=== PATIENT | male | born 1940 | race Two or more races ===

== ENCOUNTER 2018-02-28 13:22 | Outpatient (CLI) | payer MEDICARE ==
--- NOTE | 2018-02-28 14:29 | RAD ---
PA AND LATERAL CHEST: History: COPD. FINDINGS: The heart size is normal. The aorta is tortuous. There is suggestion for mild infiltrate in the lingu la. No pneumothoraces or pleural effusions are seen. There are degenerative changes in the spine. IMPRESSION: Probable pneumonia involving the lingula. POS: C
== END 2018-02-28 13:23 | disposition home or self-care (01) ==
LOC: RAD-FRANK 13:22
PROVIDERS: ATTEND Internal Medicine
DX: J44.9 Chronic obstructive pulmonary disease, unspecified (principal)
CPT/HCPCS: 71046

== ENCOUNTER 2019-06-27 09:28 | Inpatient (IN) | payer MEDICARE ==
[2019-06-27] MEDS ORDERED: methylPREDNISolone Sod Succ/PF 125 MG/2 ML VIAL ONE (09:54)
[2019-06-27] MEDS ORDERED: Magnesium 2 GM/50 ML BAG (IN WATER) ONE (09:54)
--- NOTE | 2019-06-27 10:09 | RAD ---
PORTABLE CHEST: Date: 06/27/19 HISTORY: Dyspnea and cough. COMPARISON: 02/28/18. FINDINGS: Interstitial markings are increased in the lower lobes bilaterally. No evidence of confluent infiltra te or significant effusion. Heart size normal. Vascular markings upper normal. IMPRESSION: No focal infiltrate or consolidation. Increased interstitial markings in the lower lungs. POS: OFF
[2019-06-27 10:16] LABS: #Basophils 0.1 thou/uL (0.0-0.2); #Eosinphils 0.9 thou/uL (0.0-0.7); #Lymphocytes 1.2 thou/uL (1.20-3.40); #Monocytes 1.2 thou/uL (0.11-0.59); #Neutrophils 11.8 thou/uL (1.40-6.50); %Basophils 0.5 % (0.0-1.0); %Eosinophils 5.8 % (0.0-10.0); %Lymphocytes 7.8 % (21.0-51.0); %Monocytes 8.1 % (0.0-10.0); %Neutrophils 77.9 % (42.0-75.0); Mean Corpuscular HGB CONC 32.7 g/dL (32.0-36.0); Mean Corpuscular Hemoglobin 30.9 pg (27.0-31.0); Mean Corpuscular Volume 94.5 fL (78.0-98.0); Mean Platelet Volume 7.6 fL (7.4-10.4); Platelet Count 208 thou/uL (130-400); RBC Distribution Width 12.9 % (11.5-14.5); Red Blood Cell (RBC) Count 4.53 mill/uL (4.70-6.10); White Blood Cell (WBC) Count 15.2 thou/uL (4.8-10.8)
[2019-06-27 10:42] LABS: ALT (SGPT) 11 U/L (8-55); AST (SGOT) 14 U/L (5-34); Albumin 4.4 g/dL (3.4-4.8); Alkaline Phosphatase 59 U/L (40-150); Anion Gap 15 mmol/L (10-20); BUN (Urea Nitrogen) 19 mg/dL (8.4-25.7); Bilirubin, Total 0.7 mg/dL (0.2-1.2); Calc. Creatinine Clearance 0 mL/min (70-130); Calcium 9.5 mg/dL (7.8-10.44); Carbon Dioxide 26 mmol/L (23-31); Chloride 96 mmol/L (98-107); Estimated GFR-MDRD 85; Globulin 3.1 g/dL (2.4-3.5); Glucose 110 mg/dL (83-110); Potassium 4.1 mmol/L (3.5-5.1); Protein, Total 7.5 g/dL (5.8-8.1); Sodium 133 mmol/L (136-145)
[2019-06-27] MEDS ORDERED: methylPREDNISolone Sod Succ 40 MG VIAL IVP SCH (18:00)
[2019-06-27 18:15] VITALS: BMI 26.2
[2019-06-27] MEDS ORDERED: Dextrose 50% Abboject 50 ML SYRINGE IVP PRN (19:18)
[2019-06-27] MEDS ORDERED: Dextrose 5% in Water 1,000 ML IV PRN (19:18)
[2019-06-27] MEDS: guaiFENesin ER 600 MG TAB PO SCH (20:49)
[2019-06-27] MEDS: Cefdinir 300 MG CAP PO SCH (20:49)
[2019-06-28] MEDS: methylPREDNISolone Sod Succ 40 MG VIAL IVP SCH ×4 (00:12→18:02)
--- NOTE | 2019-06-28 01:23 | HP ---
CHIEF COMPLAINT: Shortness of breath, cough. HISTORY OF PRESENT ILLNESS: Mr. Healy is a 78-year-old male with past medical history of COPD, hypertension, came to my office with complaining of shortness of breath and cough, and cough is productive with yellow sputum. He has been having shortness of breath for the last few days and getting worse to the point he is unable to breathe well. He has a lot of exertional dyspnea, even with shortest distance he is having shortness of breath. He uses only the inhaler at home, no nebulizer treatments or steroid inhalers. So, the patient was evaluated in the office, found to be very hypoxic with O2 saturation of 85% on room air. He was given neb treatment. In spite of that, oxygen saturation did not improve. He was put on nasal cannula 2 L and oxygen saturation went up to 90%. So the patient was sent to the hospital. In the ER, the patient was evaluated and found to have COPD exacerbation. He received DuoNeb treatments, magnesium sulfate, and Solu- Medrol. The patient was still wheezing, so he is being admitted for further evaluation and management. PAST MEDICAL HISTORY: 1. COPD. 2. Hypertension. 3. Hyperlipidemia. 4. Chronic back pain. PAST SURGICAL HISTORY: Nothing significant. CURRENT MEDICATIONS: The patient is on 1. Centrum Silver daily. 2. Aspirin 325 mg daily. 3. Hydrochlorothiazide 12.5 mg daily. 4. Lisinopril 10 mg daily. 5. Simvastatin 80 mg daily. 6. ProAir 2 puffs q.i.d. ALLERGIES: NKDA. FAMILY HISTORY: Nothing contributory. SOCIAL HISTORY: The patient lives with family. No history of smoking now, he used to smoke heavily. He quit 5 years ago. He smoked for 60 years. No history of alcohol intake. REVIEW OF SYSTEMS: CARDIOVASCULAR: No chest pain. Has shortness of breath. RESPIRATORY: Has cough. No fever. GASTROINTESTINAL: No nausea, vomiting, or abdominal pain. CENTRAL NERVOUS SYSTEM: No headache. No dizziness. PHYSICAL EXAMINATION: GENERAL: The patient is alert, awake, oriented x3. VITAL SIGNS: Temperature 98, pulse 90, respirations 20, blood pressure 130/70. HEENT: Head is normocephalic, atraumatic. Pupils are equal and reactive. Nasopharynx is pale and dry. Hard and soft palate, no lesions. SKIN: Turgor decreased. NECK: Supple. No JVD. LUNGS: Breath sounds diminished bilaterally. Percussion dull bilaterally. Expiratory wheeze present bilaterally. HEART: S1, S2, regular. ABDOMEN: Soft. No distention. No tenderness. Normal bowel sounds present. RECTAL: Deferred. CENTRAL NERVOUS SYSTEM: No focal deficit. LABORATORY DATA: CBC shows WBC 15, hemoglobin 14, hematocrit 42, platelets 208. Metabolic panel; sodium 133, potassium 4, chloride 96, CO2 of 26, blood urea nitrogen 20, glucose 110. ASSESSMENT: 1. Chronic obstructive pulmonary disease with acute exacerbation. 2. Hypoxia. 3. Hypertension. 4. History of diabetes. 5. Hyperlipidemia. 6. Chronic back pain. 7. History of exertional dyspnea. PLAN: 1. Vital signs q.4 hours. 2. Activity as tolerated. 3. Allergies, NKDA. 4. Hep-Lock. 5. Diet, ADA. 6. Solu-Medrol 40 IVP q.6 hours. 7. DuoNeb 1 unit q.6 hours. 8. Dulera 200/5 two puffs b.i.d. 9. Mucinex 600 b.i.d. 10. Omnicef 300 mg b.i.d. 11. Continue his home medications. 12. Accu-Chek before meals and at bedtime. 13. Sliding scale mild with regular insulin. Job ID: [id number] [facility]
[2019-06-28] MEDS: Insulin Regular 300 UNITS/3 ML VIAL SC PRN (05:42)
[2019-06-28] MEDS: Mometasone/Formoterol 120 PUFF INHALER INH SCH ×2 (07:09→18:21)
[2019-06-28] MEDS: guaiFENesin ER 600 MG TAB PO SCH ×2 (09:35→20:16)
[2019-06-28] MEDS: Cefdinir 300 MG CAP PO SCH ×2 (09:35→20:16)
[2019-06-29] MEDS: methylPREDNISolone Sod Succ 40 MG VIAL IVP SCH ×4 (05:51→18:17)
[2019-06-29] MEDS: Insulin Regular 300 UNITS/3 ML VIAL SC PRN ×3 (05:52→16:54)
[2019-06-29] MEDS: Mometasone/Formoterol 120 PUFF INHALER INH SCH ×2 (06:58→17:59)
[2019-06-29] MEDS: guaiFENesin ER 600 MG TAB PO SCH ×2 (08:12→20:52)
[2019-06-29] MEDS: Cefdinir 300 MG CAP PO SCH ×2 (08:12→20:52)
--- NOTE | 2019-06-29 11:30 | CON ---
DATE OF CONSULTATION: 06/29/2019 This is 75 minutes time, of that time, greater than 50% spent with the patient and/or the patient's unit in the hospital. HISTORY OF PRESENT ILLNESS: The patient is a 78-year-old white male, who was admitted by Dr. Bañuelos yesterday with increasing shortness of breath, cough, and productive sputum. He was found to be hypoxic with a room air O2 saturation of 85%. The patient says he does not feel much different than normal. I have a feeling he has been living with the symptoms for quite some time. PAST MEDICAL HISTORY: 1. COPD. 2. Hypertension. 3. High cholesterol. 4. Chronic back pain. PAST SURGICAL HISTORY: None. MEDICATIONS: Prior to admission; 1. ProAir. 2. Simvastatin. 3. Lisinopril. 4. Hydrochlorothiazide. 5. Aspirin. 6. Centrum. ALLERGIES: NONE. FAMILY MEDICAL HISTORY: Unremarkable. SOCIAL HISTORY: Quit smoking 5 years ago after smoking a pack a day for 60 years. Does not consume alcohol. He is retired. He lives at home with his girlfriend. REVIEW OF SYSTEMS: Twelve-point review of systems is otherwise negative. PHYSICAL EXAMINATION: VITAL SIGNS: Temperature 98.2, pulse 79, respirations 16, O2 saturation 91% on 2 L, and blood pressure 156/58. HEENT: Unremarkable. NECK: No adenopathy, JVD, or bruits. LUNGS: With diffuse wheezing bilaterally. I would characterize this as mild. CARDIAC: S1 and S2. Regular. ABDOMEN: Soft and nontender. EXTREMITIES: No clubbing, cyanosis, or edema. IMAGING STUDIES: His chest x-ray shows chronic interstitial change without evidence of a mass, effusion, or infiltrate. LABORATORY DATA: White blood cell count 15.2, hematocrit 42.8, and platelet count 208. Sodium 132, potassium 4.1, chloride 96, CO2 of 26, BUN 9, creatinine 0.8, and glucose 110. ASSESSMENT: 1. Chronic obstructive pulmonary disease with exacerbation. 2. Acute hypoxic respiratory failure. PLAN: Agree with treatment with steroids and antibiotics. He is probably able to go home at any time. He may need home oxygen. I would start him on a long-acting inhaler such as Dulera two puffs twice a day like he is on right now. He will need PFTs as an outpatient. Job ID: [id number]
[2019-06-29] MEDS ORDERED: Atorvastatin Calcium 20 MG TAB PO SCH (21:00)
[2019-06-30] MEDS: methylPREDNISolone Sod Succ 40 MG VIAL IVP SCH ×2 (00:08→05:17)
[2019-06-30] MEDS: Mometasone/Formoterol 120 PUFF INHALER INH SCH (07:29)
[2019-06-30] MEDS: Cefdinir 300 MG CAP PO SCH (08:46)
[2019-06-30] MEDS: guaiFENesin ER 600 MG TAB PO SCH (08:47)
[2019-06-30] MEDS ORDERED: Lisinopril 10 MG TAB PO SCH (09:00)
[2019-06-30] MEDS ORDERED: Hydrochlorothiazide 25 MG TAB PO SCH ×2 (09:00)
--- NOTE | 2019-06-30 10:01 | PRG ---
DATE OF SERVICE: 06/30/2019 SUBJECTIVE: The patient is doing reasonably well, has no complaints. He wants to go home. OBJECTIVE: VITAL SIGNS: Temperature is 98.0, pulse 76, blood pressure 124/67, and O2 saturation 94% on 2 L. HEENT: Unremarkable. NECK: No JVD. CHEST: Clear to auscultation. CARDIAC: S1 and S2, regular. ABDOMEN: Soft. EXTREMITIES: No edema. ASSESSMENT: Chronic obstructive pulmonary disease with hypoxemia. PLAN: I think he is stable and can go home, probably needs a home O2 evaluation, needs PFTs as an outpatient. No further Pulmonary recommendations. We are available over the weekend as needed. Job ID: [id number]
[2019-06-30] MEDS: Insulin Regular 300 UNITS/3 ML VIAL SC PRN (11:43)
[2019-06-30 11:53] VITALS: BP 153/70; TEMP 97.9
[2019-07-01] MEDS ORDERED: predniSONE 20 MG TAB PO SCH (09:00)
--- NOTE | 2019-07-01 12:21 | EKG ---
Test Reason : Blood Pressure : / mmHG Vent. Rate : 090 BPM Atrial Rate : 090 BPM P-R Int : 156 ms QRS Dur : 082 ms QT Int : 356 ms P-R-T Axes : 078 -18 062 degrees QTc Int : 435 ms Normal sinus rhythm with sinus arrhythmia Nonspecific ST abnormality Abnormal ECG Confirmed by NANCY NOGUERA, PAMELA ([id number]), editor farm journal SHAWNA MARK ([id number]) on 07/01/2019 12:21:01 PM Referred By: Confirmed By:PAMELA CRUZ MD
--- NOTE | 2019-07-04 06:27 | PQF ---
[employer] Algology Teacher Crystal Reports [employer] Reese CORKY PUENTES MD [id number] [id number] CLINICAL DOCUMENTATION CLARIFICATION FORM: POST DISCHARGE Addendum to original discharge summary date: ____ Late entry note date: __ DATE: 07/04/2019 ATTN: CORKY STRICKLAND MD Please exercise your independent, professional judgment in responding to the clarification form. Clinical indicators are provided on the bottom of this form for your review Diagnosis : Acute Hypoxic respiratory failure Present on Admission (POA): [ y ] Yes [ ] No [ ] Unable to determine Coding guidelines require hospitals to identify whether a diagnosis was present on admission (POA) or not. To accurately assign the appropriate POA indicator, this information must be clearly documented within the medical record. CLINICAL INDICATORS - SIGNS / SYMPTOMS / LABS SOB - Documetned in H&P on 06/27 by CORKY STRICKLAND MD He is unable to breath well - Documetned in H&P on 06/27 by CORKY STRICKLAND MD Exertional dyspnea - Documetned in H&P on 06/27 by CORKY STRICKLAND MD very hypoxic with O2 saturation of 85 % on room air - Documetned in H&P on by CORKY STRICKLAND MD COPD exacerbation - Documetned in H&P on 06/27 by CORKY STRICKLAND MD Acute Hypoxic respiratory failure - Documented in Consultation note on 07/03 by Rainer Lantigua MD RISK FACTORS: Hx of COPD - Documetned in H&P on 06/27 by CORKY STRICKLAND MD TREATMENT: Pul nassl cannula 2 L and oxygen - Documetned in H&P on 06/27 by CORKY STRICKLAND MD Steroids and antibiotics - Documented in Consultation note on 07/03 by Rainer Lantigua MD (This form is maintained as a part of the permanent medical record) [employer] Algology Teacher Crystal Reports [id number]. All Rights Reserved [email or web address] [not provided] MTDD
--- NOTE | 2019-07-04 11:01 | PFT ---
PATIENT HISTORY: HEIGHT:68 IN WEIGHT: 172 SMOKER: NO HOW LON YRS PACKS PER DAY: 2.5 PRODUCTIVE COUGH: NO LUNG DISEASE: PHYSICIAN INTERPRETATION PFT data: 06/30/19 FEV1 1.38 L, 53% predicted, FVC 2.34L, 63% predicted. FEV1/FVC Ratio 0.59. Residual volume is severely elevated. DLCO is severely reduced. 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 The gas exchange is severely reduced. Firer Locomotive: CRYSTAL Motion Picture Critic: CRYSTAL DUONG
== END 2019-06-30 14:20 | disposition home or self-care (01) | DRG 189 ==
LOC: ERS 09:28 → OBSVTOIN 12:07 → T4-A 12:07
PROVIDERS: ADMIT Internal Medicine; ATTEND Internal Medicine
DX: J96.01 Acute respiratory failure with hypoxia (principal); J44.1 Chronic obstructive pulmonary disease with (acute) exacerbation; I10 Essential (primary) hypertension; E78.5 Hyperlipidemia, unspecified; M54.9 Dorsalgia, unspecified; G89.29 Other chronic pain; Z79.82 Long term (current) use of aspirin; Z79.899 Other long term (current) drug therapy; Z87.891 Personal history of nicotine dependence
CPT/HCPCS: 36415; 36416; 71045; 80053; 83880; 84484; 85025; 93005; 94010; 94640; 94727; 94729; 96365; 96375; J1815; J2920; J2930; J3475; J7620

== ENCOUNTER 2019-09-25 14:47 | Outpatient (CLI) | payer MEDICARE ==
--- NOTE | 2019-09-25 15:05 | RAD ---
XR Lumbar Spine 2 Or 3 View History: Low back pain Comparison: None. Findings: No acute fracture or malalignment. Moderate degenerative disc space narrowing at L5/S1. Mod erate facet arthropathy L3-S1. 2 mm L4 over L5 anterolisthesis. Narrowing of the L3-L5 interspinous space with cortical sclerosis and subcortical cysts. Mild aortic calcifications. Impression: Moderate degenerative changes. No acute fracture.
== END 2019-09-25 14:48 | disposition home or self-care (01) ==
LOC: RAD-FRANK 14:47
PROVIDERS: ATTEND Internal Medicine
DX: M54.5 Low back pain (principal); M47.816 Spondylosis without myelopathy or radiculopathy, lumbar region
CPT/HCPCS: 72100

== ENCOUNTER 2020-10-14 18:36 | Inpatient (IN) | payer MEDICARE ==
[2020-10-14] MEDS ORDERED: Dexamethasone 10 MG/ML VIAL ONE (18:47)
[2020-10-14] MEDS ORDERED: fentaNYL Citrate/PF 2,000 MCG in Sodium Chloride 0.9% 60 ML IV SCH (19:00)
[2020-10-14 19:11] LABS: #Lymphocytes 0.7 thou/uL (1.20-3.40); #Monocytes 0.7 thou/uL (0.11-0.59); #Neutrophils 3.6 thou/uL (1.40-6.50); %Eosinophils 0.1 % (0.0-10.0); %Lymphocytes 14.7 % (21.0-51.0); %Monocytes 14.5 % (0.0-10.0); %Neutrophils 70.7 % (42.0-75.0); Hemoglobin 9.8 g/dL (14.0-18.0); Mean Corpuscular Hemoglobin 31.9 pg (27.0-31.0); Mean Corpuscular Volume 96.8 fL (78.0-98.0); Mean Platelet Volume 8.5 fL (7.4-10.4); Platelet Count 136 thou/uL (130-400); RBC Distribution Width 13.6 % (11.5-14.5); Red Blood Cell (RBC) Count 3.05 mill/uL (4.70-6.10); White Blood Cell (WBC) Count 5.1 thou/uL (4.8-10.8)
[2020-10-14 19:32] LABS: ALT (SGPT) 417 U/L (8-55); AST (SGOT) 656 U/L (5-34); Albumin 2.9 g/dL (3.4-4.8); Alkaline Phosphatase 44 U/L (40-110); Anion Gap 17 mmol/L (10-20); BUN (Urea Nitrogen) 52 mg/dL (8.4-25.7); Bilirubin, Total 0.5 mg/dL (0.2-1.2); Calc. Creatinine Clearance 0 mL/min (70-130); Calcium 6.6 mg/dL (7.8-10.44); Carbon Dioxide 24 mmol/L (23-31); Chloride 106 mmol/L (98-107); Globulin 2.8 g/dL (2.4-3.5); Glucose 143 mg/dL (83-110); Potassium 4.7 mmol/L (3.5-5.1); Protein, Total 5.7 g/dL (5.8-8.1); Sodium 142 mmol/L (136-145)
[2020-10-14 19:36] LABS: Bacteria/HPF None Seen HPF (None Seen); Bilirubin Negative (Negative); Blood, Urine 2+ (Negative); Clarity Clear (Clear); Glucose, Urine (Dipstick) Normal (Negative); Ketone, Urine Negative (Negative); Leukocyte Negative Leu/uL (Negative); Nitrite Negative (Negative); Protein, Urine (Dipstick) 30 mg/dL (Neg-Trace); Specific Gravity, Urine 1.016 (1.002-1.036); Squamous Epithelial 0-3 HPF (0-3); Urobilinogen Normal mg/dL (Less than 2); pH, Urine 5.5 (5.0-9.0)
[2020-10-14 19:58] LABS: CKMB 5.8 ng/mL (0-6.6)
--- NOTE | 2020-10-14 20:01 | RAD ---
PORTABLE CHEST: Date: 10-14-2020 PROVIDED CLINICAL HISTORY: Hypoxia, Covid symptoms Comparison: 06-27-19 FINDINGS: Cardiac and mediastinal silhouette is unchanged in appearance. There is an endotracheal tube, the tip of which projects inferior to the thoracic inlet but cranial to the daxa. There is an enteric cath eter, the tip of which is not visualized but is below the diaphragm. There is extensive bilateral int erstitial and airspace disease. The right costophrenic angle is not well defined. The supine nature o f the examination is not sensitive for detection of pneumothorax, without definite evidence for such. IMPRESSION: 1. Support apparatus as described. 2. Extensive bilateral parenchymal opacity, compatible with Covid pneumonia in the appropriate clinic al context. Other etiologies could have a similar appearance. POS: MIGNON
[2020-10-14 20:04] LABS: CO2 Tension 65.8 mmHg (35.0-45.0); O2 Tension (PaO2), arterial 79.4 mmHg (> 60.0); pH, Arterial 7.22 (7.35-7.45)
[2020-10-14 20:05] LABS: Actual Bicarbonate (HCO3a) 26.2 mEq/L (22-28); Base Excess (BEa) -2.4 mEq/L (-2.0 to +3.0); Carboxyhemoglobin (COHb) 0.3 gm% (0.0-3.0); Potassium - ABG Lab 4.51 mmol/L (3.70-5.30)
[2020-10-14 20:06] LABS: Analyzer IN Cardio ER; Calcium, Ionized (arterial) 1.02 mmol/L (1.12-1.30); Puncture Site RRA
[2020-10-14] MEDS ORDERED: Ondansetron ODT 4 MG TAB PO PRN (20:08)
[2020-10-14] MEDS ORDERED: Acetaminophen 650 MG Suppository PR PRN (20:08)
[2020-10-14] MEDS ORDERED: Ventilator Sedation Protocol 1 EACH FS ONE (20:08)
[2020-10-14] MEDS ORDERED: Ondansetron PF 4 MG/2 ML Vial IVP PRN (20:08)
--- NOTE | 2020-10-14 20:16 | PDOC.HHP ---
Hospitalist HPI - History of Present Illness respiratory failure History of Present Illness: history is limited, during my evaluation patient was on MV and sedated, no family members were present at the moment of my evaluation most of the history was obtain from ems and emr Case of an 79y/o male with a pmhx of htn, copd and hld who was herminia to hospital due to respiratory failure. apparently patient was recently diagnosed with covid 19 about a wk ago after having symptoms of loss of taste and smell. patient was found unresponsive for which ems was called. patient was found with an 02 sat in the 40s with a GCS of 3 for which he was intubated at site and transfer to this institution. Here he was evaluated, cxr showed worsening covid pneumonia with renal failure and hospitalist was called for further evaluation and management. Hospitalist ROS - Review of Systems ROS unobtainable: due to endotracheal tube Hospitalist History - Past Surgical History Other Surgical History: unable to asses due to MV - Family History Other Family History: unable to asses due to MV - Social History Other Social History: unable to asses due to MV - Exam General Appearance: ill appearing General - other findings: on MV Eye: PERRL, anicteric sclera ENT: normocephalic atraumatic, no oropharyngeal lesions Neck: supple, symmetric, no JVD Heart: RRR, no murmur, no gallops Respiratory: no rales, normal chest expansion, rhonchi Gastrointestinal: soft, non-tender, non-distended, normal bowel sounds Extremities: no cyanosis, no clubbing, no edema Skin: normal turgor, no lesions, no rashes Neurological: cranial nerve grossly intact, normal sensation to touch Musculoskeletal: normal tone, normal strength, no muscle wasting Psychiatric: normal affect, normal behavior, A&O x 3 Hospitalist Results - Labs Result Diagrams: 10/14/20 18:58 10/14/20 18:58 Lab results: WBC 5.1 thou/uL (4.8-10.8) 10/14/20 18:58 Hgb 9.8 g/dL (14.0-18.0) L 10/14/20 18:58 Hct 29.6 % (42.0-52.0) L 10/14/20 18:58 MCV 96.8 fL (78.0-98.0) 10/14/20 18:58 Plt Count 136 thou/uL (130-400) 10/14/20 18:58 Neutrophils % 70.7 % (42.0-75.0) 10/14/20 18:58 ABG pH 7.22 (7.35-7.45) L* 10/14/20 19:54 ABG pCO2 65.8 mmHg (35.0-45.0) H* 10/14/20 19:54 ABG pO2 79.4 mmHg (> 60.0) H 10/14/20 19:54 Sodium 142 mmol/L (136-145) 10/14/20 18:58 Potassium 4.7 mmol/L (3.5-5.1) 10/14/20 18:58 Chloride 106 mmol/L (98-107) 10/14/20 18:58 Carbon Dioxide 24 mmol/L (23-31) 10/14/20 18:58 BUN 52 mg/dL (8.4-25.7) H 10/14/20 18:58 Creatinine 2.25 mg/dL (0.7-1.3) H 10/14/20 18:58 Glucose 143 mg/dL (83-110) H 10/14/20 18:58 Lactic Acid 1.5 mmol/L (0.5-2.2) 10/14/20 19:01 Calcium 6.6 mg/dL (7.8-10.44) L 10/14/20 18:58 Total Bilirubin 0.5 mg/dL (0.2-1.2) 10/14/20 18:58 AST 656 U/L (5-34) H 10/14/20 18:58 ALT 417 U/L (8-55) H 10/14/20 18:58 Alkaline Phosphatase 44 U/L (40-110) 10/14/20 18:58 CK-MB (CK-2) 5.8 ng/mL (0-6.6) 10/14/20 18:58 Troponin I 4.076 ng/mL (< 0.028) H* 10/14/20 18:58 Serum Total Protein 5.7 g/dL (5.8-8.1) L 10/14/20 18:58 Albumin 2.9 g/dL (3.4-4.8) L 10/14/20 18:58 Urine Ketones Negative mg/dL (Negative) 10/14/20 19:15 Urine Blood 2+ (Negative) A 10/14/20 19:15 Urine Nitrite Negative (Negative) 10/14/20 19:15 Ur Leukocyte Esterase Negative Tucker/uL (Negative) 10/14/20 19:15 Urine RBC 11-20 HPF (0-3) A 10/14/20 19:15 Urine WBC 7-10 HPF (0-3) A 10/14/20 19:15 Ur Squamous Epith Cells 0-3 HPF (0-3) 10/14/20 19:15 Urine Bacteria None Seen HPF (None Seen) 10/14/20 19:15 Hospitalist H&P A/P - Problem (1) Acute and chronic respiratory failure Code(s): J96.20 - ACUTE AND CHR RESP FAILURE, UNSP W HYPOXIA OR HYPERCAPNIA Status: Acute (2) Pneumonia due to COVID-19 virus Code(s): U07.1 - COVID-19; J12.89 - OTHER VIRAL PNEUMONIA Status: Acute (3) Renal failure Status: Acute (4) NSTEMI (non-ST elevated myocardial infarction) Code(s): I21.4 - NON-ST ELEVATION (NSTEMI) MYOCARDIAL INFARCTION Status: Acute (5) HLD (hyperlipidemia) Code(s): E78.5 - HYPERLIPIDEMIA, UNSPECIFIED Status: Acute (6) COPD (chronic obstructive pulmonary disease) Status: Acute (7) Diabetes Code(s): E11.9 - TYPE 2 DIABETES MELLITUS WITHOUT COMPLICATIONS Status: Acute - Plan Plan: 79y/o male that arrived with respiratory failure requiring MV secondary to covid 19 acute on chronic resp failure requiring MV - was 40% RA, GCS 3 - on MV - pulmonology consulted - sedation protocol - gi prophylaxis covid 19 pneumonia - apparently diagnosed 1wk ago - cxr consistent with covid 19 - will start decadron - vitamin c d + zinc nstemi - likely nstemi type 2 - will start AC with lovenox full dose - cardio evaluation - 2d echo - troponin 4, will trend - unable to start beta fernando acei due to borderline low b/p with systolic in the low 100s - asa tristen - starting ivfs - nephrology consulted - u/s renal - f/u renal function and u/o dm acc+ss
[2020-10-14 20:25] LABS: SARS-CoV-2 NAA Rapid Test DETECTED (NotDetected)
[2020-10-14] MEDS ORDERED: DISCONTINUE PREVIOUS NARCOTIC PAIN MEDICATIONS AND BENZODIAZEPINES FS SCH (20:30)
[2020-10-14] MEDS ORDERED: Propofol BOLUS 1,000 MG/100 ML VIAL IV PRN (20:30)
[2020-10-14] MEDS ORDERED: Fentanyl BOLUS 250 ML IVPB PRN (20:30)
[2020-10-14] MEDS ORDERED: Morphine 2 MG/ML VIAL SLOW IVP PRN (20:30)
[2020-10-14] MEDS ORDERED: Atorvastatin Calcium 20 MG TAB PO SCH (21:00)
[2020-10-14 21:25] LABS: Medtox Reader # READER 4
[2020-10-14 21:27] LABS: Amphetamine Not Detected (NotDetected); Barbiturates Screen Not Detected (NotDetected); Benzodiazepine Screen Not Detected (NotDetected); Cocaine Metabolite Screen Not Detected (NotDetected); Medtox Control Line Valid? VALID (VALID); Methadone Not Detected (NotDetected); Methamphetamine Not Detected (NotDetected); Opiate Screen Not Detected (NotDetected); Oxycodone Screen Not Detected (NotDetected); Phencyclidine (PCP) Not Detected (NotDetected); THC/Cannabinoid Screen Not Detected (NotDetected); Tricyclic Screen Not Detected (NotDetected)
[2020-10-14] MEDS ORDERED: Aspirin 300 MG Suppository ONE (22:29)
[2020-10-14 22:32] LABS: Troponin I 5.579 ng/mL (< 0.028)
[2020-10-14] MEDS ORDERED: Dextrose 5% in Water 1,000 ML IV PRN (23:10)
[2020-10-14] MEDS ORDERED: Dextrose 50% Abboject 50 ML SYRINGE SLOW IVP PRN (23:10)
[2020-10-15] MEDS: Sodium Chloride 0.9% 1,000 ML IV SCH ×3 (00:44→16:53)
[2020-10-15 01:23] LABS: Critical Call Chem Troponin I RESULT DECREASING; Troponin I 5.509 ng/mL (< 0.028)
[2020-10-15] MEDS ORDERED: Sodium Chloride 0.9% 500 ML IV SCH (02:00)
[2020-10-15 04:31] LABS: ALT (SGPT) 680 U/L (8-55); AST (SGOT) 1269 U/L (5-34); Alkaline Phosphatase 41 U/L (40-110); Anion Gap 15 mmol/L (10-20); BUN (Urea Nitrogen) 51 mg/dL (8.4-25.7); Bilirubin, Total 0.5 mg/dL (0.2-1.2); Calc. Creatinine Clearance 34 mL/min (70-130); Calcium 6.9 mg/dL (7.8-10.44); Carbon Dioxide 25 mmol/L (23-31); Chloride 106 mmol/L (98-107); Glucose 162 mg/dL (83-110); Magnesium 2.3 mg/dL (1.6-2.6); Potassium 4.2 mmol/L (3.5-5.1); Sodium 142 mmol/L (136-145)
[2020-10-15 04:36] LABS: Band 56 % (5-11); Hemoglobin 9.8 g/dL (14.0-18.0); Hypochromia SLIGHT = 6-15 cells (100X) (0-5/hpf); Lymphocytes 3 % (21-51); MDiff Complete? YES; Mean Corpuscular HGB CONC 31.7 g/dL (32.0-36.0); Mean Corpuscular Hemoglobin 31.1 pg (27.0-31.0); Mean Corpuscular Volume 98.1 fL (78.0-98.0); Mean Platelet Volume 8.9 fL (7.4-10.4); Metamyelocyte 2 % (0-0); Monocytes 6 % (0-10); Neutrophil 33 % (42-75); Platelet Count 133 thou/uL (130-400); Platelet Morphology Comment Appears Adequate; RBC Distribution Width 13.7 % (11.5-14.5); Red Blood Cell (RBC) Count 3.15 mill/uL (4.70-6.10); Reflex for Review?? YES; White Blood Cell (WBC) Count 13.8 thou/uL (4.8-10.8)
[2020-10-15] MEDS ORDERED: Sterile Water 0 ML ONE (06:31)
[2020-10-15] MEDS: Vecuronium 10 MG VIAL ONE ×2 (07:31→13:31)
[2020-10-15] MEDS: fentaNYL Citrate/PF 2,000 MCG in Sodium Chloride 0.9% 60 ML IV SCH (07:39)
--- NOTE | 2020-10-15 07:50 | ULT ---
US Renal Bilateral STANDARD History: Renal failure Comparison: None. Findings: The right kidney measures 11.5 x 4.7 x 4.4 cm with a 1 cm interpolar cyst. No mass or hydro nephrosis. The left kidney measures 10.7 x 5.4 x 5.2 cm without mass, hydronephrosis or abnormal calcifications. Urinary bladder is decompressed with a Whittaker catheter. Impression: No evidence for obstructive uropathy.
[2020-10-15] MEDS: Cholecalciferol (Vitamin D3) 400 UNITS TAB PO SCH (08:45)
[2020-10-15] MEDS: Propofol 1,000 MG/100 ML VIAL IV PRN ×2 (08:45→23:28)
[2020-10-15] MEDS: Zinc Sulfate 220 MG CAP PO SCH (08:45)
[2020-10-15] MEDS: Aspirin 325 mg Enteric Coated Tablet PO SCH (08:45)
[2020-10-15] MEDS: Famotidine/PF 20 mg/2ml Vial SLOW IVP SCH (08:46)
[2020-10-15] MEDS: Enoxaparin Sodium 80 MG/0.8 ML SYRINGE SC SCH (08:46)
[2020-10-15] MEDS: Dexamethasone 4 mg/ml Vial SLOW IVP SCH (08:46)
[2020-10-15] MEDS: Ascorbic Acid 500 mg Chewable Tablet PO SCH (09:19)
--- NOTE | 2020-10-15 11:49 | CON ---
DATE OF CONSULTATION: HISTORY OF PRESENT ILLNESS: Geronimo Healy is an 79-year-old white male, who was admitted with COVID pneumonia, respiratory arrest, and currently is intubated. History is obtained from review of the chart and physical examination was deferred due to COVID. In June 2019, he was admitted with COPD exacerbation with hypoxemia. About one week ago, he was diagnosed as having COVID-19 after loss of taste and smell. He then was found to be unresponsive when paramedics arrived, O2 saturation was in the 40% range with Willard Coma Scale of 3. He was intubated and transferred here. PAST MEDICAL HISTORY: Hypertension, diabetes, hypercholesterolemia, and COPD. MEDICATIONS: 1. Mucinex 600 b.i.d. 2. Hydrochlorothiazide 12.5 daily. 3. DuoNebs q.i.d. 4. Lisinopril 10 mg daily. 5. Dulera 2 puffs b.i.d. 6. Prednisone 10 mg daily. 7. Simvastatin 40 mg q.2 days. ALLERGIES: NONE. OPERATIONS: Apparently none. SOCIAL HISTORY: He does not drink from previous histories. He did smoke 1 pack per day for 60 years, but stopped 6 years ago. REVIEW OF SYSTEMS: Unobtainable. PHYSICAL EXAMINATION: VITAL SIGNS: Blood pressure 94/55; pulse of 68, sinus rhythm. Physical examination is deferred due to COVID. IMAGING STUDIES: There is no EKG on the chart. Renal ultrasound is unremarkable. Chest x-ray reveals extensive bilateral opacities. LABORATORY DATA: White count 13,800, hemoglobin 9.8, hematocrit 30.9, and platelets 133,000. D-dimer 2.67. A pH of 7.22, pCO2 of 65.8, and pO2 of 79.4. Sodium 142, potassium 4.2, chloride 106, carbon dioxide 25, BUN 51, and creatinine 1.98. Creatinine was 2.25 on admission and his baseline was 0.87 in June 2019. AST has increased to 1269 and ALT 680. Troponin-I 5.579. BNP 792.7. IMPRESSION: 1. Acute respiratory failure with hypercapnia. 2. COVID pneumonia. 3. Acute kidney injury. 4. Non-ST segment elevation myocardial infarction, probably type 2. 5. Chronic obstructive pulmonary disease. 6. Hyperlipidemia. 7. Diabetes. 8. Hypertension. 9. Liver function test elevation. PLAN: The patient is being started on Decadron. At the present time, he is hypotensive and receiving intravenous fluids. I do not feel that any cardiac intervention would be helpful in his care. Certainly, his long-term prognosis is poor given his significant COPD, advanced age, and now with multiorgan system failure. Job ID: [id number] MTDD
[2020-10-15] MEDS: HumaLOG 300 UNITS/3 ML VIAL SC PRN ×3 (12:47→23:29)
[2020-10-15] MEDS ORDERED: FLU VACC QS2020-21(65YR UP)/PF 240 MCG/0.7 ML SYRINGE IM ONE (13:00)
[2020-10-15] MEDS ORDERED: Vecuronium 10 MG VIAL ONE (13:29)
[2020-10-15] MEDS: Lorazepam 2 MG/ML VIAL SLOW IVP PRN (13:31)
--- NOTE | 2020-10-15 16:09 | PDOC.HOSPP ---
- Subjective Encounter Date: 10/15/20 Encounter Time: 12:00 Subjective: sedated, is on vent he moves all extremities per staff - Objective Vital Signs & Weight: Vital Signs (12 hours) Pulse Resp BP Pulse Ox 10/15/20 14:41 68 88/52 L 10/15/20 14:00 20 10/15/20 12:00 20 10/15/20 10:28 68 94/55 L 10/15/20 10:00 20 10/15/20 08:00 20 92 L 10/15/20 07:46 77 93/54 L 10/15/20 06:00 20 Weight Admit Weight 178 lb 9.191 oz Weight 178 lb 9.191 oz Most Recent Monitor Data Heart Rate from ECG 70 NIBP 113/67 NIBP BP-Mean 82 Respiration from ECG 0 SpO2 98 I&O: 10/14/20 10/15/20 10/16/20 06:59 06:59 06:59 Intake Total 1090 Output Total 730 530 Balance 360 -530 Result Diagrams: 10/15/20 03:06 10/15/20 03:06 Additional Labs: Accuchecks 10/15/20 12:32 POC Glucose 162 H Hospitalist ROS - Medication Medications: Active Medications Generic Name Dose Route Start Last Admin Trade Name Freq PRN Reason Stop Dose Admin Ascorbic Acid 1,000 mg 10/15/20 09:00 10/15/20 09:19 Ascorbic Acid 500 Mg Chewable Tablet PO Not Given DAILY MACKENZIE Aspirin 325 mg 10/15/20 09:00 10/15/20 08:45 Aspirin 325 Mg Enteric Coated Tablet PO 325 mg DAILY MACKENZIE Administration Atorvastatin Calcium 20 mg 10/14/20 21:00 10/15/20 00:32 Atorvastatin Calcium 20 Mg Tab PO Not Given Q2DAYS MACKENZIE Cholecalciferol 400 units 10/15/20 09:00 10/15/20 08:45 Cholecalciferol (Vitamin D3) 400 Units Tab PO 400 units DAILY MACKENZIE Administration Dexamethasone 6 mg 10/15/20 09:00 10/15/20 08:46 Dexamethasone 4 Mg/Ml Vial SLOW IVP 6 mg DAILY MACKENZIE Administration Enoxaparin Sodium 80 mg 10/15/20 09:00 10/15/20 08:46 Enoxaparin Sodium 80 Mg/0.8 Ml Syringe SC 80 mg 09 MACKENZIE Administration Famotidine 20 mg 10/15/20 09:00 10/15/20 08:46 Famotidine/Pf 20 Mg/2ml Vial SLOW IVP 20 mg QAM MACKENZIE Administration Sodium Chloride 1,000 mls @ 100 mls/hr 10/14/20 20:15 10/15/20 07:31 Normal Saline 0.9% IV Not Given .Q10H MACKENZIE Fentanyl Citrate 2,000 mcg/ 100 mls @ 0 mls/hr 10/14/20 20:30 10/15/20 07:39 Sodium Chloride IV 11/13/20 20:30 100 mls INF MACKENZIE Administration Protocol Per Protocol Insulin Human Lispro 0 units 10/14/20 23:10 10/15/20 12:47 Humalog 300 Units/3 Ml Vial SC 2 unit .MILD SLIDING SCALE PRN Administration Mild Correctional Scale Lorazepam 2 mg 10/14/20 20:30 10/15/20 13:31 Lorazepam 2 Mg/Ml Vial SLOW IVP 11/13/20 20:30 2 mg Q1H PRN Administration Breakthrough agitation Propofol 1,000 mg 10/14/20 20:30 10/15/20 08:45 Propofol 1,000 Mg/100 Ml Vial IV 11/13/20 20:30 1,000 mg INF PRN Administration TO ACHIEVE GOAL RASS Protocol Sodium Chloride 10 ml 10/15/20 09:00 10/15/20 08:46 Flush - Normal Saline 10 Ml Syringe IVF 10 ml Q12HR MACKENZIE Administration Zinc Sulfate 220 mg 10/15/20 09:00 10/15/20 08:45 Zinc Sulfate 220 Mg Cap PO 220 mg DAILY MACKENZIE Administration - Exam Eye: anicteric sclera ENT: no oropharyngeal lesions, dry oral mucosa Neck: supple, no JVD Heart: RRR, no murmur Respiratory: no wheezes, rales, rhonchi Gastrointestinal: soft, non-tender, non-distended, normal bowel sounds Extremities: no cyanosis, no edema Neurological: cranial nerve grossly intact, no focal deficits Hosp A/P (1) Acute respiratory failure with hypoxia and hypercarbia Code(s): J96.01 - ACUTE RESPIRATORY FAILURE WITH HYPOXIA; J96.02 - ACUTE RE SPIRATORY FAILURE WITH HYPERCAPNIA Status: Acute (2) COPD exacerbation Code(s): J44.1 - CHRONIC OBSTRUCTIVE PULMONARY DISEASE W (ACUTE) EXACERBATION Status: Acute (3) ASHLEY (acute kidney injury) Code(s): N17.9 - ACUTE KIDNEY FAILURE, UNSPECIFIED Status: Acute (4) Elevated LFTs Code(s): R79.89 - OTHER SPECIFIED ABNORMAL FINDINGS OF BLOOD CHEMISTRY Status: Acute (5) Acute exacerbation of CHF (congestive heart failure) Code(s): I50.9 - HEART FAILURE, UNSPECIFIED Status: Suspected Qualifiers: Heart failure type: diastolic Qualified Code(s): I50.33 - Acute on chronic diastolic (congestive) heart failure (6) Sepsis Code(s): A41.9 - SEPSIS, UNSPECIFIED ORGANISM Status: Acute Qualifiers: Sepsis type: sepsis due to unspecified organism Sepsis acute organ dysfunction status: with acute organ dysfunction Severe sepsis acute organ dysfunction type: acute renal failure (7) Acute metabolic encephalopathy Code(s): G93.41 - METABOLIC ENCEPHALOPATHY Status: Acute (8) Hypoalbuminemia due to protein-calorie malnutrition Code(s): E88.09 - OTH DISORDERS OF PLASMA-PROTEIN METABOLISM, NEC; E46 - UNSPECIFIED PROTEIN-CALORIE MALNUTRITION Status: Chronic (9) NSTEMI (non-ST elevated myocardial infarction) Code(s): I21.4 - NON-ST ELEVATION (NSTEMI) MYOCARDIAL INFARCTION Status: Acute (10) Pneumonia due to COVID-19 virus Code(s): U07.1 - COVID-19; J12.89 - OTHER VIRAL PNEUMONIA Status: Acute - Plan continue dexamethasone, lovenox full renal dose, iv fluids, aspirin. has significant elevation and increase of lft's from admission echo for lv function, bnp is elevated tried calling his family with phone # on [employer], it goes straight to message and cant reach them d/w Per ER records patient has not recieved any iv fluids, unclear if he has shock liver? dc lipitor, unknown downtime prior to arrival, is apparently moving all extremities per staff. will f/u
--- NOTE | 2020-10-15 16:25 | CON ---
DATE OF CONSULTATION: 10/15/2020 HISTORY OF PRESENT ILLNESS: Mr. Healy is an 79-year-old male who was diagnosed with COVID a week ago. He was found unresponsive at home and was intubated by the [facility]. He is transferred here. PAST MEDICAL HISTORY: Remarkable for: 1. Hypertension. 2. Diabetes. 3. Lipid disorder. 4. COPD. MEDICATIONS: Prior to admission, he was on: 1. Mucinex. 2. Hydrochlorothiazide. 3. DuoNeb. 4. Lisinopril. 5. Dulera. 6. Prednisone. 7. Simvastatin. ALLERGIES: THERE ARE NO ALLERGIES RECORDED. SOCIAL HISTORY: He is a pack-a-day smoker up until 6 years ago. He does not drink. REVIEW OF SYSTEMS: Ten-point review of systems not obtainable because he is intubated. PHYSICAL EXAMINATION: VITAL SIGNS: Blood pressure is 113/67, heart rate 70, respiratory rates 20, and he is afebrile. HEAD AND NECK: Unremarkable. LUNGS: Remarkable for distant breath sounds. HEART: Regular rhythm. ABDOMEN: Soft. NEUROLOGIC: He is sedated, so no neuro exam could be performed. LABORATORY DATA: Sodium 142, potassium 4.2, chloride 106, bicarb 25, BUN 51, and creatinine 1.98, creatinine was 2.25 yesterday. White count 13.8, hemoglobin 9.8, and platelets 133. A pH 7.22, CO2 of 65, PO2 of 79 yesterday after arrival. There is no blood gas from today. He was on 100% oxygen and saturating in the high 80s to low 90s, so he was switched to the prone position today. IMPRESSION: 1. COVID pneumonia. 2. Elevated liver enzymes. 3. Underlying chronic obstructive pulmonary disease. PFTs done in June of last year showed an FEV1 of 1.91 L, total lung capacity was normal, residual volume was increased significantly. Obviously, he will be mechanically ventilated for quite some time. Given his underlying lung disease, his prognosis is quite guarded. His other problems include: 1. Acute kidney injury that appears to be improving. 2. Elevated troponin, most likely a type 2 myocardial infarction. 3. Lipid disorder. 4. Diabetes. 5. Hypertension. We will follow. CRITICAL CARE TIME: 30 minutes. Job ID: [id number] [facility]
[2020-10-15] MEDS ORDERED: Calcium Chloride 13.6 MEQ in Sodium Chloride 0.9% 100 ML IVPB SCH (17:00)
--- NOTE | 2020-10-15 17:36 | EKG ---
Test Reason : Blood Pressure : / mmHG Vent. Rate : 068 BPM Atrial Rate : 068 BPM P-R Int : 154 ms QRS Dur : 086 ms QT Int : 426 ms P-R-T Axes : 062 014 047 degrees QTc Int : 452 ms Normal sinus rhythm Normal ECG Confirmed by Romulo YEAGER ([id number]) on 10/15/2020 5:35:50 PM Referred By: TU Confirmed By:Romulo YEAGER
--- NOTE | 2020-10-15 17:55 | CON ---
DATE OF CONSULTATION: 10/15/2020 SERVICE: Nephrology. REASON FOR CONSULTATION: Acute elevation in creatinine. REQUESTING PHYSICIAN: Dr. Noam Galaviz. HISTORY OF PRESENT ILLNESS: An 79-year-old male admitted due to worsening shortness of breath in the context of recent COVID symptoms. The patient was diagnosed with COVID infection about a week ago, was found by relatives to be unresponsive. Oxygen was said to be in 40s that is SpO2 with GCS of 3. Hence, the patient was intubated at the site and was subsequently brought to the hospital. Chest x-ray showed multifocal bilateral pneumonia consistent with COVID pneumonia. The patient also was found to have elevated creatinine, hence Nephrology consult. This patient was unable to provide any history as he is currently intubated and mechanically ventilated. The following history was obtained from review of medical record. PAST MEDICAL HISTORY: 1. Hypertension. 2. Diabetes mellitus. 3. Hypercholesterolemia. 4. COPD. 5. Chronic back pain. PAST SURGICAL HISTORY: Unable to complete due to the patient's condition. FAMILY HISTORY: Could not be completed due to the patient's condition. SOCIAL HISTORY: The patient reportedly lives with family. He is reported to be a heavy smoker, but quit about 6 years ago after 60 years of smoking. No history of alcohol or recreational drug use. ALLERGIES: NO KNOWN DRUG ALLERGIES REPORTED. PRIOR TO HOSPITAL MEDICATIONS: This could not be verified. However, review of medical records showed the patient may be on the following. 1. Simvastatin 40 mg every 2 days. 2. Dulera 200 mcg/5 two inhalation b.i.d. 3. DuoNeb q.i.d. 4. Hydrochlorothiazide 12.5 daily. 5. Lisinopril 10 mg daily. 6. Prednisone 10 mg daily. REVIEW OF SYSTEMS: Could not be performed due to the patient's condition. PHYSICAL EXAMINATION: VITAL SIGNS: Temperature 98.8, pulse 68, respiratory rate 20, SpO2 of 90% on the ventilator, and blood pressure 92/55. GENERAL: Elderly male, acutely ill-looking. HEENT: Normocephalic, atraumatic. ET tube is in place. NECK: Symmetric with no obvious JVD. CARDIOVASCULAR: Regular rhythm and rate. RESPIRATORY: Ventilator transmitted breath sounds noted. GI: Full, soft, nondistended with bowel sounds present. EXTREMITIES: No obvious edema appreciated. SKIN: No obvious rash appreciated. PECAN GROWER: Sedated. DIAGNOSTIC DATA: CBC earlier today showed WBC of 13.8, hemoglobin of 9.8, MCV of 98.1, and platelets of 133. On presentation yesterday, WBC was 5.1, hemoglobin 9.8, and platelets 136. Arterial blood gas performed on presentation yesterday, October 14, showed pH of 7.22, pCO2 of 65.8, pO2 of 79.4, ionized calcium of 1.02. CMP performed earlier today showed sodium 142, potassium 4.2, chloride 106, CO2 of 25, BUN 51, creatinine 1.98, glucose 162, calcium 6.9, total bilirubin 0.5, AST 1269, ALT 680, alkaline phosphatase 41, total protein 6.0, albumin 3.0. On presentation, on October 14, however, sodium was 142, potassium 4.7, chloride 106, CO2 of 24, BUN 52, creatinine 2.25, glucose 143, calcium 6.6, total bilirubin 0.5, AST 656, ALT 417, alkaline phosphatase 44, total protein 5.7, albumin 2.9. Review of medical records showed normal creatinine of 0.87 on June 27, 2019. Initial cardiac markers on presentation showed CK-MB 5.8, troponin 4.076. Lactic acid on presentation was 1.5. Urinalysis on presentation on October 14, showed yellow clear urine with pH of 5.5 specific gravity of 1.016, positive urine protein, normal glucose, negative ketone, 2+ blood, negative nitrite, bilirubin, and leukocyte esterase. Microscopy showed 11 to 20 rbc and 7 to 10 wbc with no bacteria seen. Toxicology, urine drug screen was unremarkable with less than 10 plasma alcohol. ASSESSMENT: 1. Acute kidney injury: This most likely is due to hemodynamic factors related to volume contraction, hypoperfusion, as well as cytokine-mediated injury related to COVID pneumonia. Creatinine is beginning to trend downwards with improvement of hemodynamics. 2. Hypotension: Most likely due to volume depletion with contribution from sepsis. Improved with volume resuscitation. However, blood pressure is trending downwards. 3. Pgn-VS-eadjqmqyl myocardial infarction. 4. Hypocalcemia. 5. Acute respiratory failure with hypercarbia and hypoxia: Due to COVID pneumonia superimposed on chronic obstructive pulmonary disease. 6. Transaminitis: Due to hepatopathy. PLAN: 1. Agree with IV fluid resuscitation. We will monitor electrolytes and urine output. We will be careful with fluid resuscitation to avoid fluid overload given [id number] myocardial infarction. 2. We will replete serum calcium with calcium chloride. 3. We will also get vitamin D level. We will also get CK level to rule out rhabdomyolysis. 4. Further treatment to follow depending on hospital course. The patient is critically ill with guarded prognosis. Job ID: [id number] [facility]
[2020-10-15] MEDS: Vecuronium 10 MG VIAL IV PRN ×2 (18:24→23:28)
[2020-10-16] MEDS: Sodium Chloride 0.9% 1,000 ML IV SCH ×2 (03:01→11:51)
[2020-10-16] MEDS: HumaLOG 300 UNITS/3 ML VIAL SC PRN ×2 (05:01→12:19)
[2020-10-16] MEDS: fentaNYL Citrate/PF 2,000 MCG in Sodium Chloride 0.9% 60 ML IV SCH (05:18)
[2020-10-16 05:55] LABS: ALT (SGPT) 1242 U/L (8-55); AST (SGOT) 1627 U/L (5-34); Alkaline Phosphatase 48 U/L (40-110); Anion Gap 15 mmol/L (10-20); BUN (Urea Nitrogen) 42 mg/dL (8.4-25.7); Bilirubin, Total 1.1 mg/dL (0.2-1.2); CK (CPK) 605 U/L (30-200); Calc. Creatinine Clearance 67 mL/min (70-130); Calcium 7.9 mg/dL (7.8-10.44); Carbon Dioxide 26 mmol/L (23-31); Chloride 110 mmol/L (98-107); Globulin 3.2 g/dL (2.4-3.5); Glucose 159 mg/dL (83-110); Potassium 4.4 mmol/L (3.5-5.1); Protein, Total 6.2 g/dL (5.8-8.1); Sodium 147 mmol/L (136-145)
[2020-10-16 06:19] LABS: Band 42 % (5-11); Hemoglobin 10.6 g/dL (14.0-18.0); Lymphocytes 1 % (21-51); MDiff Complete? YES; Mean Corpuscular HGB CONC 31.9 g/dL (32.0-36.0); Mean Corpuscular Hemoglobin 31.3 pg (27.0-31.0); Mean Platelet Volume 9.3 fL (7.4-10.4); Monocytes 2 % (0-10); Neutrophil 55 % (42-75); Platelet Count 135 thou/uL (130-400); Platelet Morphology Comment Appears Adequate; RBC Distribution Width 13.7 % (11.5-14.5); Red Blood Cell (RBC) Count 3.39 mill/uL (4.70-6.10); White Blood Cell (WBC) Count 21.5 thou/uL (4.8-10.8)
[2020-10-16] MEDS: Famotidine/PF 20 mg/2ml Vial SLOW IVP SCH (08:21)
[2020-10-16] MEDS: Vecuronium 10 MG VIAL IV PRN ×4 (08:21→23:41)
[2020-10-16] MEDS: Enoxaparin Sodium 80 MG/0.8 ML SYRINGE SC SCH ×2 (08:21→21:59)
[2020-10-16] MEDS: Ascorbic Acid 500 mg Chewable Tablet PO SCH (08:22)
[2020-10-16] MEDS: Aspirin 325 mg Enteric Coated Tablet PO SCH (08:22)
[2020-10-16] MEDS: Dexamethasone 4 mg/ml Vial SLOW IVP SCH (08:22)
[2020-10-16] MEDS: Metoprolol Tartrate 25 MG TAB PER TUBE SCH ×2 (08:22→23:37)
[2020-10-16] MEDS: Zinc Sulfate 220 MG CAP PO SCH (08:22)
[2020-10-16] MEDS: Cholecalciferol (Vitamin D3) 400 UNITS TAB PO SCH (08:24)
--- NOTE | 2020-10-16 09:18 | PDOC.NEPPN ---
- Subjective Encounter Date: 10/16/20 Subjective: See in follow up for ASHLEY. Still intubated and mechanically ventilated. - Objective Vital Signs & Weight: Vital Signs (12 hours) Pulse Resp BP Pulse Ox 10/16/20 08:00 20 10/16/20 07:47 75 10/16/20 07:21 97 10/16/20 06:00 20 10/16/20 04:00 20 10/16/20 02:33 67 125/71 10/16/20 02:00 20 10/16/20 00:03 79 127/69 10/16/20 00:00 20 10/15/20 22:00 20 10/15/20 21:53 79 126/70 Weight Admit Weight 178 lb 9.191 oz Weight 178 lb 9.191 oz Most Recent Monitor Data Heart Rate from ECG 74 NIBP 132/71 NIBP BP-Mean 91 Respiration from ECG 20 SpO2 96 I&O: 10/15/20 10/16/20 10/17/20 06:59 06:59 06:59 Intake Total 1090 2611.3 Output Total 730 1505 75 Balance 360 1106.3 -75 Result Diagrams: 10/16/20 05:01 10/16/20 05:01 Additional Labs: Accuchecks 10/16/20 10/15/20 10/15/20 05:01 23:37 18:25 POC Glucose 164 H 166 H 178 H 10/15/20 12:32 POC Glucose 162 H Nephrology ROS - Medication Medications: Active Medications Generic Name Dose Route Start Last Admin Trade Name wAaisq PRN Reason Stop Dose Admin Ascorbic Acid 1,000 mg 10/15/20 09:00 10/16/20 08:22 Ascorbic Acid 500 Mg Chewable Tablet PO 1,000 mg DAILY MACKENZIE Administration Aspirin 325 mg 10/15/20 09:00 10/16/20 08:22 Aspirin 325 Mg Enteric Coated Tablet PO 325 mg DAILY MACKENZIE Administration Cholecalciferol 400 units 10/15/20 09:00 10/16/20 08:24 Cholecalciferol (Vitamin D3) 400 Units Tab PO 400 units DAILY MACKENZIE Administration Dexamethasone 6 mg 10/15/20 09:00 10/16/20 08:22 Dexamethasone 4 Mg/Ml Vial SLOW IVP 6 mg DAILY MACKENZIE Administration Enoxaparin Sodium 80 mg 10/15/20 09:00 10/16/20 08:21 Enoxaparin Sodium 80 Mg/0.8 Ml Syringe SC 80 mg 0900 MACKENZIE Administration Famotidine 20 mg 10/15/20 09:00 10/16/20 08:21 Famotidine/Pf 20 Mg/2ml Vial SLOW IVP 20 mg QAM MACKENZIE Administration Sodium Chloride 1,000 mls @ 100 mls/hr 10/14/20 20:15 10/16/20 03:01 Normal Saline 0.9% IV 1,000 mls .Q10H MACKENZIE Administration Fentanyl Citrate 2,000 mcg/ 100 mls @ 0 mls/hr 10/14/20 20:30 10/16/20 05:18 Sodium Chloride IV 11/13/20 20:30 100 mls INF MACKENZIE Administration Protocol Per Protocol Insulin Human Lispro 0 units 10/14/20 23:10 10/16/20 05:01 Humalog 300 Units/3 Ml Vial SC 2 unit .MILD SLIDING SCALE PRN Administration Mild Correctional Scale Lorazepam 2 mg 10/14/20 20:30 10/15/20 13:31 Lorazepam 2 Mg/Ml Vial SLOW IVP 11/13/20 20:30 2 mg Q1H PRN Administration Breakthrough agitation Metoprolol Tartrate 12.5 mg 10/16/20 09:00 10/16/20 08:22 Metoprolol Tartrate 25 Mg Tab PER TUBE 12.5 mg BID MACKENZIE Administration Propofol 1,000 mg 10/14/20 20:30 10/15/20 23:28 Propofol 1,000 Mg/100 Ml Vial IV 11/13/20 20:30 1,000 mg INF PRN Administration TO ACHIEVE GOAL RASS Protocol Sodium Chloride 10 ml 10/15/20 09:00 10/16/20 08:21 Flush - Normal Saline 10 Ml Syringe IVF 10 ml Q12HR MACKENZIE Administration Vecuronium [place] 10 mg 10/15/20 13:08 10/16/20 08:21 Vecuronium 10 Mg Vial IV 10 mg Q1H PRN Administration AGITATION Zinc Sulfate 220 mg 10/15/20 09:00 10/16/20 08:22 Zinc Sulfate 220 Mg Cap PO 220 mg DAILY MACKENZIE Administration - Exam General - other findings: sedated and in prone position ENT: normocephalic atraumatic ENT - other findings: ET tube in place Respiratory - other findings: ventilator transmitted sound Cardiovascular: RRR Extremities: no edema Neurological - other findings: sedated Nephrology Results - Labs Result Diagrams: 10/16/20 05:01 10/16/20 05:01 Lab results: WBC 21.5 thou/uL (4.8-10.8) H 10/16/20 05:01 Hgb 10.6 g/dL (14.0-18.0) L 10/16/20 05:01 Hct 33.3 % (42.0-52.0) L 10/16/20 05:01 MCV 98.0 fL (78.0-98.0) 10/16/20 05:01 Plt Count 135 thou/uL (130-400) 10/16/20 05:01 Neutrophils % 70.7 % (42.0-75.0) 10/14/20 18:58 Band Neuts % (Manual) 42 % (5-11) H 10/16/20 05:01 ABG pH 7.22 (7.35-7.45) L* 10/14/20 19:54 ABG pCO2 65.8 mmHg (35.0-45.0) H* 10/14/20 19:54 ABG pO2 79.4 mmHg (> 60.0) H 10/14/20 19:54 Sodium 147 mmol/L (136-145) H 10/16/20 05:01 Potassium 4.4 mmol/L (3.5-5.1) 10/16/20 05:01 Chloride 110 mmol/L (98-107) H 10/16/20 05:01 Carbon Dioxide 26 mmol/L (23-31) 10/16/20 05:01 BUN 42 mg/dL (8.4-25.7) H 10/16/20 05:01 Creatinine 1.01 mg/dL (0.7-1.3) 10/16/20 05:01 Glucose 159 mg/dL (83-110) H 10/16/20 05:01 Lactic Acid 1.5 mmol/L (0.5-2.2) 10/14/20 19:01 Calcium 7.9 mg/dL (7.8-10.44) 10/16/20 05:01 Total Bilirubin 1.1 mg/dL (0.2-1.2) 10/16/20 05:01 AST 1627 U/L (5-34) H 10/16/20 05:01 ALT 1242 U/L (8-55) H 10/16/20 05:01 Alkaline Phosphatase 48 U/L (40-110) 10/16/20 05:01 Creatine Kinase 605 U/L (30-200) H 10/16/20 05:01 CK-MB (CK-2) 5.8 ng/mL (0-6.6) 10/14/20 18:58 Troponin I 5.509 ng/mL (< 0.028) H* 10/15/20 00:50 B-Natriuretic Peptide 792.7 pg/mL (0-100) H 10/15/20 03:04 Serum Total Protein 6.2 g/dL (5.8-8.1) 10/16/20 05:01 Albumin 3.0 g/dL (3.4-4.8) L 10/16/20 05:01 Urine Ketones Negative mg/dL (Negative) 10/14/20 19:15 Urine Blood 2+ (Negative) A 10/14/20 19:15 Urine Nitrite Negative (Negative) 10/14/20 19:15 Ur Leukocyte Esterase Negative Tucker/uL (Negative) 10/14/20 19:15 Urine RBC 11-20 HPF (0-3) A 10/14/20 19:15 Urine WBC 7-10 HPF (0-3) A 10/14/20 19:15 Ur Squamous Epith Cells 0-3 HPF (0-3) 10/14/20 19:15 Urine Bacteria None Seen HPF (None Seen) 10/14/20 19:15 Sodium 147 mmol/L (136-145) H 10/16/20 05:01 Potassium 4.4 mmol/L (3.5-5.1) 10/16/20 05:01 Chloride 110 mmol/L (98-107) H 10/16/20 05:01 Carbon Dioxide 26 mmol/L (23-31) 10/16/20 05:01 Anion Gap 15 mmol/L (10-20) 10/16/20 05:01 BUN 42 mg/dL (8.4-25.7) H 10/16/20 05:01 Creatinine 1.01 mg/dL (0.7-1.3) 10/16/20 05:01 Glucose 159 mg/dL (83-110) H 10/16/20 05:01 Calcium 7.9 mg/dL (7.8-10.44) 10/16/20 05:01 Magnesium 2.3 mg/dL (1.6-2.6) 10/15/20 03:06 Albumin 3.0 g/dL (3.4-4.8) L 10/16/20 05:01 Nephrology AP PN - Plan ASSESSMENT: Acute kidney injury: Due to hemodynamic factors related to volume contraction and hypoperfusion. Improved with improvement of hemodynamics and correction of dehydration. Hypotension: Most likely due to volume depletion with contribution from sepsis. Resolved with IVF Yhu-QZ-tnacxqeor myocardial infarction. Hypocalcemia. Acute respiratory failure with hypercarbia and hypoxia: Due to COVID pneumonia superimposed on chronic obstructive pulmonary disease. Transaminitis: Due to ischemic hepatopathy. Mild rhabdomyolysis. Improving. Hypernatremia Plan Substitute NS with 1/2 NS due to hypernatremia. Follow electrolytes. Nephrology will sign off. call for any question.
[2020-10-16] MEDS: Propofol 1,000 MG/100 ML VIAL IV PRN (11:51)
--- NOTE | 2020-10-16 14:11 | PRG ---
DATE OF SERVICE: 10/16/2020 OBJECTIVE: VITAL SIGNS: Geronimo Kaye heart rate is in the 70s, blood pressure 132/72, respiratory rate is 20, and oximetry is 95. LUNGS: Unchanged. HEART: Unchanged. ABDOMEN: Unchanged. LABORATORY DATA: White count 21.5, hemoglobin 10.6 and platelets 135. Sodium 147, potassium 4.4, chloride 110, bicarb 26, BUN 42, creatinine 1.01, and glucose 159, which is new. IMPRESSION: 1. COVID pneumonia. 2. Chronic obstructive pulmonary disease. 3. Acute kidney injury that has resolved. 4. Elevated liver enzymes. PLAN: Continue current supportive care measures and continue with sedation. Nutritional support. Check blood gases, an ABG in the morning. CRITICAL CARE TIME: 30 minutes. Job ID: [id number]
--- NOTE | 2020-10-16 14:45 | PDOC.HOSPP ---
- Subjective Encounter Date: 10/16/20 Encounter Time: 12:00 Subjective: is on vent, sedated - Objective Vital Signs & Weight: Vital Signs (12 hours) Pulse Resp Pulse Ox 10/16/20 14:00 20 10/16/20 12:00 20 10/16/20 10:44 75 10/16/20 10:00 20 10/16/20 08:00 20 10/16/20 07:47 75 10/16/20 07:21 97 10/16/20 06:00 20 10/16/20 04:00 20 Weight Admit Weight 178 lb 9.191 oz Weight 178 lb 9.191 oz Most Recent Monitor Data Heart Rate from ECG 75 NIBP 134/75 NIBP BP-Mean 94 Respiration from ECG 20 SpO2 95 I&O: 10/15/20 10/16/20 10/17/20 06:59 06:59 06:59 Intake Total 1090 2611.3 Output Total 730 1505 275 Balance 360 1106.3 -275 Result Diagrams: 10/16/20 05:01 10/16/20 05:01 Additional Labs: Accuchecks 10/16/20 10/16/20 10/15/20 11:58 05:01 23:37 POC Glucose 161 H 164 H 166 H 10/15/20 18:25 POC Glucose 178 H Hospitalist ROS - Medication Medications: Active Medications Generic Name Dose Route Start Last Admin Trade Name Freq PRN Reason Stop Dose Admin Ascorbic Acid 1,000 mg 10/15/20 09:00 10/16/20 08:22 Ascorbic Acid 500 Mg Chewable Tablet PO 1,000 mg DAILY MACKENZIE Administration Aspirin 325 mg 10/15/20 09:00 10/16/20 08:22 Aspirin 325 Mg Enteric Coated Tablet PO 325 mg DAILY MACKENZIE Administration Cholecalciferol 400 units 10/15/20 09:00 10/16/20 08:24 Cholecalciferol (Vitamin D3) 400 Units Tab PO 400 units DAILY MACKENZIE Administration Dexamethasone 6 mg 10/15/20 09:00 10/16/20 08:22 Dexamethasone 4 Mg/Ml Vial SLOW IVP 6 mg DAILY MACKENZIE Administration Famotidine 20 mg 10/15/20 09:00 10/16/20 08:21 Famotidine/Pf 20 Mg/2ml Vial SLOW IVP 20 mg QAM MACKENZIE Administration Sodium Chloride 1,000 mls @ 100 mls/hr 10/14/20 20:15 10/16/20 11:51 Normal Saline 0.9% IV 1,000 mls .Q10H MACKENZIE Administration Fentanyl Citrate 2,000 mcg/ 100 mls @ 0 mls/hr 10/14/20 20:30 10/16/20 05:18 Sodium Chloride IV 11/13/20 20:30 100 mls INF MACKENZIE Administration Protocol Per Protocol Insulin Human Lispro 0 units 10/14/20 23:10 10/16/20 12:19 Humalog 300 Units/3 Ml Vial SC 2 unit .MILD SLIDING SCALE PRN Administration Mild Correctional Scale Lorazepam 2 mg 10/14/20 20:30 10/15/20 13:31 Lorazepam 2 Mg/Ml Vial SLOW IVP 11/13/20 20:30 2 mg Q1H PRN Administration Breakthrough agitation Metoprolol Tartrate 12.5 mg 10/16/20 09:00 10/16/20 08:22 Metoprolol Tartrate 25 Mg Tab PER TUBE 12.5 mg BID MACKENZIE Administration Propofol 1,000 mg 10/14/20 20:30 10/16/20 11:51 Propofol 1,000 Mg/100 Ml Vial IV 11/13/20 20:30 1,000 mg INF PRN Administration TO ACHIEVE GOAL RASS Protocol Sodium Chloride 10 ml 10/15/20 09:00 10/16/20 08:21 Flush - Normal Saline 10 Ml Syringe IVF 10 ml Q12HR MACKENZIE Administration Vecuronium [place] 10 mg 10/15/20 13:08 10/16/20 11:51 Vecuronium 10 Mg Vial IV 10 mg Q1H PRN Administration AGITATION Zinc Sulfate 220 mg 10/15/20 09:00 10/16/20 08:22 Zinc Sulfate 220 Mg Cap PO 220 mg DAILY MACKENZIE Administration - Exam Heart: RRR Respiratory: normal chest expansion Gastrointestinal: non-distended Extremities: no cyanosis, no edema Hosp A/P (1) Pneumonia due to COVID-19 virus Code(s): U07.1 - COVID-19; J12.89 - OTHER VIRAL PNEUMONIA Status: Acute (2) Acute respiratory failure with hypoxia and hypercarbia Code(s): J96.01 - ACUTE RESPIRATORY FAILURE WITH HYPOXIA; J96.02 - ACUTE RESPIRATORY FAILURE WITH HYPERCAPNIA Status: Acute (3) COPD exacerbation Code(s): J44.1 - CHRONIC OBSTRUCTIVE PULMONARY DISEASE W (ACUTE) EXACERBATION Status: Acute (4) ASHLEY (acute kidney injury) Code(s): N17.9 - ACUTE KIDNEY FAILURE, UNSPECIFIED Status: Acute (5) Elevated LFTs Code(s): R79.89 - OTHER SPECIFIED ABNORMAL FINDINGS OF BLOOD CHEMISTRY Status: Acute (6) Acute exacerbation of CHF (congestive heart failure) Code(s): I50.9 - HEART FAILURE, UNSPECIFIED Status: Acute Qualifiers: Heart failure type: diastolic Qualified Code(s): I50.33 - Acute on chronic diastolic (congestive) heart failure (7) Sepsis Code(s): A41.9 - SEPSIS, UNSPECIFIED ORGANISM Status: Acute Qualifiers: Sepsis type: sepsis due to unspecified organism Sepsis acute organ dy sfunction status: with acute organ dysfunction Severe sepsis acute organ dysfunction type: acute renal failure (8) Acute metabolic encephalopathy Code(s): G93.41 - METABOLIC ENCEPHALOPATHY Status: Acute (9) Hypoalbuminemia due to protein-calorie malnutrition Code(s): E88.09 - OTH DISORDERS OF PLASMA-PROTEIN METABOLISM, NEC; E46 - UNSPECIFIED PROTEIN-CALORIE MALNUTRITION Status: Chronic (10) NSTEMI (non-ST elevated myocardial infarction) Code(s): I21.4 - NON-ST ELEVATION (NSTEMI) MYOCARDIAL INFARCTION Status: Acute - Plan continue dexamethasone, lovenox, iv fluids, aspirin, lopressor. elevated lft's likely due to sepsis/chf echo for lv function, bnp is elevated dc lipitor, unknown downtime prior to arrival, is apparently moving all extremities per staff. palliative care is in touch with family, POA to be determined yet. prognosis guarded
[2020-10-16] MEDS: Sodium Chloride 0.45% 1,000 ML IV SCH (17:12)
[2020-10-16] MEDS ORDERED: Sterile Water 10 ML ONE (23:41)
[2020-10-16] MEDS: Lorazepam 2 MG/ML VIAL SLOW IVP PRN (23:41)
[2020-10-17] MEDS: Sodium Chloride 0.45% 1,000 ML IV SCH ×2 (03:42→14:35)
[2020-10-17 04:49] LABS: Band 43 % (5-11); Hemoglobin 10.2 g/dL (14.0-18.0); Hypochromia SLIGHT = 6-15 cells (100X) (0-5/hpf); Lymphocytes 3 % (21-51); MDiff Complete? YES; Mean Corpuscular HGB CONC 31.6 g/dL (32.0-36.0); Mean Corpuscular Hemoglobin 31.1 pg (27.0-31.0); Mean Corpuscular Volume 98.4 fL (78.0-98.0); Mean Platelet Volume 9.8 fL (7.4-10.4); Metamyelocyte 3 % (0-0); Monocytes 1 % (0-10); Neutrophil 50 % (42-75); Platelet Count 146 thou/uL (130-400); Platelet Morphology Comment Appears Adequate; RBC Distribution Width 13.8 % (11.5-14.5); White Blood Cell (WBC) Count 19.4 thou/uL (4.8-10.8)
[2020-10-17 04:51] LABS: ALT (SGPT) 2121 U/L (8-55); AST (SGOT) 2054 U/L (5-34); Albumin 2.9 g/dL (3.4-4.8); Alkaline Phosphatase 63 U/L (40-110); Anion Gap 14 mmol/L (10-20); BUN (Urea Nitrogen) 38 mg/dL (8.4-25.7); Bilirubin, Total 1.3 mg/dL (0.2-1.2); CK (CPK) 442 U/L (30-200); Calc. Creatinine Clearance 82 mL/min (70-130); Calcium 7.8 mg/dL (7.8-10.44); Carbon Dioxide 29 mmol/L (23-31); Chloride 111 mmol/L (98-107); Globulin 3.2 g/dL (2.4-3.5); Glucose 147 mg/dL (83-110); Potassium 4.6 mmol/L (3.5-5.1); Protein, Total 6.1 g/dL (5.8-8.1); Sodium 149 mmol/L (136-145)
[2020-10-17] MEDS ORDERED: Sterile Water 10 ML ONE (04:51)
[2020-10-17] MEDS: Vecuronium 10 MG VIAL IV PRN ×3 (04:54→14:02)
[2020-10-17 05:07] LABS: Band 23 % (5-11); Hemoglobin 10.2 g/dL (14.0-18.0); Hypochromia SLIGHT = 6-15 cells (100X) (0-5/hpf); Lymphocytes 4 % (21-51); MDiff Complete? YES; Mean Corpuscular HGB CONC 31.3 g/dL (32.0-36.0); Mean Corpuscular Hemoglobin 30.8 pg (27.0-31.0); Mean Corpuscular Volume 98.5 fL (78.0-98.0); Mean Platelet Volume 9.6 fL (7.4-10.4); Monocytes 3 % (0-10); Neutrophil 70 % (42-75); Platelet Count 148 thou/uL (130-400); Platelet Morphology Comment Appears Adequate; RBC Distribution Width 13.8 % (11.5-14.5); Red Blood Cell (RBC) Count 3.29 mill/uL (4.70-6.10); White Blood Cell (WBC) Count 18.8 thou/uL (4.8-10.8)
[2020-10-17] MEDS: fentaNYL Citrate/PF 2,000 MCG in Sodium Chloride 0.9% 60 ML IV SCH (06:21)
[2020-10-17 06:53] LABS: Actual Bicarbonate (HCO3a) 28.6 mEq/L (22-28); Base Excess (BEa) 2.3 mEq/L (-2.0 to +3.0); CO2 Tension 52.3 mmHg (35.0-45.0); Calcium, Ionized (arterial) 1.14 mmol/L (1.12-1.30); Carboxyhemoglobin (COHb) 0.1 gm% (0.0-3.0); Hemoglobin (Hb) 11.3 g/dL (14.0-18.0); O2 Tension (PaO2), arterial 62.3 mmHg (> 60.0); pH, Arterial 7.36 (7.35-7.45)
[2020-10-17 06:54] LABS: ALV-art Gradient 264.475 mmHg (0-20); Puncture Site LRA
--- NOTE | 2020-10-17 08:28 | RAD ---
Portable frontal chest radiograph: 10/17/2020 COMPARISON: 10/14/2020 HISTORY: Ventilated patient FINDINGS: Detailed assessment of the lung parenchyma is slightly limited secondary to technique. Ther e is an endotracheal tube present, distal tip overlying the region of the clavicular heads. A nasogastric tube extends into the left upper quadrant. There is extensive nonspecific coarse reticulonodular density throughout both lungs. No pneumothorax is evident. IMPRESSION: No significant interval change. Somewhat limited assessment of the lung parenchyma second una to technique.
[2020-10-17] MEDS: Cholecalciferol (Vitamin D3) 400 UNITS TAB PO SCH (08:39)
[2020-10-17] MEDS: Aspirin 325 mg Enteric Coated Tablet PO SCH (08:39)
[2020-10-17] MEDS: Ascorbic Acid 500 mg Chewable Tablet PO SCH (08:39)
[2020-10-17] MEDS: Dexamethasone 4 mg/ml Vial SLOW IVP SCH (08:39)
[2020-10-17] MEDS: Famotidine/PF 20 mg/2ml Vial SLOW IVP SCH (08:40)
[2020-10-17] MEDS: Metoprolol Tartrate 25 MG TAB PER TUBE SCH ×2 (08:40→20:46)
[2020-10-17] MEDS: Enoxaparin Sodium 80 MG/0.8 ML SYRINGE SC SCH ×2 (08:40→20:46)
[2020-10-17] MEDS: Zinc Sulfate 220 MG CAP PO SCH (08:40)
[2020-10-17] MEDS: HumaLOG 300 UNITS/3 ML VIAL SC PRN ×3 (10:44→20:56)
[2020-10-17 15:02] LABS: HBCM Index 0.07 S/CO (0-0.79); HBSAg Index 0.18 S/CO (0-0.99); Hep A IgM AB Non-Reactive (NonReactive); Hep B Surf Ag Non-Reactive S/CO (NonReactive); Hep C IgG Ab Non-Reactive (NonReactive); Hep C Index 0.11 S/CO (0-0.79); Hepatitis B Core IgM Abs Non-Reactive (NonReactive)
--- NOTE | 2020-10-17 15:10 | PDOC.HOSPP ---
- Subjective Encounter Date: 10/17/20 Encounter Time: 09:00 Subjective: is in prone position on vent, sedated - Objective Vital Signs & Weight: Vital Signs (12 hours) Pulse Resp BP Pulse Ox 10/17/20 15:00 48 L 127/68 10/17/20 14:00 20 10/17/20 12:00 20 10/17/20 10:17 65 157/61 H 10/17/20 10:00 20 10/17/20 08:00 20 10/17/20 07:48 97 10/17/20 07:30 65 148/79 H 10/17/20 06:00 20 10/17/20 04:00 20 Weight Admit Weight 178 lb 9.191 oz Weight 178 lb 9.191 oz Most Recent Monitor Data Heart Rate from ECG 51 NIBP 132/66 NIBP BP-Mean 88 Respiration from ECG 20 SpO2 93 I&O: 10/16/20 10/17/20 10/18/20 06:59 06:59 06:59 Intake Total 2611.3 2644.0 20 Output Total 1505 2105 515 Balance 1106.3 539.0 -495 Result Diagrams: 10/17/20 03:34 10/17/20 03:34 Additional Labs: Accuchecks 10/17/20 10/16/20 10/16/20 03:33 23:57 16:59 POC Glucose 149 H 153 H 134 H Hospitalist ROS - Medication Medications: Active Medications Generic Name Dose Route Start Last Admin Trade Name Freq PRN Reason Stop Dose Admin Ascorbic Acid 1,000 mg 10/15/20 09:00 10/17/20 08:39 Ascorbic Acid 500 Mg Chewable Tablet PO 1,000 mg DAILY MACKENZIE Administration Aspirin 325 mg 10/15/20 09:00 10/17/20 08:39 Aspirin 325 Mg Enteric Coated Tablet PO 325 mg DAILY MACKENZIE Administration Cholecalciferol 400 units 10/15/20 09:00 10/17/20 08:39 Cholecalciferol (Vitamin D3) 400 Units Tab PO 400 units DAILY MACKENZIE Administration Dexamethasone 6 mg 10/15/20 09:00 10/17/20 08:39 Dexamethasone 4 Mg/Ml Vial SLOW IVP 6 mg DAILY MACKENZIE Administration Enoxaparin Sodium 80 mg 10/16/20 21:00 10/17/20 08:40 Enoxaparin Sodium 80 Mg/0.8 Ml Syringe SC 80 mg 09,2100 MACKENZIE Administration Famotidine 20 mg 10/15/20 09:00 10/17/20 08:40 Famotidine/Pf 20 Mg/2ml Vial SLOW IVP 20 mg QAM MACKENZIE Administration Fentanyl Citrate 2,000 mcg/ 100 mls @ 0 mls/hr 10/14/20 20:30 10/17/20 06:21 Sodium Chloride IV 11/13/20 20:30 100 mls INF MACKENZIE Administration Protocol Per Protocol Sodium Chloride 1,000 mls @ 100 mls/hr 10/16/20 16:45 10/17/20 14:35 1/2 Normal Saline IV 1,000 mls .Q10H MACKENZIE Administration Insulin Human Lispro 0 units 10/14/20 23:10 10/17/20 10:44 Humalog 300 Units/3 Ml Vial SC 2 unit .MILD SLIDING SCALE PRN Administration Mild Correctional Scale Lorazepam 2 mg 10/14/20 20:30 10/16/20 23:41 Lorazepam 2 Mg/Ml Vial SLOW IVP 11/13/20 20:30 2 mg Q1H PRN Administration Breakthrough agitation Metoprolol Tartrate 12.5 mg 10/16/20 09:00 10/17/20 08:40 Metoprolol Tartrate 25 Mg Tab PER TUBE 12.5 mg BID MACKENZIE Administration Propofol 1,000 mg 10/14/20 20:30 10/16/20 11:51 Propofol 1,000 Mg/100 Ml Vial IV 11/13/20 20:30 1,000 mg INF PRN Administration TO ACHIEVE GOAL RASS Protocol Sodium Chloride 10 ml 10/15/20 09:00 10/17/20 08:41 Flush - Normal Saline 10 Ml Syringe IVF 10 ml Q12HR MACKENZIE Administration Vecuronium [place] 10 mg 10/15/20 13:08 10/17/20 14:02 Vecuronium 10 Mg Vial IV 10 mg Q1H PRN Administration AGITATION Zinc Sulfate 220 mg 10/15/20 09:00 10/17/20 08:40 Zinc Sulfate 220 Mg Cap PO 220 mg DAILY MACKENZIE Administration - Exam Neck: supple, no lymphadenopathy Heart: RRR, no murmur Respiratory: no wheezes, rales, rhonchi Gastrointestinal: normal bowel sounds, no palpable masses Extremities: no cyanosis, no edema Neurological: cranial nerve grossly intact, no focal deficits Hosp A/P (1) Pneumonia due to COVID-19 virus Code(s): U07.1 - COVID-19; J12.89 - OTHER VIRAL PNEUMONIA Status: Acute (2) Acute respiratory failure with hypoxia and hypercarbia Code(s): J96.01 - ACUTE RESPIRATORY FAILURE WITH HYPOXIA; J96.02 - ACUTE RESPIRATORY FAILURE WITH HYPERCAPNIA Status: Acute (3) COPD exacerbation Code(s): J44.1 - CHRONIC OBSTRUCTIVE PULMONARY DISEASE W (ACUTE) EXACERBATION Status: Acute (4) ASHLEY (acute kidney injury) Code(s): N17.9 - ACUTE KIDNEY FAILURE, UNSPECIFIED Status: Acute (5) Elevated LFTs Code(s): R79.89 - OTHER SPECIFIED ABNORMAL FINDINGS OF BLOOD CHEMISTRY Status: Acute (6) Acute exacerbation of CHF (congestive heart failure) Code(s): I50.9 - HEART FAILURE, UNSPECIFIED Status: Acute Qualifiers: Heart failure type: diastolic Qualified Code(s): I50.33 - Acute on chronic diastolic (congestive) heart failure (7) Sepsis Code(s): A41.9 - SEPSIS, UNSPECIFIED ORGANISM Status: Acute Qualifiers: Sepsis type: sepsis due to unspecified organism Sepsis acute organ dysfunction status: with acute organ dysfunction Severe sepsis acute organ dysfunction type: acute renal failure (8) Acute metabolic encephalopathy Code(s): G93.41 - METABOLIC ENCEPHALOPATHY Status: Acute (9) Hypoalbuminemia due to protein-calorie malnutrition Code(s): E88.09 - OTH DISORDERS OF PLASMA-PROTEIN METABOLISM, NEC; E46 - UNSPECIFIED PROTEIN-CALORIE MALNUTRITION Status: Chronic (10) NSTEMI (non-ST elevated myocardial infarction) Code(s): I21.4 - NON-ST ELEVATION (NSTEMI) MYOCARDIAL INFARCTION Status: Acute - Plan continue dexamethasone, lovenox, iv fluids, aspirin, lopressor. elevated lft's likely due to sepsis/chf echo for lv function, bnp is elevated dc lipitor, unknown downtime prior to arrival, is apparently moving all extremities per staff. d/w both daughters over phone and gave full updates, is the oldest daughter and pt was living with her, she wants to be POA, Ms.Mason Borges has no issues with her being poa. Family is in agreement with making him dnar/withdrawal of care if he were to get worse in the next 2-3 days. prognosis guarded
--- NOTE | 2020-10-17 16:57 | PRG ---
DATE OF SERVICE: 10/17/2020 SUBJECTIVE: Mr. Healy was turned to the supine position. FiO2 had improved overnight. OBJECTIVE: VITAL SIGNS: Blood pressure 127/67, heart rates in the 50s, respiratory rates in the 20s, oximetry is 92. He is afebrile. LUNGS: Unchanged. HEART: Unchanged. ABDOMEN: Unchanged. LABORATORY DATA: White count 18.8, hemoglobin 10.2, platelets 148. Sodium 149, potassium 4.6, chloride 111, bicarb 29, BUN , creatinine 0.82. PH 7.36, CO2 of 52, PO2 of 62. He is noted to have a cuff leak. His 7.0 endotracheal tube was changed out by Anesthesia today. Their assistance is appreciated. IMPRESSION: 1. Respiratory failure with COVID pneumonia. 2. Acute on chronic kidney disease, normalization of his creatinine. 3. Elevated liver enzymes. PLAN: Continue supportive care. Critical care time 30 min. Job ID: [id number] MTDD
[2020-10-18] MEDS: Sodium Chloride 0.45% 1,000 ML IV SCH ×3 (00:36→23:44)
[2020-10-18] MEDS: HumaLOG 300 UNITS/3 ML VIAL SC PRN ×4 (03:41→20:40)
[2020-10-18] MEDS: Propofol 1,000 MG/100 ML VIAL IV PRN ×2 (03:49→09:37)
[2020-10-18 04:06] LABS: ALT (SGPT) 1638 U/L (8-55); AST (SGOT) 551 U/L (5-34); Albumin 2.9 g/dL (3.4-4.8); Alkaline Phosphatase 64 U/L (40-110); Anion Gap 16 mmol/L (10-20); BUN (Urea Nitrogen) 47 mg/dL (8.4-25.7); Bilirubin, Total 1.8 mg/dL (0.2-1.2); CK (CPK) 338 U/L (30-200); Calc. Creatinine Clearance 82 mL/min (70-130); Calcium 7.8 mg/dL (7.8-10.44); Carbon Dioxide 25 mmol/L (23-31); Chloride 110 mmol/L (98-107); Globulin 3.3 g/dL (2.4-3.5); Glucose 160 mg/dL (83-110); Potassium 4.5 mmol/L (3.5-5.1); Protein, Total 6.2 g/dL (5.8-8.1); Sodium 146 mmol/L (136-145)
[2020-10-18 04:57] LABS: Band 18 % (5-11); Large Platelets SLIGHT; Lymphocytes 2 % (21-51); MDiff Complete? YES; Mean Corpuscular HGB CONC 32.8 g/dL (32.0-36.0); Mean Corpuscular Hemoglobin 32.2 pg (27.0-31.0); Mean Corpuscular Volume 98.3 fL (78.0-98.0); Mean Platelet Volume 6.7 fL (7.4-10.4); Monocytes 3 % (0-10); Neutrophil 77 % (42-75); Platelet Count 141 thou/uL (130-400); Platelet Morphology Comment Appears Adequate; RBC Distribution Width 13.8 % (11.5-14.5); White Blood Cell (WBC) Count 19.4 thou/uL (4.8-10.8)
[2020-10-18 07:19] LABS: Actual Bicarbonate (HCO3a) 28.7 mEq/L (22-28); Base Excess (BEa) 5.2 mEq/L (-2.0 to +3.0); CO2 Tension 38.2 mmHg (35.0-45.0); Calcium, Ionized (arterial) 1.08 mmol/L (1.12-1.30); Carboxyhemoglobin (COHb) 0.1 gm% (0.0-3.0); Hemoglobin (Hb) 11.2 g/dL (14.0-18.0); O2 Tension (PaO2), arterial 64.8 mmHg (> 60.0); pH, Arterial 7.49 (7.35-7.45)
[2020-10-18 07:24] LABS: Puncture Site RRA
[2020-10-18] MEDS: Enoxaparin Sodium 80 MG/0.8 ML SYRINGE SC SCH ×2 (09:31→20:24)
[2020-10-18] MEDS: Dexamethasone 4 mg/ml Vial SLOW IVP SCH (09:31)
[2020-10-18] MEDS: Zinc Sulfate 220 MG CAP PO SCH (09:32)
[2020-10-18] MEDS: Metoprolol Tartrate 25 MG TAB PER TUBE SCH ×2 (09:32→20:25)
[2020-10-18] MEDS: Ascorbic Acid 500 mg Chewable Tablet PO SCH (09:32)
[2020-10-18] MEDS: Famotidine/PF 20 mg/2ml Vial SLOW IVP SCH (09:33)
[2020-10-18] MEDS: Aspirin 325 mg Enteric Coated Tablet PO SCH (09:33)
[2020-10-18] MEDS: Cholecalciferol (Vitamin D3) 400 UNITS TAB PO SCH ×2 (09:40→09:42)
[2020-10-18] MEDS: cefTRIAXone\\ROCEPHIN 1 GM in Sodium Chloride 0.9% 100 ML IVPB SCH (09:43)
--- NOTE | 2020-10-18 09:52 | PRG ---
DATE OF SERVICE: 10/18/2020 SUBJECTIVE: Geronimo Healy remains intubated in the vent, sedated. X-ray still shows extensive bilateral infiltrates. OBJECTIVE: VITAL SIGNS: Temperature 100.4, pulse is 53, blood pressure 120/64, sats 99%-100%, respirations 25. Is and Os even. CHEST: Rhonchi and crackles. CARDIAC: Normal S1, S2. No gallops. ABDOMEN: Soft. LABORATORY DATA: White count 19,000. He got 77 neutrophils, 18 bands. pO2 64, pCO2 , PEEP of 10, and 55% FiO2. His BUN and creatinine are normal. Sodium 146. Bilirubin 1.8, AST is 55. ASSESSMENT: Respiratory failure, Lubin positive pneumonia, leukocytosis, azotemia mild, abnormal liver function. PLAN: Continue supportive care, steroids. Empiric antibiotics to be added. He is not weanable at this stage. One-half hour of critical time. Job ID: [id number]
--- NOTE | 2020-10-18 10:10 | RAD ---
EXAM: Chest one view: HISTORY: Respiratory insufficiency COMPARISON: 10/17/2020 FINDINGS: Endotracheal tube in position. Heart size: Within normal limits. Lungs: Extensive bilateral interstitial, alveolar, and groundglass opacity changes throughout both mary ngs, nonspecific but certainly could be consistent with bilateral Covid pneumonia. Evidence for right pleural effusion and minimal progressive opacity changes in the right lower lobe. IMPRESSION: Extensive bilateral pleural and parenchymal opacity changes as above. Continued short-term follow-up.
--- NOTE | 2020-10-18 14:39 | PDOC.HOSPP ---
- Subjective Encounter Date: 10/18/20 Encounter Time: 12:25 Subjective: is on vent, sedated not in distress - Objective Vital Signs & Weight: Vital Signs (12 hours) Temp Pulse Resp BP Pulse Ox 10/18/20 14:05 51 L 132/58 L 10/18/20 12:00 24 H 10/18/20 10:34 52 L 131/66 10/18/20 10:00 24 H 10/18/20 08:00 99.2 F 26 H 92 L 10/18/20 06:44 51 L 10/18/20 06:00 28 H 10/18/20 04:00 27 H Weight Admit Weight 178 lb 9.191 oz Weight 178 lb 9.191 oz Most Recent Monitor Data Heart Rate from ECG 53 NIBP 125/66 NIBP BP-Mean 85 Respiration from ECG 23 SpO2 94 I&O: 10/17/20 10/18/20 10/19/20 06:59 06:59 06:59 Intake Total 2644.0 1240 280 Output Total 2105 1850 490 Balance 539.0 -610 -210 Result Diagrams: 10/18/20 03:42 10/18/20 03:42 Additional Labs: Accuchecks 10/17/20 20:54 POC Glucose 169 H Hospitalist ROS - Medication Medications: Active Medications Generic Name Dose Route Start Last Admin Trade Name Ani PRN Reason Stop Dose Admin Ascorbic Acid 1,000 mg 10/15/20 09:00 10/18/20 09:32 Ascorbic Acid 500 Mg Chewable Tablet PO 1,000 mg DAILY MACKENZIE Administration Aspirin 325 mg 10/15/20 09:00 10/18/20 09:33 Aspirin 325 Mg Enteric Coated Tablet PO 325 mg DAILY MACKENZIE Administration Cholecalciferol 400 units 10/15/20 09:00 10/18/20 09:42 Cholecalciferol (Vitamin D3) 400 Units Tab PO 400 units DAILY MACKENZIE Administration Dexamethasone 6 mg 10/15/20 09:00 10/18/20 09:31 Dexamethasone 4 Mg/Ml Vial SLOW IVP 6 mg DAILY MACKENZIE Administration Enoxaparin Sodium 80 mg 10/16/20 21:00 10/18/20 09:31 Enoxaparin Sodium 80 Mg/0.8 Ml Syringe SC 80 mg 0900,2100 MACKENZIE Administration Famotidine 20 mg 10/15/20 09:00 10/18/20 09:33 Famotidine/Pf 20 Mg/2ml Vial SLOW IVP 20 mg QAM MACKENZIE Administration Fentanyl Citrate 2,000 mcg/ 100 mls @ 0 mls/hr 10/14/20 20:30 10/17/20 06:21 Sodium Chloride IV 11/13/20 20:30 100 mls INF MACKENZIE Administration Protocol Per Protocol Sodium Chloride 1,000 mls @ 100 mls/hr 10/16/20 16:45 10/18/20 09:39 1/2 Normal Saline IV 1,000 mls .Q10H MACKENZIE Administration Ceftriaxone Sodium 1 gm/ 100 mls @ 200 mls/hr 10/18/20 10:00 10/18/20 09:43 Sodium Chloride IVPB 100 mls Q24HR MACKENZIE Administration Insulin Human Lispro 0 units 10/14/20 23:10 10/18/20 13:09 Humalog 300 Units/3 Ml Vial SC 2 unit .MILD SLIDING SCALE PRN Administration Mild Correctional Scale Lorazepam 2 mg 10/14/20 20:30 10/16/20 23:41 Lorazepam 2 Mg/Ml Vial SLOW IVP 11/13/20 20:30 2 mg Q1H PRN Administration Breakthrough agitation Metoprolol Tartrate 12.5 mg 10/16/20 09:00 10/18/20 09:32 Metoprolol Tartrate 25 Mg Tab PER TUBE 12.5 mg BID MACKENZIE Administration Propofol 1,000 mg 10/14/20 20:30 10/18/20 09:37 Propofol 1,000 Mg/100 Ml Vial IV 11/13/20 20:30 1,000 mg INF PRN Administration TO ACHIEVE GOAL RASS Protocol Sodium Chloride 10 ml 10/15/20 09:00 10/18/20 09:40 Flush - Normal Saline 10 Ml Syringe IVF 10 ml Q12HR MACKENZIE Administration Vecuronium [place] 10 mg 10/15/20 13:08 10/17/20 14:02 Vecuronium 10 Mg Vial IV 10 mg Q1H PRN Administration AGITATION Zinc Sulfate 220 mg 10/15/20 09:00 10/18/20 09:32 Zinc Sulfate 220 Mg Cap PO 220 mg DAILY MACKENZIE Administration - Exam General Appearance: ill appearing Eye: PERRL, anicteric sclera ENT: no oropharyngeal lesions, dry oral mucosa ENT - other findings: nasal pressure ulcer due to proning Neck: supple, no JVD Heart: RRR, no murmur Respiratory: no wheezes, rales, rhonchi Gastrointestinal: soft, non-tender, non-distended, normal bowel sounds Extremities: no cyanosis, no edema Neurological: cranial nerve grossly intact, no focal deficits Hosp A/P (1) Pneumonia due to COVID-19 virus Code(s): U07.1 - COVID-19; J12.89 - OTHER VIRAL PNEUMONIA Status: Acute (2) Acute respiratory failure with hypoxia and hypercarbia Code(s): J96.01 - ACUTE RESPIRATORY FAILURE WITH HYPOXIA; J96.02 - ACUTE RESPIRATORY FAILURE WITH HYPERCAPNIA Status: Acute (3) COPD exacerbation Code(s): J44.1 - CHRONIC OBSTRUCTIVE PULMONARY DISEASE W (ACUTE) EXACERBATION Status: Acute (4) ASHLEY (acute kidney injury) Code(s): N17.9 - ACUTE KIDNEY FAILURE, UNSPECIFIED Status: Acute (5) Elevated LFTs Code(s): R79.89 - OTHER SPECIFIED ABNORMAL FINDINGS OF BLOOD CHEMISTRY Status: Acute (6) Acute exacerbation of CHF (congestive heart failure) Code(s): I50.9 - HEART FAILURE, UNSPECIFIED Status: Acute Qualifiers: Heart failure type: diastolic Qualified Code(s): I50.33 - Acute on chronic diastolic (congestive) heart failure (7) Sepsis Code(s): A41.9 - SEPSIS, UNSPECIFIED ORGANISM Status: Acute Qualifiers: Sepsis type: sepsis due to unspecified organism Sepsis acute organ dysfunction status: with acute organ dysfunction Severe sepsis acute organ dysfunction type: acute renal failure (8) Acute metabolic encephalopathy Code(s): G93.41 - METABOLIC ENCEPHALOPATHY Status: Acute (9) Hypoalbuminemia due to protein-calorie malnutrition Code(s): E88.09 - OTH DISORDERS OF PLASMA-PROTEIN METABOLISM, NEC; E46 - UNSPECIFIED PROTEIN-CALORIE MALNUTRITION Status: Chronic (10) NSTEMI (non-ST elevated myocardial infarction) Code(s): I21.4 - NON-ST ELEVATION (NSTEMI) MYOCARDIAL INFARCTION Status: Acute - Plan continue dexamethasone, lovenox, iv fluids, aspirin, lopressor. elevated lft's likely due to sepsis is slowly trending down from today echo for lv function, bnp is elevated dc lipitor, unknown downtime prior to arrival, is apparently moving all extremities per staff. d/w both daughters over phone and gave full updates, is the oldest daughter and pt was living with her, she wants to be POA, Ms.Mason Borges has no issues with her being poa. d/w and gave full updates 10/2020 Family is in agreement with making him dnar/withdrawal of care if he were to get worse in the next 2-3 days. prognosis guarded
[2020-10-19] MEDS: HumaLOG 300 UNITS/3 ML VIAL SC PRN ×4 (04:47→21:19)
[2020-10-19 04:53] LABS: Band 17 % (5-11); Hemoglobin 10.4 g/dL (14.0-18.0); Lymphocytes 5 % (21-51); MDiff Complete? YES; Mean Corpuscular HGB CONC 32.6 g/dL (32.0-36.0); Mean Corpuscular Hemoglobin 31.8 pg (27.0-31.0); Mean Corpuscular Volume 97.5 fL (78.0-98.0); Mean Platelet Volume 10.3 fL (7.4-10.4); Monocytes 6 % (0-10); Neutrophil 72 % (42-75); Platelet Count 149 thou/uL (130-400); RBC Distribution Width 13.5 % (11.5-14.5); Red Blood Cell (RBC) Count 3.27 mill/uL (4.70-6.10); White Blood Cell (WBC) Count 17.1 thou/uL (4.8-10.8)
[2020-10-19 04:55] LABS: ALT (SGPT) 969 U/L (8-55); AST (SGOT) 149 U/L (5-34); Albumin 2.7 g/dL (3.4-4.8); Alkaline Phosphatase 78 U/L (40-110); Anion Gap 12 mmol/L (10-20); BUN (Urea Nitrogen) 46 mg/dL (8.4-25.7); Bilirubin, Total 2.5 mg/dL (0.2-1.2); Calc. Creatinine Clearance 85 mL/min (70-130); Calcium 7.7 mg/dL (7.8-10.44); Carbon Dioxide 28 mmol/L (23-31); Chloride 111 mmol/L (98-107); Globulin 3.1 g/dL (2.4-3.5); Glucose 190 mg/dL (83-110); Potassium 4.4 mmol/L (3.5-5.1); Protein, Total 5.8 g/dL (5.8-8.1); Sodium 147 mmol/L (136-145)
[2020-10-19] MEDS: Sodium Chloride 0.45% 1,000 ML IV SCH ×2 (06:21→07:43)
[2020-10-19 07:18] LABS: Actual Bicarbonate (HCO3a) 27.1 mEq/L (22-28); Base Excess (BEa) 4.4 mEq/L (-2.0 to +3.0); CO2 Tension 33.5 mmHg (35.0-45.0); Calcium, Ionized (arterial) 1.08 mmol/L (1.12-1.30); Carboxyhemoglobin (COHb) 0.3 gm% (0.0-3.0); Hemoglobin (Hb) 10.4 g/dL (14.0-18.0); Potassium - ABG Lab 4.06 mmol/L (3.70-5.30); pH, Arterial 7.53 (7.35-7.45)
[2020-10-19 07:19] LABS: O2 Tension (PaO2), arterial 54.4 mmHg (> 60.0); Puncture Site RRA
[2020-10-19 07:20] LABS: ALV-art Gradient 402.825 mmHg (0-20)
[2020-10-19] MEDS: Metoprolol Tartrate 25 MG TAB PER TUBE SCH ×2 (07:40→23:52)
[2020-10-19] MEDS: Propofol 1,000 MG/100 ML VIAL IV PRN (07:40)
[2020-10-19] MEDS: Ascorbic Acid 500 mg Chewable Tablet PO SCH (07:40)
[2020-10-19] MEDS: Dexamethasone 4 mg/ml Vial SLOW IVP SCH (07:41)
[2020-10-19] MEDS: Aspirin 325 mg Enteric Coated Tablet PO SCH (07:41)
[2020-10-19] MEDS: Zinc Sulfate 220 MG CAP PO SCH (07:41)
[2020-10-19] MEDS: Lorazepam 2 MG/ML VIAL SLOW IVP PRN (07:41)
[2020-10-19] MEDS: Enoxaparin Sodium 80 MG/0.8 ML SYRINGE SC SCH (07:42)
[2020-10-19] MEDS: Famotidine/PF 20 mg/2ml Vial SLOW IVP SCH (07:42)
[2020-10-19] MEDS: cefTRIAXone\\ROCEPHIN 1 GM in Sodium Chloride 0.9% 100 ML IVPB SCH (07:43)
[2020-10-19] MEDS: Cholecalciferol (Vitamin D3) 400 UNITS TAB PO SCH ×2 (07:44→08:30)
[2020-10-19] MEDS: fentaNYL Citrate/PF 2,000 MCG in Sodium Chloride 0.9% 60 ML IV SCH (07:45)
--- NOTE | 2020-10-19 08:14 | RAD ---
Chest one view HISTORY: Dyspnea. Follow-up. COMPARISON: 10/18/2020. FINDINGS: Cardiac silhouette is magnified by projection. Pulmonary vasculature predominantly obscured by ill-defined patchy and widespread areas of interstitial and alveolar infiltrate. More focal parenchymal and pleural opacity at the right base is similar in appearance to the prior exam. Mediastinum is midline. Lines and tubes unchanged in position. No evidence of pneumothorax. IMPRESSION : Right pleural fluid, widespread infiltrate, and other findings are stable.
--- NOTE | 2020-10-19 09:15 | PRG ---
DATE OF SERVICE: 10/19/2020 SUBJECTIVE: Geronimo Healy remains intubated in the vent, sedated. OBJECTIVE: VITAL SIGNS: His temperature is 99.2, respirations 25, sats on 70% is 93% to 94%, PEEP of 12, and blood pressure 138/67. His I's and O's even. CHEST: No wheezing. No crackles. CARDIAC: Normal S1, S2. No gallops. ABDOMEN: Soft. LABORATORY DATA: White count 7000, H and H 10 and 31, and platelet count is normal. PO2 is 54, pCO2 is 33, pH 7.53, rate of 16, 70%, PEEP of 12. Lytes are improved. BUN and creatinine improved. X-ray still shows right-sided pleural effusion. ASSESSMENT: Respiratory failure, coronavirus positive, right pleural effusion, azotemia, and chronic obstructive pulmonary disease. PLAN: He is still not weanable, still hypoxic. Continue input from Cardiology. Continue nutrition. Supportive care. PT. One-half hour of critical care time. Job ID: [id number]
--- NOTE | 2020-10-19 16:57 | EKG ---
Test Reason : Blood Pressure : / mmHG Vent. Rate : 102 BPM Atrial Rate : 102 BPM P-R Int : 168 ms QRS Dur : 084 ms QT Int : 368 ms P-R-T Axes : 066 -02 070 degrees QTc Int : 479 ms Sinus tachycardia Nonspecific ST and T wave abnormality Abnormal ECG Confirmed by LANI PHELAN ([id number]), editorial clerk SHAWNA MARK ([id number]) on 10/19/2020 4:56:40 PM Referred By: Confirmed By:LANI Gallardo
--- NOTE | 2020-10-19 18:38 | PDOC.HOSPP ---
- Subjective Encounter Date: 10/19/20 Encounter Time: 18:00 Subjective: Patient intubated. Patient seen by pulmonology today. I did not examine the patient today - Objective Vital Signs & Weight: Vital Signs (12 hours) Pulse Resp BP Pulse Ox 10/19/20 18:19 52 L 10/19/20 18:00 26 H 10/19/20 16:00 21 H 10/19/20 15:21 56 L 126/61 10/19/20 14:00 22 H 10/19/20 12:00 21 H 10/19/20 10:29 48 L 122/61 10/19/20 10:00 22 H 10/19/20 08:00 30 H 95 Weight Admit Weight 178 lb 9.191 oz Weight 178 lb 9.191 oz Most Recent Monitor Data Heart Rate from ECG 52 NIBP 132/58 NIBP BP-Mean 82 Respiration from ECG 31 SpO2 97 I&O: 10/18/20 10/19/20 10/20/20 06:59 06:59 06:59 Intake Total 1240 1706.9 310 Output Total 1850 2165 880 Balance -610 -458.1 -570 Result Diagrams: 10/19/20 03:11 10/19/20 03:11 Additional Labs: Accuchecks 10/19/20 10/19/20 10/19/20 17:10 14:27 08:22 POC Glucose 193 H 158 H 177 H 10/19/20 10/18/20 04:25 20:30 POC Glucose 183 H 159 H Hospitalist ROS - Review of Systems Other: Patient intubated - Medication Medications: Active Medications Generic Name Dose Route Start Last Admin Trade Name Ani PRN Reason Stop Dose Admin Ascorbic Acid 1,000 mg 10/15/20 09:00 10/19/20 07:40 Ascorbic Acid 500 Mg Chewable Tablet PO 1,000 mg DAILY MACKENZIE Administration Aspirin 325 mg 10/15/20 09:00 10/19/20 07:41 Aspirin 325 Mg Enteric Coated Tablet PO 325 mg DAILY MACKENZIE Administration Cholecalciferol 400 units 10/15/20 09:00 10/19/20 08:30 Cholecalciferol (Vitamin D3) 400 Units Tab PO 400 units DAILY MACKENZIE Administration Dexamethasone 6 mg 10/15/20 09:00 10/19/20 07:41 Dexamethasone 4 Mg/Ml Vial SLOW IVP 6 mg DAILY MACKENZIE Administration Enoxaparin Sodium 80 mg 10/16/20 21:00 10/19/20 07:42 Enoxaparin Sodium 80 Mg/0.8 Ml Syringe SC 80 mg 09,2099 MACKENZIE Administration Famotidine 20 mg 10/15/20 09:00 10/19/20 07:42 Famotidine/Pf 20 Mg/2ml Vial SLOW IVP 20 mg QAM MACKENZIE Administration Fentanyl Citrate 2,000 mcg/ 100 mls @ 0 mls/hr 10/14/20 20:30 10/19/20 07:45 Sodium Chloride IV 11/13/20 20:30 100 mls INF MACKENZIE Administration Protocol Per Protocol Sodium Chloride 1,000 mls @ 100 mls/hr 10/16/20 16:45 10/19/20 07:43 1/2 Normal Saline IV 1,000 mls .Q10H MACKENZIE Administration Ceftriaxone Sodium 1 gm/ 100 mls @ 200 mls/hr 10/18/20 10:00 10/19/20 07:43 Sodium Chloride IVPB 100 mls Q24HR MACKENZIE Administration Insulin Human Lispro 0 units 10/14/20 23:10 10/19/20 17:10 Humalog 300 Units/3 Ml Vial SC 2 unit .MILD SLIDING SCALE PRN Administration Mild Correctional Scale Lorazepam 2 mg 10/14/20 20:30 10/19/20 07:41 Lorazepam 2 Mg/Ml Vial SLOW IVP 11/13/20 20:30 2 mg Q1H PRN Administration Breakthrough agitation Metoprolol Tartrate 12.5 mg 10/16/20 09:00 10/19/20 07:40 Metoprolol Tartrate 25 Mg Tab PER TUBE 12.5 mg BID MACKENZIE Administration Propofol 1,000 mg 10/14/20 20:30 10/19/20 07:40 Propofol 1,000 Mg/100 Ml Vial IV 11/13/20 20:30 1,000 mg INF PRN Administration TO ACHIEVE GOAL RASS Protocol Sodium Chloride 10 ml 10/15/20 09:00 10/19/20 07:46 Flush - Normal Saline 10 Ml Syringe IVF 10 ml Q12HR MACKENZIE Administration Vecuronium [place] 10 mg 10/15/20 13:08 10/17/20 14:02 Vecuronium 10 Mg Vial IV 10 mg Q1H PRN Administration AGITATION Zinc Sulfate 220 mg 10/15/20 09:00 10/19/20 07:41 Zinc Sulfate 220 Mg Cap PO 220 mg DAILY MACKENZIE Administration Hosp A/P - Plan (1) Pneumonia due to COVID-19 virus Code(s): U07.1 - COVID-19; J12.89 - OTHER VIRAL PNEUMONIA Status: Acute (2) Acute respiratory failure with hypoxia and hypercarbia Code(s): J96.01 - ACUTE RESPIRATORY FAILURE WITH HYPOXIA; J96.02 - ACUTE RESPIRATORY FAILURE WITH HYPERCAPNIA Status: Acute (3) COPD exacerbation Code(s): J44.1 - CHRONIC OBSTRUCTIVE PULMONARY DISEASE W (ACUTE) EXACERBATION Status: Acute (4) ASHLEY (acute kidney injury) Code(s): N17.9 - ACUTE KIDNEY FAILURE, UNSPECIFIED Status: Acute (5) Elevated LFTs Code(s): R79.89 - OTHER SPECIFIED ABNORMAL FINDINGS OF BLOOD CHEMISTRY Status: Acute (6) Acute exacerbation of CHF (congestive heart failure) Code(s): I50.9 - HEART FAILURE, UNSPECIFIED Status: Acute Qualifiers: Heart failure type: diastolic Qualified Code(s): I50.33 - Acute on chronic diastolic (congestive) heart failure (7) Sepsis Code(s): A41.9 - SEPSIS, UNSPECIFIED ORGANISM Status: Acute Qualifiers: Sepsis type: sepsis due to unspecified organism Sepsis acute organ dysfunction status: with acute organ dysfunction Severe sepsis acute organ dysfunction type: acute renal failure (8) Acute metabolic encephalopathy Code(s): G93.41 - METABOLIC ENCEPHALOPATHY Status: Acute (9) Hypoalbuminemia due to protein-calorie malnutrition Code(s): E88.09 - OTH DISORDERS OF PLASMA-PROTEIN METABOLISM, NEC; E46 - UNSPECIFIED PROTEIN-CALORIE MALNUTRITION Status: Chronic (10) NSTEMI (non-ST elevated myocardial infarction) Code(s): I21.4 - NON-ST ELEVATION (NSTEMI) MYOCARDIAL INFARCTION Status: Acute - Plan continue dexamethasone, lovenox, iv fluids, aspirin, lopressor. elevated lft's likely due to sepsis is slowly trending down from today echo for lv function, bnp is elevated dc lipitor, unknown downtime prior to arrival, is apparently moving all extremities per staff. d/w both daughters over phone and gave full updates, is the oldest daughter and pt was living with her, she wants to be POA, Ms.Mason Borges has no issues with her being poa. d/w and gave full updates 10/2020 Family is in agreement with making him dnar/withdrawal of care if he were to get worse in the next 2-3 days. prognosis guarded 1/2 patient's LFTs improving slightly. Vent settings changed today per pulmonary. Continue to follow along. Continue steroids DVT prophylaxis.
[2020-10-19 21:57] LABS: Hemoglobin 9.8 g/dL (14.0-18.0); Platelet Count 150 thou/uL (130-400)
[2020-10-20] MEDS: Enoxaparin Sodium 80 MG/0.8 ML SYRINGE SC SCH (01:18)
[2020-10-20] MEDS: HumaLOG 300 UNITS/3 ML VIAL SC PRN ×4 (04:17→23:06)
[2020-10-20] MEDS: Sodium Chloride 0.45% 1,000 ML IV SCH ×3 (04:21→23:10)
[2020-10-20 04:45] LABS: ALT (SGPT) 579 U/L (8-55); AST (SGOT) 55 U/L (5-34); Albumin 2.4 g/dL (3.4-4.8); Alkaline Phosphatase 85 U/L (40-110); Anion Gap 12 mmol/L (10-20); BUN (Urea Nitrogen) 44 mg/dL (8.4-25.7); Bilirubin, Total 1.2 mg/dL (0.2-1.2); Calc. Creatinine Clearance 91 mL/min (70-130); Calcium 7.2 mg/dL (7.8-10.44); Carbon Dioxide 28 mmol/L (23-31); Chloride 110 mmol/L (98-107); Glucose 214 mg/dL (83-110); Potassium 4.5 mmol/L (3.5-5.1); Protein, Total 5.4 g/dL (5.8-8.1); Sodium 145 mmol/L (136-145)
[2020-10-20 05:25] LABS: Band 13 % (5-11); Hemoglobin 9.5 g/dL (14.0-18.0); Lymphocytes 1 % (21-51); MDiff Complete? YES; Mean Corpuscular HGB CONC 32.4 g/dL (32.0-36.0); Mean Corpuscular Hemoglobin 31.9 pg (27.0-31.0); Mean Corpuscular Volume 98.3 fL (78.0-98.0); Mean Platelet Volume 10.7 fL (7.4-10.4); Monocytes 5 % (0-10); Myelocyte 1 % (0-0); Neutrophil 80 % (42-75); Platelet Count 144 thou/uL (130-400); RBC Distribution Width 13.5 % (11.5-14.5); Red Blood Cell (RBC) Count 2.99 mill/uL (4.70-6.10); White Blood Cell (WBC) Count 14.8 thou/uL (4.8-10.8)
[2020-10-20] MEDS: fentaNYL Citrate/PF 2,000 MCG in Sodium Chloride 0.9% 60 ML IV SCH (06:43)
[2020-10-20 07:39] LABS: Actual Bicarbonate (HCO3a) 25.7 mEq/L (22-28); Base Excess (BEa) 1.5 mEq/L (-2.0 to +3.0); CO2 Tension 39.1 mmHg (35.0-45.0); Calcium, Ionized (arterial) 1.12 mmol/L (1.12-1.30); Carboxyhemoglobin (COHb) 0.3 gm% (0.0-3.0); Hemoglobin (Hb) 10.5 g/dL (14.0-18.0); O2 Tension (PaO2), arterial 63.3 mmHg (> 60.0); Potassium - ABG Lab 4.41 mmol/L (3.70-5.30); pH, Arterial 7.44 (7.35-7.45)
[2020-10-20 07:40] LABS: Puncture Site RRA
[2020-10-20 07:41] LABS: ALV-art Gradient 386.925 mmHg (0-20)
--- NOTE | 2020-10-20 08:14 | RAD ---
Chest one view HISTORY: Dyspnea. Intubated. Follow-up. COMPARISON: 10/19/2020. FINDINGS: Cardiac silhouette is magnified by projection. Pulmonary vasculature unchanged. Mediastinum is midline. Lines and tubes unchanged in position. Patchy, widespread ill-defined areas of parenchymal infiltrate are similar in appearance to the previ ous exam. Right pleural fluid and more dense right basilar infiltrate are stable. No evidence of pneumothorax. IMPRESSION : Right pleural fluid and basilar infiltrate, widespread patchy infiltrate, and other findings are stab le.
[2020-10-20] MEDS: Ascorbic Acid 500 mg Chewable Tablet PO SCH (08:21)
[2020-10-20] MEDS: Dexamethasone 4 mg/ml Vial SLOW IVP SCH (08:21)
[2020-10-20] MEDS: Famotidine/PF 20 mg/2ml Vial SLOW IVP SCH (08:21)
[2020-10-20] MEDS: Zinc Sulfate 220 MG CAP PO SCH (08:21)
[2020-10-20] MEDS: Propofol 1,000 MG/100 ML VIAL IV PRN (08:22)
[2020-10-20] MEDS: Metoprolol Tartrate 25 MG TAB PER TUBE SCH ×2 (08:23→23:09)
[2020-10-20] MEDS: cefTRIAXone\\ROCEPHIN 1 GM in Sodium Chloride 0.9% 100 ML IVPB SCH (08:27)
--- NOTE | 2020-10-20 08:57 | PRG ---
DATE OF SERVICE: 10/20/2020 SUBJECTIVE: Geronimo Healy, this morning, he is intubated in the vent, sedated. He apparently had some kind of issues with bleeding from the back of his mouth. The H and H have not dropped substantially. His x-ray showed no changes, still got his right lower lung infiltrate. OBJECTIVE: VITAL SIGNS: His temperature is 99.2, saturations are 95% on 70%, PEEP of 12, blood pressure 129/76. CHEST: Rhonchi and crackles. CARDIAC: Sinus tach. ABDOMEN: Soft. LABORATORY STUDIES: White count 14,000, H and H 9 and 29, platelet count 140. PO2 63, pCO2 . Lytes are normal. ASSESSMENT: 1. Respiratory failure. 2. Hemorrhage, probably from the back of the mouth. I doubt it is endotracheal though. 3. Lubin positive pneumonia. PLAN: Vent is being adjusted. Otherwise, continue present antibiotics, steroids. I agree with holding Lovenox for 24 hours. One-half hour of critical time. Job ID: [id number]
[2020-10-20 09:30] LABS: Hemoglobin 9.6 g/dL (14.0-18.0); Platelet Count 146 thou/uL (130-400)
[2020-10-20 16:33] LABS: Hemoglobin 9.6 g/dL (14.0-18.0); Platelet Count 154 thou/uL (130-400)
--- NOTE | 2020-10-20 18:31 | PDOC.HOSPP ---
- Subjective Encounter Date: 10/20/20 Encounter Time: 12:45 Subjective: Patient intubated seen by pulmonology. I did not see the patient today. - Objective Vital Signs & Weight: Vital Signs (12 hours) Pulse Resp BP Pulse Ox 10/20/20 18:25 49 L 119/57 L 10/20/20 18:00 29 H 10/20/20 16:00 30 H 10/20/20 14:20 60 142/60 H 10/20/20 14:00 28 H 10/20/20 12:00 26 H 10/20/20 10:07 57 L 148/75 H 10/20/20 10:00 27 H 10/20/20 08:00 30 H 10/20/20 07:48 93 L 10/20/20 07:28 53 L Weight Admit Weight 178 lb 9.191 oz Weight 178 lb 9.191 oz Most Recent Monitor Data Heart Rate from ECG 51 NIBP 119/57 NIBP BP-Mean 77 Respiration from ECG 20 SpO2 95 I&O: 10/19/20 10/20/20 10/21/20 06:59 06:59 06:59 Intake Total 1706.9 2000.3 310 Output Total 2165 1920 1060 Balance -458.1 80.3 -750 Result Diagrams: 10/20/20 16:20 10/20/20 04:07 Additional Labs: Accuchecks 10/20/20 10/20/20 10/19/20 14:50 09:43 21:15 POC Glucose 212 H 201 H 205 H Hospitalist ROS - Medication Medications: Active Medications Generic Name Dose Route Start Last Admin Trade Name Ani PRN Reason Stop Dose Admin Ascorbic Acid 1,000 mg 10/15/20 09:00 10/20/20 08:21 Ascorbic Acid 500 Mg Chewable Tablet PO 1,000 mg DAILY MACKENZIE Administration Cholecalciferol 400 units 10/15/20 09:00 10/19/20 08:30 Cholecalciferol (Vitamin D3) 400 Units Tab PO 400 units DAILY MACKENZIE Administration Dexamethasone 6 mg 10/15/20 09:00 10/20/20 08:21 Dexamethasone 4 Mg/Ml Vial SLOW IVP 6 mg DAILY MACKENZIE Administration Famotidine 20 mg 10/15/20 09:00 10/20/20 08:21 Famotidine/Pf 20 Mg/2ml Vial SLOW IVP 20 mg QAM MACKENZIE Administration Fentanyl Citrate 2,000 mcg/ 100 mls @ 0 mls/hr 10/14/20 20:30 10/20/20 06:43 Sodium Chloride IV 11/13/20 20:30 100 mls INF MACKENZIE Administration Protocol Per Protocol Fentanyl Citrate 250 mls @ 0 mls/hr 10/14/20 20:30 10/20/20 09:20 Fentanyl Bolus IVPB 11/13/20 20:30 2.5 mls PRN PRN Administration Breakthrough pain/agitation As Directed Sodium Chloride 1,000 mls @ 100 mls/hr 10/16/20 16:45 10/20/20 13:11 1/2 Normal Saline IV 1,000 mls .Q10H MACKENZIE Administration Ceftriaxone Sodium 1 gm/ 100 mls @ 200 mls/hr 10/18/20 10:00 10/20/20 08:27 Sodium Chloride IVPB 100 mls Q24HR MACKENZIE Administration Insulin Human Lispro 0 units 10/14/20 23:10 10/20/20 15:00 Humalog 300 Units/3 Ml Vial SC 3 unit .MILD SLIDING SCALE PRN Administration Mild Correctional Scale Lorazepam 2 mg 10/14/20 20:30 10/19/20 07:41 Lorazepam 2 Mg/Ml Vial SLOW IVP 11/13/20 20:30 2 mg Q1H PRN Administration Breakthrough agitation Metoprolol Tartrate 12.5 mg 10/16/20 09:00 10/20/20 08:23 Metoprolol Tartrate 25 Mg Tab PER TUBE Not Given BID MACKENZIE Propofol 1,000 mg 10/14/20 20:30 10/20/20 08:22 Propofol 1,000 Mg/100 Ml Vial IV 11/13/20 20:30 1,000 mg INF PRN Administration TO ACHIEVE GOAL RASS Protocol Sodium Chloride 10 ml 10/15/20 09:00 10/20/20 08:22 Flush - Normal Saline 10 Ml Syringe IVF 10 ml Q12HR MACKENZIE Administration Vecuronium [place] 10 mg 10/15/20 13:08 10/17/20 14:02 Vecuronium 10 Mg Vial IV 10 mg Q1H PRN Administration AGITATION Zinc Sulfate 220 mg 10/15/20 09:00 10/20/20 08:21 Zinc Sulfate 220 Mg Cap PO 220 mg DAILY MACKENZIE Administration Hosp A/P - Plan (1) Pneumonia due to COVID-19 virus Code(s): U07.1 - COVID-19; J12.89 - OTHER VIRAL PNEUMONIA Status: Acute (2) Acute respiratory failure with hypoxia and hypercarbia Code(s): J96.01 - ACUTE RESPIRATORY FAILURE WITH HYPOXIA; J96.02 - ACUTE RESPIRATORY FAILURE WITH HYPERCAPNIA Status: Acute (3) COPD exacerbation Code(s): J44.1 - CHRONIC OBSTRUCTIVE PULMONARY DISEASE W (ACUTE) EXACERBATION Status: Acute (4) ASHLEY (acute kidney injury) Code(s): N17.9 - ACUTE KIDNEY FAILURE, UNSPECIFIED Status: Acute (5) Elevated LFTs Code(s): R79.89 - OTHER SPECIFIED ABNORMAL FINDINGS OF BLOOD CHEMISTRY Status: Acute (6) Acute exacerbation of CHF (congestive heart failure) Code(s): I50.9 - HEART FAILURE, UNSPECIFIED Status: Acute Qualifiers: Heart failure type: diastolic Qualified Code(s): I50.33 - Acute on chronic diastolic (congestive) heart failure (7) Sepsis Code(s): A41.9 - SEPSIS, UNSPECIFIED ORGANISM Status: Acute Qualifiers: Sepsis type: sepsis due to unspecified organism Sepsis acute organ dysfunction status: with acute organ dysfunction Severe sepsis acute organ dysfunction type: acute renal failure (8) Acute metabolic encephalopathy Code(s): G93.41 - METABOLIC ENCEPHALOPATHY Status: Acute (9) Hypoalbuminemia due to protein-calorie malnutrition Code(s): E88.09 - OTH DISORDERS OF PLASMA-PROTEIN METABOLISM, NEC; E46 - UNSPECIFIED PROTEIN-CALORIE MALNUTRITION Status: Chronic (10) NSTEMI (non-ST elevated myocardial infarction) Code(s): I21.4 - NON-ST ELEVATION (NSTEMI) MYOCARDIAL INFARCTION Status: Acute - Plan continue dexamethasone, lovenox, iv fluids, aspirin, lopressor. elevated lft's likely due to sepsis is slowly trending down from today echo for lv function, bnp is elevated dc lipitor, unknown downtime prior to arrival, is apparently moving all extremities per staff. d/w both daughters over phone and gave full updates, is the oldest daughter and pt was living with her, she wants to be POA, Ms.Mason Borges has no issues with her being poa. d/w and gave full updates 10/2020 Family is in agreement with making him dnar/withdrawal of care if he were to get worse in the next 2-3 days. prognosis guarded 1/2 patient's LFTs improving slightly. Vent settings changed today per pulmonary. Continue to follow along. Continue steroids DVT prophylaxis. 1/3 per nursing staff patient has significant bleeding from his mouth and some blood was noted in his ET tube. His aspirin and his Lovenox has been discontinued. H&H has been stable platelets are stable. Most likely will restart aspirin in the morning. If patient is weaned off sedation patient becomes very agitated and desats in the 80s. Plan was discussed by nursing staff at bedside.
[2020-10-20 21:54] LABS: Hemoglobin 9.8 g/dL (14.0-18.0); Platelet Count 160 thou/uL (130-400)
[2020-10-21] MEDS: HumaLOG 300 UNITS/3 ML VIAL SC PRN ×3 (04:16→22:38)
[2020-10-21 05:46] LABS: ALT (SGPT) 361 U/L (8-55); AST (SGOT) 49 U/L (5-34); Albumin 2.4 g/dL (3.4-4.8); Alkaline Phosphatase 117 U/L (40-110); Anion Gap 11 mmol/L (10-20); BUN (Urea Nitrogen) 45 mg/dL (8.4-25.7); Bilirubin, Total 0.9 mg/dL (0.2-1.2); Calc. Creatinine Clearance 92 mL/min (70-130); Calcium 7.3 mg/dL (7.8-10.44); Carbon Dioxide 28 mmol/L (23-31); Chloride 110 mmol/L (98-107); Glucose 204 mg/dL (83-110); Potassium 4.7 mmol/L (3.5-5.1); Protein, Total 5.4 g/dL (5.8-8.1); Sodium 144 mmol/L (136-145)
[2020-10-21 06:19] LABS: Band 27 % (5-11); Lymphocytes 8 % (21-51); MDiff Complete? YES; Mean Corpuscular HGB CONC 31.2 g/dL (32.0-36.0); Mean Corpuscular Hemoglobin 30.4 pg (27.0-31.0); Mean Corpuscular Volume 97.7 fL (78.0-98.0); Mean Platelet Volume 10.9 fL (7.4-10.4); Monocytes 3 % (0-10); Neutrophil 61 % (42-75); Platelet Count 167 thou/uL (130-400); RBC Distribution Width 13.7 % (11.5-14.5); Reactive Lymphocytes 1 % (0-10); Red Blood Cell (RBC) Count 2.96 mill/uL (4.70-6.10)
[2020-10-21] MEDS: Sodium Chloride 0.45% 1,000 ML IV SCH ×2 (06:26→14:22)
[2020-10-21] MEDS: Propofol 1,000 MG/100 ML VIAL IV PRN (08:48)
[2020-10-21] MEDS: Famotidine/PF 20 mg/2ml Vial SLOW IVP SCH ×2 (08:49→20:53)
[2020-10-21] MEDS: Dexamethasone 4 mg/ml Vial SLOW IVP SCH (08:49)
[2020-10-21] MEDS: Ascorbic Acid 500 mg Chewable Tablet PO SCH (08:50)
[2020-10-21] MEDS: Zinc Sulfate 220 MG CAP PO SCH (08:50)
[2020-10-21 09:12] LABS: Actual Bicarbonate (HCO3a) 26.6 mEq/L (22-28); Base Excess (BEa) 1.9 mEq/L (-2.0 to +3.0); CO2 Tension 42.2 mmHg (35.0-45.0); Calcium, Ionized (arterial) 1.13 mmol/L (1.12-1.30); Carboxyhemoglobin (COHb) 0.2 gm% (0.0-3.0); Hemoglobin (Hb) 10.5 g/dL (14.0-18.0); Potassium - ABG Lab 4.49 mmol/L (3.70-5.30); pH, Arterial 7.42 (7.35-7.45)
[2020-10-21] MEDS: cefTRIAXone\\ROCEPHIN 1 GM in Sodium Chloride 0.9% 100 ML IVPB SCH (09:14)
[2020-10-21] MEDS: Cholecalciferol (Vitamin D3) 400 UNITS TAB PO SCH (09:14)
[2020-10-21] MEDS: fentaNYL Citrate/PF 2,000 MCG in Sodium Chloride 0.9% 60 ML IV SCH (09:15)
[2020-10-21 09:17] LABS: O2 Tension (PaO2), arterial 52.2 mmHg (> 60.0)
[2020-10-21 09:18] LABS: Puncture Site RRA
--- NOTE | 2020-10-21 09:48 | RAD ---
PORTABLE CHEST: HISTORY: Respiratory distress. COMPARISON: 10/20/2020. FINDINGS: The heart size is within normal limits. Endotracheal and NG tubes are in satisfactory position. [place] ateral lung infiltrates are stable. IMPRESSION: Stable exam. POS: OFF
[2020-10-21] MEDS: Enoxaparin Sodium 40 MG/0.4 ML SYRINGE SC SCH ×2 (10:56→20:54)
[2020-10-21 12:54] LABS: Hemoglobin 9.3 g/dL (14.0-18.0); Platelet Count 169 thou/uL (130-400)
--- NOTE | 2020-10-21 14:25 | PDOC.FMACP ---
Advance Care Planning - Note Participants: family Summary: Advanced Care Planning was discussed. The diagnosis, prognosis and goals of care were discussed. Appropriate forms and documentation to accomplish the goals of care were discussed. All questions were answered. The Palliative Care Team will be engaged to assist with completion of any outstanding forms that are needed. Poke with patient's daughter Melody updated her about patient's condition. I did discuss resuscitation and she stated that she discussed it with her other sister and brother who agreed no CPR no chest compressions. Time Spent (mins): 25
--- NOTE | 2020-10-21 14:27 | PDOC.HOSPP ---
- Subjective Encounter Date: 10/21/20 Encounter Time: 10:30 Subjective: Patient intubated - Objective Vital Signs & Weight: Vital Signs (12 hours) Pulse Resp BP Pulse Ox 10/21/20 14:00 49 L 30 H 131/54 L 10/21/20 12:00 30 H 10/21/20 11:24 53 L 135/68 10/21/20 10:00 32 H 10/21/20 08:00 32 H 100 10/21/20 07:30 53 L 131/56 L 10/21/20 06:00 20 10/21/20 04:00 17 Weight Admit Weight 178 lb 9.191 oz Weight 178 lb 9.191 oz Most Recent Monitor Data Heart Rate from ECG 50 NIBP 131/54 NIBP BP-Mean 79 Respiration from ECG 23 SpO2 97 I&O: 10/20/20 10/21/20 10/22/20 06:59 06:59 06:59 Intake Total 1999.3 2083.6 Output Total 1920 2200 730 Balance 80.3 -116.4 -730 Result Diagrams: 10/21/20 12:09 10/21/20 03:30 Additional Labs: Accuchecks 10/21/20 10/21/20 10/20/20 09:32 04:09 23:04 POC Glucose 186 H 192 H 176 H 10/20/20 10/20/20 10/18/20 14:50 03:27 12:59 POC Glucose 212 H 193 H 176 H 10/18/20 10/17/20 03:38 16:24 POC Glucose 156 H 174 H Hospitalist ROS - Medication Medications: Active Medications Generic Name Dose Route Start Last Admin Trade Name Ani PRN Reason Stop Dose Admin Ascorbic Acid 1,000 mg 10/15/20 09:00 10/21/20 08:50 Ascorbic Acid 500 Mg Chewable Tablet PO 1,000 mg DAILY MACKENZIE Administration Cholecalciferol 400 units 10/15/20 09:00 10/21/20 09:14 Cholecalciferol (Vitamin D3) 400 Units Tab PO 400 units DAILY MACKENZIE Administration Dexamethasone 6 mg 10/15/20 09:00 10/21/20 08:49 Dexamethasone 4 Mg/Ml Vial SLOW IVP 6 mg DAILY MACKENZIE Administration Enoxaparin Sodium 40 mg 10/21/20 09:00 10/21/20 10:56 Enoxaparin Sodium 40 Mg/0.4 Ml Syringe SC 40 mg BID MACKENZIE Administration Famotidine 20 mg 10/21/20 09:00 10/21/20 08:49 Famotidine/Pf 20 Mg/2ml Vial SLOW IVP 20 mg BID MACKENZIE Administration Fentanyl Citrate 2,000 mcg/ 100 mls @ 0 mls/hr 10/14/20 20:30 10/21/20 09:15 Sodium Chloride IV 11/13/20 20:30 100 mls INF MACKENZIE Administration Protocol Per Protocol Fentanyl Citrate 250 mls @ 0 mls/hr 10/14/20 20:30 10/20/20 09:20 Fentanyl Bolus IVPB 11/13/20 20:30 2.5 mls PRN PRN Administration Breakthrough pain/agitation As Directed Sodium Chloride 1,000 mls @ 100 mls/hr 10/16/20 16:45 10/21/20 14:22 1/2 Normal Saline IV 1,000 mls .Q10H MACKENZIE Administration Ceftriaxone Sodium 1 gm/ 100 mls @ 200 mls/hr 10/18/20 10:00 10/21/20 09:14 Sodium Chloride IVPB 100 mls Q24HR MACKENZIE Administration Insulin Human Lispro 0 units 10/14/20 23:10 10/21/20 09:35 Humalog 300 Units/3 Ml Vial SC 2 unit .MILD SLIDING SCALE PRN Administration Mild Correctional Scale Lorazepam 2 mg 10/14/20 20:30 10/19/20 07:41 Lorazepam 2 Mg/Ml Vial SLOW IVP 11/13/20 20:30 2 mg Q1H PRN Administration Breakthrough agitation Propofol 1,000 mg 10/14/20 20:30 10/21/20 08:48 Propofol 1,000 Mg/100 Ml Vial IV 11/13/20 20:30 1,000 mg INF PRN Administration TO ACHIEVE GOAL RASS Protocol Sodium Chloride 10 ml 10/15/20 09:00 10/21/20 08:51 Flush - Normal Saline 10 Ml Syringe IVF 10 ml Q12HR MACKENZIE Administration Vecuronium [place] 10 mg 10/15/20 13:08 10/17/20 14:02 Vecuronium 10 Mg Vial IV 10 mg Q1H PRN Administration AGITATION Zinc Sulfate 220 mg 10/15/20 09:00 10/21/20 08:50 Zinc Sulfate 220 Mg Cap PO 220 mg DAILY MACKENZIE Administration Hosp A/P - Plan (1) Pneumonia due to COVID-19 virus Code(s): U07.1 - COVID-19; J12.89 - OTHER VIRAL PNEUMONIA Status: Acute (2) Acute respiratory failure with hypoxia and hypercarbia Code(s): J96.01 - ACUTE RESPIRATORY FAILURE WITH HYPOXIA; J96.02 - ACUTE RESPIRATORY FAILURE WITH HYPERCAPNIA Status: Acute (3) COPD exacerbation Code(s): J44.1 - CHRONIC OBSTRUCTIVE PULMONARY DISEASE W (ACUTE) EXACERBATION Status: Acute (4) ASHLEY (acute kidney injury) Code(s): N17.9 - ACUTE KIDNEY FAILURE, UNSPECIFIED Status: Acute (5) Elevated LFTs Code(s): R79.89 - OTHER SPECIFIED ABNORMAL FINDINGS OF BLOOD CHEMISTRY Status: Acute (6) Acute exacerbation of CHF (congestive heart failure) Code(s): I50.9 - HEART FAILURE, UNSPECIFIED Status: Acute Qualifiers: Heart failure type: diastolic Qualified Code(s): I50.33 - Acute on chronic diastolic (congestive) heart failure (7) Sepsis Code(s): A41.9 - SEPSIS, UNSPECIFIED ORGANISM Status: Acute Qualifiers: Sepsis type: sepsis due to unspecified organism Sepsis acute organ dysfunction status: with acute organ dysfunction Severe sepsis acute organ dysfunction type: acute renal failure (8) Acute metabolic encephalopathy Code(s): G93.41 - METABOLIC ENCEPHALOPATHY Status: Acute (9) Hypoalbuminemia due to protein-calorie malnutrition Code(s): E88.09 - OTH DISORDERS OF PLASMA-PROTEIN METABOLISM, NEC; E46 - UNSPECIFIED PROTEIN-CALORIE MALNUTRITION Status: Chronic (10) NSTEMI (non-ST elevated myocardial infarction) Code(s): I21.4 - NON-ST ELEVATION (NSTEMI) MYOCARDIAL INFARCTION Status: Acute - Plan continue dexamethasone, lovenox, iv fluids, aspirin, lopressor. elevated lft's likely due to sepsis is slowly trending down from today echo for lv function, bnp is elevated dc lipitor, unknown downtime prior to arrival, is apparently moving all extremities per staff. d/w both daughters over phone and gave full updates, is the oldest daughter and pt was living with her, she wants to be POA, Ms.Mason Borges has no issues with her being poa. d/w Mrs.Melody and gave full updates 10/2020 Family is in agreement with making him dnar/withdrawal of care if he were to get worse in the next 2-3 days. prognosis guarded / patient's LFTs improving slightly. Vent settings changed today per pulmonary. Continue to follow along. Continue steroids DVT prophylaxis. 10/20 per nursing staff patient has significant bleeding from his mouth and some blood was noted in his ET tube. His aspirin and his Lovenox has been discontinued. H&H has been stable platelets are stable. Most likely will restart aspirin in the morning. If patient is weaned off sedation patient becomes very agitated and desats in the 80s. Plan was discussed by nursing staff at bedside. 10/21 patient seen by pulmonology today I did not examine the patient. We will restart patient Lovenox and continue to monitor. Patient's family updated patient may DNAR. Patient has a lot of secretions per nursing staff
[2020-10-21 15:43] LABS: Hemoglobin 9.4 g/dL (14.0-18.0); Platelet Count 173 thou/uL (130-400)
--- NOTE | 2020-10-21 19:20 | PRG ---
DATE OF SERVICE: 10/21/2020 SUBJECTIVE: Geronimo Healy remains mechanically ventilated. OBJECTIVE: VITAL SIGNS: Heart rates in the high 40s, blood pressure 125/54, FiO2 is fluctuated between 50% and 60% today. Intake and outputs negative 116. LUNGS: Unchanged. ABDOMEN: Unchanged. LABORATORY DATA: Hemoglobin is stable at 9 g, white count is 12.0, platelets 167,000. Sodium 144, potassium 4.7, chloride 110, bicarb 28, BUN 45, creatinine 0.7. pH 7.42, CO2 of 42, pO2 of 52. IMPRESSION: COVID pneumonia, respiratory failure, currently not weanable. PLAN: Continue current supportive care. He had some bleeding issues over the weekend. His Lovenox will be restarted at a lower dose. Critical care time 30 min. Job ID: [id number] MTDD
[2020-10-21 21:36] LABS: Hemoglobin 9.1 g/dL (14.0-18.0); Platelet Count 177 thou/uL (130-400)
[2020-10-22] MEDS: Sodium Chloride 0.45% 1,000 ML IV SCH ×3 (02:37→23:05)
[2020-10-22] MEDS: Propofol 1,000 MG/100 ML VIAL IV PRN ×2 (05:16→17:26)
[2020-10-22] MEDS: HumaLOG 300 UNITS/3 ML VIAL SC PRN ×4 (05:16→21:09)
[2020-10-22 05:56] LABS: ALT (SGPT) 248 U/L (8-55); AST (SGOT) 28 U/L (5-34); Albumin 2.3 g/dL (3.4-4.8); Alkaline Phosphatase 131 U/L (40-110); Anion Gap 10 mmol/L (10-20); BUN (Urea Nitrogen) 40 mg/dL (8.4-25.7); Bilirubin, Total 0.7 mg/dL (0.2-1.2); Calc. Creatinine Clearance 93 mL/min (70-130); Calcium 7.4 mg/dL (7.8-10.44); Carbon Dioxide 28 mmol/L (23-31); Chloride 110 mmol/L (98-107); Globulin 3.1 g/dL (2.4-3.5); Glucose 203 mg/dL (83-110); Protein, Total 5.4 g/dL (5.8-8.1); Sodium 143 mmol/L (136-145)
[2020-10-22 05:58] LABS: Mean Corpuscular HGB CONC 32.2 g/dL (32.0-36.0); Mean Corpuscular Hemoglobin 31.7 pg (27.0-31.0); Mean Corpuscular Volume 98.5 fL (78.0-98.0); Mean Platelet Volume 11.1 fL (7.4-10.4); Platelet Count 187 thou/uL (130-400); RBC Distribution Width 13.7 % (11.5-14.5); Red Blood Cell (RBC) Count 2.85 mill/uL (4.70-6.10); White Blood Cell (WBC) Count 13.8 thou/uL (4.8-10.8)
[2020-10-22 06:02] LABS: Band 14 % (5-11); Lymphocytes 3 % (21-51); MDiff Complete? YES; Monocytes 8 % (0-10); Myelocyte 1 % (0-0); Neutrophil 74 % (42-75)
--- NOTE | 2020-10-22 08:04 | RAD ---
RADIOGRAPH CHEST 1 VIEW: DATE: 10/22/2020 TIME: 4:31 AM HISTORY: 80-year-old male in respiratory failure COMPARISON: 10/21/2020 FINDINGS: Endotracheal tube and esophagogastric tube remain. Diffuse bilateral mixed interstitial and alveolar infiltrates, greatest at the right lower and right mid lung zones. No cardiomegaly or pneumothorax. Questionable right pleural effusion. No interval change. IMPRESSION: No interval change in bilateral infiltrates, possibly representing ARDS
[2020-10-22] MEDS: Ascorbic Acid 500 mg Chewable Tablet PO SCH (08:42)
[2020-10-22] MEDS: Enoxaparin Sodium 40 MG/0.4 ML SYRINGE SC SCH ×2 (08:44→20:30)
[2020-10-22] MEDS: Dexamethasone 4 mg/ml Vial SLOW IVP SCH (08:44)
[2020-10-22] MEDS: Famotidine/PF 20 mg/2ml Vial SLOW IVP SCH ×2 (08:44→20:30)
[2020-10-22 08:57] LABS: Actual Bicarbonate (HCO3a) 26.6 mEq/L (22-28); CO2 Tension 47.1 mmHg (35.0-45.0); Calcium, Ionized (arterial) 1.14 mmol/L (1.12-1.30); Carboxyhemoglobin (COHb) 0.7 gm% (0.0-3.0); Hemoglobin (Hb) 9.2 g/dL (14.0-18.0); O2 Tension (PaO2), arterial 76.1 mmHg (> 60.0); Potassium - ABG Lab 5.06 mmol/L (3.70-5.30); pH, Arterial 7.37 (7.35-7.45)
[2020-10-22 09:41] LABS: Puncture Site RRA
[2020-10-22 09:42] LABS: ALV-art Gradient 221.525 mmHg (0-20)
[2020-10-22] MEDS: Cholecalciferol (Vitamin D3) 400 UNITS TAB PO SCH (09:55)
[2020-10-22] MEDS: Zinc Sulfate 220 MG CAP PO SCH (09:55)
[2020-10-22] MEDS: fentaNYL Citrate/PF 2,000 MCG in Sodium Chloride 0.9% 60 ML IV SCH (09:56)
[2020-10-22] MEDS: cefTRIAXone\\ROCEPHIN 1 GM in Sodium Chloride 0.9% 100 ML IVPB SCH (09:57)
[2020-10-22 10:20] LABS: Hemoglobin 8.9 g/dL (14.0-18.0); Platelet Count 204 thou/uL (130-400)
--- NOTE | 2020-10-22 15:16 | PRG ---
DATE OF SERVICE: 10/22/2020 SUBJECTIVE: Mr. Healy is clinically stable. OBJECTIVE: VITAL SIGNS: Heart rate is in the 50s, blood pressure 130/59, respiratory rate is 22. He is afebrile. Intake and outputs positive 775. LUNGS: Remarkable for coarse equal breath sounds. HEART: Regular rhythm. ABDOMEN: Soft. IMAGING STUDIES: Chest x-ray reviewed by me is unchanged. LABORATORY DATA: White count 13.8, hemoglobin 9.0, platelets 187. Sodium 143, potassium 5, chloride 110, bicarb 28, BUN 40, creatinine 0.7, glucose 203. The pH is 7.37, pCO2 is 47, and pO2 is 76. IMPRESSION AND PLAN: COVID pneumonia. His gas exchange is slowly improving. He appears to be stable at this time. He was admitted on the . He was diagnosed with COVID a week prior, which would make him probably over 2 weeks into this. It would be helpful if we had the copy of the COVID test, so we know exactly when his COVID test was positive. This is only for isolation reasons. We will continue to follow. Critical care time 30 min. Job ID: [id number] [facility]
[2020-10-22 15:35] LABS: Hemoglobin 8.8 g/dL (14.0-18.0); Platelet Count 205 thou/uL (130-400)
--- NOTE | 2020-10-22 17:56 | PDOC.HOSPP ---
- Subjective Encounter Date: 10/22/20 Encounter Time: 11:15 Subjective: pt intubated - Objective Vital Signs & Weight: Vital Signs (12 hours) Temp Pulse Resp BP Pulse Ox 10/22/20 16:00 98.6 F 25 H 10/22/20 14:22 53 L 130/59 L 10/22/20 14:00 22 H 10/22/20 12:00 98.7 F 23 H 10/22/20 10:31 50 L 131/61 10/22/20 10:00 25 H 10/22/20 08:00 99.4 F 28 H 95 10/22/20 06:40 43 L 133/55 L 10/22/20 06:00 17 Weight Admit Weight 178 lb 9.191 oz Weight 178 lb 9.191 oz Most Recent Monitor Data Heart Rate from ECG 47 NIBP 123/57 NIBP BP-Mean 79 Respiration from ECG 19 SpO2 96 I&O: 10/21/20 10/22/20 10/23/20 06:59 06:59 06:59 Intake Total 2083.6 2935.5 160 Output Total 2200 2160 1095 Balance -116.4 775.5 -935 Result Diagrams: 10/22/20 15:29 10/22/20 04:45 Additional Labs: Accuchecks 10/22/20 10/22/20 10/22/20 15:57 11:29 04:49 POC Glucose 228 H 173 H 195 H 10/21/20 22:21 POC Glucose 256 H Hospitalist ROS - Medication Medications: Active Medications Generic Name Dose Route Start Last Admin Trade Name Awaisq PRN Reason Stop Dose Admin Ascorbic Acid 1,000 mg 10/15/20 09:00 10/22/20 08:42 Ascorbic Acid 500 Mg Chewable Tablet PO 1,000 mg DAILY MACKENZIE Administration Cholecalciferol 400 units 10/15/20 09:00 10/22/20 09:55 Cholecalciferol (Vitamin D3) 400 Units Tab PO 400 units DAILY MACKENZIE Administration Dexamethasone 6 mg 10/15/20 09:00 10/22/20 08:44 Dexamethasone 4 Mg/Ml Vial SLOW IVP 6 mg DAILY MACKENZIE Administration Enoxaparin Sodium 40 mg 10/21/20 09:00 10/22/20 08:44 Enoxaparin Sodium 40 Mg/0.4 Ml Syringe SC 40 mg BID MACKENZIE Administration Famotidine 20 mg 10/21/20 09:00 10/22/20 08:44 Famotidine/Pf 20 Mg/2ml Vial SLOW IVP 20 mg BID MACKENZIE Administration Fentanyl Citrate 2,000 mcg/ 100 mls @ 0 mls/hr 10/14/20 20:30 10/22/20 09:56 Sodium Chloride IV 11/13/20 20:30 100 mls INF MACKENZIE Administration Protocol Per Protocol Fentanyl Citrate 250 mls @ 0 mls/hr 10/14/20 20:30 10/20/20 09:20 Fentanyl Bolus IVPB 11/13/20 20:30 2.5 mls PRN PRN Administration Breakthrough pain/agitation As Directed Sodium Chloride 1,000 mls @ 100 mls/hr 10/16/20 16:45 10/22/20 11:27 1/2 Normal Saline IV 1,000 mls .Q10H MACKENZIE Administration Ceftriaxone Sodium 1 gm/ 100 mls @ 200 mls/hr 10/18/20 10:00 10/22/20 09:57 Sodium Chloride IVPB 100 mls Q24HR MACKENZIE Administration Insulin Human Lispro 0 units 10/14/20 23:10 10/22/20 15:57 Humalog 300 Units/3 Ml Vial SC 3 unit .MILD SLIDING SCALE PRN Administration Mild Correctional Scale Lorazepam 2 mg 10/14/20 20:30 10/19/20 07:41 Lorazepam 2 Mg/Ml Vial SLOW IVP 11/13/20 20:30 2 mg Q1H PRN Administration Breakthrough agitation Propofol 1,000 mg 10/14/20 20:30 10/22/20 17:26 Propofol 1,000 Mg/100 Ml Vial IV 11/13/20 20:30 1,000 mg INF PRN Administration TO ACHIEVE GOAL RASS Protocol Sodium Chloride 10 ml 10/15/20 09:00 10/22/20 08:43 Flush - Normal Saline 10 Ml Syringe IVF 10 ml Q12HR MACKENZIE Administration Vecuronium [place] 10 mg 10/15/20 13:08 10/17/20 14:02 Vecuronium 10 Mg Vial IV 10 mg Q1H PRN Administration AGITATION Zinc Sulfate 220 mg 10/15/20 09:00 10/22/20 09:55 Zinc Sulfate 220 Mg Cap PO 220 mg DAILY MACKENZIE Administration Hosp A/P - Plan (1) Pneumonia due to COVID-19 virus Code(s): U07.1 - COVID-19; J12.89 - OTHER VIRAL PNEUMONIA Status: Acute (2) Acute respiratory failure with hypoxia and hypercarbia Code(s): J96.01 - ACUTE RESPIRATORY FAILURE WITH HYPOXIA; J96.02 - ACUTE RESPIRATORY FAILURE WITH HYPERCAPNIA Status: Acute (3) COPD exacerbation Code(s): J44.1 - CHRONIC OBSTRUCTIVE PULMONARY DISEASE W (ACUTE) EXACERBATION Status: Acute (4) ASHLEY (acute kidney injury) Code(s): N17.9 - ACUTE KIDNEY FAILURE, UNSPECIFIED Status: Acute (5) Elevated LFTs Code(s): R79.89 - OTHER SPECIFIED ABNORMAL FINDINGS OF BLOOD CHEMISTRY Status: Acute (6) Acute exacerbation of CHF (congestive heart failure) Code(s): I50.9 - HEART FAILURE, UNSPECIFIED Status: Acute Qualifiers: Heart failure type: diastolic Qualified Code(s): I50.33 - Acute on chronic diastolic (congestive) heart failure (7) Sepsis Code(s): A41.9 - SEPSIS, UNSPECIFIED ORGANISM Status: Acute Qualifiers: Sepsis type: sepsis due to unspecified organism Sepsis acute organ dysfunction status: with acute organ dysfunction Severe sepsis acute organ dysfunction type: acute renal failure (8) Acute metabolic encephalopathy Code(s): G93.41 - METABOLIC ENCEPHALOPATHY Status: Acute (9) Hypoalbuminemia due to protein-calorie malnutrition Code(s): E88.09 - OTH DISORDERS OF PLASMA-PROTEIN METABOLISM, NEC; E46 - UNSPECIFIED PROTEIN-CALORIE MALNUTRITION Status: Chronic (10) NSTEMI (non-ST elevated myocardial infarction) Code(s): I21.4 - NON-ST ELEVATION (NSTEMI) MYOCARDIAL INFARCTION Status: Acute - Plan continue dexamethasone, lovenox, iv fluids, aspirin, lopressor. elevated lft's likely due to sepsis is slowly trending down from today echo for lv function, bnp is elevated dc lipitor, unknown downtime prior to arrival, is apparently moving all extremities per staff. d/w both daughters over phone and gave full updates, is the oldest daughter and pt was living with her, she wants to be POA, Ms.Mason Borges has no issues with her being poa. d/w and gave full updates 10/2020 Family is in agreement with making him dnar/withdrawal of care if he were to get worse in the next 2-3 days. prognosis guarded / patient's LFTs improving slightly. Vent settings changed today per pulmonary. Continue to follow along. Continue steroids DVT prophylaxis. 10/20 per nursing staff patient has significant bleeding from his mouth and some blood was noted in his ET tube. His aspirin and his Lovenox has been discontinued. H&H has been stable platelets are stable. Most likely will restart aspirin in the morning. If patient is weaned off sedation patient becomes very agitated and desats in the 80s. Plan was discussed by nursing staff at bedside. 10/21 patient seen by pulmonology today I did not examine the patient. We will restart patient Lovenox and continue to monitor. Patient's family updated patient may DNAR. Patient has a lot of secretions per nursing staff 10/22 patient's improvement continues to be slow. Overall prognosis poor. We will try and call family tomorrow. Patient will most likely need trach and PEG and even so overall prognosis is poor and recovery time will be very prolonged may be futile.
[2020-10-22 23:56] LABS: Platelet Count 231 thou/uL (130-400)
[2020-10-23] MEDS: HumaLOG 300 UNITS/3 ML VIAL SC PRN ×4 (03:20→20:45)
[2020-10-23 04:54] LABS: Band 13 % (5-11); Hemoglobin 8.8 g/dL (14.0-18.0); Lymphocytes 6 % (21-51); MDiff Complete? YES; Mean Corpuscular HGB CONC 31.8 g/dL (32.0-36.0); Mean Corpuscular Hemoglobin 31.1 pg (27.0-31.0); Mean Corpuscular Volume 97.8 fL (78.0-98.0); Monocytes 8 % (0-10); Myelocyte 1 % (0-0); Neutrophil 72 % (42-75); Platelet Count 237 thou/uL (130-400); RBC Distribution Width 13.8 % (11.5-14.5); Red Blood Cell (RBC) Count 2.83 mill/uL (4.70-6.10); White Blood Cell (WBC) Count 14.7 thou/uL (4.8-10.8)
[2020-10-23 04:55] LABS: ALT (SGPT) 196 U/L (8-55); AST (SGOT) 28 U/L (5-34); Albumin 2.3 g/dL (3.4-4.8); Alkaline Phosphatase 156 U/L (40-110); Anion Gap 12 mmol/L (10-20); BUN (Urea Nitrogen) 38 mg/dL (8.4-25.7); Bilirubin, Total 0.6 mg/dL (0.2-1.2); Calc. Creatinine Clearance 101 mL/min (70-130); Calcium 7.6 mg/dL (7.8-10.44); Carbon Dioxide 27 mmol/L (23-31); Chloride 108 mmol/L (98-107); Globulin 3.1 g/dL (2.4-3.5); Glucose 196 mg/dL (83-110); Potassium 5.3 mmol/L (3.5-5.1); Protein, Total 5.4 g/dL (5.8-8.1); Sodium 142 mmol/L (136-145)
[2020-10-23 08:46] LABS: Actual Bicarbonate (HCO3a) 26.9 mEq/L (22-28); Base Excess (BEa) 1.9 mEq/L (-2.0 to +3.0); Calcium, Ionized (arterial) 1.15 mmol/L (1.12-1.30); Carboxyhemoglobin (COHb) 0.4 gm% (0.0-3.0); Hemoglobin (Hb) 8.7 g/dL (14.0-18.0)
[2020-10-23] MEDS: Cholecalciferol (Vitamin D3) 400 UNITS TAB PO SCH (09:15)
[2020-10-23] MEDS: Sodium Chloride 0.45% 1,000 ML IV SCH ×2 (09:24→19:25)
[2020-10-23] MEDS: Enoxaparin Sodium 40 MG/0.4 ML SYRINGE SC SCH ×2 (09:25→20:33)
[2020-10-23] MEDS: Famotidine/PF 20 mg/2ml Vial SLOW IVP SCH ×2 (09:26→20:33)
[2020-10-23] MEDS: Ascorbic Acid 500 mg Chewable Tablet PO SCH (09:26)
[2020-10-23] MEDS: Dexamethasone 4 mg/ml Vial SLOW IVP SCH (09:26)
[2020-10-23] MEDS: cefTRIAXone\\ROCEPHIN 1 GM in Sodium Chloride 0.9% 100 ML IVPB SCH (09:27)
[2020-10-23 09:43] LABS: O2 Tension (PaO2), arterial 56.5 mmHg (> 60.0); Puncture Site RRA
[2020-10-23] MEDS: fentaNYL Citrate/PF 2,000 MCG in Sodium Chloride 0.9% 60 ML IV SCH (10:29)
[2020-10-23] MEDS: Zinc Sulfate 220 MG CAP PO SCH (11:11)
--- NOTE | 2020-10-23 11:23 | RAD ---
PORTABLE CHEST: Date: 10/23/2020 HISTORY: Respiratory distress. COVID pneumonia. COMPARISON: Prior day's exam. FINDINGS: Endotracheal and NG tube are in satisfactory position. Bilateral lung infiltrates are stable. IMPRESSION: Stable exam. POS: [facility]
[2020-10-23] MEDS: Lorazepam 2 MG/ML VIAL SLOW IVP PRN (17:25)
--- NOTE | 2020-10-23 18:28 | PDOC.HOSPP ---
- Subjective Encounter Date: 10/23/20 Encounter Time: 11:20 Subjective: pt intubated - Objective Vital Signs & Weight: Vital Signs (12 hours) Pulse Resp BP Pulse Ox 10/23/20 18:18 53 L 136/105 H 10/23/20 16:00 23 H 10/23/20 14:36 50 L 124/55 L 10/23/20 14:00 23 H 10/23/20 12:00 24 H 10/23/20 11:03 57 L 137/63 10/23/20 10:00 22 H 10/23/20 08:00 19 10/23/20 07:31 93 L 10/23/20 07:00 49 L 149/65 H Weight Admit Weight 178 lb 9.191 oz Weight 178 lb 9.191 oz Most Recent Monitor Data Heart Rate from ECG 56 NIBP 144/63 NIBP BP-Mean 90 Respiration from ECG 21 SpO2 94 I&O: 10/22/20 10/23/20 10/24/20 06:59 06:59 06:59 Intake Total 2935.5 3687.0 Output Total 2160 2355 1020 Balance 775.5 1332.0 -1020 Result Diagrams: 10/23/20 03:15 10/23/20 03:15 Additional Labs: Accuchecks 10/23/20 10/23/20 10/23/20 16:40 09:36 03:10 POC Glucose 244 H 176 H 184 H 10/22/20 20:36 POC Glucose 218 H Hospitalist ROS - Medication Medications: Active Medications Generic Name Dose Route Start Last Admin Trade Name Awaisq PRN Reason Stop Dose Admin Ascorbic Acid 1,000 mg 10/15/20 09:00 10/23/20 09:26 Ascorbic Acid 500 Mg Chewable Tablet PO 1,000 mg DAILY MACKENZIE Administration Cholecalciferol 400 units 10/15/20 09:00 10/23/20 09:15 Cholecalciferol (Vitamin D3) 400 Units Tab PO 400 units DAILY MACKENZIE Administration Dexamethasone 6 mg 10/15/20 09:00 10/23/20 09:26 Dexamethasone 4 Mg/Ml Vial SLOW IVP 6 mg DAILY MACKENZIE Administration Enoxaparin Sodium 40 mg 10/21/20 09:00 10/23/20 09:25 Enoxaparin Sodium 40 Mg/0.4 Ml Syringe SC 40 mg BID MACKENZIE Administration Famotidine 20 mg 10/21/20 09:00 10/23/20 09:26 Famotidine/Pf 20 Mg/2ml Vial SLOW IVP 20 mg BID MACKENZIE Administration Fentanyl Citrate 2,000 mcg/ 100 mls @ 0 mls/hr 10/14/20 20:30 10/23/20 10:29 Sodium Chloride IV 11/13/20 20:30 100 mls INF MACKENZIE Administration Protocol Per Protocol Fentanyl Citrate 250 mls @ 0 mls/hr 10/14/20 20:30 10/20/20 09:20 Fentanyl Bolus IVPB 11/13/20 20:30 2.5 mls PRN PRN Administration Breakthrough pain/agitation As Directed Sodium Chloride 1,000 mls @ 100 mls/hr 10/16/20 16:45 10/23/20 09:24 1/2 Normal Saline IV 1,000 mls .Q10H MACKENZIE Administration Ceftriaxone Sodium 1 gm/ 100 mls @ 200 mls/hr 10/18/20 10:00 10/23/20 09:27 Sodium Chloride IVPB 100 mls Q24HR MACKENZIE Administration Insulin Human Lispro 0 units 10/14/20 23:10 10/23/20 17:25 Humalog 300 Units/3 Ml Vial SC 3 unit .MILD SLIDING SCALE PRN Administration Mild Correctional Scale Lorazepam 2 mg 10/14/20 20:30 10/23/20 17:25 Lorazepam 2 Mg/Ml Vial SLOW IVP 11/13/20 20:30 2 mg Q1H PRN Administration Breakthrough agitation Propofol 1,000 mg 10/14/20 20:30 10/22/20 17:26 Propofol 1,000 Mg/100 Ml Vial IV 11/13/20 20:30 1,000 mg INF PRN Administration TO ACHIEVE GOAL RASS Protocol Sodium Chloride 10 ml 10/15/20 09:00 10/23/20 09:27 Flush - Normal Saline 10 Ml Syringe IVF 10 ml Q12HR MACKENZIE Administration Vecuronium [place] 10 mg 10/15/20 13:08 10/17/20 14:02 Vecuronium 10 Mg Vial IV 10 mg Q1H PRN Administration AGITATION Zinc Sulfate 220 mg 10/15/20 09:00 10/23/20 11:11 Zinc Sulfate 220 Mg Cap PO Not Given DAILY MACKENZIE Hosp A/P - Plan (1) Pneumonia due to COVID-19 virus Code(s): U07.1 - COVID-19; J12.89 - OTHER VIRAL PNEUMONIA Status: Acute (2) Acute respiratory failure with hypoxia and hypercarbia Code(s): J96.01 - ACUTE RESPIRATORY FAILURE WITH HYPOXIA; J96.02 - ACUTE RESPIRATORY FAILURE WITH HYPERCAPNIA Status: Acute (3) COPD exacerbation Code(s): J44.1 - CHRONIC OBSTRUCTIVE PULMONARY DISEASE W (ACUTE) EXACERBATION Status: Acute (4) ASHLEY (acute kidney injury) Code(s): N17.9 - ACUTE KIDNEY FAILURE, UNSPECIFIED Status: Acute (5) Elevated LFTs Code(s): R79.89 - OTHER SPECIFIED ABNORMAL FINDINGS OF BLOOD CHEMISTRY Status: Acute (6) Acute exacerbation of CHF (congestive heart failure) Code(s): I50.9 - HEART FAILURE, UNSPECIFIED Status: Acute Qualifiers: Heart failure type: diastolic Qualified Code(s): I50.33 - Acute on chronic diastolic (congestive) heart failure (7) Sepsis Code(s): A41.9 - SEPSIS, UNSPECIFIED ORGANISM Status: Acute Qualifiers: Sepsis type: sepsis due to unspecified organism Sepsis acute organ dysfun ction status: with acute organ dysfunction Severe sepsis acute organ dysf unction type: acute renal failure (8) Acute metabolic encephalopathy Code(s): G93.41 - METABOLIC ENCEPHALOPATHY Status: Acute (9) Hypoalbuminemia due to protein-calorie malnutrition Code(s): E88.09 - OTH DISORDERS OF PLASMA-PROTEIN METABOLISM, NEC; E46 - UNSPECIFIED PROTEIN-CALORIE MALNUTRITION Status: Chronic (10) NSTEMI (non-ST elevated myocardial infarction) Code(s): I21.4 - NON-ST ELEVATION (NSTEMI) MYOCARDIAL INFARCTION Status: Acute - Plan continue dexamethasone, lovenox, iv fluids, aspirin, lopressor. elevated lft's likely due to sepsis is slowly trending down from today echo for lv function, bnp is elevated dc lipitor, unknown downtime prior to arrival, is apparently moving all extremities per staff. d/w both daughters over phone and gave full updates, is the oldest daughter and pt was living with her, she wants to be POA, Ms.Mason Borges has no issues with her being poa. d/w and gave full updates 10/2020 Family is in agreement with making him dnar/withdrawal of care if he were to get worse in the next 2-3 days. prognosis guarded 10/19 patient's LFTs improving slightly. Vent settings changed today per pulmon una. Continue to follow along. Continue steroids DVT prophylaxis. 10/20 per nursing staff patient has significant bleeding from his mouth and some blood was noted in his ET tube. His aspirin and his Lovenox has been discontinued. H&H has been stable platelets are stable. Most likely will restart aspirin in the morning. If patient is weaned off sedation patient becomes very agitated and desats in the 80s. Plan was discussed by nursing staff at bedside. 10/21 patient seen by pulmonology today I did not examine the patient. We will restart patient Lovenox and continue to monitor. Patient's family updated patient may DNAR. Patient has a lot of secretions per nursing staff 10/22 patient's improvement continues to be slow. Overall prognosis poor. We will try and call family tomorrow. Patient will most likely need trach and PEG and even so overall prognosis is poor and recovery time will be very prolonged may be futile. 10/23 patient continues to be intubated. Spoke with pulmonology patient is improving slowly. Most likely will have a very long recovery.. Patient will most likely undergo a PEG and tracheostomy.
[2020-10-23] MEDS: Propofol 1,000 MG/100 ML VIAL IV PRN (20:34)
--- NOTE | 2020-10-23 21:44 | PRG ---
DATE OF SERVICE: 10/23/2020 SUBJECTIVE: Geronimo Healy remains hemodynamically stable. OBJECTIVE: VITAL SIGNS: His blood pressure is 127/55, heart rate 50, respiratory rate 20s, oximetry is 94. LUNGS: Remarkable for coarse equal breath sounds. HEART: Regular rhythm. ABDOMEN: Soft. LABORATORY DATA: White count is 14.7, hemoglobin 8.8, platelets 237. Sodium 142, potassium 5.3, chloride 108, bicarb 27, BUN 30, creatinine 0.66, glucose 196, ALT 196, alkaline phosphatase 156. AST is normal at 28. Albumin is 2.3. Chest x- ray is unchanged. IMPRESSION: Coronavirus pneumonia with respiratory failure. PLAN: Continue support. Critical care time 30 min Job ID: [id number] MTDD
[2020-10-24] MEDS: Sodium Chloride 0.45% 1,000 ML IV SCH ×3 (04:02→19:32)
[2020-10-24] MEDS: HumaLOG 300 UNITS/3 ML VIAL SC PRN ×4 (04:10→20:20)
[2020-10-24 05:33] LABS: Hemoglobin 8.5 g/dL (14.0-18.0); Mean Corpuscular HGB CONC 31.9 g/dL (32.0-36.0); Mean Corpuscular Hemoglobin 31.5 pg (27.0-31.0); Mean Corpuscular Volume 98.5 fL (78.0-98.0); Mean Platelet Volume 10.8 fL (7.4-10.4); Platelet Count 245 thou/uL (130-400); RBC Distribution Width 13.6 % (11.5-14.5); Red Blood Cell (RBC) Count 2.71 mill/uL (4.70-6.10); White Blood Cell (WBC) Count 16.7 thou/uL (4.8-10.8)
[2020-10-24 05:34] LABS: Band 8 % (5-11); Lymphocytes 3 % (21-51); MDiff Complete? YES; Monocytes 7 % (0-10); Neutrophil 82 % (42-75)
[2020-10-24 05:37] LABS: ALT (SGPT) 140 U/L (8-55); AST (SGOT) 19 U/L (5-34); Albumin 2.2 g/dL (3.4-4.8); Alkaline Phosphatase 129 U/L (40-110); Anion Gap 9 mmol/L (10-20); BUN (Urea Nitrogen) 35 mg/dL (8.4-25.7); Bilirubin, Total 0.5 mg/dL (0.2-1.2); Calc. Creatinine Clearance 104 mL/min (70-130); Calcium 7.7 mg/dL (7.8-10.44); Carbon Dioxide 28 mmol/L (23-31); Chloride 106 mmol/L (98-107); Globulin 3.1 g/dL (2.4-3.5); Glucose 169 mg/dL (83-110); Potassium 5.2 mmol/L (3.5-5.1); Protein, Total 5.3 g/dL (5.8-8.1); Sodium 138 mmol/L (136-145)
[2020-10-24 07:49] LABS: Actual Bicarbonate (HCO3a) 27.1 mEq/L (22-28); Base Excess (BEa) 2.5 mEq/L (-2.0 to +3.0); CO2 Tension 42.4 mmHg (35.0-45.0); Calcium, Ionized (arterial) 1.15 mmol/L (1.12-1.30); Hemoglobin (Hb) 8.4 g/dL (14.0-18.0); Potassium - ABG Lab 5.15 mmol/L (3.70-5.30); pH, Arterial 7.42 (7.35-7.45)
[2020-10-24] MEDS: Cholecalciferol (Vitamin D3) 400 UNITS TAB PO SCH (07:54)
[2020-10-24 07:55] LABS: O2 Tension (PaO2), arterial 57.6 mmHg (> 60.0); Puncture Site RRA
[2020-10-24] MEDS: Enoxaparin Sodium 40 MG/0.4 ML SYRINGE SC SCH ×2 (08:00→19:31)
[2020-10-24] MEDS: Dexamethasone 4 mg/ml Vial SLOW IVP SCH (08:01)
[2020-10-24] MEDS: Zinc Sulfate 220 MG CAP PO SCH (08:01)
[2020-10-24] MEDS: Famotidine/PF 20 mg/2ml Vial SLOW IVP SCH ×2 (08:01→19:31)
[2020-10-24] MEDS: Ascorbic Acid 500 mg Chewable Tablet PO SCH (08:09)
[2020-10-24] MEDS: cefTRIAXone\\ROCEPHIN 1 GM in Sodium Chloride 0.9% 100 ML IVPB SCH (08:09)
[2020-10-24] MEDS: Propofol 1,000 MG/100 ML VIAL IV PRN ×2 (08:42→19:32)
[2020-10-24] MEDS: fentaNYL Citrate/PF 2,000 MCG in Sodium Chloride 0.9% 60 ML IV SCH (12:43)
--- NOTE | 2020-10-24 15:23 | PRG ---
DATE OF SERVICE: 10/24/2020 SUBJECTIVE: Mr. Healy remains mechanically ventilated. OBJECTIVE: VITAL SIGNS: Heart rate is in the 50s, blood pressure 126/55, respiratory rate is 20, FiO2 is 50. Intake and output positive 113. LUNGS: Remarkable for equal breath sounds. HEART: Regular rhythm. ABDOMEN: Soft. LABORATORY DATA: White count 16.7, hemoglobin 8.5, and platelets 245. Sodium 138, potassium 5.2, chloride 106, bicarb 28, BUN 35, creatinine 0.64, glucose 169, and albumin 2.2. IMPRESSION: Respiratory failure associated with COVID pneumonia. PLAN: Continue supportive care. He is currently not weanable. I have decreased his respiratory rate slightly today, but no major changes were made. His pH today 7.42, CO2 of 42, and pO2 of 57. Critical care time 30 min. Job ID: [id number] MTDD
[2020-10-25] MEDS: HumaLOG 300 UNITS/3 ML VIAL SC PRN ×4 (03:15→21:15)
[2020-10-25 04:38] LABS: ALT (SGPT) 99 U/L (8-55); AST (SGOT) 19 U/L (5-34); Albumin 2.1 g/dL (3.4-4.8); Alkaline Phosphatase 129 U/L (40-110); Anion Gap 10 mmol/L (10-20); BUN (Urea Nitrogen) 33 mg/dL (8.4-25.7); Bilirubin, Total 0.4 mg/dL (0.2-1.2); Calc. Creatinine Clearance 104 mL/min (70-130); Calcium 7.7 mg/dL (7.8-10.44); Carbon Dioxide 27 mmol/L (23-31); Chloride 103 mmol/L (98-107); Globulin 2.9 g/dL (2.4-3.5); Glucose 219 mg/dL (83-110); Potassium 5.1 mmol/L (3.5-5.1); Sodium 135 mmol/L (136-145)
[2020-10-25 05:23] LABS: Band 10 % (5-11); Eosinophils 1 % (0-10); Hemoglobin 7.9 g/dL (14.0-18.0); Lymphocytes 4 % (21-51); MDiff Complete? YES; Mean Corpuscular HGB CONC 32.9 g/dL (32.0-36.0); Mean Corpuscular Hemoglobin 31.6 pg (27.0-31.0); Mean Corpuscular Volume 96.2 fL (78.0-98.0); Metamyelocyte 3 % (0-0); Monocytes 5 % (0-10); Neutrophil 77 % (42-75); Platelet Count 275 thou/uL (130-400); Platelet Morphology Comment Appears Adequate; RBC Distribution Width 13.6 % (11.5-14.5); Red Blood Cell (RBC) Count 2.49 mill/uL (4.70-6.10); White Blood Cell (WBC) Count 17.3 thou/uL (4.8-10.8)
[2020-10-25] MEDS: Sodium Chloride 0.45% 1,000 ML IV SCH ×2 (05:31→20:52)
[2020-10-25] MEDS ORDERED: Fentanyl BOLUS 250 ML IVPB PRN (08:52)
[2020-10-25] MEDS: Zinc Sulfate 220 MG CAP PO SCH (08:59)
[2020-10-25] MEDS: Enoxaparin Sodium 40 MG/0.4 ML SYRINGE SC SCH ×2 (08:59→20:50)
[2020-10-25] MEDS: Cholecalciferol (Vitamin D3) 400 UNITS TAB PO SCH (08:59)
[2020-10-25] MEDS: Ascorbic Acid 500 mg Chewable Tablet PO SCH (08:59)
[2020-10-25] MEDS: Famotidine/PF 20 mg/2ml Vial SLOW IVP SCH (08:59)
[2020-10-25] MEDS: Dexamethasone 4 mg/ml Vial SLOW IVP SCH (09:00)
[2020-10-25] MEDS: cefTRIAXone\\ROCEPHIN 1 GM in Sodium Chloride 0.9% 100 ML IVPB SCH (09:02)
--- NOTE | 2020-10-25 17:54 | PRG ---
DATE OF SERVICE: 10/25/2020 SUBJECTIVE: Mr. Healy remains mechanically ventilated. OBJECTIVE: VITAL SIGNS: Heart rates in the 50s, blood pressure 110/63, respiratory rates in the teens. LUNGS: Remarkable coarse equal breath sounds. HEART: Regular rhythm. ABDOMEN: Soft. EXTREMITIES: Without edema. LABORATORY DATA: White count 17.3, hemoglobin 7.9, platelets 275. Sodium 135, potassium 5.1, chloride 103, bicarb 27, BUN 33, creatinine 0.64. IMAGING: He has no chest x-ray today. Did not give blood gases every day because of blood gas . Overall, he appears to be slowly improving. We will continue to try to minimize airway pressures and FiO2 is slowly wean. We will continue nutritional support. Intake and outputs positive 97 mL. He will continue Lovenox 40 subcu twice a day as well as sedation, nutritional support. Critical care time 30 min. Job ID: [id number] MTDD
[2020-10-25] MEDS: Lorazepam 2 MG/ML VIAL SLOW IVP PRN (20:49)
[2020-10-25] MEDS: Famotidine 20 MG TAB PO SCH (20:49)
[2020-10-25] MEDS: fentaNYL Citrate/PF 2,000 MCG in Sodium Chloride 0.9% 60 ML IV SCH (20:51)
[2020-10-26] MEDS: HumaLOG 300 UNITS/3 ML VIAL SC PRN ×2 (03:00→22:37)
[2020-10-26 04:57] LABS: Hypochromia SLIGHT = 6-15 cells (100X) (0-5/hpf); Lymphocytes 6 % (21-51); MDiff Complete? YES; Mean Corpuscular HGB CONC 31.6 g/dL (32.0-36.0); Mean Corpuscular Hemoglobin 30.4 pg (27.0-31.0); Mean Corpuscular Volume 96.2 fL (78.0-98.0); Mean Platelet Volume 10.6 fL (7.4-10.4); Metamyelocyte 1 % (0-0); Monocytes 4 % (0-10); Myelocyte 1 % (0-0); Neutrophil 88 % (42-75); Platelet Count 332 thou/uL (130-400); Platelet Morphology Comment Appears Adequate; RBC Distribution Width 13.4 % (11.5-14.5); Red Blood Cell (RBC) Count 2.62 mill/uL (4.70-6.10); White Blood Cell (WBC) Count 17.7 thou/uL (4.8-10.8)
[2020-10-26 05:06] LABS: ALT (SGPT) 86 U/L (8-55); AST (SGOT) 17 U/L (5-34); Albumin 2.2 g/dL (3.4-4.8); Alkaline Phosphatase 112 U/L (40-110); Anion Gap 10 mmol/L (10-20); BUN (Urea Nitrogen) 30 mg/dL (8.4-25.7); Bilirubin, Total 0.4 mg/dL (0.2-1.2); Calc. Creatinine Clearance 113 mL/min (70-130); Calcium 7.9 mg/dL (7.8-10.44); Carbon Dioxide 27 mmol/L (23-31); Chloride 100 mmol/L (98-107); Globulin 3.1 g/dL (2.4-3.5); Glucose 161 mg/dL (83-110); Potassium 4.9 mmol/L (3.5-5.1); Protein, Total 5.3 g/dL (5.8-8.1); Sodium 132 mmol/L (136-145)
[2020-10-26] MEDS: Zinc Sulfate 220 MG CAP PO SCH (08:58)
[2020-10-26] MEDS: Famotidine 20 MG TAB PO SCH ×2 (08:58→20:59)
[2020-10-26] MEDS: Cholecalciferol (Vitamin D3) 400 UNITS TAB PO SCH (08:58)
[2020-10-26] MEDS: Ascorbic Acid 500 mg Chewable Tablet PO SCH (08:59)
[2020-10-26] MEDS: Enoxaparin Sodium 40 MG/0.4 ML SYRINGE SC SCH ×2 (08:59→20:59)
[2020-10-26] MEDS: Dexamethasone 4 mg/ml Vial SLOW IVP SCH (08:59)
[2020-10-26] MEDS: cefTRIAXone\\ROCEPHIN 1 GM in Sodium Chloride 0.9% 100 ML IVPB SCH (08:59)
--- NOTE | 2020-10-26 09:58 | RAD ---
Exam: Chest one view HISTORY:Respiratory distress. Ventilated patient. Comparison: 10/23/2020 FINDINGS: Lines and tubes: Stable endotracheal and nasogastric tube. Cardiac silhouette: Normal Aorta: Unremarkable Pulmonary vessels: Normal Costophrenic angles: Clear LUNGS: Stable multifocal interstitial and alveolar opacities. Pneumothorax: None Osseous abnormalities: None IMPRESSION: Stable multi lobar COVID pneumonia
[2020-10-26] MEDS: fentaNYL Citrate/PF 2,000 MCG in Sodium Chloride 0.9% 60 ML IV SCH ×2 (10:55→23:32)
[2020-10-26] MEDS ORDERED: Furosemide 100 MG/10 ML VIAL SLOW IVP SCH (12:15)
--- NOTE | 2020-10-26 16:10 | PRG ---
DATE OF SERVICE: 10/26/2020 SUBJECTIVE: Geronimo Healy remains mechanically ventilated. OBJECTIVE: VITAL SIGNS: Heart rates in the 70s. FiO2 is 60%. Blood pressure 125/58, respiratory rates in the 20s. LUNGS: Unchanged. HEART: Unchanged. ABDOMEN: Unchanged. LABORATORY DATA: Chest x-ray is unchanged. White count 17.7, hemoglobin 8.0, platelets . Sodium 132, potassium 4.9, chloride 100, bicarb 27, BUN . IMPRESSION: COVID pneumonia, clinically stable, perhaps making slow progress. PLAN: Continue supportive care. Critical care time 30 min. Job ID: [id number] MTDD
[2020-10-27] MEDS: Lorazepam 2 MG/ML VIAL SLOW IVP PRN ×2 (00:44→20:06)
[2020-10-27] MEDS: HumaLOG 300 UNITS/3 ML VIAL SC PRN ×4 (04:13→22:18)
[2020-10-27 04:50] LABS: ALT (SGPT) 74 U/L (8-55); AST (SGOT) 23 U/L (5-34); Albumin 2.3 g/dL (3.4-4.8); Alkaline Phosphatase 124 U/L (40-110); Anion Gap 11 mmol/L (10-20); BUN (Urea Nitrogen) 29 mg/dL (8.4-25.7); Bilirubin, Total 0.4 mg/dL (0.2-1.2); Calc. Creatinine Clearance 99 mL/min (70-130); Calcium 8.3 mg/dL (7.8-10.44); Carbon Dioxide 31 mmol/L (23-31); Chloride 97 mmol/L (98-107); Globulin 3.6 g/dL (2.4-3.5); Glucose 160 mg/dL (83-110); Potassium 4.7 mmol/L (3.5-5.1); Protein, Total 5.9 g/dL (5.8-8.1); Sodium 134 mmol/L (136-145)
[2020-10-27 05:09] LABS: Hemoglobin 8.5 g/dL (14.0-18.0); Lymphocytes 3 % (21-51); MDiff Complete? YES; Mean Corpuscular HGB CONC 32.3 g/dL (32.0-36.0); Mean Corpuscular Volume 95.9 fL (78.0-98.0); Mean Platelet Volume 10.4 fL (7.4-10.4); Monocytes 4 % (0-10); Neutrophil 93 % (42-75); Platelet Count 365 thou/uL (130-400); Platelet Morphology Comment Appears Adequate; RBC Distribution Width 13.7 % (11.5-14.5); RBC Morphology Normal; Red Blood Cell (RBC) Count 2.74 mill/uL (4.70-6.10); White Blood Cell (WBC) Count 17.4 thou/uL (4.8-10.8)
[2020-10-27] MEDS: Sodium Chloride 0.45% 1,000 ML IV SCH (08:25)
[2020-10-27] MEDS: Dexamethasone 4 mg/ml Vial SLOW IVP SCH (09:26)
[2020-10-27] MEDS: Enoxaparin Sodium 40 MG/0.4 ML SYRINGE SC SCH ×2 (09:26→20:06)
[2020-10-27] MEDS: Famotidine 20 MG TAB PO SCH ×2 (09:27→20:06)
[2020-10-27] MEDS: cefTRIAXone\\ROCEPHIN 1 GM in Sodium Chloride 0.9% 100 ML IVPB SCH (09:27)
[2020-10-27] MEDS: Cholecalciferol (Vitamin D3) 400 UNITS TAB PO SCH (09:27)
[2020-10-27] MEDS: Ascorbic Acid 500 mg Chewable Tablet PO SCH (09:27)
[2020-10-27] MEDS: Zinc Sulfate 220 MG CAP PO SCH (09:27)
--- NOTE | 2020-10-27 15:52 | PRG ---
DATE OF SERVICE: 10/27/2020 SUBJECTIVE: Geronimo Healy remains reasonably stable. OBJECTIVE: VITAL SIGNS: Heart rate is in 70s, FiO2 is 50, blood pressure 126/57, respiratory rates in the teens to low 20s. Intake and output negative 2972. LUNGS: Remarkable for coarse equal breath sounds. HEART: Regular rhythm. ABDOMEN: Soft. EXTREMITIES: Without asymmetry. DIAGNOSTIC STUDIES: Chest radiographs unchanged by my review. PLAN: His static compliance measures out at 37. I have turned his PEEP down to 9. We will continue to make slow decrease in his ventilatory support as tolerated. Critical care time 30 min. Job ID: [id number] MTDD
[2020-10-28] MEDS: Morphine 2 MG/ML VIAL SLOW IVP PRN ×4 (00:33→23:08)
[2020-10-28] MEDS: Lorazepam 2 MG/ML VIAL SLOW IVP PRN ×4 (00:43→22:57)
[2020-10-28 04:29] LABS: Hemoglobin 8.7 g/dL (14.0-18.0); Mean Corpuscular HGB CONC 33.1 g/dL (32.0-36.0); Mean Corpuscular Hemoglobin 31.5 pg (27.0-31.0); Mean Corpuscular Volume 95.2 fL (78.0-98.0); Mean Platelet Volume 9.8 fL (7.4-10.4); Platelet Count 419 thou/uL (130-400); RBC Distribution Width 13.6 % (11.5-14.5); Red Blood Cell (RBC) Count 2.75 mill/uL (4.70-6.10); White Blood Cell (WBC) Count 18.3 thou/uL (4.8-10.8)
[2020-10-28 04:30] LABS: Band 4 % (5-11); Hypochromia SLIGHT = 6-15 cells (100X) (0-5/hpf); Lymphocytes 5 % (21-51); MDiff Complete? YES; Monocytes 5 % (0-10); Neutrophil 86 % (42-75); Platelet Morphology Comment Appears Increased
[2020-10-28 04:32] LABS: ALT (SGPT) 65 U/L (8-55); AST (SGOT) 18 U/L (5-34); Albumin 2.4 g/dL (3.4-4.8); Alkaline Phosphatase 113 U/L (40-110); Anion Gap 11 mmol/L (10-20); BUN (Urea Nitrogen) 25 mg/dL (8.4-25.7); Bilirubin, Total 0.5 mg/dL (0.2-1.2); Calc. Creatinine Clearance 109 mL/min (70-130); Calcium 8.6 mg/dL (7.8-10.44); Carbon Dioxide 31 mmol/L (23-31); Chloride 99 mmol/L (98-107); Globulin 3.5 g/dL (2.4-3.5); Glucose 144 mg/dL (83-110); Potassium 4.6 mmol/L (3.5-5.1); Protein, Total 5.9 g/dL (5.8-8.1); Sodium 136 mmol/L (136-145)
--- NOTE | 2020-10-28 07:56 | RAD ---
RADIOGRAPH CHEST 1 VIEW: DATE: 10/28/2020 TIME: 5:10 AM HISTORY: 80-year-old male with respiratory failure COMPARISON: 10/26/2020 FINDINGS: There has been mild interval improvement in the diffuse bilateral mixed interstitial and alveolar inf iltrates. Endotracheal tube remains. Tip of esophagogastric tube is in the proximal stomach with side port at distal esophagus. No cardiomegaly or pneumothorax. IMPRESSION: Mild interval improvement in diffuse infiltrates
--- NOTE | 2020-10-28 08:08 | PRG ---
DATE OF SERVICE: SUBJECTIVE: Mr. Healy remains hemodynamically stable. OBJECTIVE: VITAL SIGNS: Heart rate is in the 50s, oximetry is 93, FiO2 is 40, blood pressure . LUNGS: Remarkable for equal breath sounds. HEART: Regular rhythm. ABDOMEN: Soft. DIAGNOSTIC STUDIES: Chest x-ray still shows diffuse infiltrates. LABORATORY DATA: White count is 18.3, hemoglobin 8.7, platelets 419. Sodium 136, potassium 4.6, chloride 99, bicarb 31, BUN 25, creatinine 0.6. IMPRESSION: Respiratory failure associated with COVID. PLAN: Continue slow decreases in ventilatory support. Critical care time 30 min. Job ID: [id number] MTDD
[2020-10-28] MEDS: Dexamethasone 4 mg/ml Vial SLOW IVP SCH (09:35)
[2020-10-28] MEDS: Ascorbic Acid 500 mg Chewable Tablet PO SCH (09:35)
[2020-10-28] MEDS: Cholecalciferol (Vitamin D3) 400 UNITS TAB PO SCH (09:35)
[2020-10-28] MEDS: Zinc Sulfate 220 MG CAP PO SCH (09:35)
[2020-10-28] MEDS: Enoxaparin Sodium 40 MG/0.4 ML SYRINGE SC SCH ×2 (09:36→21:08)
[2020-10-28] MEDS: Famotidine 20 MG TAB PO SCH ×2 (09:36→21:08)
--- NOTE | 2020-10-28 14:54 | PDOC.HOSPP ---
- Subjective Encounter Date: 10/24/20 Encounter Time: 12:00 Subjective: Patient continues to be intubated - Objective Vital Signs & Weight: Vital Signs (12 hours) Temp Pulse Resp Pulse Ox 10/28/20 12:00 25 H 10/28/20 11:14 54 L 10/28/20 11:00 98.2 F 10/28/20 10:00 26 H 10/28/20 08:00 97.6 F 28 H 10/28/20 07:16 93 L 10/28/20 06:58 53 L 10/28/20 06:00 24 H 10/28/20 04:00 97.6 F 17 Weight Admit Weight 178 lb 9.191 oz Weight 178 lb 9.191 oz Most Recent Monitor Data Heart Rate from ECG 54 NIBP 113/61 NIBP BP-Mean 78 Respiration from ECG 21 SpO2 99 I&O: 10/27/20 10/28/20 10/29/20 06:59 06:59 06:59 Intake Total 1653 1114 130 Output Total 4625 4555 690 Balance -2972 -3441 -560 Result Diagrams: 10/28/20 03:30 10/28/20 03:30 Additional Labs: Accuchecks 10/28/20 10/28/20 10/27/20 09:46 04:24 22:12 POC Glucose 135 H 122 H 190 H 10/27/20 10/26/20 16:44 15:36 POC Glucose 246 H 247 H Hospitalist ROS - Medication Medications: Active Medications Generic Name Dose Route Start Last Admin Trade Name Awaisq PRN Reason Stop Dose Admin Ascorbic Acid 1,000 mg 10/15/20 09:00 10/28/20 09:35 Ascorbic Acid 500 Mg Chewable Tablet PO 1,000 mg DAILY MACKENZIE Administration Cholecalciferol 400 units 10/15/20 09:00 10/28/20 09:35 Cholecalciferol (Vitamin D3) 400 Units Tab PO 400 units DAILY MACKENZIE Administration Dexamethasone 6 mg 10/15/20 09:00 10/28/20 09:35 Dexamethasone 4 Mg/Ml Vial SLOW IVP 6 mg DAILY MACKENZIE Administration Enoxaparin Sodium 40 mg 10/21/20 09:00 10/28/20 09:36 Enoxaparin Sodium 40 Mg/0.4 Ml Syringe SC 40 mg BID MACKENZIE Administration Famotidine 20 mg 10/25/20 21:00 10/28/20 09:36 Famotidine 20 Mg Tab PO 20 mg BID MACKENZIE Administration Fentanyl Citrate 2,000 mcg/ 100 mls @ 0 mls/hr 10/25/20 09:00 10/26/20 23:32 Sodium Chloride IV 100 mls INF MACKENZIE Administration Protocol Per Protocol Insulin Human Lispro 0 units 10/14/20 23:10 10/27/20 22:18 Humalog 300 Units/3 Ml Vial SC 2 unit .MILD SLIDING SCALE PRN Administration Mild Correctional Scale Lorazepam 2 mg 10/25/20 08:52 10/28/20 10:04 Lorazepam 2 Mg/Ml Vial SLOW IVP 2 mg Q1H PRN Administration Breakthrough agitation Morphine Sulfate 2 mg 10/25/20 08:52 10/28/20 09:36 Morphine 2 Mg/Ml Vial SLOW IVP 2 mg Q1H PRN Administration Breakthrough Pain/Agitation Propofol 1,000 mg 10/14/20 20:30 10/24/20 19:32 Propofol 1,000 Mg/100 Ml Vial IV 11/13/20 20:30 1,000 mg INF PRN Administration TO ACHIEVE GOAL RASS Protocol Sodium Chloride 10 ml 10/15/20 09:00 10/28/20 09:36 Flush - Normal Saline 10 Ml Syringe IVF 10 ml Q12HR MACKENZIE Administration Vecuronium [place] 10 mg 10/15/20 13:08 10/17/20 14:02 Vecuronium 10 Mg Vial IV 10 mg Q1H PRN Administration AGITATION Zinc Sulfate 220 mg 10/15/20 09:00 10/28/20 09:35 Zinc Sulfate 220 Mg Cap PO 220 mg DAILY MACKENZIE Administration Hosp A/P - Plan (1) Pneumonia due to COVID-19 virus Code(s): U07.1 - COVID-19; J12.89 - OTHER VIRAL PNEUMONIA Status: Acute (2) Acute respiratory failure with hypoxia and hypercarbia Code(s): J96.01 - ACUTE RESPIRATORY FAILURE WITH HYPOXIA; J96.02 - ACUTE RESPIRATORY FAILURE WITH HYPERCAPNIA Status: Acute (3) COPD exacerbation Code(s): J44.1 - CHRONIC OBSTRUCTIVE PULMONARY DISEASE W (ACUTE) EXACERBATION Status: Acute (4) ASHLEY (acute kidney injury) Code(s): N17.9 - ACUTE KIDNEY FAILURE, UNSPECIFIED Status: Acute (5) Elevated LFTs Code(s): R79.89 - OTHER SPECIFIED ABNORMAL FINDINGS OF BLOOD CHEMISTRY Status: Acute (6) Acute exacerbation of CHF (congestive heart failure) Code(s): I50.9 - HEART FAILURE, UNSPECIFIED Status: Acute Qualifiers: Heart failure type: diastolic Qualified Code(s): I50.33 - Acute on chronic diastolic (congestive) heart failure (7) Sepsis Code(s): A41.9 - SEPSIS, UNSPECIFIED ORGANISM Status: Acute Qualifiers: Sepsis type: sepsis due to unspecified organism Sepsis acute organ dysfunction status: with acute organ dysfunction Severe sepsis acute organ dysfunction type: acute renal failure (8) Acute metabolic encephalopathy Code(s): G93.41 - METABOLIC ENCEPHALOPATHY Status: Acute (9) Hypoalbuminemia due to protein-calorie malnutrition Code(s): E88.09 - OTH DISORDERS OF PLASMA-PROTEIN METABOLISM, NEC; E46 - UNSPECIFIED PROTEIN-CALORIE MALNUTRITION Status: Chronic (10) NSTEMI (non-ST elevated myocardial infarction) Code(s): I21.4 - NON-ST ELEVATION (NSTEMI) MYOCARDIAL INFARCTION Status: Acute - Plan continue dexamethasone, lovenox, iv fluids, aspirin, lopressor. elevated lft's likely due to sepsis is slowly trending down from today echo for lv function, bnp is elevated dc lipitor, unknown downtime prior to arrival, is apparently moving all extremities per staff. d/w both daughters over phone and gave full updates, is the oldest daughter and pt was living with her, she wants to be POA, Ms.Mason Borges has no issues with her being poa. d/w and gave full updates 10/2020 Family is in agreement with making him dnar/withdrawal of care if he were to get worse in the next 2-3 days. prognosis guarded 1/2 patient's LFTs improving slightly. Vent settings changed today per pulmonary. Continue to follow along. Continue steroids DVT prophylaxis. 10/20 per nursing staff patient has significant bleeding from his mouth and some blood was noted in his ET tube. His aspirin and his Lovenox has been discontinued. H&H has been stable platelets are stable. Most likely will restart aspirin in the morning. If patient is weaned off sedation patient becomes very agitated and desats in the 80s. Plan was discussed by nursing staff at bedside. 10/21 patient seen by pulmonology today I did not examine the patient. We will restart patient Lovenox and continue to monitor. Patient's family updated patient may DNAR. Patient has a lot of secretions per nursing staff 10/22 patient's improvement continues to be slow. Overall prognosis poor. We will try and call family tomorrow. Patient will most likely need trach and PEG and even so overall prognosis is poor and recovery time will be very prolonged may be futile. 10/23 patient continues to be intubated. Spoke with pulmonology patient is improving slowly. Most likely will have a very long recovery.. Patient will most likely undergo a PEG and tracheostomy. 10/24 patient continues to be intubated. Recovering slowly.
--- NOTE | 2020-10-28 15:01 | PDOC.HOSPP ---
- Subjective Encounter Date: 10/25/20 Encounter Time: 12:30 Subjective: pt intubated - Objective Vital Signs & Weight: Vital Signs (12 hours) Temp Pulse Resp Pulse Ox 10/28/20 14:00 26 H 10/28/20 12:00 25 H 10/28/20 11:14 54 L 10/28/20 11:00 98.2 F 10/28/20 10:00 26 H 10/28/20 08:00 97.6 F 28 H 10/28/20 07:16 93 L 10/28/20 06:58 53 L 10/28/20 06:00 24 H 10/28/20 04:00 97.6 F 17 Weight Admit Weight 178 lb 9.191 oz Weight 178 lb 9.191 oz Most Recent Monitor Data Heart Rate from ECG 54 NIBP 113/61 NIBP BP-Mean 78 Respiration from ECG 21 SpO2 99 I&O: 10/27/20 10/28/20 10/29/20 06:59 06:59 06:59 Intake Total 1653 1114 130 Output Total 4625 4555 690 Balance -2972 -3441 -560 Result Diagrams: 10/28/20 03:30 10/28/20 03:30 Additional Labs: Accuchecks 10/28/20 10/28/20 10/27/20 09:46 04:24 22:12 POC Glucose 135 H 122 H 190 H 10/27/20 10/26/20 16:44 15:36 POC Glucose 246 H 247 H Hospitalist ROS - Review of Systems Other: Patient intubated - Medication Medications: Active Medications Generic Name Dose Route Start Last Admin Trade Name Ani PRN Reason Stop Dose Admin Ascorbic Acid 1,000 mg 10/15/20 09:00 10/28/20 09:35 Ascorbic Acid 500 Mg Chewable Tablet PO 1,000 mg DAILY MACKENZIE Administration Cholecalciferol 400 units 10/15/20 09:00 10/28/20 09:35 Cholecalciferol (Vitamin D3) 400 Units Tab PO 400 units DAILY MACKENZIE Administration Dexamethasone 6 mg 10/15/20 09:00 10/28/20 09:35 Dexamethasone 4 Mg/Ml Vial SLOW IVP 6 mg DAILY MACKENZIE Administration Enoxaparin Sodium 40 mg 10/21/20 09:00 10/28/20 09:36 Enoxaparin Sodium 40 Mg/0.4 Ml Syringe SC 40 mg BID MACKENZIE Administration Famotidine 20 mg 10/25/20 21:00 10/28/20 09:36 Famotidine 20 Mg Tab PO 20 mg BID MACKENZIE Administration Fentanyl Citrate 2,000 mcg/ 100 mls @ 0 mls/hr 10/25/20 09:00 10/26/20 23:32 Sodium Chloride IV 100 mls INF MACKENZIE Administration Protocol Per Protocol Insulin Human Lispro 0 units 10/14/20 23:10 10/27/20 22:18 Humalog 300 Units/3 Ml Vial SC 2 unit .MILD SLIDING SCALE PRN Administration Mild Correctional Scale Lorazepam 2 mg 10/25/20 08:52 10/28/20 10:04 Lorazepam 2 Mg/Ml Vial SLOW IVP 2 mg Q1H PRN Administration Breakthrough agitation Morphine Sulfate 2 mg 10/25/20 08:52 10/28/20 09:36 Morphine 2 Mg/Ml Vial SLOW IVP 2 mg Q1H PRN Administration Breakthrough Pain/Agitation Propofol 1,000 mg 10/14/20 20:30 10/24/20 19:32 Propofol 1,000 Mg/100 Ml Vial IV 11/13/20 20:30 1,000 mg INF PRN Administration TO ACHIEVE GOAL RASS Protocol Sodium Chloride 10 ml 10/15/20 09:00 10/28/20 09:36 Flush - Normal Saline 10 Ml Syringe IVF 10 ml Q12HR MACKENZIE Administration Vecuronium [place] 10 mg 10/15/20 13:08 10/17/20 14:02 Vecuronium 10 Mg Vial IV 10 mg Q1H PRN Administration AGITATION Zinc Sulfate 220 mg 10/15/20 09:00 10/28/20 09:35 Zinc Sulfate 220 Mg Cap PO 220 mg DAILY MACKENZIE Administration - Exam Heart: negative: RRR, no murmur, no gallops, no rubs, normal peripheral pulses, irregular, diminshed peripheral pulses, murmur present, II/IV, III/IV Respiratory: negative: CTAB, no wheezes, no rales, no ronchi, normal chest expansion, no tachypnea, normal percussion, rales, rhonchi, tachypneic, wheezes Gastrointestinal: negative: soft, non-tender, non-distended, normal bowel sounds, no palpable masses, no hepatomegaly, no splenomegaly, no bruit, no guarding, no rigidity, tender to palpation, distended, diminished bowl sounds, voluntary guarding Extremities: 1+ LE edema Hosp A/P - Plan (1) Pneumonia due to COVID-19 virus Code(s): U07.1 - COVID-19; J12.89 - OTHER VIRAL PNEUMONIA Status: Acute (2) Acute respiratory failure with hypoxia and hypercarbia Code(s): J96.01 - ACUTE RESPIRATORY FAILURE WITH HYPOXIA; J96.02 - ACUTE RESPIRATORY FAILURE WITH HYPERCAPNIA Status: Acute (3) COPD exacerbation Code(s): J44.1 - CHRONIC OBSTRUCTIVE PULMONARY DISEASE W (ACUTE) EXACERBATION Status: Acute (4) ASHLEY (acute kidney injury) Code(s): N17.9 - ACUTE KIDNEY FAILURE, UNSPECIFIED Status: Acute (5) Elevated LFTs Code(s): R79.89 - OTHER SPECIFIED ABNORMAL FINDINGS OF BLOOD CHEMISTRY Status: Acute (6) Acute exacerbation of CHF (congestive heart failure) Code(s): I50.9 - HEART FAILURE, UNSPECIFIED Status: Acute Qualifiers: Heart failure type: diastolic Qualified Code(s): I50.33 - Acute on chronic diastolic (congestive) heart failure (7) Sepsis Code(s): A41.9 - SEPSIS, UNSPECIFIED ORGANISM Status: Acute Qualifiers: Sepsis type: sepsis due to unspecified organism Sepsis acute organ dysfunction status: with acute organ dysfunction Severe sepsis acute organ dysfunction type: acute renal failure (8) Acute metabolic encephalopathy Code(s): G93.41 - METABOLIC ENCEPHALOPATHY Status: Acute (9) Hypoalbuminemia due to protein-calorie malnutrition Code(s): E88.09 - OTH DISORDERS OF PLASMA-PROTEIN METABOLISM, NEC; E46 - UNSPECIFIED PROTEIN-CALORIE MALNUTRITION Status: Chronic (10) NSTEMI (non-ST elevated myocardial infarction) Code(s): I21.4 - NON-ST ELEVATION (NSTEMI) MYOCARDIAL INFARCTION Status: Acute - Plan continue dexamethasone, lovenox, iv fluids, aspirin, lopressor. elevated lft's likely due to sepsis is slowly trending down from today echo for lv function, bnp is elevated dc lipitor, unknown downtime prior to arrival, is apparently moving all extremities per staff. d/w both daughters over phone and gave full updates, is the oldest daughter and pt was living with her, she wants to be POA, Ms.Mason Borges has no issues with her being poa. d/w and gave full updates 10/2020 Family is in agreement with making him dnar/withdrawal of care if he were to get worse in the next 2-3 days. prognosis guarded 10/19 patient's LFTs improving slightly. Vent settings changed today per pulmonary. Continue to follow along. Continue steroids DVT prophylaxis. 10/20 per nursing staff patient has significant bleeding from his mouth and some blood was noted in his ET tube. His aspirin and his Lovenox has been discontinued. H&H has been stable platelets are stable. Most likely will restart aspirin in the morning. If patient is weaned off sedation patient ivan mes very agitated and desats in the 80s. Plan was discussed by nursing staff at bedside. 10/21 patient seen by pulmonology today I did not examine the patient. We will restart patient Lovenox and continue to monitor. Patient's family updated patient may DNAR. Patient has a lot of secretions per nursing staff 10/22 patient's improvement continues to be slow. Overall prognosis poor. We will try and call family tomorrow. Patient will most likely need trach and PEG and even so overall prognosis is poor and recovery time will be very prolonged may be futile. 10/23 patient continues to be intubated. Spoke with pulmonology patient is improving slowly. Most likely will have a very long recovery.. Patient will most likely undergo a PEG and tracheostomy. 10/24 patient continues to be intubated. Recovering slowly. 10/25 patient continues to be intubated. DVT prophylaxis on Lovenox. Most likely will undergo PEG and trach.
--- NOTE | 2020-10-28 15:05 | PDOC.HOSPP ---
- Subjective Encounter Date: 10/28/20 Encounter Time: 10:30 Subjective: Patient continues to be intubated - Objective Vital Signs & Weight: Vital Signs (12 hours) Temp Pulse Resp Pulse Ox 10/28/20 14:00 26 H 10/28/20 12:00 25 H 10/28/20 11:14 54 L 10/28/20 11:00 98.2 F 10/28/20 10:00 26 H 10/28/20 08:00 97.6 F 28 H 10/28/20 07:16 93 L 10/28/20 06:58 53 L 10/28/20 06:00 24 H 10/28/20 04:00 97.6 F 17 Weight Admit Weight 178 lb 9.191 oz Weight 178 lb 9.191 oz Most Recent Monitor Data Heart Rate from ECG 54 NIBP 113/61 NIBP BP-Mean 78 Respiration from ECG 21 SpO2 99 I&O: 10/27/20 10/28/20 10/29/20 06:59 06:59 06:59 Intake Total 1653 1114 130 Output Total 4625 4555 690 Balance -2972 -3441 -560 Result Diagrams: 10/28/20 03:30 10/28/20 03:30 Additional Labs: Accuchecks 10/28/20 10/28/20 10/27/20 09:46 04:24 22:12 POC Glucose 135 H 122 H 190 H 10/27/20 10/26/20 16:44 15:36 POC Glucose 246 H 247 H Hospitalist ROS - Review of Systems Other: Intubated - Medication Medications: Active Medications Generic Name Dose Route Start Last Admin Trade Name Ani PRN Reason Stop Dose Admin Ascorbic Acid 1,000 mg 10/15/20 09:00 10/28/20 09:35 Ascorbic Acid 500 Mg Chewable Tablet PO 1,000 mg DAILY MACKENZIE Administration Cholecalciferol 400 units 10/15/20 09:00 10/28/20 09:35 Cholecalciferol (Vitamin D3) 400 Units Tab PO 400 units DAILY MACKENZIE Administration Dexamethasone 6 mg 10/15/20 09:00 10/28/20 09:35 Dexamethasone 4 Mg/Ml Vial SLOW IVP 6 mg DAILY MACKENZIE Administration Enoxaparin Sodium 40 mg 10/21/20 09:00 10/28/20 09:36 Enoxaparin Sodium 40 Mg/0.4 Ml Syringe SC 40 mg BID MACKENZIE Administration Famotidine 20 mg 10/25/20 21:00 10/28/20 09:36 Famotidine 20 Mg Tab PO 20 mg BID MACKENZIE Administration Fentanyl Citrate 2,000 mcg/ 100 mls @ 0 mls/hr 10/25/20 09:00 10/26/20 23:32 Sodium Chloride IV 100 mls INF MACKENZIE Administration Protocol Per Protocol Insulin Human Lispro 0 units 10/14/20 23:10 10/27/20 22:18 Humalog 300 Units/3 Ml Vial SC 2 unit .MILD SLIDING SCALE PRN Administration Mild Correctional Scale Lorazepam 2 mg 10/25/20 08:52 10/28/20 10:04 Lorazepam 2 Mg/Ml Vial SLOW IVP 2 mg Q1H PRN Administration Breakthrough agitation Morphine Sulfate 2 mg 10/25/20 08:52 10/28/20 09:36 Morphine 2 Mg/Ml Vial SLOW IVP 2 mg Q1H PRN Administration Breakthrough Pain/Agitation Propofol 1,000 mg 10/14/20 20:30 10/24/20 19:32 Propofol 1,000 Mg/100 Ml Vial IV 11/13/20 20:30 1,000 mg INF PRN Administration TO ACHIEVE GOAL RASS Protocol Sodium Chloride 10 ml 10/15/20 09:00 10/28/20 09:36 Flush - Normal Saline 10 Ml Syringe IVF 10 ml Q12HR MACKENZIE Administration Vecuronium [place] 10 mg 10/15/20 13:08 10/17/20 14:02 Vecuronium 10 Mg Vial IV 10 mg Q1H PRN Administration AGITATION Zinc Sulfate 220 mg 10/15/20 09:00 10/28/20 09:35 Zinc Sulfate 220 Mg Cap PO 220 mg DAILY MACKENZIE Administration - Exam Heart: negative: RRR, no murmur, no gallops, no rubs, normal peripheral pulses, irregular, diminshed peripheral pulses, murmur present, II/IV, III/IV Respiratory: negative: CTAB, no wheezes, no rales, no ronchi, normal chest expansion, no tachypnea, normal percussion, rales, rhonchi, tachypneic, wheezes Gastrointestinal: negative: soft, non-tender, non-distended, normal bowel sounds, no palpable masses, no hepatomegaly, no splenomegaly, no bruit, no guarding, no rigidity, tender to palpation, distended, diminished bowl sounds, voluntary guarding Extremities: 1+ LE edema Hosp A/P - Plan (1) Pneumonia due to COVID-19 virus Code(s): U07.1 - COVID-19; J12.89 - OTHER VIRAL PNEUMONIA Status: Acute (2) Acute respiratory failure with hypoxia and hypercarbia Code(s): J96.01 - ACUTE RESPIRATORY FAILURE WITH HYPOXIA; J96.02 - ACUTE RESPIRATORY FAILURE WITH HYPERCAPNIA Status: Acute (3) COPD exacerbation Code(s): J44.1 - CHRONIC OBSTRUCTIVE PULMONARY DISEASE W (ACUTE) EXACERBATION Status: Acute (4) ASHLEY (acute kidney injury) Code(s): N17.9 - ACUTE KIDNEY FAILURE, UNSPECIFIED Status: Acute (5) Elevated LFTs Code(s): R79.89 - OTHER SPECIFIED ABNORMAL FINDINGS OF BLOOD CHEMISTRY Status: Acute (6) Acute exacerbation of CHF (congestive heart failure) Code(s): I50.9 - HEART FAILURE, UNSPECIFIED Status: Acute Qualifiers: Heart failure type: diastolic Qualified Code(s): I50.33 - Acute on chronic diastolic (congestive) heart failure (7) Sepsis Code(s): A41.9 - SEPSIS, UNSPECIFIED ORGANISM Status: Acute Qualifiers: Sepsis type: sepsis due to unspecified organism Sepsis acute organ dysfunction status: with acute organ dysfunction Severe sepsis acute organ dysfunction type: acute renal failure (8) Acute metabolic encephalopathy Code(s): G93.41 - METABOLIC ENCEPHALOPATHY Status: Acute (9) Hypoalbuminemia due to protein-calorie malnutrition Code(s): E88.09 - OTH DISORDERS OF PLASMA-PROTEIN METABOLISM, NEC; E46 - UNSPECIFIED PROTEIN-CALORIE MALNUTRITION Status: Chronic (10) NSTEMI (non-ST elevated myocardial infarction) Code(s): I21.4 - NON-ST ELEVATION (NSTEMI) MYOCARDIAL INFARCTION Status: Acute - Plan continue dexamethasone, lovenox, iv fluids, aspirin, lopressor. elevated lft's likely due to sepsis is slowly trending down from today echo for lv function, bnp is elevated dc lipitor, unknown downtime prior to arrival, is apparently moving all extremities per staff. d/w both daughters over phone and gave full updates, is the oldest daughter and pt was living with her, she wants to be POA, Ms.Mason Borges has no issues with her being poa. d/w and gave full updates 10/2020 Family is in agreement with making him dnar/withdrawal of care if he were to get worse in the next 2-3 days. prognosis guarded 10/19 patient's LFTs improving slightly. Vent settings changed today per pulmonary. Continue to follow along. Continue steroids DVT prophylaxis. 10/20 per nursing staff patient has significant bleeding from his mouth and some blood was noted in his ET tube. His aspirin and his Lovenox has been discontinued. H&H has been stable platelets are stable. Most likely will restart aspirin in the morning. If patient is weaned off sedation patient becomes very agitated and desats in the 80s. Plan was discussed by nursing staff at bedside. 10/21 patient seen by pulmonology today I did not examine the patient. We will restart patient Lovenox and continue to monitor. Patient's family updated patient may DNAR. Patient has a lot of secretions per nursing staff 10/22 patient's improvement continues to be slow. Overall prognosis poor. We will try and call family tomorrow. Patient will most likely need trach and PEG and even so overall prognosis is poor and recovery time will be very prolonged may be futile. 10/23 patient continues to be intubated. Spoke with pulmonology patient is improving slowly. Most likely will have a very long recovery.. Patient will most likely undergo a PEG and tracheostomy. 10/24 patient continues to be intubated. Recovering slowly. 10/25 patient continues to be intubated. DVT prophylaxis on Lovenox. Most likely will undergo PEG and trach. 10/26 patient continues to be intubated recovering slowly. DVT prophylaxis. Patient has mild elevated leukocytosis however is off antibiotics. Has been afebrile 10/27 patient continues to be intubated. Recovery slowly. DVT prophylaxis. Overall prognosis guarded. 10/28 patient has been off sedation for 24 hours not really responding to verbal stimulation. Prognosis guarded. Continue DVT prophylaxis.
[2020-10-28] MEDS: HumaLOG 300 UNITS/3 ML VIAL SC PRN ×2 (16:06→22:27)
--- NOTE | 2020-10-28 16:34 | PDOC.PALCO ---
Palliative Care Consult - Consult Details Requesting Physician: Dr Ferrara Reason for Consult: assistance with communication prognosis/disease, family support, coping issues - Pertinent HPI Presented to the emergency room via EMS 10/14/20 secondary to found unresponsive . He was know to have symptoms related to Covid one week prior to presentation to the emergency room. Required intubutaion. Admitted to CCU for medical management. Noted to have Nstemi, ASHLEY, as well as Covid pneumonia. DVT prophylaxis on levonox, 10/26 was noted to have slightly elevated white count but without fever. Family may need to discuss if Mr Healy would desire PEG/Trach. - Social History Smoking Status: Unknown if ever smoked Living Situation: independent - Medications MAR Reviewed: Yes - Allergies Allergies/Adverse Reactions: Allergies Allergy/AdvReac Type Severity Reaction Status Date / Time No Known Allergies Allergy Verified 06/27/19 18:00 - Subjective Sedation stopped 24 hours ago, no response. Intubated, sedated. - ROS Non Response: due to endotracheal tube, due to mental status - Objective Vital Signs: Vital Signs - Most Recent Temp Pulse Resp BP Pulse Ox 97.1 F L 58 L 24 H 110/53 L 93 L 10/28/20 15:00 10/28/20 15:17 10/28/20 16:00 10/25/20 15:02 10/28/20 07:16 Palliative Performance Scale: 20 - Physical Exam Constitutional: encephalitic, ill appearing HEENT: moist MMs Respiratory: no wheezing, diminished lung sound Cardiovascular: RRR Deviation from normal: bradycardic Gastrointestinal: soft, non-tender Genitourinary: tineo catheter Musculoskeletal: no cyanosis, no clubbing, edema present, diffuse muscle atrophy Deviation from normal: encephalopathic - Problem List (1) Palliative care encounter Code(s): Z51.5 - ENCOUNTER FOR PALLIATIVE CARE Current Visit: Yes Status: Acute (2) ASHLEY (acute kidney injury) Code(s): N17.9 - ACUTE KIDNEY FAILURE, UNSPECIFIED Current Visit: Yes Status: Acute (3) Acute and chronic respiratory failure Code(s): J96.20 - ACUTE AND CHR RESP FAILURE, UNSP W HYPOXIA OR HYPERCAPNIA Current Visit: Yes Status: Acute (4) COPD exacerbation Code(s): J44.1 - CHRONIC OBSTRUCTIVE PULMONARY DISEASE W (ACUTE) EXACERBATION Current Visit: Yes Status: Acute (5) Pneumonia due to COVID-19 virus Code(s): U07.1 - COVID-19; J12.89 - OTHER VIRAL PNEUMONIA Current Visit: Yes Status: Acute (6) Sepsis Code(s): A41.9 - SEPSIS, UNSPECIFIED ORGANISM Current Visit: Yes Status: Acute Qualifiers: Sepsis type: sepsis due to unspecified organism Sepsis acute organ dysfunc tion status: with acute organ dysfunction Severe sepsis acute organ dysfunction type: acute renal failure - Plan/Recommendations Plan: Palliative care has been communicating with patient family. Hopeful for isolation precautions related to Covid to be lifted as onset of symptoms 10/07 Family meeting after precautions lifted to further address Goal of care Will communicate with hospitalist and sap security consultant. Please also refer to Palliative care notes in note section. Palliative care will continue to support family [50] minutes spent on this encounter with >50% of the time in counseling and coordination of care. Thank you for this very appropriate consult.
[2020-10-29] MEDS: Lorazepam 2 MG/ML VIAL SLOW IVP PRN ×3 (01:03→23:05)
[2020-10-29] MEDS: Morphine 2 MG/ML VIAL SLOW IVP PRN ×3 (01:03→23:17)
[2020-10-29 04:43] LABS: Band 2 % (5-11); Hemoglobin 8.1 g/dL (14.0-18.0); Hypochromia SLIGHT = 6-15 cells (100X) (0-5/hpf); Lymphocytes 3 % (21-51); MDiff Complete? YES; Mean Corpuscular Hemoglobin 31.3 pg (27.0-31.0); Mean Corpuscular Volume 94.9 fL (78.0-98.0); Mean Platelet Volume 9.4 fL (7.4-10.4); Monocytes 7 % (0-10); Neutrophil 88 % (42-75); Platelet Count 413 thou/uL (130-400); Platelet Morphology Comment Appears Increased; RBC Distribution Width 13.7 % (11.5-14.5); Red Blood Cell (RBC) Count 2.59 mill/uL (4.70-6.10); White Blood Cell (WBC) Count 14.1 thou/uL (4.8-10.8)
[2020-10-29 04:48] LABS: ALT (SGPT) 52 U/L (8-55); AST (SGOT) 16 U/L (5-34); Albumin 2.3 g/dL (3.4-4.8); Alkaline Phosphatase 101 U/L (40-110); Anion Gap 11 mmol/L (10-20); BUN (Urea Nitrogen) 27 mg/dL (8.4-25.7); Bilirubin, Total 0.5 mg/dL (0.2-1.2); Calc. Creatinine Clearance 111 mL/min (70-130); Calcium 8.4 mg/dL (7.8-10.44); Carbon Dioxide 28 mmol/L (23-31); Chloride 99 mmol/L (98-107); Globulin 3.3 g/dL (2.4-3.5); Glucose 146 mg/dL (83-110); Potassium 4.2 mmol/L (3.5-5.1); Protein, Total 5.6 g/dL (5.8-8.1); Sodium 134 mmol/L (136-145)
[2020-10-29] MEDS: Ascorbic Acid 500 mg Chewable Tablet PO SCH (09:11)
[2020-10-29] MEDS: Famotidine 20 MG TAB PO SCH ×2 (09:11→20:39)
[2020-10-29] MEDS: Cholecalciferol (Vitamin D3) 400 UNITS TAB PO SCH (09:11)
[2020-10-29] MEDS: Zinc Sulfate 220 MG CAP PO SCH (09:12)
[2020-10-29] MEDS: Dexamethasone 4 mg/ml Vial SLOW IVP SCH (09:12)
[2020-10-29] MEDS: Enoxaparin Sodium 40 MG/0.4 ML SYRINGE SC SCH ×2 (09:13→20:38)
--- NOTE | 2020-10-29 11:16 | PDOC.HOSPP ---
- Subjective Encounter Date: 10/29/20 Encounter Time: 11:15 Subjective: intubated, sedated - Objective Vital Signs & Weight: Vital Signs (12 hours) Temp Pulse Resp BP Pulse Ox 10/29/20 10:59 53 L 123/54 L 10/29/20 10:00 33 H 10/29/20 08:04 97.4 F L 10/29/20 08:00 29 H 91 L 10/29/20 07:12 53 L 114/56 L 10/29/20 06:00 27 H 10/29/20 04:00 24 H 10/29/20 03:00 98.7 F 10/29/20 02:00 27 H 10/29/20 01:57 53 L 10/29/20 00:00 98.6 F 26 H Weight Admit Weight 178 lb 9.191 oz Weight 178 lb 9.191 oz Most Recent Monitor Data Heart Rate from ECG 58 NIBP 131/54 NIBP BP-Mean 79 Respiration from ECG 31 SpO2 92 I&O: 10/28/20 10/29/20 10/30/20 06:59 06:59 06:59 Intake Total 1114 1176 40 Output Total 9135 2700 200 [facility] -3441 -1524 -160 Result Diagrams: 10/29/20 03:45 10/29/20 03:45 Additional Labs: Accuchecks 10/29/20 10/29/20 10/28/20 09:19 03:46 22:21 POC Glucose 150 H 138 H 191 H 10/28/20 15:53 POC Glucose 261 H Radiology Reviewed by me: Yes (cxr-diffuse infiltrates, ET tube) Hospitalist ROS - Medication Medications: Active Medications Generic Name Dose Route Start Last Admin Trade Name Freq PRN Reason Stop Dose Admin Ascorbic Acid 1,000 mg 10/15/20 09:00 10/29/20 09:11 Ascorbic Acid 500 Mg Chewable Tablet PO 1,000 mg DAILY MACKENZIE Administration Cholecalciferol 400 units 10/15/20 09:00 10/29/20 09:11 Cholecalciferol (Vitamin D3) 400 Units Tab PO 400 units DAILY MACKENZIE Administration Dexamethasone 6 mg 10/15/20 09:00 10/29/20 09:12 Dexamethasone 4 Mg/Ml Vial SLOW IVP 6 mg DAILY MACKENZIE Administration Enoxaparin Sodium 40 mg 10/21/20 09:00 10/29/20 09:13 Enoxaparin Sodium 40 Mg/0.4 Ml Syringe SC 40 mg BID MACKENZIE Administration Famotidine 20 mg 10/25/20 21:00 10/29/20 09:11 Famotidine 20 Mg Tab PO 20 mg BID MACKENZIE Administration Fentanyl Citrate 2,000 mcg/ 100 mls @ 0 mls/hr 10/25/20 09:00 10/26/20 23:32 Sodium Chloride IV 100 mls INF MACKENZIE Administration Protocol Per Protocol Insulin Human Lispro 0 units 10/14/20 23:10 10/28/20 22:27 Humalog 300 Units/3 Ml Vial SC 2 unit .MILD SLIDING SCALE PRN Administration Mild Correctional Scale Lorazepam 2 mg 10/25/20 08:52 10/29/20 01:03 Lorazepam 2 Mg/Ml Vial SLOW IVP 2 mg Q1H PRN Administration Breakthrough agitation Morphine Sulfate 2 mg 10/25/20 08:52 10/29/20 01:03 Morphine 2 Mg/Ml Vial SLOW IVP 2 mg Q1H PRN Administration Breakthrough Pain/Agitation Propofol 1,000 mg 10/14/20 20:30 10/24/20 19:32 Propofol 1,000 Mg/100 Ml Vial IV 11/13/20 20:30 1,000 mg INF PRN Administration TO ACHIEVE GOAL RASS Protocol Sodium Chloride 10 ml 10/15/20 09:00 10/29/20 09:14 Flush - Normal Saline 10 Ml Syringe IVF 10 ml Q12HR MACKENZIE Administration Vecuronium [place] 10 mg 10/15/20 13:08 10/17/20 14:02 Vecuronium 10 Mg Vial IV 10 mg Q1H PRN Administration AGITATION Zinc Sulfate 220 mg 10/15/20 09:00 10/29/20 09:12 Zinc Sulfate 220 Mg Cap PO 220 mg DAILY MACKENZIE Administration - Exam Neck: no JVD Heart: RRR, no murmur Respiratory - other findings: doarse, diffuse rhonchi Gastrointestinal: soft, non-tender, normal bowel sounds Extremities: no edema Hosp A/P (1) Acute metabolic encephalopathy Code(s): G93.41 - METABOLIC ENCEPHALOPATHY Status: Acute (2) Acute respiratory failure with hypoxia and hypercarbia Code(s): J96.01 - ACUTE RESPIRATORY FAILURE WITH HYPOXIA; J96.02 - ACUTE RESPI RATORY FAILURE WITH HYPERCAPNIA Status: Acute (3) COPD exacerbation Code(s): J44.1 - CHRONIC OBSTRUCTIVE PULMONARY DISEASE W (ACUTE) EXACERBATION Status: Acute (4) Diabetes Code(s): E11.9 - TYPE 2 DIABETES MELLITUS WITHOUT COMPLICATIONS Status: Acute Qualifiers: Diabetes mellitus type: type 2 Diabetes mellitus mcfp insulin use: without manager terminal use Diabetes mellitus complication status: without complication Qualified Code(s): E11.9 - Type 2 diabetes mellitus without complications (5) Elevated LFTs Code(s): R79.89 - OTHER SPECIFIED ABNORMAL FINDINGS OF BLOOD CHEMISTRY Status: Acute (6) Pneumonia due to COVID-19 virus Code(s): U07.1 - COVID-19; J12.89 - OTHER VIRAL PNEUMONIA Status: Acute - Plan 1. cont vent support 2. discuss with aircraft technician 3. cont decadron 4 cont O2 supplementatiod 5. prognosis guarded
--- NOTE | 2020-10-29 16:22 | PRG ---
DATE OF SERVICE: 10/29/2020 SUBJECTIVE: Mr. Healy remains mechanically ventilated. OBJECTIVE: VITAL SIGNS: Heart rate is in the 50s, blood pressure is 112/66, FiO2 is at 50%, respiratory rates in the 30s. LUNGS: Remarkable for coarse equal breath sounds. HEART: Regular rhythm. ABDOMEN: Soft. LABORATORY DATA: White count 14.1, hemoglobin 8.1, platelets 413. Sodium 134, potassium 4.2, chloride 99, bicarb 28, BUN 27, creatinine 0.6, glucose 146. IMPRESSION: Coronavirus disease pneumonia. PLAN: Continue ventilatory support, nutritional support, steroids, etc. This will be a slow process. Critical care time 30 min. Job ID: [id number] MTDD
[2020-10-29] MEDS: HumaLOG 300 UNITS/3 ML VIAL SC PRN ×2 (17:19→22:29)
[2020-10-29] MEDS: Propofol 1,000 MG/100 ML VIAL IV PRN (23:47)
[2020-10-30 05:42] LABS: ALT (SGPT) 48 U/L (8-55); AST (SGOT) 16 U/L (5-34); Albumin 2.4 g/dL (3.4-4.8); Alkaline Phosphatase 96 U/L (40-110); Anion Gap 11 mmol/L (10-20); BUN (Urea Nitrogen) 28 mg/dL (8.4-25.7); Bilirubin, Total 0.6 mg/dL (0.2-1.2); Calc. Creatinine Clearance 102 mL/min (70-130); Calcium 8.5 mg/dL (7.8-10.44); Carbon Dioxide 29 mmol/L (23-31); Chloride 101 mmol/L (98-107); Globulin 3.7 g/dL (2.4-3.5); Glucose 131 mg/dL (83-110); Potassium 4.3 mmol/L (3.5-5.1); Protein, Total 6.1 g/dL (5.8-8.1); Sodium 137 mmol/L (136-145)
[2020-10-30 05:45] LABS: Band 28 % (5-11); Hemoglobin 8.7 g/dL (14.0-18.0); Hypochromia SLIGHT = 6-15 cells (100X) (0-5/hpf); Lymphocytes 2 % (21-51); MDiff Complete? YES; Mean Corpuscular HGB CONC 32.7 g/dL (32.0-36.0); Mean Corpuscular Hemoglobin 31.3 pg (27.0-31.0); Mean Corpuscular Volume 95.6 fL (78.0-98.0); Mean Platelet Volume 9.1 fL (7.4-10.4); Monocytes 4 % (0-10); Neutrophil 66 % (42-75); Platelet Count 429 thou/uL (130-400); Platelet Morphology Comment Appears Increased; RBC Distribution Width 13.9 % (11.5-14.5); Red Blood Cell (RBC) Count 2.77 mill/uL (4.70-6.10)
--- NOTE | 2020-10-30 07:41 | RAD ---
XR Chest 1 View Portable History: Ventilated patient Comparison: Radiograph 2 days prior Findings: Endotracheal tube tip sits above the daxa 1.8 cm. Multifocal airspace opacities are simil ar. No pneumothorax or pneumomediastinum. No acute osseous abnormality. Enteric tube tip below diaphragm although out of field of view. Impression: Similar examination of the chest without improved lung aeration. No pneumothorax or pneum omediastinum.
[2020-10-30] MEDS: Propofol 1,000 MG/100 ML VIAL IV PRN ×2 (08:29→21:08)
[2020-10-30] MEDS: Zinc Sulfate 220 MG CAP PO SCH (08:59)
[2020-10-30] MEDS: Famotidine 20 MG TAB PO SCH ×2 (08:59→20:58)
[2020-10-30] MEDS: Enoxaparin Sodium 40 MG/0.4 ML SYRINGE SC SCH ×2 (08:59→20:58)
[2020-10-30] MEDS: Cholecalciferol (Vitamin D3) 400 UNITS TAB PO SCH (08:59)
[2020-10-30] MEDS: Dexamethasone 4 mg/ml Vial SLOW IVP SCH (08:59)
[2020-10-30] MEDS: Ascorbic Acid 500 mg Chewable Tablet PO SCH (08:59)
[2020-10-30] MEDS: HumaLOG 300 UNITS/3 ML VIAL SC PRN ×2 (09:05→16:25)
--- NOTE | 2020-10-30 10:19 | PDOC.HOSPP ---
- Subjective Encounter Date: 10/30/20 Encounter Time: 10:13 Subjective: intubated , sedated - Objective Vital Signs & Weight: Vital Signs (12 hours) Temp Pulse Resp 10/30/20 08:00 31 H 10/30/20 07:18 59 L 10/30/20 06:00 32 H 10/30/20 05:01 67 10/30/20 04:00 99.3 F 33 H 10/30/20 02:00 33 H 10/30/20 00:32 67 10/30/20 00:00 99.9 F H 10/29/20 23:52 35 H 10/29/20 22:15 62 Weight Admit Weight 178 lb 9.191 oz Weight 178 lb 9.191 oz Most Recent Monitor Data Heart Rate from ECG 61 NIBP 109/55 NIBP BP-Mean 73 Respiration from ECG 29 SpO2 94 I&O: 10/29/20 10/30/20 10/31/20 06:59 06:59 06:59 Intake Total 1176 854.7 259.0 Output Total 2700 2600 205 Balance -1524 -1745.3 54.0 Result Diagrams: 10/30/20 03:40 10/30/20 03:30 Additional Labs: Accuchecks 10/30/20 10/30/20 10/29/20 09:04 03:56 22:13 POC Glucose 155 H 140 H 178 H 10/29/20 16:23 POC Glucose 260 H Radiology Reviewed by me: Yes (CXR-ET tube, unchanged dense infiltrates) Hospitalist ROS - Medication Medications: Active Medications Generic Name Dose Route Start Last Admin Trade Name Ani PRN Reason Stop Dose Admin Ascorbic Acid 1,000 mg 10/15/20 09:00 10/30/20 08:59 Ascorbic Acid 500 Mg Chewable Tablet PO 1,000 mg DAILY MACKENZIE Administration Cholecalciferol 400 units 10/15/20 09:00 10/30/20 08:59 Cholecalciferol (Vitamin D3) 400 Units Tab PO 400 units DAILY MACKENZIE Administration Dexamethasone 6 mg 10/15/20 09:00 10/30/20 08:59 Dexamethasone 4 Mg/Ml Vial SLOW IVP 6 mg DAILY MACKENZIE Administration Enoxaparin Sodium 40 mg 10/21/20 09:00 10/30/20 08:59 Enoxaparin Sodium 40 Mg/0.4 Ml Syringe SC 40 mg BID MACKENZIE Administration Famotidine 20 mg 10/25/20 21:00 10/30/20 08:59 Famotidine 20 Mg Tab PO 20 mg BID MACKENZIE Administration Fentanyl Citrate 2,000 mcg/ 100 mls @ 0 mls/hr 10/25/20 09:00 10/26/20 23:32 Sodium Chloride IV 100 mls INF MACKENZIE Administration Protocol Per Protocol Insulin Human Lispro 0 units 10/14/20 23:10 10/30/20 09:05 Humalog 300 Units/3 Ml Vial SC 2 unit .MILD SLIDING SCALE PRN Administration Mild Correctional Scale Lorazepam 2 mg 10/25/20 08:52 10/29/20 23:05 Lorazepam 2 Mg/Ml Vial SLOW IVP 2 mg Q1H PRN Administration Breakthrough agitation Morphine Sulfate 2 mg 10/25/20 08:52 10/29/20 23:17 Morphine 2 Mg/Ml Vial SLOW IVP 2 mg Q1H PRN Administration Breakthrough Pain/Agitation Propofol 1,000 mg 10/14/20 20:30 10/30/20 08:29 Propofol 1,000 Mg/100 Ml Vial IV 11/13/20 20:30 1,000 mg INF PRN Administration TO ACHIEVE GOAL RASS Protocol Sodium Chloride 10 ml 10/15/20 09:00 10/30/20 09:00 Flush - Normal Saline 10 Ml Syringe IVF 10 ml Q12HR MACKENZIE Administration Vecuronium [place] 10 mg 10/15/20 13:08 10/17/20 14:02 Vecuronium 10 Mg Vial IV 10 mg Q1H PRN Administration AGITATION Zinc Sulfate 220 mg 10/15/20 09:00 10/30/20 08:59 Zinc Sulfate 220 Mg Cap PO 220 mg DAILY MACKENZIE Administration - Exam General Appearance: ill appearing Neck: no JVD Heart: RRR, no murmur Respiratory - other findings: coarse, fine rales Gastrointestinal: soft, non-distended, normal bowel sounds Extremities: 1+ LE edema Hosp A/P (1) Acute metabolic encephalopathy Code(s): G93.41 - METABOLIC ENCEPHALOPATHY Status: Acute (2) Acute respiratory failure with hypoxia and hypercarbia Code(s): J96.01 - ACUTE RESPIRATORY FAILURE WITH HYPOXIA; J96.02 - ACUTE RESPIRATORY FAILURE WITH HYPERCAPNIA Status: Acute (3) COPD exacerbation Code(s): J44.1 - CHRONIC OBSTRUCTIVE PULMONARY DISEASE W (ACUTE) EXACERBATION Status: Acute (4) Diabetes Code(s): E11.9 - TYPE 2 DIABETES MELLITUS WITHOUT COMPLICATIONS Status: Acute Qualifiers: Diabetes mellitus type: type 2 Diabetes mellitus termite helper insulin use: without termite helper use Diabetes mellitus complication status: without complication Qualified Code(s): E11.9 - Type 2 diabetes mellitus without complications (5) Elevated LFTs Code(s): R79.89 - OTHER SPECIFIED ABNORMAL FINDINGS OF BLOOD CHEMISTRY Status: Acute (6) Pneumonia due to COVID-19 virus Code(s): U07.1 - COVID-19; J12.89 - OTHER VIRAL PNEUMONIA Status: Acute - Plan 1. cont vent support 2. discuss with r programmer 3. cont decadron 4 cont O2 supplementatiod 5. prognosis guarded
[2020-10-30] MEDS: Lorazepam 2 MG/ML VIAL SLOW IVP PRN (11:06)
--- NOTE | 2020-10-30 20:52 | PRG ---
DATE OF SERVICE: 10/30/2020 SUBJECTIVE: Mr. Healy remains hemodynamically stable. We have increased his PEEP a little today and decreased his FiO2. OBJECTIVE: VITAL SIGNS: He is afebrile. Heart rate is in the 60s, blood pressure 126/60, FiO2 is 55 for the most part today. LUNGS: Are clear. HEART: Regular rhythm. ABDOMEN: Soft. EXTREMITIES: Without edema. LABORATORY DATA: White count 26.0, hemoglobin 8.7, and platelets 429. Sodium 137, potassium 4.3, chloride 101, bicarb 29, BUN 28, creatinine 0.65. IMPRESSION: COVID pneumonia with respiratory failure. Chest radiograph today shows no significant change. He continues to be relatively stable, but he is not at a point where he is weanable in my opinion. CRITICAL CARE TIME: 30 minutes. Job ID: [id number]
[2020-10-30] MEDS: Sodium Chloride 0.45% 1,000 ML IV SCH (21:16)
[2020-10-31 06:00] LABS: Band 9 % (5-11); Hemoglobin 8.3 g/dL (14.0-18.0); Hypochromia SLIGHT = 6-15 cells (100X) (0-5/hpf); Lymphocytes 4 % (21-51); MDiff Complete? YES; Mean Corpuscular HGB CONC 33.4 g/dL (32.0-36.0); Mean Corpuscular Hemoglobin 32.4 pg (27.0-31.0); Mean Corpuscular Volume 96.9 fL (78.0-98.0); Mean Platelet Volume 9.4 fL (7.4-10.4); Monocytes 7 % (0-10); Neutrophil 80 % (42-75); Platelet Count 324 thou/uL (130-400); Platelet Morphology Comment Appears Adequate; RBC Distribution Width 14.4 % (11.5-14.5); Red Blood Cell (RBC) Count 2.56 mill/uL (4.70-6.10); White Blood Cell (WBC) Count 18.1 thou/uL (4.8-10.8)
[2020-10-31] MEDS: HumaLOG 300 UNITS/3 ML VIAL SC PRN ×4 (06:28→21:14)
[2020-10-31] MEDS: Propofol 1,000 MG/100 ML VIAL IV PRN ×2 (06:31→17:05)
[2020-10-31 06:33] LABS: Albumin 2.4 g/dL (3.4-4.8)
[2020-10-31 06:34] LABS: Chloride 99 mmol/L (98-107); Potassium 4.1 mmol/L (3.5-5.1); Sodium 134 mmol/L (136-145)
[2020-10-31 06:35] LABS: Calcium 8.6 mg/dL (7.8-10.44); Glucose 168 mg/dL (83-110)
[2020-10-31 06:36] LABS: Globulin 3.6 g/dL (2.4-3.5)
[2020-10-31 06:37] LABS: Anion Gap 10 mmol/L (10-20); Bilirubin, Total 0.6 mg/dL (0.2-1.2); Carbon Dioxide 29 mmol/L (23-31)
[2020-10-31 06:38] LABS: Alkaline Phosphatase 97 U/L (40-110)
[2020-10-31 06:39] LABS: Calc. Creatinine Clearance 107 mL/min (70-130)
[2020-10-31 06:40] LABS: AST (SGOT) 13 U/L (5-34); BUN (Urea Nitrogen) 26 mg/dL (8.4-25.7)
[2020-10-31 06:41] LABS: ALT (SGPT) 39 U/L (8-55)
[2020-10-31] MEDS ORDERED: Fentanyl CADD 100 ML IV SCH (09:00)
[2020-10-31] MEDS: Enoxaparin Sodium 40 MG/0.4 ML SYRINGE SC SCH ×2 (09:23→20:38)
[2020-10-31] MEDS: Zinc Sulfate 220 MG CAP PO SCH (09:23)
[2020-10-31] MEDS: Ascorbic Acid 500 mg Chewable Tablet PO SCH (09:23)
[2020-10-31] MEDS: Dexamethasone 4 mg/ml Vial SLOW IVP SCH (09:23)
[2020-10-31] MEDS: Cholecalciferol (Vitamin D3) 400 UNITS TAB PO SCH (09:23)
[2020-10-31] MEDS: Famotidine 20 MG TAB PO SCH ×2 (09:24→20:39)
--- NOTE | 2020-10-31 11:30 | PDOC.HOSPP ---
- Subjective Encounter Date: 10/31/20 Encounter Time: 11:25 Subjective: intubated ,sedated - Objective Vital Signs & Weight: Vital Signs (12 hours) Temp Pulse Resp Pulse Ox 10/31/20 08:00 98.9 F 34 H 93 L 10/31/20 07:20 62 10/31/20 06:00 35 H 10/31/20 04:00 98.7 F 32 H 10/31/20 02:00 32 H 10/31/20 01:12 59 L 10/31/20 00:00 98.5 F 29 H Weight Admit Weight 178 lb 9.191 oz Weight 178 lb 9.191 oz Most Recent Monitor Data Heart Rate from ECG 69 NIBP 120/54 NIBP BP-Mean 76 Respiration from ECG 34 SpO2 92 I&O: 10/30/20 10/31/20 11/01/20 06:59 06:59 06:59 Intake Total 854.7 2388.0 30 Output Total 2600 2015 170 Balance -1745.3 373.0 -140 Result Diagrams: 10/31/20 05:15 10/31/20 06:15 Additional Labs: Accuchecks 10/31/20 10/30/20 10/30/20 05:18 23:37 16:13 POC Glucose 174 H 198 H 249 H Hospitalist ROS - Medication Medications: Active Medications Generic Name Dose Route Start Last Admin Trade Name Freq PRN Reason Stop Dose Admin Ascorbic Acid 1,000 mg 10/15/20 09:00 10/31/20 09:23 Ascorbic Acid 500 Mg Chewable Tablet PO 1,000 mg DAILY MACKENZIE Administration Cholecalciferol 400 units 10/15/20 09:00 10/31/20 09:23 Cholecalciferol (Vitamin D3) 400 Units Tab PO 400 units DAILY MACKENZIE Administration Dexamethasone 6 mg 10/15/20 09:00 10/31/20 09:23 Dexamethasone 4 Mg/Ml Vial SLOW IVP 6 mg DAILY MACKENZIE Administration Enoxaparin Sodium 40 mg 10/21/20 09:00 10/31/20 09:23 Enoxaparin Sodium 40 Mg/0.4 Ml Syringe SC 40 mg BID MACKENZIE Administration Famotidine 20 mg 10/25/20 21:00 10/31/20 09:24 Famotidine 20 Mg Tab PO 20 mg BID MACKENZIE Administration Sodium Chloride 1,000 mls @ 0 mls/hr 10/26/20 12:15 10/30/20 21:16 1/2 Normal Saline IV 1,000 mls .Q0M MACKENZIE Administration KVO Insulin Human Lispro 0 units 10/14/20 23:10 10/31/20 06:28 Humalog 300 Units/3 Ml Vial SC 2 unit .MILD SLIDING SCALE PRN Administration Mild Correctional Scale Lorazepam 2 mg 10/25/20 08:52 10/30/20 11:06 Lorazepam 2 Mg/Ml Vial SLOW IVP 2 mg Q1H PRN Administration Breakthrough agitation Morphine Sulfate 2 mg 10/25/20 08:52 10/29/20 23:17 Morphine 2 Mg/Ml Vial SLOW IVP 2 mg Q1H PRN Administration Breakthrough Pain/Agitation Propofol 1,000 mg 10/14/20 20:30 10/31/20 06:31 Propofol 1,000 Mg/100 Ml Vial IV 11/13/20 20:30 1,000 mg INF PRN Administration TO ACHIEVE GOAL RASS Protocol Sodium Chloride 10 ml 10/15/20 09:00 10/31/20 09:24 Flush - Normal Saline 10 Ml Syringe IVF 10 ml Q12HR MACKENZIE Administration Vecuronium [place] 10 mg 10/15/20 13:08 10/17/20 14:02 Vecuronium 10 Mg Vial IV 10 mg Q1H PRN Administration AGITATION Zinc Sulfate 220 mg 10/15/20 09:00 10/31/20 09:23 Zinc Sulfate 220 Mg Cap PO 220 mg DAILY MACKENZIE Administration - Exam Neck: no JVD Heart: RRR, no murmur Respiratory - other findings: coarse with rhonchi Gastrointestinal: soft, non-tender, diminished bowl sounds Extremities: no edema Hosp A/P (1) Acute metabolic encephalopathy Code(s): G93.41 - METABOLIC ENCEPHALOPATHY Status: Acute (2) Acute respiratory failure with hypoxia and hypercarbia Code(s): J96.01 - ACUTE RESPIRATORY FAILURE WITH HYPOXIA; J96.02 - ACUTE RESPIRATORY FAILURE WITH HYPERCAPNIA Status: Acute (3) COPD exacerbation Code(s): J44.1 - CHRONIC OBSTRUCTIVE PULMONARY DISEASE W (ACUTE) EXACERBATION Status: Acute (4) Diabetes Code(s): E11.9 - TYPE 2 DIABETES MELLITUS WITHOUT COMPLICATIONS Status: Acute Qualifiers: Diabetes mellitus type: type 2 Diabetes mellitus chcf insulin use: without chcf use Diabetes mellitus complication status: without complication Qualified Code(s): E11.9 - Type 2 diabetes mellitus without complications (5) Elevated LFTs Code(s): R79.89 - OTHER SPECIFIED ABNORMAL FINDINGS OF BLOOD CHEMISTRY Status: Acute (6) Pneumonia due to COVID-19 virus Code(s): U07.1 - COVID-19; J12.89 - OTHER VIRAL PNEUMONIA Status: Acute - Plan 1. cont vent support 2. discuss with vp director of creative strategy 3. cont decadron 4 cont O2 supplementatiod cont nutrition 5. prognosis guarded
--- NOTE | 2020-10-31 18:12 | PRG ---
DATE OF SERVICE: 10/31/2020 SUBJECTIVE: Geronimo Healy is afebrile. OBJECTIVE: VITAL SIGNS: Respiratory rate is 28 blood pressure 90/46 this afternoon, it was 113/51 earlier. LUNGS: Remarkable for coarse equal breath sounds. HEART: Regular rhythm. ABDOMEN: Soft. EXTREMITIES: Without asymmetry. LABORATORY DATA: White count 18.1, hemoglobin 8.3, platelets 324. Sodium 134, potassium 4.1, chloride 99, bicarb 29, BUN 26, creatinine 0.62. IMPRESSION: Respiratory failure associated with COVID pneumonia. PLAN: Continue attempts at slow weaning as tolerated. He has had a point where his isolation can be discontinued and may be getting closer to a point we could consider a tracheostomy. Critical care time 30 min. Job ID: [id number] MTDD
[2020-11-01] MEDS: Propofol 1,000 MG/100 ML VIAL IV PRN ×3 (02:31→23:44)
[2020-11-01 05:13] LABS: ALT (SGPT) 32 U/L (8-55); AST (SGOT) 11 U/L (5-34); Albumin 2.2 g/dL (3.4-4.8); Alkaline Phosphatase 93 U/L (40-110); Anion Gap 14 mmol/L (10-20); BUN (Urea Nitrogen) 24 mg/dL (8.4-25.7); Bilirubin, Total 0.4 mg/dL (0.2-1.2); Calc. Creatinine Clearance 111 mL/min (70-130); Calcium 8.3 mg/dL (7.8-10.44); Carbon Dioxide 27 mmol/L (23-31); Chloride 101 mmol/L (98-107); Globulin 3.5 g/dL (2.4-3.5); Glucose 179 mg/dL (83-110); Protein, Total 5.7 g/dL (5.8-8.1); Sodium 138 mmol/L (136-145)
[2020-11-01] MEDS: HumaLOG 300 UNITS/3 ML VIAL SC PRN ×3 (05:34→21:34)
[2020-11-01 05:46] LABS: Band 12 % (5-11); Lymphocytes 7 % (21-51); MDiff Complete? YES; Monocytes 4 % (0-10); Neutrophil 77 % (42-75)
[2020-11-01 05:47] LABS: Hemoglobin 7.7 g/dL (14.0-18.0); Mean Corpuscular HGB CONC 32.6 g/dL (32.0-36.0); Mean Corpuscular Hemoglobin 31.3 pg (27.0-31.0); Mean Platelet Volume 8.6 fL (7.4-10.4); Platelet Count 347 thou/uL (130-400); RBC Distribution Width 13.9 % (11.5-14.5); Red Blood Cell (RBC) Count 2.45 mill/uL (4.70-6.10); White Blood Cell (WBC) Count 13.3 thou/uL (4.8-10.8)
--- NOTE | 2020-11-01 08:00 | RAD ---
EXAM: Single view of the chest HISTORY: Ventilated patient with respiratory failure COMPARISON: 10/30/2020 FINDINGS: Single view of the chest shows an enlarged cardiomediastinal silhouette. The endotracheal tube and NG tube are unchanged in position. Scattered stable multifocal infiltrates are seen in the lungs. Degenerative changes are seen in the spine. IMPRESSION: Stable multifocal pneumonia
[2020-11-01] MEDS: Enoxaparin Sodium 40 MG/0.4 ML SYRINGE SC SCH ×2 (08:06→20:21)
[2020-11-01] MEDS: Ascorbic Acid 500 mg Chewable Tablet PO SCH (08:07)
[2020-11-01] MEDS: Dexamethasone 4 mg/ml Vial SLOW IVP SCH (08:07)
[2020-11-01] MEDS: Zinc Sulfate 220 MG CAP PO SCH (08:07)
[2020-11-01] MEDS: Cholecalciferol (Vitamin D3) 400 UNITS TAB PO SCH (08:07)
[2020-11-01] MEDS: Famotidine 20 MG TAB PO SCH ×2 (08:07→20:06)
--- NOTE | 2020-11-01 10:44 | PDOC.HOSPP ---
- Subjective Encounter Date: 11/01/20 Encounter Time: 10:43 Subjective: intubated, not responsive3 - Objective Vital Signs & Weight: Vital Signs (12 hours) Temp Pulse Resp 11/01/20 10:19 53 L 11/01/20 08:00 28 H 11/01/20 07:10 71 11/01/20 06:00 30 H 11/01/20 04:00 98.7 F 36 H 11/01/20 02:00 29 H 11/01/20 01:30 51 L 11/01/20 00:00 98.0 F 30 H Weight Admit Weight 178 lb 9.191 oz Weight 178 lb 9.191 oz Most Recent Monitor Data Heart Rate from ECG 54 NIBP 108/49 NIBP BP-Mean 68 Respiration from ECG 29 SpO2 94 I&O: 10/31/20 11/01/20 11/02/20 06:59 06:59 06:59 Intake Total 2388.0 1529 Output Total 2014 2485 50 Balance 373.0 -956 -50 Result Diagrams: 11/01/20 04:35 11/01/20 04:35 Additional Labs: Accuchecks 11/01/20 11/01/20 10/31/20 10:13 04:50 20:46 POC Glucose 152 H 174 H 220 H 10/31/20 10/31/20 16:12 11:33 POC Glucose 227 H 170 H Hospitalist ROS - Medication Medications: Active Medications Generic Name Dose Route Start Last Admin Trade Name Freq PRN Reason Stop Dose Admin Ascorbic Acid 1,000 mg 10/15/20 09:00 11/01/20 08:07 Ascorbic Acid 500 Mg Chewable Tablet PO 1,000 mg DAILY MACKENZIE Administration Cholecalciferol 400 units 10/15/20 09:00 11/01/20 08:07 Cholecalciferol (Vitamin D3) 400 Units Tab PO 400 units DAILY MACKENZIE Administration Dexamethasone 6 mg 10/15/20 09:00 11/01/20 08:07 Dexamethasone 4 Mg/Ml Vial SLOW IVP 6 mg DAILY MACKENZIE Administration Enoxaparin Sodium 40 mg 10/21/20 09:00 11/01/20 08:06 Enoxaparin Sodium 40 Mg/0.4 Ml Syringe SC 40 mg BID MACKENZIE Administration Famotidine 20 mg 10/25/20 21:00 11/01/20 08:07 Famotidine 20 Mg Tab PO 20 mg BID MACKENZIE Administration Sodium Chloride 1,000 mls @ 0 mls/hr 10/26/20 12:15 10/30/20 21:16 1/2 Normal Saline IV 1,000 mls .Q0M MACKENZIE Administration KVO Insulin Human Lispro 0 units 10/14/20 23:10 11/01/20 05:34 Humalog 300 Units/3 Ml Vial SC 2 unit .MILD SLIDING SCALE PRN Administration Mild Correctional Scale Lorazepam 2 mg 10/25/20 08:52 10/30/20 11:06 Lorazepam 2 Mg/Ml Vial SLOW IVP 2 mg Q1H PRN Administration Breakthrough agitation Morphine Sulfate 2 mg 10/25/20 08:52 10/29/20 23:17 Morphine 2 Mg/Ml Vial SLOW IVP 2 mg Q1H PRN Administration Breakthrough Pain/Agitation Propofol 1,000 mg 10/14/20 20:30 11/01/20 02:31 Propofol 1,000 Mg/100 Ml Vial IV 11/13/20 20:30 1,000 mg INF PRN Administration TO ACHIEVE GOAL RASS Protocol Sodium Chloride 10 ml 10/15/20 09:00 11/01/20 08:07 Flush - Normal Saline 10 Ml Syringe IVF 10 ml Q12HR MACKENZIE Administration Vecuronium [place] 10 mg 10/15/20 13:08 10/17/20 14:02 Vecuronium 10 Mg Vial IV 10 mg Q1H PRN Administration AGITATION Zinc Sulfate 220 mg 10/15/20 09:00 11/01/20 08:07 Zinc Sulfate 220 Mg Cap PO 220 mg DAILY MACKENZIE Administration - Exam Neck: no JVD Heart: RRR, no murmur Respiratory - other findings: coarse BS with wheezes Gastrointestinal: soft, non-tender, normal bowel sounds Extremities: no edema Hosp A/P (1) Acute metabolic encephalopathy Code(s): G93.41 - METABOLIC ENCEPHALOPATHY Status: Acute (2) Acute respiratory failure with hypoxia and hypercarbia Code(s): J96.01 - ACUTE RESPIRATORY FAILURE WITH HYPOXIA; J96.02 - ACUTE RESPIRATORY FAILURE WITH HYPERCAPNIA Status: Acute (3) COPD exacerbation Code(s): J44.1 - CHRONIC OBSTRUCTIVE PULMONARY DISEASE W (ACUTE) EXACERBATION Status: Acute (4) Diabetes Code(s): E11.9 - TYPE 2 DIABETES MELLITUS WITHOUT COMPLICATIONS Status: Acute Qualifiers: Diabetes mellitus type: type 2 Diabetes mellitus fci insulin use: without fci use Diabetes mellitus complication status: without complication Qualified Code(s): E11.9 - Type 2 diabetes mellitus without complications (5) Elevated LFTs Code(s): R79.89 - OTHER SPECIFIED ABNORMAL FINDINGS OF BLOOD CHEMISTRY Status: Acute (6) Pneumonia due to COVID-19 virus Code(s): U07.1 - COVID-19; J12.89 - OTHER VIRAL PNEUMONIA Status: Ruled-out - Plan 1. cont vent support 2. discuss with cash management associate 3. cont decadron 4 cont O2 supplementatiod cont nutrition 5. prognosis guarded
--- NOTE | 2020-11-01 14:10 | PRG ---
DATE OF SERVICE: 11/01/2020 SUBJECTIVE: Geronimo Healy is afebrile. Respiratory rates in the high 20s, FiO2 is at 55, blood pressure 109/58, heart rate is in the 50s. Lungs, heart, and abdomen are unchanged. Intake and outputs -956. LABORATORY STUDIES: White count 13.3, hemoglobin 7.7, platelets 347. Sodium 138, potassium 4, chloride 101, bicarb 27, BUN 24, creatinine 0.6. Glucoses have been between 170 and 227. Chest radiographs essentially unchanged. ASSESSMENT: He has a respiratory pattern consistent with muscle weakness. We do not have any blood gas reagent to draw blood gases, but clinically I do not feel he is weanable. Family, I believe in the past, said they would never want a tracheostomy. He is 18 days into this hospitalization. Decision is probably need to be made early next week to move forward with a tracheostomy or withdraw care in my opinion. Critical care time 30 min. Job ID: [id number] MTDD
[2020-11-01] MEDS ORDERED: Polyethylene Glycol 3350 17 GM Packet PER TUBE SCH (18:15)
[2020-11-02 05:21] LABS: Band 4 % (5-11); Eosinophils 1 % (0-10); Hemoglobin 8.1 g/dL (14.0-18.0); Lymphocytes 4 % (21-51); MDiff Complete? YES; Mean Corpuscular HGB CONC 32.6 g/dL (32.0-36.0); Mean Corpuscular Hemoglobin 31.4 pg (27.0-31.0); Mean Corpuscular Volume 96.1 fL (78.0-98.0); Mean Platelet Volume 8.8 fL (7.4-10.4); Monocytes 5 % (0-10); Neutrophil 86 % (42-75); Platelet Count 356 thou/uL (130-400); Red Blood Cell (RBC) Count 2.59 mill/uL (4.70-6.10); White Blood Cell (WBC) Count 14.8 thou/uL (4.8-10.8)
[2020-11-02 05:30] LABS: ALT (SGPT) 33 U/L (8-55); AST (SGOT) 14 U/L (5-34); Albumin 2.4 g/dL (3.4-4.8); Alkaline Phosphatase 87 U/L (40-110); Anion Gap 11 mmol/L (10-20); BUN (Urea Nitrogen) 30 mg/dL (8.4-25.7); Bilirubin, Total 0.4 mg/dL (0.2-1.2); Calc. Creatinine Clearance 114 mL/min (70-130); Calcium 8.4 mg/dL (7.8-10.44); Carbon Dioxide 30 mmol/L (23-31); Chloride 101 mmol/L (98-107); Globulin 3.7 g/dL (2.4-3.5); Glucose 118 mg/dL (83-110); Potassium 3.9 mmol/L (3.5-5.1); Protein, Total 6.1 g/dL (5.8-8.1); Sodium 138 mmol/L (136-145)
[2020-11-02] MEDS: Zinc Sulfate 220 MG CAP PO SCH (08:01)
[2020-11-02] MEDS: Polyethylene Glycol 3350 17 GM Packet PER TUBE SCH (08:01)
[2020-11-02] MEDS: Enoxaparin Sodium 40 MG/0.4 ML SYRINGE SC SCH ×2 (08:01→20:06)
[2020-11-02] MEDS: Ascorbic Acid 500 mg Chewable Tablet PO SCH (08:01)
[2020-11-02] MEDS: Famotidine 20 MG TAB PO SCH ×2 (08:01→20:06)
[2020-11-02] MEDS: Dexamethasone 4 mg/ml Vial SLOW IVP SCH (08:02)
[2020-11-02] MEDS: Cholecalciferol (Vitamin D3) 400 UNITS TAB PO SCH (08:02)
--- NOTE | 2020-11-02 08:13 | RAD ---
XR Chest 1 View Portable History: Ventilated patient Comparison: Radiograph prior day Findings: Endotracheal tube tip above the daxa approximately 2.5 cm. Enteric tube tip below diaphra gm although out of field of view. Peripheral perihilar opacities are similar. No acute osseous abnormality. Impression: Similar examination of the chest without improved lung aeration. Relative to an exam 1 we ek prior, findings are also unchanged.
[2020-11-02] MEDS: HumaLOG 300 UNITS/3 ML VIAL SC PRN ×2 (10:06→16:32)
--- NOTE | 2020-11-02 10:56 | PRG ---
DATE OF SERVICE: 11/02/2020 This is 35 minutes critical care time. SUBJECTIVE: The patient remains intubated on mechanical ventilation. OBJECTIVE: VITAL SIGNS: Temperature 99.1, pulse 56, blood pressure 111/50, and O2 saturation 93%. He is on SIMV rate of 8, PEEP 10, FiO2 of 55%. His O2 saturations are in the mid to low 90s. GENERAL: I find him obtunded. He is on a small amount of propofol. 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 NECK: No JVD. LUNGS: Coarse rhonchi. CARDIAC: S1, S2, regular, bradycardic. ABDOMEN: Soft and nontender. EXTREMITIES: Edematous. LABORATORY DATA: White blood cell count 14.8, hematocrit 24.9, and platelet count 356. Sodium , potassium 3.9, chloride 101, CO2 of 30, BUN 30, creatinine 0.6, and glucose 118. Chest x-ray continues to show bilateral infiltrative changes. ASSESSMENT: 1. Acute hypoxic respiratory failure, requiring mechanical ventilation. 2. COVID-19 pneumonia. 3. Multiple organ failure. PLAN: Based on the patient's comorbidities and lack of improvement, I doubt that he is going to survive this. Apparently, the patient's family is adverse to tracheostomy and PEG tube placement, so I would think that there is nothing more we can do further at this point to improve this gentleman's prognosis. We will follow. Job ID: [id number]
[2020-11-02] MEDS: Propofol 1,000 MG/100 ML VIAL IV PRN ×2 (10:58→20:07)
[2020-11-02] MEDS ORDERED: Mineral Oil ENEMA PR SCH (14:30)
--- NOTE | 2020-11-02 14:57 | PDOC.HOSPP ---
- Subjective Encounter Date: 11/02/20 non-verbal (On the vent) - Objective Vital Signs & Weight: Vital Signs (12 hours) Temp Pulse Resp 11/02/20 12:00 99.7 F H 26 H 11/02/20 11:17 50 L 11/02/20 10:00 34 H 11/02/20 08:00 99.1 F 25 H 11/02/20 06:47 51 L 11/02/20 06:00 33 H 11/02/20 04:00 98.5 F 25 H Weight Admit Weight 178 lb 9.191 oz Weight 170 lb 9.6 oz Most Recent Monitor Data Heart Rate from ECG 53 NIBP 103/45 NIBP BP-Mean 64 Respiration from ECG 24 SpO2 96 I&O: 11/01/20 11/02/20 11/03/20 06:59 06:59 06:59 Intake Total 1529 1543.5 321.5 Output Total 2485 2403 456 Balance -956 -859.5 -134.5 Result Diagrams: 11/02/20 03:30 11/02/20 03:55 Additional Labs: Accuchecks 11/02/20 11/02/20 11/01/20 10:05 04:36 21:27 POC Glucose 168 H 121 H 178 H 11/01/20 16:13 POC Glucose 214 H Hospitalist ROS - Medication Medications: Active Medications Generic Name Dose Route Start Last Admin Trade Name Freq PRN Reason Stop Dose Admin Ascorbic Acid 1,000 mg 10/15/20 09:00 11/02/20 08:01 Ascorbic Acid 500 Mg Chewable Tablet PO 1,000 mg DAILY MACKENZIE Administration Cholecalciferol 400 units 10/15/20 09:00 11/02/20 08:02 Cholecalciferol (Vitamin D3) 400 Units Tab PO 400 units DAILY MACKENZIE Administration Dexamethasone 6 mg 10/15/20 09:00 11/02/20 08:02 Dexamethasone 4 Mg/Ml Vial SLOW IVP 6 mg DAILY MACKENZIE Administration Enoxaparin Sodium 40 mg 10/21/20 09:00 11/02/20 08:01 Enoxaparin Sodium 40 Mg/0.4 Ml Syringe SC 40 mg BID MACKENZIE Administration Famotidine 20 mg 10/25/20 21:00 11/02/20 08:01 Famotidine 20 Mg Tab PO 20 mg BID AMCKENZIE Administration Sodium Chloride 1,000 mls @ 0 mls/hr 10/26/20 12:15 10/30/20 21:16 1/2 Normal Saline IV 1,000 mls .Q0M MACKENZIE Administration KVO Insulin Human Lispro 0 units 10/14/20 23:10 11/02/20 10:06 Humalog 300 Units/3 Ml Vial SC 2 unit .MILD SLIDING SCALE PRN Administration Mild Correctional Scale Lorazepam 2 mg 10/25/20 08:52 10/30/20 11:06 Lorazepam 2 Mg/Ml Vial SLOW IVP 2 mg Q1H PRN Administration Breakthrough agitation Morphine Sulfate 2 mg 10/25/20 08:52 10/29/20 23:17 Morphine 2 Mg/Ml Vial SLOW IVP 2 mg Q1H PRN Administration Breakthrough Pain/Agitation Polyethylene Glycol 17 gm 11/02/20 09:00 11/02/20 08:01 Polyethylene Glycol 3350 17 Gm Packet PER TUBE 17 gm DAILY MACKENZIE Administration Propofol 1,000 mg 10/14/20 20:30 11/02/20 10:58 Propofol 1,000 Mg/100 Ml Vial IV 11/13/20 20:30 1,000 mg INF PRN Administration TO ACHIEVE GOAL RASS Protocol Sodium Chloride 10 ml 10/15/20 09:00 11/02/20 08:01 Flush - Normal Saline 10 Ml Syringe IVF 10 ml Q12HR MACKENZIE Administration Vecuronium [place] 10 mg 10/15/20 13:08 10/17/20 14:02 Vecuronium 10 Mg Vial IV 10 mg Q1H PRN Administration AGITATION Zinc Sulfate 220 mg 10/15/20 09:00 11/02/20 08:01 Zinc Sulfate 220 Mg Cap PO 220 mg DAILY MACKENZIE Administration - Exam General Appearance: ill appearing Neck: supple Respiratory: normal chest expansion, no tachypnea, rhonchi Extremities: no cyanosis, no clubbing Hosp A/P (1) Acute and chronic respiratory failure Code(s): J96.20 - ACUTE AND CHR RESP FAILURE, UNSP W HYPOXIA OR HYPERCAPNIA Status: Acute (2) COPD exacerbation Code(s): J44.1 - CHRONIC OBSTRUCTIVE PULMONARY DISEASE W (ACUTE) EXACERBATION Status: Acute (3) NSTEMI (non-ST elevated myocardial infarction) Code(s): I21.4 - NON-ST ELEVATION (NSTEMI) MYOCARDIAL INFARCTION Status: Acute (4) Sepsis Code(s): A41.9 - SEPSIS, UNSPECIFIED ORGANISM Status: Acute Qualifiers: Sepsis type: sepsis due to unspecified organism Sepsis acute organ dysfunction status: with acute organ dysfunction Severe sepsis acute organ dysfunction type: acute renal failure (5) Pneumonia due to COVID-19 virus Code(s): U07.1 - COVID-19; J12.82 - PNEUMONIA DUE TO CORONAVIRUS DISEASE 2019 Status: Acute - Plan This is day 19 of hospitalization. The patient is still vent dependent. He is on dexamethasone and enoxaparin. The family reportedly not interested in trach or PEG. Poor prognosis.
[2020-11-03] MEDS: Acetaminophen 325 MG TAB PO PRN (01:31)
[2020-11-03 04:43] LABS: ALT (SGPT) 26 U/L (8-55); AST (SGOT) 12 U/L (5-34); Albumin 2.1 g/dL (3.4-4.8); Alkaline Phosphatase 75 U/L (40-110); Anion Gap 11 mmol/L (10-20); BUN (Urea Nitrogen) 31 mg/dL (8.4-25.7); Bilirubin, Total 0.4 mg/dL (0.2-1.2); Calc. Creatinine Clearance 124 mL/min (70-130); Calcium 8.1 mg/dL (7.8-10.44); Carbon Dioxide 28 mmol/L (23-31); Chloride 101 mmol/L (98-107); Globulin 3.3 g/dL (2.4-3.5); Glucose 111 mg/dL (83-110); Protein, Total 5.4 g/dL (5.8-8.1); Sodium 136 mmol/L (136-145)
[2020-11-03] MEDS ORDERED: Fentanyl CADD 0 ML ONE (04:54)
[2020-11-03] MEDS: Propofol 1,000 MG/100 ML VIAL IV PRN (05:03)
[2020-11-03 05:20] LABS: Band 4 % (5-11); Eosinophils 1 % (0-10); Hemoglobin 7.5 g/dL (14.0-18.0); Lymphocytes 9 % (21-51); MDiff Complete? YES; Mean Corpuscular HGB CONC 33.2 g/dL (32.0-36.0); Mean Corpuscular Hemoglobin 31.8 pg (27.0-31.0); Mean Corpuscular Volume 95.6 fL (78.0-98.0); Mean Platelet Volume 8.7 fL (7.4-10.4); Monocytes 8 % (0-10); Neutrophil 78 % (42-75); Platelet Count 312 thou/uL (130-400); RBC Distribution Width 13.9 % (11.5-14.5); Red Blood Cell (RBC) Count 2.36 mill/uL (4.70-6.10); White Blood Cell (WBC) Count 11.8 thou/uL (4.8-10.8)
--- NOTE | 2020-11-03 07:58 | RAD ---
XR Chest 1 View Portable History: Ventilated patient Comparison: Radiograph prior day Findings: Endotracheal tube tip above the daxa 3.2 cm. Airspace opacities are similar. Trace pleura l effusions. No acute osseous abnormality. Enteric tube tip below diaphragm although out of field of view. Impression: Similar examination of the chest without improved lung aeration.
[2020-11-03] MEDS: Cholecalciferol (Vitamin D3) 400 UNITS TAB PO SCH (08:11)
[2020-11-03] MEDS: Enoxaparin Sodium 40 MG/0.4 ML SYRINGE SC SCH ×2 (08:12→20:16)
[2020-11-03] MEDS: Zinc Sulfate 220 MG CAP PO SCH (08:12)
[2020-11-03] MEDS: Famotidine 20 MG TAB PO SCH ×2 (08:12→20:16)
[2020-11-03] MEDS: Ascorbic Acid 500 mg Chewable Tablet PO SCH (08:12)
[2020-11-03] MEDS: Dexamethasone 4 mg/ml Vial SLOW IVP SCH (08:13)
[2020-11-03] MEDS: Polyethylene Glycol 3350 17 GM Packet PER TUBE SCH (08:13)
--- NOTE | 2020-11-03 12:20 | PRG ---
DATE OF SERVICE: 11/03/2020 SUBJECTIVE: The patient is doing about the same. Sedation has been stopped. He is not really that responsive. OBJECTIVE: VITAL SIGNS: On exam, temperature 97.7, pulse rate 67, blood pressure 108/57, and O2 saturation 95%. HEENT: He has ischemic ulcers present on his nose and forehead. NECK: No JVD. CHEST: Coarse rhonchi. CARDIOVASCULAR: S1 and S2. Slightly bradycardic. ABDOMEN: Slightly distended. EXTREMITIES: Edematous. LABORATORY DATA: White blood cell count 11.8, hematocrit 22.6, and platelet count 312. Sodium 136, potassium 4, chloride 101, CO2 of 28, BUN 31, creatinine 0.5, glucose 111. Chest x-ray shows bilateral infiltrates, right greater than left. ASSESSMENT: 1. COVID-19 pneumonia. 2. Acute respiratory failure requiring mechanical ventilation. 3. Multiple organ failure. PLAN: Basically family education regarding potential withdrawal of care this week. For the time being, continue current supportive care. Job ID: [id number]
--- NOTE | 2020-11-03 13:01 | PDOC.HOSPP ---
- Subjective Encounter Date: 11/03/20 Subjective: Remains on the vent. He is requiring 55% FiO2 and 10 of PEEP. Repeat chest x-ray did not show significant improvement. - Objective Vital Signs & Weight: Vital Signs (12 hours) Temp Pulse Resp BP Pulse Ox 11/03/20 12:00 98.6 F 29 H 11/03/20 11:04 64 108/57 L 11/03/20 10:00 31 H 11/03/20 08:00 97.7 F 24 H 94 L 11/03/20 07:03 52 L 111/51 L 11/03/20 06:00 18 11/03/20 04:00 98.7 F 27 H 11/03/20 02:15 49 L 11/03/20 02:01 98.7 F 11/03/20 02:00 34 H 11/03/20 01:31 99.2 F Weight Admit Weight 178 lb 9.191 oz Weight 177 lb 6.4 oz Most Recent Monitor Data Heart Rate from ECG 55 NIBP 123/58 NIBP BP-Mean 79 Respiration from ECG 24 SpO2 99 I&O: 11/02/20 11/03/20 11/04/20 06:59 06:59 06:59 Intake Total 1543.5 1336.5 240 Output Total 2403 2207 685 Balance -859.5 -870.5 -445 Result Diagrams: 11/03/20 03:55 11/03/20 03:55 Additional Labs: Accuchecks 11/03/20 11/03/20 11/02/20 10:00 04:28 21:58 POC Glucose 145 H 110 H 146 H 11/02/20 16:30 POC Glucose 204 H Hospitalist ROS - Medication Medications: Active Medications Generic Name Dose Route Start Last Admin Trade Name Freq PRN Reason Stop Dose Admin Acetaminophen 650 mg 10/14/20 20:08 11/03/20 01:31 Acetaminophen 325 Mg Tab PO 650 mg Q4H PRN Administration Headache/Fever/Mild Pain (1-3) Ascorbic Acid 1,000 mg 10/15/20 09:00 11/03/20 08:12 Ascorbic Acid 500 Mg Chewable Tablet PO 1,000 mg DAILY MACKENZIE Administration Cholecalciferol 400 units 10/15/20 09:00 11/03/20 08:11 Cholecalciferol (Vitamin D3) 400 Units Tab PO 400 units DAILY MACKENZIE Administration Dexamethasone 6 mg 10/15/20 09:00 11/03/20 08:13 Dexamethasone 4 Mg/Ml Vial SLOW IVP 6 mg DAILY MACKENZIE Administration Enoxaparin Sodium 40 mg 10/21/20 09:00 11/03/20 08:12 Enoxaparin Sodium 40 Mg/0.4 Ml Syringe SC 40 mg BID MACKENZIE Administration Famotidine 20 mg 10/25/20 21:00 11/03/20 08:12 Famotidine 20 Mg Tab PO 20 mg BID MACKENZIE Administration Sodium Chloride 1,000 mls @ 0 mls/hr 10/26/20 12:15 10/30/20 21:16 1/2 Normal Saline IV 1,000 mls .Q0M MACKENZIE Administration KVO Fentanyl 100 mls @ 0 mls/hr 10/31/20 09:00 11/03/20 05:00 Fentanyl Cadd IV 11/30/20 09:00 100 mls INF MACKENZIE Administration Protocol Per Protocol Insulin Human Lispro 0 units 10/14/20 23:10 11/02/20 16:32 Humalog 300 Units/3 Ml Vial SC 3 unit .MILD SLIDING SCALE PRN Administration Mild Correctional Scale Lorazepam 2 mg 10/25/20 08:52 10/30/20 11:06 Lorazepam 2 Mg/Ml Vial SLOW IVP 2 mg Q1H PRN Administration Breakthrough agitation Morphine Sulfate 2 mg 10/25/20 08:52 10/29/20 23:17 Morphine 2 Mg/Ml Vial SLOW IVP 2 mg Q1H PRN Administration Breakthrough Pain/Agitation Polyethylene Glycol 17 gm 11/02/20 09:00 11/03/20 08:13 Polyethylene Glycol 3350 17 Gm Packet PER TUBE 17 gm DAILY MACKENZIE Administration Propofol 1,000 mg 10/14/20 20:30 11/03/20 05:03 Propofol 1,000 Mg/100 Ml Vial IV 11/13/20 20:30 1,000 mg INF PRN Administration TO ACHIEVE GOAL RASS Protocol Sodium Chloride 10 ml 10/15/20 09:00 11/03/20 11:52 Flush - Normal Saline 10 Ml Syringe IVF 10 ml Q12HR MACKENZIE Administration Vecuronium [place] 10 mg 10/15/20 13:08 10/17/20 14:02 Vecuronium 10 Mg Vial IV 10 mg Q1H PRN Administration AGITATION Zinc Sulfate 220 mg 10/15/20 09:00 11/03/20 08:12 Zinc Sulfate 220 Mg Cap PO 220 mg DAILY MACKENZIE Administration - Exam ENT: normocephalic atraumatic Neck: supple Heart: RRR Respiratory: normal chest expansion, no tachypnea Extremities: no cyanosis Hosp A/P (1) Acute and chronic respiratory failure Code(s): J96.20 - ACUTE AND CHR RESP FAILURE, UNSP W HYPOXIA OR HYPERCAPNIA Status: Acute (2) COPD exacerbation Code(s): J44.1 - CHRONIC OBSTRUCTIVE PULMONARY DISEASE W (ACUTE) EXACERBATION Status: Acute (3) NSTEMI (non-ST elevated myocardial infarction) Code(s): I21.4 - NON-ST ELEVATION (NSTEMI) MYOCARDIAL INFARCTION Status: Acute (4) Sepsis Code(s): A41.9 - SEPSIS, UNSPECIFIED ORGANISM Status: Acute Qualifiers: Sepsis type: sepsis due to unspecified organism Sepsis acute organ d ysfunction status: with acute organ dysfunction Severe sepsis acute organ dysfunction type: acute renal failure (5) Pneumonia due to COVID-19 virus Code(s): U07.1 - COVID-19; J12.82 - PNEUMONIA DUE TO CORONAVIRUS DISEASE 2019 Status: Acute - Plan This is day 20 of hospitalization. The patient is still vent dependent. He is requiring 55% FiO2 and 10 of PEEP. Repeat chest x-ray did not show significant improvement. He is on dexamethasone and enoxaparin. The family reportedly not interested in trach or PEG. Poor prognosis.
[2020-11-03] MEDS: HumaLOG 300 UNITS/3 ML VIAL SC PRN (15:21)
[2020-11-04] MEDS: Sodium Chloride 0.45% 1,000 ML IV SCH (00:59)
[2020-11-04 04:55] LABS: ALT (SGPT) 27 U/L (8-55); AST (SGOT) 13 U/L (5-34); Albumin 2.3 g/dL (3.4-4.8); Alkaline Phosphatase 86 U/L (40-110); Anion Gap 9 mmol/L (10-20); BUN (Urea Nitrogen) 33 mg/dL (8.4-25.7); Bilirubin, Total 0.5 mg/dL (0.2-1.2); Calc. Creatinine Clearance 120 mL/min (70-130); Carbon Dioxide 30 mmol/L (23-31); Chloride 100 mmol/L (98-107); Globulin 3.6 g/dL (2.4-3.5); Glucose 116 mg/dL (83-110); Potassium 3.8 mmol/L (3.5-5.1); Protein, Total 5.9 g/dL (5.8-8.1); Sodium 135 mmol/L (136-145)
[2020-11-04 05:25] LABS: Band 4 % (5-11); Hemoglobin 8.2 g/dL (14.0-18.0); Lymphocytes 4 % (21-51); MDiff Complete? YES; Mean Corpuscular HGB CONC 32.6 g/dL (32.0-36.0); Mean Corpuscular Hemoglobin 31.6 pg (27.0-31.0); Mean Corpuscular Volume 97.2 fL (78.0-98.0); Mean Platelet Volume 8.9 fL (7.4-10.4); Monocytes 8 % (0-10); Neutrophil 84 % (42-75); Platelet Count 293 thou/uL (130-400); Red Blood Cell (RBC) Count 2.59 mill/uL (4.70-6.10); White Blood Cell (WBC) Count 14.2 thou/uL (4.8-10.8)
[2020-11-04] MEDS: Polyethylene Glycol 3350 17 GM Packet PER TUBE SCH (07:54)
--- NOTE | 2020-11-04 09:15 | RAD ---
CHEST 1 VIEW: HISTORY: Ventilated patient. COMPARISON: Radiograph prior day. FINDINGS: Airspace opacities are similar. There is a skin fold right superolateral hemithorax near the apex. Endotracheal tube tip just below the clavicles in good position. Enteric tube tip below the diaphrag m out of the field of view. No acute osseous abnormality. IMPRESSION: Similar examination of the chest without improved lung aeration. Relative to an exam from one week p rior, findings are also unchanged. POS: [facility]
[2020-11-04] MEDS: Zinc Sulfate 220 MG CAP PO SCH (09:23)
[2020-11-04] MEDS: Ascorbic Acid 500 mg Chewable Tablet PO SCH (09:23)
[2020-11-04] MEDS: Dexamethasone 4 mg/ml Vial SLOW IVP SCH (09:23)
[2020-11-04] MEDS: Famotidine 20 MG TAB PO SCH ×2 (09:24→19:53)
[2020-11-04] MEDS: Cholecalciferol (Vitamin D3) 400 UNITS TAB PO SCH (09:24)
[2020-11-04] MEDS: Enoxaparin Sodium 40 MG/0.4 ML SYRINGE SC SCH ×2 (09:24→19:54)
[2020-11-04] MEDS: HumaLOG 300 UNITS/3 ML VIAL SC PRN ×2 (11:27→16:16)
[2020-11-04] MEDS ORDERED: Morphine 2 MG/ML VIAL SLOW IVP PRN (12:17)
[2020-11-04] MEDS ORDERED: Lorazepam 2 MG/ML VIAL SLOW IVP PRN (12:18)
[2020-11-04] MEDS ORDERED: Fentanyl BOLUS 250 ML IVPB PRN (12:18)
--- NOTE | 2020-11-04 14:27 | PDOC.HOSPP ---
- Subjective Encounter Date: 11/04/20 Subjective: On the vent - Objective Vital Signs & Weight: Vital Signs (12 hours) Temp Pulse Resp BP Pulse Ox 11/04/20 14:15 68 11/04/20 11:56 98.2 F 11/04/20 11:50 20 11/04/20 10:50 73 106/51 L 11/04/20 10:00 24 H 11/04/20 08:00 28 H 91 L 11/04/20 07:00 98.5 F 11/04/20 06:55 62 115/49 L 11/04/20 06:00 21 H 11/04/20 04:00 98.0 F 22 H 11/04/20 02:50 60 122/60 Weight Admit Weight 178 lb 9.191 oz Weight 177 lb 6.4 oz Most Recent Monitor Data Heart Rate from ECG 74 NIBP 117/56 NIBP BP-Mean 76 Respiration from ECG 36 SpO2 97 I&O: 11/03/20 11/04/20 11/05/20 06:59 06:59 06:59 Intake Total 1336.5 1249 200 Output Total 2207 1640 350 Balance -870.5 -391 -150 Result Diagrams: 11/04/20 03:25 11/04/20 03:25 Additional Labs: Accuchecks 11/04/20 11/03/20 11/03/20 04:21 20:33 15:20 POC Glucose 128 H 142 H 223 H Hospitalist ROS - Medication Medications: Active Medications Generic Name Dose Route Start Last Admin Trade Name Freq PRN Reason Stop Dose Admin Acetaminophen 650 mg 10/14/20 20:08 11/03/20 01:31 Acetaminophen 325 Mg Tab PO 650 mg Q4H PRN Administration Headache/Fever/Mild Pain (1-3) Ascorbic Acid 1,000 mg 10/15/20 09:00 11/04/20 09:23 Ascorbic Acid 500 Mg Chewable Tablet PO 1,000 mg DAILY MACKENZIE Administration Cholecalciferol 400 units 10/15/20 09:00 11/04/20 09:24 Cholecalciferol (Vitamin D3) 400 Units Tab PO 400 units DAILY MACKENZIE Administration Dexamethasone 6 mg 10/15/20 09:00 11/04/20 09:23 Dexamethasone 4 Mg/Ml Vial SLOW IVP 6 mg DAILY MACKENZIE Administration Enoxaparin Sodium 40 mg 10/21/20 09:00 11/04/20 09:24 Enoxaparin Sodium 40 Mg/0.4 Ml Syringe SC 40 mg BID MACKENZIE Administration Famotidine 20 mg 10/25/20 21:00 11/04/20 09:24 Famotidine 20 Mg Tab PO 20 mg BID MACKENZIE Administration Sodium Chloride 1,000 mls @ 0 mls/hr 10/26/20 12:15 11/04/20 00:59 1/2 Normal Saline IV 1,000 mls .Q0M MACKENZIE Administration KVO Fentanyl 100 mls @ 0 mls/hr 10/31/20 09:00 11/03/20 05:00 Fentanyl Cadd IV 11/30/20 09:00 100 mls INF MACKENZIE Administration Protocol Per Protocol Insulin Human Lispro 0 units 10/14/20 23:10 11/04/20 11:27 Humalog 300 Units/3 Ml Vial SC 2 unit .MILD SLIDING SCALE PRN Administration Mild Correctional Scale Polyethylene Glycol 17 gm 11/02/20 09:00 11/04/20 07:54 Polyethylene Glycol 3350 17 Gm Packet PER TUBE Not Given DAILY MACKENZIE Propofol 1,000 mg 10/14/20 20:30 11/03/20 05:03 Propofol 1,000 Mg/100 Ml Vial IV 11/13/20 20:30 1,000 mg INF PRN Administration TO ACHIEVE GOAL RASS Protocol Sodium Chloride 10 ml 10/15/20 09:00 11/04/20 09:24 Flush - Normal Saline 10 Ml Syringe IVF 10 ml Q12HR MACKENZIE Administration Vecuronium [place] 10 mg 10/15/20 13:08 10/17/20 14:02 Vecuronium 10 Mg Vial IV 10 mg Q1H PRN Administration AGITATION Zinc Sulfate 220 mg 10/15/20 09:00 11/04/20 09:23 Zinc Sulfate 220 Mg Cap PO 220 mg DAILY MACKENZIE Administration - Exam ENT: normocephalic atraumatic Heart: RRR Respiratory: normal chest expansion, no tachypnea Extremities: no cyanosis, no clubbing Hosp A/P (1) Acute and chronic respiratory failure Code(s): J96.20 - ACUTE AND CHR RESP FAILURE, UNSP W HYPOXIA OR HYPERCAPNIA Status: Acute (2) COPD exacerbation Code(s): J44.1 - CHRONIC OBSTRUCTIVE PULMONARY DISEASE W (ACUTE) EXACERBATION Status: Acute (3) NSTEMI (non-ST elevated myocardial infarction) Code(s): I21.4 - NON-ST ELEVATION (NSTEMI) MYOCARDIAL INFARCTION Status: Acute (4) Sepsis Code(s): A41.9 - SEPSIS, UNSPECIFIED ORGANISM Status: Acute Qualifiers: Sepsis type: sepsis due to unspecified organism Sepsis acute organ dysfunction status: with acute organ dysfunction Severe sepsis acute organ dysfunction type: acute renal failure (5) Pneumonia due to COVID-19 virus Code(s): U07.1 - COVID-19; J12.82 - PNEUMONIA DUE TO CORONAVIRUS DISEASE 2019 Status: Acute - Plan Patient's vent requirement has not changed since yesterday. He is requiring 55% FiO2 and 10 of PEEP. Repeat chest x-ray did not show significant improvement. He is on dexamethasone and enoxaparin. The family reportedly not interested in trach or PEG. Poor prognosis. Palliative care team involved.
--- NOTE | 2020-11-04 17:15 | PRG ---
DATE OF SERVICE: 11/04/2020 SUBJECTIVE: Mr. Healy remains mechanically ventilated. His exam findings consistent with muscle and diaphragm weakness. OBJECTIVE: VITAL SIGNS: He is afebrile. Heart rate in the 60s, blood pressure 114/52, and respiratory rates in the 20s. LUNGS: Remarkable for coarse equal breath sounds. HEART: Regular rhythm. ABDOMEN: Soft. EXTREMITIES: Without any asymmetry. LABORATORY DATA: Chest radiograph is unchanged. IMPRESSION AND PLAN: COVID pneumonia, respiratory failure. He is now 21 days into this. Family made him a do not resuscitate patient. The only way he can survive in my opinion is with a tracheostomy. It is unclear whether or not family wants to open this door, but I think we are at a point where we have to withdraw support and hope for the best or we proceed with a tracheostomy and percutaneous endoscopic gastrostomy placement. Critical care time 30 min. Job ID: [id number] MTDD
[2020-11-04] MEDS ORDERED: Fentanyl CADD 100 ML ONE (23:33)
[2020-11-05 05:09] LABS: ALT (SGPT) 24 U/L (8-55); AST (SGOT) 13 U/L (5-34); Albumin 2.2 g/dL (3.4-4.8); Alkaline Phosphatase 84 U/L (40-110); Anion Gap 12 mmol/L (10-20); BUN (Urea Nitrogen) 30 mg/dL (8.4-25.7); Bilirubin, Total 0.5 mg/dL (0.2-1.2); Calc. Creatinine Clearance 120 mL/min (70-130); Calcium 8.1 mg/dL (7.8-10.44); Carbon Dioxide 28 mmol/L (23-31); Chloride 99 mmol/L (98-107); Globulin 3.6 g/dL (2.4-3.5); Glucose 130 mg/dL (83-110); Protein, Total 5.8 g/dL (5.8-8.1); Sodium 135 mmol/L (136-145)
[2020-11-05 05:40] LABS: Band 21 % (5-11); Eosinophils 1 % (0-10); Hemoglobin 7.7 g/dL (14.0-18.0); Lymphocytes 7 % (21-51); MDiff Complete? YES; Mean Corpuscular HGB CONC 32.2 g/dL (32.0-36.0); Mean Corpuscular Hemoglobin 30.8 pg (27.0-31.0); Mean Corpuscular Volume 95.7 fL (78.0-98.0); Mean Platelet Volume 8.7 fL (7.4-10.4); Monocytes 1 % (0-10); Neutrophil 70 % (42-75); Platelet Count 265 thou/uL (130-400); RBC Distribution Width 14.2 % (11.5-14.5); White Blood Cell (WBC) Count 12.3 thou/uL (4.8-10.8)
[2020-11-05] MEDS: Polyethylene Glycol 3350 17 GM Packet PER TUBE SCH (07:06)
--- NOTE | 2020-11-05 08:07 | RAD ---
XR Chest 1 View Portable History: Chest pain. Ventilated patient Comparison: Radiograph prior day Findings: Endotracheal tube tip above the daxa 4.1 cm. Airspace opacities are similar. No pneumotho rax. No pneumomediastinum. No significant pleural effusion. Enteric tube tip below diaphragm although out of field of view. Impression: Similar examination of the chest without improved lung aeration.
[2020-11-05] MEDS ORDERED: Dexamethasone 20 MG/5 ML VIAL ONE (08:43)
[2020-11-05] MEDS ORDERED: Rocuronium Bromide 10 MG/ML (10ML VIAL) ONE (08:43)
[2020-11-05] MEDS ORDERED: Ondansetron PF 4 MG/2 ML Vial ONE (08:43)
[2020-11-05] MEDS: Cholecalciferol (Vitamin D3) 400 UNITS TAB PO SCH (08:53)
[2020-11-05] MEDS: Dexamethasone 4 mg/ml Vial SLOW IVP SCH (08:53)
[2020-11-05] MEDS: Ascorbic Acid 500 mg Chewable Tablet PO SCH (08:53)
[2020-11-05] MEDS: Enoxaparin Sodium 40 MG/0.4 ML SYRINGE SC SCH ×2 (08:53→20:17)
[2020-11-05] MEDS: Famotidine 20 MG TAB PO SCH ×2 (08:54→20:16)
[2020-11-05] MEDS: Zinc Sulfate 220 MG CAP PO SCH (08:54)
--- NOTE | 2020-11-05 12:29 | PDOC.HOSPP ---
- Subjective Encounter Date: 11/05/20 non-verbal (On the vent) - Objective Vital Signs & Weight: Vital Signs (12 hours) Temp Pulse Resp Pulse Ox 11/05/20 11:41 99.1 F 11/05/20 10:46 60 11/05/20 07:46 54 L 11/05/20 07:41 93 L 11/05/20 07:38 22 H 11/05/20 07:00 98.4 F 11/05/20 06:00 25 H 11/05/20 04:00 97.7 F 21 H 11/05/20 02:27 69 11/05/20 02:00 22 H Weight Admit Weight 178 lb 9.191 oz Weight 177 lb 6.4 oz Most Recent Monitor Data Heart Rate from ECG 57 NIBP 119/59 NIBP BP-Mean 79 Respiration from ECG 26 SpO2 88 I&O: 11/04/20 11/05/20 11/06/20 06:59 06:59 06:59 Intake Total 1249 1317 200 Output Total 1640 1500 205 Balance -391 -183 -5 Result Diagrams: 11/05/20 03:00 11/05/20 03:00 Additional Labs: Accuchecks 11/05/20 11/05/20 11/04/20 09:32 04:17 19:56 POC Glucose 146 H 141 H 183 H 11/04/20 11/04/20 16:15 11:25 POC Glucose 191 H 173 H Hospitalist ROS - Medication Medications: Active Medications Generic Name Dose Route Start Last Admin Trade Name Freq PRN Reason Stop Dose Admin Acetaminophen 650 mg 10/14/20 20:08 11/03/20 01:31 Acetaminophen 325 Mg Tab PO 650 mg Q4H PRN Administration Headache/Fever/Mild Pain (1-3) Ascorbic Acid 1,000 mg 10/15/20 09:00 11/05/20 08:53 Ascorbic Acid 500 Mg Chewable Tablet PO 1,000 mg DAILY MACKENZIE Administration Cholecalciferol 400 units 10/15/20 09:00 11/05/20 08:53 Cholecalciferol (Vitamin D3) 400 Units Tab PO 400 units DAILY MACKENZIE Administration Dexamethasone 6 mg 10/15/20 09:00 11/05/20 08:53 Dexamethasone 4 Mg/Ml Vial SLOW IVP 6 mg DAILY MACKENZIE Administration Enoxaparin Sodium 40 mg 10/21/20 09:00 11/05/20 08:53 Enoxaparin Sodium 40 Mg/0.4 Ml Syringe SC 40 mg BID MACKENZIE Administration Famotidine 20 mg 10/25/20 21:00 11/05/20 08:54 Famotidine 20 Mg Tab PO 20 mg BID MACKENZIE Administration Sodium Chloride 1,000 mls @ 0 mls/hr 10/26/20 12:15 11/04/20 00:59 1/2 Normal Saline IV 1,000 mls .Q0M MACKENZIE Administration KVO Fentanyl 100 mls @ 0 mls/hr 10/31/20 09:00 11/03/20 05:00 Fentanyl Cadd IV 11/30/20 09:00 100 mls INF MACKENZIE Administration Protocol Per Protocol Insulin Human Lispro 0 units 10/14/20 23:10 11/04/20 16:16 Humalog 300 Units/3 Ml Vial SC 2 unit .MILD SLIDING SCALE PRN Administration Mild Correctional Scale Polyethylene Glycol 17 gm 11/02/20 09:00 11/05/20 07:06 Polyethylene Glycol 3350 17 Gm Packet PER TUBE Not Given DAILY MACKENZIE Propofol 1,000 mg 10/14/20 20:30 11/03/20 05:03 Propofol 1,000 Mg/100 Ml Vial IV 11/13/20 20:30 1,000 mg INF PRN Administration TO ACHIEVE GOAL RASS Protocol Sodium Chloride 10 ml 10/15/20 09:00 11/05/20 08:54 Flush - Normal Saline 10 Ml Syringe IVF 10 ml Q12HR MACKENZIE Administration Vecuronium [place] 10 mg 10/15/20 13:08 10/17/20 14:02 Vecuronium 10 Mg Vial IV 10 mg Q1H PRN Administration AGITATION Zinc Sulfate 220 mg 10/15/20 09:00 11/05/20 08:54 Zinc Sulfate 220 Mg Cap PO 220 mg DAILY MACKENZIE Administration - Exam ENT: normocephalic atraumatic Neck: supple Heart: RRR Respiratory: normal chest expansion, no tachypnea Extremities: no cyanosis Hosp A/P (1) Acute and chronic respiratory failure Code(s): J96.20 - ACUTE AND CHR RESP FAILURE, UNSP W HYPOXIA OR HYPERCAPNIA Status: Acute (2) COPD exacerbation Code(s): J44.1 - CHRONIC OBSTRUCTIVE PULMONARY DISEASE W (ACUTE) EXACERBATION Status: Acute (3) NSTEMI (non-ST elevated myocardial infarction) Code(s): I21.4 - NON-ST ELEVATION (NSTEMI) MYOCARDIAL INFARCTION Status: Acute (4) Sepsis Code(s): A41.9 - SEPSIS, UNSPECIFIED ORGANISM Status: Acute Qualifiers: Sepsis type: sepsis due to unspecified organism Sepsis acute organ dysfunction status: with acute organ dysfunction Severe sepsis acute organ dysfunction type: acute renal failure (5) Pneumonia due to COVID-19 virus Code(s): U07.1 - COVID-19; J12.82 - PNEUMONIA DUE TO CORONAVIRUS DISEASE 2019 Status: Acute - Plan Patient's vent requirement has not changed since yesterday. He is requiring 55% FiO2 and 10 of PEEP. Repeat chest x-ray did not show significant improvement. He is on dexamethasone and enoxaparin. The family are now wanting to pursue trach and PEG. We will need LTAC placement ultimately.
[2020-11-05] MEDS ORDERED: Lidocaine 2% w/Epinephrine 1:200K 20 ML VIAL ONE (14:09)
[2020-11-05] MEDS ORDERED: Bupivacaine PF 0.5% 30 ML VIAL ONE (14:09)
[2020-11-05] MEDS ORDERED: Fentanyl 100 MCG/2 ML VIAL ONE (14:39)
[2020-11-05] MEDS ORDERED: Midazolam HCl 2 mg/2 ml Vial ONE (14:39)
--- NOTE | 2020-11-05 15:23 | PRG ---
DATE OF SERVICE: 11/05/2020 OBJECTIVE: VITAL SIGNS: Geronimo Healy is afebrile, heart rate is in the 50s, blood pressure 120/57, respiratory rate is in the 20s, ventilatory support continues, but making small changes every day. LUNGS: Distant clear. HEART: Regular rhythm. ABDOMEN: Soft. EXTREMITIES: Without asymmetry. LABORATORY DATA: White count 12.3, hemoglobin 7.7, platelets 265. Sodium 135, potassium 4, chloride 99, bicarb 28, BUN 30, creatinine 0.55. ASSESSMENT AND PLAN: I talked to his daughter at length by phone. She is willing to proceed with a tracheostomy and a PEG placement. will go to long-term acute care and hopefully, he can recover to a point where he can go home. I have explained to her that he is getting better very slowly and not getting worse, so that is a plus. Hopefully, we can get him into a long-term acute care in the next day or two. Job ID: [id number] AD
--- NOTE | 2020-11-05 17:02 | CON ---
DATE OF CONSULTATION: HISTORY OF PRESENT ILLNESS: Geronimo Helay is an 80-year-old male patient, admitted on 10/14/2020 by hospitalist service, seen by Dr. Myers and Nephrology. He is an 80-year-old male patient with history of hypertension and COPD, diagnosed with COVID a week prior to this admission, found to be unresponsive. EMS called with hypoxia, saturations in the 40s, GCS of 3, in which he is intubated and transferred for severe COVID pneumonia. His isolation was lifted and Dr. Myers has asked me to see him regarding placement of tracheostomy and PEG tube. The patient initially had acute kidney injury, which has improved. BUN 30 and creatinine 0.55 now, sodium 135. White count 12 and hemoglobin 7.7. ALLERGIES: NONE. THE PATIENT IS SEEN BY CARDIOLOGY, PULMONARY, AND NEPHROLOGY THIS HOSPITALIZATION, DID NOT REQUIRE DIALYTIC CARE. SOCIAL HISTORY: Alcohol, none. Tobacco, cessation 6 years ago, but one pack a day prior to that. MEDICATIONS: Outpatient; 1. Hydrochlorothiazide. 2. DuoNebs. 3. Lisinopril. 4. Dulera. 5. Prednisone. 6. Simvastatin. PHYSICAL EXAMINATION: GENERAL: The patient is sedated on the ventilator. VITAL SIGNS: Height 5 feet 10 inches, weight 177 pounds, 25 BMI, heart rate 54, and blood pressure 104/49. LUNGS: Clear to auscultation. No wheezing. CARDIAC: Regular rhythm without murmur or gallop. ABDOMEN: Soft and nontender. EXTREMITIES: Without edema. ASSESSMENT AND PLAN: 1. COVID pneumonia. 2. Respiratory failure. 3. Chronic obstructive pulmonary disease. He requires tracheostomy and PEG tube for malnutrition and oropharyngeal dysphagia, plan that today to facilitate weaning and rehabilitation. Job ID: [id number]
[2020-11-05] MEDS: HumaLOG 300 UNITS/3 ML VIAL SC PRN (20:21)
[2020-11-06 05:10] LABS: ALT (SGPT) 23 U/L (8-55); AST (SGOT) 15 U/L (5-34); Albumin 2.4 g/dL (3.4-4.8); Alkaline Phosphatase 81 U/L (40-110); Anion Gap 13 mmol/L (10-20); BUN (Urea Nitrogen) 33 mg/dL (8.4-25.7); Bilirubin, Total 0.6 mg/dL (0.2-1.2); Calc. Creatinine Clearance 122 mL/min (70-130); Calcium 8.2 mg/dL (7.8-10.44); Carbon Dioxide 27 mmol/L (23-31); Chloride 99 mmol/L (98-107); Globulin 3.8 g/dL (2.4-3.5); Glucose 117 mg/dL (83-110); Potassium 4.1 mmol/L (3.5-5.1); Protein, Total 6.2 g/dL (5.8-8.1); Sodium 135 mmol/L (136-145)
[2020-11-06 05:27] LABS: Band 5 % (5-11); Hemoglobin 7.8 g/dL (14.0-18.0); Lymphocytes 1 % (21-51); MDiff Complete? YES; Mean Corpuscular HGB CONC 31.5 g/dL (32.0-36.0); Mean Corpuscular Hemoglobin 30.2 pg (27.0-31.0); Mean Corpuscular Volume 95.9 fL (78.0-98.0); Mean Platelet Volume 8.5 fL (7.4-10.4); Monocytes 5 % (0-10); Neutrophil 89 % (42-75); Platelet Count 259 thou/uL (130-400); RBC Distribution Width 14.1 % (11.5-14.5); Red Blood Cell (RBC) Count 2.58 mill/uL (4.70-6.10); White Blood Cell (WBC) Count 14.4 thou/uL (4.8-10.8)
--- NOTE | 2020-11-06 08:03 | RAD ---
EXAM: XR Chest 1 View Portable PROVIDED CLINICAL HISTORY: Respiratory insufficiency COMPARISON: 11/05/2020 FINDINGS: Interval extubation and removal of enteric catheter with placement of tracheostomy appliance. Extensi ve bilateral interstitial and airspace disease persists. There is no pleural fluid or pneumothorax apparent. IMPRESSION: Bilateral airspace disease persists.
[2020-11-06] MEDS: Dexamethasone 4 mg/ml Vial SLOW IVP SCH (08:27)
[2020-11-06] MEDS: Cholecalciferol (Vitamin D3) 400 UNITS TAB PO SCH (08:29)
[2020-11-06] MEDS: Ascorbic Acid 500 mg Chewable Tablet PO SCH (08:29)
[2020-11-06] MEDS: Zinc Sulfate 220 MG CAP PO SCH (08:29)
[2020-11-06] MEDS: Famotidine 20 MG TAB PO SCH ×2 (08:29→20:45)
[2020-11-06] MEDS: Polyethylene Glycol 3350 17 GM Packet PER TUBE SCH (08:29)
[2020-11-06] MEDS: Enoxaparin Sodium 40 MG/0.4 ML SYRINGE SC SCH ×2 (08:30→20:44)
[2020-11-06] MEDS: HumaLOG 300 UNITS/3 ML VIAL SC PRN ×2 (10:03→16:03)
--- NOTE | 2020-11-06 13:17 | PDOC.HOSPP ---
- Subjective Encounter Date: 11/06/20 Subjective: Status post tracheostomy. - Objective Vital Signs & Weight: Vital Signs (12 hours) Temp Pulse Resp Pulse Ox 11/06/20 12:00 98.6 F 28 H 11/06/20 11:11 64 11/06/20 10:00 31 H 11/06/20 08:00 99.6 F 21 H 90 L 11/06/20 06:59 66 11/06/20 06:00 22 H 11/06/20 04:00 98.8 F 20 11/06/20 02:05 67 11/06/20 02:00 20 Weight Admit Weight 178 lb 9.191 oz Weight 177 lb 6.4 oz Most Recent Monitor Data Heart Rate from ECG 79 NIBP 126/48 NIBP BP-Mean 74 Respiration from ECG 29 SpO2 95 I&O: 11/05/20 11/06/20 11/07/20 06:59 06:59 06:59 Intake Total 1317 1028 420 Output Total 1500 1045 325 Balance -183 -17 95 Result Diagrams: 11/06/20 03:15 11/06/20 03:15 Additional Labs: Accuchecks 11/06/20 11/06/20 11/05/20 10:01 04:11 20:20 POC Glucose 178 H 137 H 185 H Hospitalist ROS - Medication Medications: Active Medications Generic Name Dose Route Start Last Admin Trade Name Freq PRN Reason Stop Dose Admin Acetaminophen 650 mg 10/14/20 20:08 11/03/20 01:31 Acetaminophen 325 Mg Tab PO 650 mg Q4H PRN Administration Headache/Fever/Mild Pain (1-3) Ascorbic Acid 1,000 mg 10/15/20 09:00 11/06/20 08:29 Ascorbic Acid 500 Mg Chewable Tablet PO 1,000 mg DAILY MACKENZIE Administration Cholecalciferol 400 units 10/15/20 09:00 11/06/20 08:29 Cholecalciferol (Vitamin D3) 400 Units Tab PO 400 units DAILY MACKENZIE Administration Dexamethasone 6 mg 10/15/20 09:00 11/06/20 08:27 Dexamethasone 4 Mg/Ml Vial SLOW IVP 6 mg DAILY MACKENZIE Administration Enoxaparin Sodium 40 mg 10/21/20 09:00 11/06/20 08:30 Enoxaparin Sodium 40 Mg/0.4 Ml Syringe SC 40 mg BID MACKENZIE Administration Famotidine 20 mg 10/25/20 21:00 11/06/20 08:29 Famotidine 20 Mg Tab PO 20 mg BID MACKENZIE Administration Sodium Chloride 1,000 mls @ 0 mls/hr 10/26/20 12:15 11/04/20 00:59 1/2 Normal Saline IV 1,000 mls .Q0M MACKENZIE Administration KVO Fentanyl 100 mls @ 0 mls/hr 10/31/20 09:00 11/03/20 05:00 Fentanyl Cadd IV 11/30/20 09:00 100 mls INF MACKENZIE Administration Protocol Per Protocol Insulin Human Lispro 0 units 10/14/20 23:10 11/06/20 10:03 Humalog 300 Units/3 Ml Vial SC 2 unit .MILD SLIDING SCALE PRN Administration Mild Correctional Scale Lorazepam 2 mg 11/04/20 12:18 11/06/20 12:00 Lorazepam 2 Mg/Ml Vial SLOW IVP 2 mg Q1H PRN Administration Breakthrough agitation Polyethylene Glycol 17 gm 11/02/20 09:00 11/06/20 08:29 Polyethylene Glycol 3350 17 Gm Packet PER TUBE 17 gm DAILY MACKENZIE Administration Propofol 1,000 mg 10/14/20 20:30 11/03/20 05:03 Propofol 1,000 Mg/100 Ml Vial IV 11/13/20 20:30 1,000 mg INF PRN Administration TO ACHIEVE GOAL RASS Protocol Sodium Chloride 10 ml 10/15/20 09:00 11/06/20 08:29 Flush - Normal Saline 10 Ml Syringe IVF 10 ml Q12HR MACKENZIE Administration Vecuronium [place] 10 mg 10/15/20 13:08 10/17/20 14:02 Vecuronium 10 Mg Vial IV 10 mg Q1H PRN Administration AGITATION Zinc Sulfate 220 mg 10/15/20 09:00 11/06/20 08:29 Zinc Sulfate 220 Mg Cap PO 220 mg DAILY MACKENZIE Administration - Exam General Appearance: awake alert ENT: normocephalic atraumatic Heart: RRR Respiratory: normal chest expansion, no tachypnea Extremities: no cyanosis, no clubbing Hosp A/P (1) Acute and chronic respiratory failure Code(s): J96.20 - ACUTE AND CHR RESP FAILURE, UNSP W HYPOXIA OR HYPERCAPNIA Status: Acute (2) COPD exacerbation Code(s): J44.1 - CHRONIC OBSTRUCTIVE PULMONARY DISEASE W (ACUTE) EXACERBATION Status: Acute (3) NSTEMI (non-ST elevated myocardial infarction) Code(s): I21.4 - NON-ST ELEVATION (NSTEMI) MYOCARDIAL INFARCTION Status: Acute (4) Sepsis Code(s): A41.9 - SEPSIS, UNSPECIFIED ORGANISM Status: Acute Qualifiers: Sepsis type: sepsis due to unspecified organism Sepsis acute organ dysfunction status: with acute organ dysfunction Severe sepsis acute organ dysfunction type: acute renal failure (5) Pneumonia due to COVID-19 virus Code(s): U07.1 - COVID-19; J12.82 - PNEUMONIA DUE TO CORONAVIRUS DISEASE 2019 Status: Acute - Plan Status post tracheostomy. He is awake. Vent management per pulmonology. LTAC placement pending. He is on dexamethasone and enoxaparin.
--- NOTE | 2020-11-06 17:11 | PRG ---
DATE OF SERVICE: 11/06/2020 OBJECTIVE: VITAL SIGNS: Mr. Healy is afebrile. Respiratory rate is in the high 20s, FiO2 is at 50, blood pressure 125/50. LUNGS: Remarkable for coarse equal breath sounds. HEART: Regular rate and rhythm. ABDOMEN: Soft. EXTREMITIES: Without edema. IMAGING: Chest x-ray still shows diffuse infiltrates that were persistent. LABORATORY DATA: White count 14.4, hemoglobin 7.8, and platelets 259. Sodium 135, potassium 4.1, chloride 99, bicarb 27, BUN 33, and creatinine 0.54. IMPRESSION: 1. Respiratory failure associated with COVID pneumonia. 2. Status post trach and PEG. Awaiting placement in a long-term acute care facility. 3. His daughter, whom he lives with, was supportive of the decision to go with a trach and a PEG and has improved transfer to an LTAC once a bed becomes available. Job ID: [id number]
[2020-11-07 05:23] LABS: ALT (SGPT) 21 U/L (8-55); AST (SGOT) 12 U/L (5-34); Albumin 2.4 g/dL (3.4-4.8); Alkaline Phosphatase 83 U/L (40-110); Anion Gap 12 mmol/L (10-20); BUN (Urea Nitrogen) 27 mg/dL (8.4-25.7); Bilirubin, Total 0.6 mg/dL (0.2-1.2); Calc. Creatinine Clearance 127 mL/min (70-130); Calcium 8.1 mg/dL (7.8-10.44); Carbon Dioxide 29 mmol/L (23-31); Chloride 98 mmol/L (98-107); Globulin 3.7 g/dL (2.4-3.5); Glucose 125 mg/dL (83-110); Potassium 3.7 mmol/L (3.5-5.1); Protein, Total 6.1 g/dL (5.8-8.1); Sodium 135 mmol/L (136-145)
[2020-11-07 06:01] LABS: Band 9 % (5-11); Eosinophils 2 % (0-10); Hemoglobin 7.8 g/dL (14.0-18.0); Lymphocytes 2 % (21-51); MDiff Complete? YES; Mean Corpuscular HGB CONC 31.8 g/dL (32.0-36.0); Mean Corpuscular Hemoglobin 30.3 pg (27.0-31.0); Mean Corpuscular Volume 95.4 fL (78.0-98.0); Mean Platelet Volume 8.6 fL (7.4-10.4); Monocytes 4 % (0-10); Neutrophil 83 % (42-75); Platelet Count 251 thou/uL (130-400); Red Blood Cell (RBC) Count 2.57 mill/uL (4.70-6.10); White Blood Cell (WBC) Count 12.6 thou/uL (4.8-10.8)
--- NOTE | 2020-11-07 07:55 | PRG ---
DATE OF SERVICE: SUBJECTIVE: The patient remains in the ICU on mechanical ventilation through tracheostomy. OBJECTIVE: VITAL SIGNS: Temperature is 98.7, pulse 68, blood pressure 122/50, O2 saturation 91%. His current ventilator settings are SIMV rate of 8, tidal volume 450, PEEP 10, pressure support 14, FiO2 of 50%. GENERAL: He is obtunded. HEENT: Remarkable for some ischemic ulcers on his nose and his forehead. NECK: No JVD. Trach in good position. LUNGS: Coarse breath sounds. CARDIAC: S1 and S2. Regular. ABDOMEN: Soft. EXTREMITIES: Edematous. LABORATORY DATA: White blood cell count 12.6, hematocrit 24.5, and platelet count 251. Sodium 135, potassium 3.7, chloride 98, CO2 of 29, BUN 27, creatinine 0.5, glucose 125. ASSESSMENT: 1. COVID-19 pneumonia. 2. Acute respiratory failure requiring tracheostomy and PEG tube placement. PLAN: Awaiting LTAC placement. I do not think there is much room to decrease ventilator settings at this time. I would anticipate weaning being a very slow process. Job ID: [id number]
--- NOTE | 2020-11-07 08:29 | RAD ---
PORTABLE CHEST: Date: 11/07/2020 HISTORY: Pneumonia. CCU follow-up. COMPARISON: 11/06/2020 FINDINGS/IMPRESSION: Tracheostomy device unchanged. Diffuse interstitial and hazy infiltrates throughout both lungs with p atchy alveolar-type infiltrates in the lung bases. No significant interval change. POS: AGW
[2020-11-07] MEDS: Cholecalciferol (Vitamin D3) 400 UNITS TAB PO SCH (09:26)
[2020-11-07] MEDS: Famotidine 20 MG TAB PO SCH ×2 (09:26→20:07)
[2020-11-07] MEDS: Zinc Sulfate 220 MG CAP PO SCH (09:26)
[2020-11-07] MEDS: Dexamethasone 4 mg/ml Vial SLOW IVP SCH (09:26)
[2020-11-07] MEDS: Ascorbic Acid 500 mg Chewable Tablet PO SCH (09:26)
[2020-11-07] MEDS: Enoxaparin Sodium 40 MG/0.4 ML SYRINGE SC SCH ×2 (09:27→20:07)
[2020-11-07] MEDS: Polyethylene Glycol 3350 17 GM Packet PER TUBE SCH (09:27)
--- NOTE | 2020-11-07 13:18 | PDOC.HOSPP ---
- Subjective Encounter Date: 11/07/20 Subjective: Remains on the vent. - Objective Vital Signs & Weight: Vital Signs (12 hours) Temp Pulse Resp BP Pulse Ox 11/07/20 12:00 98.7 F 34 H 11/07/20 10:30 62 125/53 L 11/07/20 10:00 30 H 11/07/20 08:00 98.9 F 32 H 92 L 11/07/20 07:13 67 113/57 L 11/07/20 06:00 25 H 11/07/20 04:00 98.7 F 30 H 11/07/20 02:27 71 11/07/20 02:00 29 H Weight Admit Weight 178 lb 9.191 oz Weight 177 lb 6.4 oz Most Recent Monitor Data Heart Rate from ECG 72 NIBP 122/56 NIBP BP-Mean 78 Respiration from ECG 33 SpO2 93 I&O: 11/06/20 11/07/20 11/08/20 06:59 06:59 06:59 Intake Total 1028 1324.3 140 Output Total 1045 1570 275 Balance -17 -245.7 -135 Result Diagrams: 11/08/20 03:40 11/08/20 03:30 Additional Labs: Accuchecks 11/07/20 11/06/20 11:47 21:52 POC Glucose 158 H 117 H Hospitalist ROS - Medication Medications: Active Medications Generic Name Dose Route Start Last Admin Trade Name Freq PRN Reason Stop Dose Admin Acetaminophen 650 mg 10/14/20 20:08 11/03/20 01:31 Acetaminophen 325 Mg Tab PO 650 mg Q4H PRN Administration Headache/Fever/Mild Pain (1-3) Ascorbic Acid 1,000 mg 10/15/20 09:00 11/07/20 09:26 Ascorbic Acid 500 Mg Chewable Tablet PO 1,000 mg DAILY MACKENZIE Administration Cholecalciferol 400 units 10/15/20 09:00 11/07/20 09:26 Cholecalciferol (Vitamin D3) 400 Units Tab PO 400 units DAILY MACKENZIE Administration Dexamethasone 6 mg 10/15/20 09:00 11/07/20 09:26 Dexamethasone 4 Mg/Ml Vial SLOW IVP 6 mg DAILY MACKENZIE Administration Enoxaparin Sodium 40 mg 10/21/20 09:00 11/07/20 09:27 Enoxaparin Sodium 40 Mg/0.4 Ml Syringe SC 40 mg BID MACKENZIE Administration Famotidine 20 mg 10/25/20 21:00 11/07/20 09:26 Famotidine 20 Mg Tab PO 20 mg BID MACKENZIE Administration Sodium Chloride 1,000 mls @ 0 mls/hr 10/26/20 12:15 11/04/20 00:59 1/2 Normal Saline IV 1,000 mls .Q0M MACKENZIE Administration KVO Fentanyl 100 mls @ 0 mls/hr 10/31/20 09:00 11/03/20 05:00 Fentanyl Cadd IV 11/30/20 09:00 100 mls INF MACKENZIE Administration Protocol Per Protocol Insulin Human Lispro 0 units 10/14/20 23:10 11/06/20 16:03 Humalog 300 Units/3 Ml Vial SC 2 unit .MILD SLIDING SCALE PRN Administration Mild Correctional Scale Lorazepam 2 mg 11/04/20 12:18 11/06/20 12:00 Lorazepam 2 Mg/Ml Vial SLOW IVP 2 mg Q1H PRN Administration Breakthrough agitation Polyethylene Glycol 17 gm 11/02/20 09:00 11/07/20 09:27 Polyethylene Glycol 3350 17 Gm Packet PER TUBE Not Given DAILY MACKENZIE Propofol 1,000 mg 10/14/20 20:30 11/03/20 05:03 Propofol 1,000 Mg/100 Ml Vial IV 11/13/20 20:30 1,000 mg INF PRN Administration TO ACHIEVE GOAL RASS Protocol Sodium Chloride 10 ml 10/15/20 09:00 11/07/20 09:27 Flush - Normal Saline 10 Ml Syringe IVF 10 ml Q12HR MACKENZIE Administration Vecuronium [place] 10 mg 10/15/20 13:08 10/17/20 14:02 Vecuronium 10 Mg Vial IV 10 mg Q1H PRN Administration AGITATION Zinc Sulfate 220 mg 10/15/20 09:00 11/07/20 09:26 Zinc Sulfate 220 Mg Cap PO 220 mg DAILY MACKENZIE Administration - Exam ENT: normocephalic atraumatic Neck: supple Respiratory: normal chest expansion, no tachypnea Hosp A/P (1) Acute and chronic respiratory failure Code(s): J96.20 - ACUTE AND CHR RESP FAILURE, UNSP W HYPOXIA OR HYPERCAPNIA Status: Acute (2) COPD exacerbation Code(s): J44.1 - CHRONIC OBSTRUCTIVE PULMONARY DISEASE W (ACUTE) EXACERBATION Status: Acute (3) NSTEMI (non-ST elevated myocardial infarction) Code(s): I21.4 - NON-ST ELEVATION (NSTEMI) MYOCARDIAL INFARCTION Status: Acute (4) Sepsis Code(s): A41.9 - SEPSIS, UNSPECIFIED ORGANISM Status: Acute Qualifiers: Sepsis type: sepsis due to unspecified organism Sepsis acute organ dysfunction status: with acute organ dysfunction Severe sepsis acute organ dysfunction type: acute renal failure (5) Pneumonia due to COVID-19 virus Code(s): U07.1 - COVID-19; J12.82 - PNEUMONIA DUE TO CORONAVIRUS DISEASE 2019 Status: Acute - Plan Status post tracheostomy. He is on 50% FiO2 and PEEP of 10. LTAC placement pending. He is on dexamethasone and enoxaparin.
[2020-11-07] MEDS: HumaLOG 300 UNITS/3 ML VIAL SC PRN (22:29)
[2020-11-08 05:02] LABS: Hemoglobin 7.6 g/dL (14.0-18.0); Mean Corpuscular HGB CONC 32.1 g/dL (32.0-36.0); Mean Corpuscular Hemoglobin 30.4 pg (27.0-31.0); Mean Corpuscular Volume 94.9 fL (78.0-98.0); Mean Platelet Volume 8.3 fL (7.4-10.4); Platelet Count 237 thou/uL (130-400); RBC Distribution Width 14.1 % (11.5-14.5); Red Blood Cell (RBC) Count 2.48 mill/uL (4.70-6.10); White Blood Cell (WBC) Count 13.2 thou/uL (4.8-10.8)
[2020-11-08 05:03] LABS: Band 7 % (5-11); Eosinophils 1 % (0-10); Hypochromia SLIGHT = 6-15 cells (100X) (0-5/hpf); Lymphocytes 2 % (21-51); MDiff Complete? YES; Monocytes 7 % (0-10); Neutrophil 83 % (42-75); Nucleated RBC 1 % (0); Platelet Morphology Comment Appears Adequate
[2020-11-08 05:06] LABS: ALT (SGPT) 20 U/L (8-55); AST (SGOT) 11 U/L (5-34); Albumin 2.3 g/dL (3.4-4.8); Alkaline Phosphatase 81 U/L (40-110); Anion Gap 13 mmol/L (10-20); BUN (Urea Nitrogen) 28 mg/dL (8.4-25.7); Bilirubin, Total 0.5 mg/dL (0.2-1.2); Calc. Creatinine Clearance 120 mL/min (70-130); Calcium 7.9 mg/dL (7.8-10.44); Carbon Dioxide 26 mmol/L (23-31); Chloride 98 mmol/L (98-107); Globulin 3.6 g/dL (2.4-3.5); Glucose 108 mg/dL (83-110); Potassium 3.5 mmol/L (3.5-5.1); Protein, Total 5.9 g/dL (5.8-8.1); Sodium 133 mmol/L (136-145)
[2020-11-08] MEDS: Zinc Sulfate 220 MG CAP PO SCH (09:48)
[2020-11-08] MEDS: Cholecalciferol (Vitamin D3) 400 UNITS TAB PO SCH (09:48)
[2020-11-08] MEDS: Ascorbic Acid 500 mg Chewable Tablet PO SCH (09:48)
[2020-11-08] MEDS: Enoxaparin Sodium 40 MG/0.4 ML SYRINGE SC SCH ×2 (09:48→20:18)
[2020-11-08] MEDS: Famotidine 20 MG TAB PO SCH ×2 (09:48→20:18)
[2020-11-08] MEDS: Dexamethasone 4 mg/ml Vial SLOW IVP SCH (09:49)
[2020-11-08] MEDS: Polyethylene Glycol 3350 17 GM Packet PER TUBE SCH (09:50)
--- NOTE | 2020-11-08 13:18 | PDOC.HOSPP ---
- Subjective Encounter Date: 11/08/20 Subjective: The patient is on the vent. - Objective Vital Signs & Weight: Vital Signs (12 hours) Temp Pulse Resp 11/08/20 11:04 77 11/08/20 06:53 72 11/08/20 06:00 31 H 11/08/20 04:00 99.0 F 32 H 11/08/20 02:00 34 H 11/08/20 01:57 858 H Weight Admit Weight 178 lb 9.191 oz Weight 177 lb 6.4 oz Most Recent Monitor Data Heart Rate from ECG 71 NIBP 122/52 NIBP BP-Mean 75 Respiration from ECG 36 SpO2 91 I&O: 11/07/20 11/08/20 11/09/20 06:59 06:59 06:59 Intake Total 1324.3 1029 Output Total 1570 1900 Balance -245.7 -871 Result Diagrams: 11/08/20 03:40 11/08/20 03:30 Additional Labs: Accuchecks 11/08/20 11/07/20 09:13 22:23 POC Glucose 160 H 174 H Hospitalist ROS - Medication Medications: Active Medications Generic Name Dose Route Start Last Admin Trade Name Freq PRN Reason Stop Dose Admin Acetaminophen 650 mg 10/14/20 20:08 11/03/20 01:31 Acetaminophen 325 Mg Tab PO 650 mg Q4H PRN Administration Headache/Fever/Mild Pain (1-3) Ascorbic Acid 1,000 mg 10/15/20 09:00 11/08/20 09:48 Ascorbic Acid 500 Mg Chewable Tablet PO 1,000 mg DAILY MACKENZIE Administration Cholecalciferol 400 units 10/15/20 09:00 11/08/20 09:48 Cholecalciferol (Vitamin D3) 400 Units Tab PO 400 units DAILY MACKENZIE Administration Dexamethasone 6 mg 10/15/20 09:00 11/08/20 09:49 Dexamethasone 4 Mg/Ml Vial SLOW IVP 6 mg DAILY MACKENZIE Administration Enoxaparin Sodium 40 mg 10/21/20 09:00 11/08/20 09:48 Enoxaparin Sodium 40 Mg/0.4 Ml Syringe SC 40 mg BID MACKENZIE Administration Famotidine 20 mg 10/25/20 21:00 11/08/20 09:48 Famotidine 20 Mg Tab PO 20 mg BID MACKENZIE Administration Sodium Chloride 1,000 mls @ 0 mls/hr 10/26/20 12:15 11/04/20 00:59 1/2 Normal Saline IV 1,000 mls .Q0M MACKENZIE Administration KVO Fentanyl 100 mls @ 0 mls/hr 10/31/20 09:00 11/03/20 05:00 Fentanyl Cadd IV 11/30/20 09:00 100 mls INF MACKENZIE Administration Protocol Per Protocol Insulin Human Lispro 0 units 10/14/20 23:10 11/07/20 22:29 Humalog 300 Units/3 Ml Vial SC 2 unit .MILD SLIDING SCALE PRN Administration Mild Correctional Scale Lorazepam 2 mg 11/04/20 12:18 11/06/20 12:00 Lorazepam 2 Mg/Ml Vial SLOW IVP 2 mg Q1H PRN Administration Breakthrough agitation Polyethylene Glycol 17 gm 11/02/20 09:00 11/08/20 09:50 Polyethylene Glycol 3350 17 Gm Packet PER TUBE Not Given DAILY MACKENZIE Propofol 1,000 mg 10/14/20 20:30 11/03/20 05:03 Propofol 1,000 Mg/100 Ml Vial IV 11/13/20 20:30 1,000 mg INF PRN Administration TO ACHIEVE GOAL RASS Protocol Sodium Chloride 10 ml 10/15/20 09:00 11/08/20 09:49 Flush - Normal Saline 10 Ml Syringe IVF 10 ml Q12HR MACKENZIE Administration Vecuronium [place] 10 mg 10/15/20 13:08 10/17/20 14:02 Vecuronium 10 Mg Vial IV 10 mg Q1H PRN Administration AGITATION Zinc Sulfate 220 mg 10/15/20 09:00 11/08/20 09:48 Zinc Sulfate 220 Mg Cap PO 220 mg DAILY MACKENZIE Administration - Exam General Appearance: awake alert Neck: supple Respiratory: normal chest expansion, no tachypnea Extremities: no cyanosis, no clubbing Hosp A/P (1) Acute and chronic respiratory failure Code(s): J96.20 - ACUTE AND CHR RESP FAILURE, UNSP W HYPOXIA OR HYPERCAPNIA Status: Acute (2) COPD exacerbation Code(s): J44.1 - CHRONIC OBSTRUCTIVE PULMONARY DISEASE W (ACUTE) EXACERBATION Status: Acute (3) NSTEMI (non-ST elevated myocardial infarction) Code(s): I21.4 - NON-ST ELEVATION (NSTEMI) MYOCARDIAL INFARCTION Status: Acute (4) Sepsis Code(s): A41.9 - SEPSIS, UNSPECIFIED ORGANISM Status: Acute Qualifiers: Sepsis type: sepsis due to unspecified organism Sepsis acute organ dysfunction status: with acute organ dysfunction Severe sepsis acute organ dysfunction type: acute renal failure (5) Pneumonia due to COVID-19 virus Code(s): U07.1 - COVID-19; J12.82 - PNEUMONIA DUE TO CORONAVIRUS DISEASE 2019 Status: Acute - Plan Status post tracheostomy. He is awake but not following commands. Ventilator settings are unchanged. FiO2 50% and PEEP of 10. LTAC placement pending. He is on dexamethasone and enoxaparin.
[2020-11-08] MEDS: HumaLOG 300 UNITS/3 ML VIAL SC PRN ×2 (16:15→20:19)
--- NOTE | 2020-11-08 17:21 | PRG ---
DATE OF SERVICE: 11/08/2020 SUBJECTIVE: Geronimo Healy remains mechanically ventilated. OBJECTIVE: VITAL SIGNS: Blood pressure 129/59, heart rates in the 70s. FiO2 is 50. Respiratory rates in the high 20s to low 30s. LUNGS: Remarkable for coarse equal breath sounds. HEART: Regular rhythm. ABDOMEN: Soft. EXTREMITIES: Without edema. LABORATORY DATA: White count 13.2, hemoglobin 7.6, platelets 237. Sodium 133, potassium 3.5, chloride 98, bicarb 26, BUN 20, creatinine 0.55, albumin is 2.3. IMPRESSION: 1. Respiratory failure associated with COVID pneumonia. 2. Status post tracheostomy and PEG placement. Awaiting approval for an LTAC bed. Job ID: [id number]
[2020-11-09 04:38] LABS: ALT (SGPT) 21 U/L (8-55); AST (SGOT) 13 U/L (5-34); Albumin 2.3 g/dL (3.4-4.8); Alkaline Phosphatase 86 U/L (40-110); Anion Gap 10 mmol/L (10-20); BUN (Urea Nitrogen) 26 mg/dL (8.4-25.7); Bilirubin, Total 0.5 mg/dL (0.2-1.2); Calc. Creatinine Clearance 129 mL/min (70-130); Calcium 8.1 mg/dL (7.8-10.44); Carbon Dioxide 28 mmol/L (23-31); Chloride 101 mmol/L (98-107); Globulin 3.8 g/dL (2.4-3.5); Glucose 128 mg/dL (83-110); Potassium 3.8 mmol/L (3.5-5.1); Protein, Total 6.1 g/dL (5.8-8.1); Sodium 135 mmol/L (136-145)
[2020-11-09 05:22] LABS: Eosinophils 1 % (0-10); Hemoglobin 7.8 g/dL (14.0-18.0); Lymphocytes 2 % (21-51); MDiff Complete? YES; Mean Corpuscular HGB CONC 31.5 g/dL (32.0-36.0); Mean Corpuscular Hemoglobin 30.1 pg (27.0-31.0); Mean Corpuscular Volume 95.5 fL (78.0-98.0); Mean Platelet Volume 8.6 fL (7.4-10.4); Metamyelocyte 1 % (0-0); Neutrophil 96 % (42-75); Platelet Count 245 thou/uL (130-400); Platelet Morphology Comment Appears Adequate; RBC Distribution Width 14.3 % (11.5-14.5); RBC Morphology Normal; Red Blood Cell (RBC) Count 2.58 mill/uL (4.70-6.10); White Blood Cell (WBC) Count 14.2 thou/uL (4.8-10.8)
--- NOTE | 2020-11-09 08:47 | RAD ---
Portable frontal chest radiograph: 11/09/2020 COMPARISON: 11/07/2020 HISTORY: Ventilated patient FINDINGS: There is a stable tracheostomy tube. There are diffuse linear interstitial densities with a reas of superimposed groundglass opacity within the left perihilar region, the right lung base, and the left lung base, not significantly changed. Dense opacity persists in the lung bases with obscurat ion of the hemidiaphragms, left greater than right. IMPRESSION: No significant interval change.
[2020-11-09] MEDS: Polyethylene Glycol 3350 17 GM Packet PER TUBE SCH (09:24)
[2020-11-09] MEDS: Dexamethasone 4 mg/ml Vial SLOW IVP SCH (09:25)
[2020-11-09] MEDS: Cholecalciferol (Vitamin D3) 400 UNITS TAB PO SCH (09:25)
[2020-11-09] MEDS: Zinc Sulfate 220 MG CAP PO SCH (09:25)
[2020-11-09] MEDS: Ascorbic Acid 500 mg Chewable Tablet PO SCH (09:25)
[2020-11-09] MEDS: Famotidine 20 MG TAB PO SCH ×2 (09:26→20:09)
[2020-11-09] MEDS: Enoxaparin Sodium 40 MG/0.4 ML SYRINGE SC SCH ×2 (09:27→20:09)
[2020-11-09] MEDS: HumaLOG 300 UNITS/3 ML VIAL SC PRN ×3 (13:40→21:58)
--- NOTE | 2020-11-09 16:07 | PRG ---
DATE OF SERVICE: 11/09/2020 SUBJECTIVE: Geronimo Healy remains mechanically ventilated. His sedation is off. He remains encephalopathic. OBJECTIVE: VITAL SIGNS: Respiratory rates in the high 20s, FiO2 is at 50, blood pressure 125/50, heart rates in the 60s. LUNGS: Remarkable for equal breath sounds. HEART: Regular rhythm. ABDOMEN: Soft. EXTREMITIES: Without asymmetry. DIAGNOSTIC STUDIES: Chest x-ray is unchanged. White count 14.2, hemoglobin 7.8, platelets 245. Sodium 135, potassium 3.8, chloride 101, bicarb 28, BUN 26, creatinine 0.51, glucose 193. IMPRESSION: 1. COVID pneumonia. 2. Respiratory failure. 3. Status post tracheostomy and PEG. 4. Anemia of acute illness combined with anemia of chronic disease. 5. Diabetes. PLAN: Continue supportive care. We will continue to hold sedation. I suspect we will gradually see some awakening. He has been in the hospital since October 14 and he has been sedated much of that time. Hopefully, we can find a bed in a long-term acute care facility before too long and continue the slow process. Job ID: [id number]
--- NOTE | 2020-11-09 18:02 | PDOC.HOSPP ---
- Subjective Encounter Date: 11/09/20 Encounter Time: 17:50 Subjective: f/u for COVID PNA s/p trach/PEG with prolonged hospital stay > 24 days. No new events per nursing. - Objective Vital Signs & Weight: Vital Signs (12 hours) Temp Pulse Resp Pulse Ox 11/09/20 16:05 58 L 11/09/20 16:00 99.5 F 20 11/09/20 14:00 30 H 11/09/20 12:00 99.4 F 30 H 11/09/20 11:24 59 L 11/09/20 10:00 30 H 11/09/20 08:00 99.1 F 31 H 11/09/20 07:59 93 L 11/09/20 07:00 99.1 F 11/09/20 06:42 58 L Weight Admit Weight 178 lb 9.191 oz Weight 166 lb 14.239 oz Most Recent Monitor Data Heart Rate from ECG 62 NIBP 121/52 NIBP BP-Mean 75 Respiration from ECG 34 SpO2 97 I&O: 11/08/20 11/09/20 11/10/20 06:59 06:59 06:59 Intake Total 1029 1659 1220 Output Total 1900 1657 600 Balance -871 2 620 Result Diagrams: 11/09/20 03:30 11/09/20 03:30 Additional Labs: Accuchecks 11/09/20 11/09/20 11/08/20 15:46 13:11 20:16 POC Glucose 228 H 193 H 192 H Laboratory Tests 11/05/20 11/06/20 11/07/20 03:00 03:15 03:25 Hgb 7.7 L 7.8 L 7.8 L 11/08/20 03:40 Hgb 7.6 L Radiology Reviewed by me: Yes (PCXR - bilat infiltrates) EKG Reviewed by me: Yes (Tele - SR) Hospitalist ROS - Medication Medications: Active Medications Generic Name Dose Route Start Last Admin Trade Name Freq PRN Reason Stop Dose Admin Acetaminophen 650 mg 10/14/20 20:08 11/03/20 01:31 Acetaminophen 325 Mg Tab PO 650 mg Q4H PRN Administration Headache/Fever/Mild Pain (1-3) Ascorbic Acid 1,000 mg 10/15/20 09:00 11/09/20 09:25 Ascorbic Acid 500 Mg Chewable Tablet PO 1,000 mg DAILY MACKENZIE Administration Cholecalciferol 400 units 10/15/20 09:00 11/09/20 09:25 Cholecalciferol (Vitamin D3) 400 Units Tab PO 400 units DAILY MACKENZIE Administration Dexamethasone 6 mg 10/15/20 09:00 11/09/20 09:25 Dexamethasone 4 Mg/Ml Vial SLOW IVP 6 mg DAILY MACKENZIE Administration Enoxaparin Sodium 40 mg 10/21/20 09:00 11/09/20 09:27 Enoxaparin Sodium 40 Mg/0.4 Ml Syringe SC 40 mg BID MACKENZIE Administration Famotidine 20 mg 10/25/20 21:00 11/09/20 09:26 Famotidine 20 Mg Tab PO 20 mg BID MACKENZIE Administration Sodium Chloride 1,000 mls @ 0 mls/hr 10/26/20 12:15 11/04/20 00:59 1/2 Normal Saline IV 1,000 mls .Q0M MACKENZIE Administration KVO Fentanyl 100 mls @ 0 mls/hr 10/31/20 09:00 11/03/20 05:00 Fentanyl Cadd IV 11/30/20 09:00 100 mls INF MACKENZIE Administration Protocol Per Protocol Insulin Human Lispro 0 units 10/14/20 23:10 11/09/20 15:51 Humalog 300 Units/3 Ml Vial SC 3 unit .MILD SLIDING SCALE PRN Administration Mild Correctional Scale Lorazepam 2 mg 11/04/20 12:18 11/06/20 12:00 Lorazepam 2 Mg/Ml Vial SLOW IVP 2 mg Q1H PRN Administration Breakthrough agitation Polyethylene Glycol 17 gm 11/02/20 09:00 11/09/20 09:24 Polyethylene Glycol 3350 17 Gm Packet PER TUBE 17 gm DAILY MACKENZIE Administration Propofol 1,000 mg 10/14/20 20:30 11/03/20 05:03 Propofol 1,000 Mg/100 Ml Vial IV 11/13/20 20:30 1,000 mg INF PRN Administration TO ACHIEVE GOAL RASS Protocol Sodium Chloride 10 ml 10/15/20 09:00 11/09/20 09:26 Flush - Normal Saline 10 Ml Syringe IVF 10 ml Q12HR MACKENZIE Administration Vecuronium [place] 10 mg 10/15/20 13:08 10/17/20 14:02 Vecuronium 10 Mg Vial IV 10 mg Q1H PRN Administration AGITATION Zinc Sulfate 220 mg 10/15/20 09:00 01/23/21 09:25 Zinc Sulfate 220 Mg Cap PO 220 mg DAILY MACKENZIE Administration - Exam General Appearance: ill appearing General - other findings: sedate, unresponsive Eye: PERRL, anicteric sclera ENT: normocephalic atraumatic, no oropharyngeal lesions Neck: supple, symmetric, no JVD, no thyromegaly, no lymphadenopathy Neck - other findings: trach in place Heart: RRR, no gallops, no rubs, normal peripheral pulses Heart - other findings: S1, S2 Respiratory: rhonchi, tachypneic Respiratory - other findings: diminished in bases bilat Gastrointestinal: soft, non-tender, non-distended, normal bowel sounds, no palpable masses Extremities: no cyanosis, no clubbing, no edema Skin: normal turgor Neurological - other findings: unresponsive, sedate Psychiatric: somnolent, lethargic Hosp A/P (1) Pneumonia due to COVID-19 virus Code(s): U07.1 - COVID-19; J12.82 - PNEUMONIA DUE TO CORONAVIRUS DISEASE 2018 Status: Acute Plan: Continue Dexamethasone/Vit C/D3/Zinc/Lovenox/SIMV via trach (2) Acute respiratory failure with hypoxia and hypercarbia Code(s): J96.01 - ACUTE RESPIRATORY FAILURE WITH HYPOXIA; J96.02 - ACUTE RESPIRATORY FAILURE WITH HYPERCAPNIA Status: Acute Plan: Continue mech ventilation with trach FIO2 50% (3) Acute metabolic encephalopathy Code(s): G93.41 - METABOLIC ENCEPHALOPATHY Status: Acute Plan: Persistent, likely penitentiary condition (4) Diabetes Code(s): E11.9 - TYPE 2 DIABETES MELLITUS WITHOUT COMPLICATIONS Status: Chronic Qualifiers: Diabetes mellitus type: type 2 Diabetes mellitus manager intermediate insulin use: without manager intermediate use Diabetes mellitus complication status: without complication Qualified Code(s): E11.9 - Type 2 diabetes mellitus without complications Plan: ISS, serial accuchecks, Nepro bolus TF's - Plan social contact worker, respiratory therapy, DVT proph w/SCDs Continue critical support Continue Dexamethasone Continue Vit C/Zinc/D3 Continue Lovenox Nutritional support with Nepro TF's AM lab: BMP, CBC LTAC options Consider palliative measures
[2020-11-10] MEDS: Sodium Chloride 0.45% 1,000 ML IV SCH (02:15)
[2020-11-10 04:25] LABS: Hemoglobin 7.7 g/dL (14.0-18.0); Mean Corpuscular HGB CONC 32.2 g/dL (32.0-36.0); Mean Corpuscular Volume 96.2 fL (78.0-98.0); Mean Platelet Volume 8.4 fL (7.4-10.4); Platelet Count 254 thou/uL (130-400); RBC Distribution Width 14.3 % (11.5-14.5); Red Blood Cell (RBC) Count 2.48 mill/uL (4.70-6.10); White Blood Cell (WBC) Count 13.8 thou/uL (4.8-10.8)
[2020-11-10 04:26] LABS: Band 12 % (5-11); Hypochromia SLIGHT = 6-15 cells (100X) (0-5/hpf); Lymphocytes 9 % (21-51); MDiff Complete? YES; Monocytes 4 % (0-10); Neutrophil 75 % (42-75); Platelet Morphology Comment Appears Adequate
[2020-11-10 04:32] LABS: ALT (SGPT) 21 U/L (8-55); AST (SGOT) 16 U/L (5-34); Albumin 2.2 g/dL (3.4-4.8); Alkaline Phosphatase 88 U/L (40-110); Anion Gap 9 mmol/L (10-20); BUN (Urea Nitrogen) 25 mg/dL (8.4-25.7); Bilirubin, Total 0.4 mg/dL (0.2-1.2); Calc. Creatinine Clearance 122 mL/min (70-130); Calcium 8.1 mg/dL (7.8-10.44); Carbon Dioxide 27 mmol/L (23-31); Chloride 102 mmol/L (98-107); Globulin 3.8 g/dL (2.4-3.5); Glucose 122 mg/dL (83-110); Sodium 134 mmol/L (136-145)
[2020-11-10] MEDS: Enoxaparin Sodium 40 MG/0.4 ML SYRINGE SC SCH ×2 (09:39→20:18)
[2020-11-10] MEDS: Cholecalciferol (Vitamin D3) 400 UNITS TAB PO SCH (09:40)
[2020-11-10] MEDS: Dexamethasone 4 mg/ml Vial SLOW IVP SCH (09:40)
[2020-11-10] MEDS: Famotidine 20 MG TAB PO SCH ×2 (09:40→20:18)
[2020-11-10] MEDS: Polyethylene Glycol 3350 17 GM Packet PER TUBE SCH (09:40)
[2020-11-10] MEDS: Zinc Sulfate 220 MG CAP PO SCH (09:40)
[2020-11-10] MEDS: Ascorbic Acid 500 mg Chewable Tablet PO SCH (10:57)
[2020-11-10] MEDS ORDERED: Fentanyl CADD 100 ML IV SCH (14:00)
--- NOTE | 2020-11-10 14:51 | PRG ---
DATE OF SERVICE: 11/10/2020 SUBJECTIVE: Geronimo Healy remains encephalopathic. He also remains ventilated. We again made small changes in his ventilation. OBJECTIVE: VITAL SIGNS: He is afebrile, heart rates is in 60s, FiO2 is at 50, blood pressure 109/56. Intake and outputs positive 247. LUNGS: Remarkable for coarse equal breath sounds. HEART: Regular rhythm. ABDOMEN: Soft. EXTREMITIES: Without edema. IMPRESSION: 1. COVID pneumonia with respiratory failure, now with tracheostomy and PEG. 2. Diabetes. 3. Anemia that is multifactorial, stable. PLAN: Continue supportive care with eventual placement in a long-term acute care. Job ID: [id number]
--- NOTE | 2020-11-10 16:15 | PDOC.HOSPP ---
- Subjective Encounter Date: 11/10/20 Encounter Time: 14:00 Subjective: f/u for COVID PNA/resp failure s/p trach/PEG. Vent rate down from 8 to 6 with FIO2 50%. Minimally responsive per nursing. Tolerating TF's with low gastric residuals. - Objective Vital Signs & Weight: Vital Signs (12 hours) Temp Pulse 11/10/20 12:00 99.2 F 11/10/20 11:30 69 11/10/20 08:00 99.1 F 11/10/20 06:10 54 L Weight Admit Weight 178 lb 9.191 oz Weight 162 lb 14.746 oz Most Recent Monitor Data Heart Rate from ECG 60 NIBP 112/56 NIBP BP-Mean 74 Respiration from ECG 31 SpO2 97 I&O: 11/09/20 11/10/20 11/11/20 06:59 06:59 06:59 Intake Total 1659 2022 940 Output Total 1657 1775 480 Balance 2 247 460 Result Diagrams: 11/10/20 03:45 11/10/20 03:45 Additional Labs: Accuchecks 11/10/20 11/09/20 03:44 21:54 POC Glucose 134 H 183 H Laboratory Tests 11/05/20 11/06/20 11/07/20 03:00 03:15 03:25 Hgb 7.7 L 7.8 L 7.8 L 11/08/20 03:40 Hgb 7.6 L EKG Reviewed by me: Yes (Tele - SR) Hospitalist ROS - Medication Medications: Active Medications Generic Name Dose Route Start Last Admin Trade Name Freq PRN Reason Stop Dose Admin Acetaminophen 650 mg 10/14/20 20:08 11/03/20 01:31 Acetaminophen 325 Mg Tab PO 650 mg Q4H PRN Administration Headache/Fever/Mild Pain (1-3) Ascorbic Acid 1,000 mg 10/15/20 09:00 11/10/20 10:57 Ascorbic Acid 500 Mg Chewable Tablet PO 1,000 mg DAILY MACKENZIE Administration Cholecalciferol 400 units 10/15/20 09:00 11/10/20 09:40 Cholecalciferol (Vitamin D3) 400 Units Tab PO 400 units DAILY MACKENZIE Administration Dexamethasone 6 mg 10/15/20 09:00 11/10/20 09:40 Dexamethasone 4 Mg/Ml Vial SLOW IVP 6 mg DAILY MACKENZIE Administration Enoxaparin Sodium 40 mg 10/21/20 09:00 11/10/20 09:39 Enoxaparin Sodium 40 Mg/0.4 Ml Syringe SC 40 mg BID MACKENZIE Administration Famotidine 20 mg 10/25/20 21:00 11/10/20 09:40 Famotidine 20 Mg Tab PO 20 mg BID MACKENZIE Administration Sodium Chloride 1,000 mls @ 0 mls/hr 10/26/20 12:15 11/10/20 02:15 1/2 Normal Saline IV 1,000 mls .Q0M MACKENZIE Administration KVO Insulin Human Lispro 0 units 10/14/20 23:10 11/09/20 21:58 Humalog 300 Units/3 Ml Vial SC 2 unit .MILD SLIDING SCALE PRN Administration Mild Correctional Scale Lorazepam 2 mg 11/04/20 12:18 11/06/20 12:00 Lorazepam 2 Mg/Ml Vial SLOW IVP 2 mg Q1H PRN Administration Breakthrough agitation Polyethylene Glycol 17 gm 11/02/20 09:00 11/10/20 09:40 Polyethylene Glycol 3350 17 Gm Packet PER TUBE 17 gm DAILY MACKENZIE Administration Propofol 1,000 mg 10/14/20 20:30 11/03/20 05:03 Propofol 1,000 Mg/100 Ml Vial IV 11/13/20 20:30 1,000 mg INF PRN Administration TO ACHIEVE GOAL RASS Protocol Sodium Chloride 10 ml 10/15/20 09:00 11/10/20 09:41 Flush - Normal Saline 10 Ml Syringe IVF 10 ml Q12HR MACKENZIE Administration Vecuronium [place] 10 mg 10/15/20 13:08 10/17/20 14:02 Vecuronium 10 Mg Vial IV 10 mg Q1H PRN Administration AGITATION Zinc Sulfate 220 mg 10/15/20 09:00 11/10/20 09:40 Zinc Sulfate 220 Mg Cap PO 220 mg DAILY MACKENZIE Administration - Exam General Appearance: ill appearing General - other findings: sedate on mech vent via trach Eye: anicteric sclera ENT: normocephalic atraumatic, no oropharyngeal lesions ENT - other findings: Trach in place Neck: supple, symmetric, no JVD, no thyromegaly, no lymphadenopathy Heart: RRR, no gallops, no rubs, normal peripheral pulses Heart - other findings: S1, S2 Respiratory: tachypneic Respiratory - other findings: coarse sounds bilat, diminished in bases Gastrointestinal: soft, non-tender, non-distended, normal bowel sounds, no palpable masses Gastrointestinal - other findings: PEG in place Extremities: no cyanosis, no clubbing, no edema Skin: normal turgor Neurological - other findings: sedate on mech vent Musculoskeletal: generalized weakness Psychiatric: somnolent, lethargic Hosp A/P (1) Pneumonia due to COVID-19 virus Code(s): U07.1 - COVID-19; J12.82 - PNEUMONIA DUE TO CORONAVIRUS DISEASE 2018 Status: Acute Plan: Continue ventilatory support, Vit C/D3/Dexamethasone/Lovenox/Zinc (2) Acute respiratory failure with hypoxia and hypercarbia Code(s): J96.01 - ACUTE RESPIRATORY FAILURE WITH HYPOXIA; J96.02 - ACUTE RESPIRATORY FAILURE WITH HYPERCAPNIA Status: Acute Plan: continue tracheostomy with SIMV, wean as clinically indicated (3) Acute metabolic encephalopathy Code(s): G93.41 - METABOLIC ENCEPHALOPATHY Status: Acute Plan: Persistent and multifactorial, supportive mgmt (4) Diabetes Code(s): E11.9 - TYPE 2 DIABETES MELLITUS WITHOUT COMPLICATIONS Status: Chronic Qualifiers: Diabetes mellitus type: type 2 Diabetes mellitus nursing home insulin use: without lobsterman use Diabetes mellitus complication status: without complication Qualified Code(s): E11.9 - Type 2 diabetes mellitus without complications - Plan geriatric social worker, speech therapy, respiratory therapy, DVT proph w/SCDs Continue critical support Continue Dexamethasone Continue Vit C/Zinc/D3 Continue Lovenox Nutritional support with Nepro TF's AM lab: BMP, CBC LTAC options pending Consider palliative measures
[2020-11-10] MEDS: HumaLOG 300 UNITS/3 ML VIAL SC PRN ×2 (16:40→21:12)
[2020-11-11 05:02] LABS: Band 16 % (5-11); Eosinophils 1 % (0-10); Hemoglobin 7.8 g/dL (14.0-18.0); Lymphocytes 7 % (21-51); MDiff Complete? YES; Mean Corpuscular HGB CONC 32.2 g/dL (32.0-36.0); Mean Corpuscular Hemoglobin 30.5 pg (27.0-31.0); Mean Corpuscular Volume 94.7 fL (78.0-98.0); Monocytes 5 % (0-10); Neutrophil 71 % (42-75); Platelet Count 279 thou/uL (130-400); Platelet Morphology Comment Appears Adequate; RBC Distribution Width 14.3 % (11.5-14.5); Red Blood Cell (RBC) Count 2.56 mill/uL (4.70-6.10); White Blood Cell (WBC) Count 13.4 thou/uL (4.8-10.8)
[2020-11-11 05:21] LABS: ALT (SGPT) 21 U/L (8-55); AST (SGOT) 15 U/L (5-34); Albumin 2.3 g/dL (3.4-4.8); Alkaline Phosphatase 82 U/L (40-110); Anion Gap 10 mmol/L (10-20); BUN (Urea Nitrogen) 24 mg/dL (8.4-25.7); Bilirubin, Total 0.4 mg/dL (0.2-1.2); Calc. Creatinine Clearance 113 mL/min (70-130); Carbon Dioxide 28 mmol/L (23-31); Chloride 101 mmol/L (98-107); Globulin 3.7 g/dL (2.4-3.5); Glucose 119 mg/dL (83-110); Sodium 135 mmol/L (136-145)
[2020-11-11] MEDS: Dexamethasone 4 mg/ml Vial SLOW IVP SCH (07:43)
[2020-11-11] MEDS: Cholecalciferol (Vitamin D3) 400 UNITS TAB PO SCH (07:44)
[2020-11-11] MEDS: Zinc Sulfate 220 MG CAP PO SCH (07:44)
[2020-11-11] MEDS: Famotidine 20 MG TAB PO SCH ×2 (07:44→20:27)
[2020-11-11] MEDS: Ascorbic Acid 500 mg Chewable Tablet PO SCH (07:44)
[2020-11-11] MEDS: Enoxaparin Sodium 40 MG/0.4 ML SYRINGE SC SCH ×2 (07:44→20:27)
[2020-11-11] MEDS: Polyethylene Glycol 3350 17 GM Packet PER TUBE SCH (07:45)
--- NOTE | 2020-11-11 08:09 | PRG ---
DATE OF SERVICE: 11/11/2020 SUBJECTIVE: This patient remains on mechanical ventilation through a tracheostomy. He is not on any sedation. He is encephalopathic and will not respond to stimuli. OBJECTIVE: VITAL SIGNS: Temperature 99, pulse , blood pressure 107/49, and O2 saturation 95%. 24-hour intake 2249, output 1900. HEENT: Unchanged. NECK: No adenopathy or JVD. Trach in good position. LUNGS: Inspiratory crackles bilaterally. CARDIOVASCULAR: S1, S2. Slightly bradycardic. ABDOMEN: Soft and nontender to palpation. EXTREMITIES: Edematous. LABORATORY DATA: White blood cell count 13.4, hematocrit 24.2, and platelet count 279. Sodium 135, potassium 4, chloride 101, CO2 of 28, BUN 24, creatinine 0.5, glucose 119. Chest x-ray shows diffuse bilateral infiltrates. ASSESSMENT: 1. COVID-19 pneumonia. 2. Respiratory failure requiring tracheostomy and mechanical ventilation. 3. Diabetes mellitus. 4. Anemia. PLAN: We are waiting for LTAC placement. Last social work note in the computer is from 11/06/2020, indicating they are waiting for family to make a decision. The patient continues on anticoagulation and for the most part, has had all other sedation stopped. I think I will go ahead and cut his steroid dose. Prognosis remains very poor. Job ID: [id number]
--- NOTE | 2020-11-11 09:26 | RAD ---
PORTABLE CHEST: HISTORY: Respiratory distress. FINDINGS: In comparison to the 11/09/2020 exam, bilateral lung parenchymal changes are not felt to be significan tly different given the differences in technique. Tracheostomy tube is in place. IMPRESSION: Stable exam. POS: MARILYN
[2020-11-11] MEDS: HumaLOG 300 UNITS/3 ML VIAL SC PRN (09:33)
--- NOTE | 2020-11-11 12:18 | PDOC.HOSPP ---
- Subjective Encounter Date: 11/11/20 Encounter Time: 12:15 Subjective: f/u for COVID PNA/resp failure s/p trach remaining on mech vent with rate 6, FIO2 50%. Remains unresponsive off all sedation. Receiving TF's with low gastric residuals. - Objective Vital Signs & Weight: Vital Signs (12 hours) Temp Pulse Resp BP Pulse Ox 11/11/20 11:00 59 L 128/58 L 11/11/20 07:23 33 H 94 L 11/11/20 06:39 58 L 111/47 L 11/11/20 05:00 98.1 F 11/11/20 04:00 28 H 11/11/20 03:24 55 L 113/47 L 11/11/20 02:00 27 H 11/11/20 01:15 69 Weight Admit Weight 178 lb 9.191 oz Weight 158 lb 11.725 oz Most Recent Monitor Data Heart Rate from ECG 57 NIBP 105/50 NIBP BP-Mean 68 Respiration from ECG 28 SpO2 92 I&O: 11/10/20 11/11/20 11/12/20 06:59 06:59 06:59 Intake Total 2021 2242 560 Output Total 1775 1900 520 Balance 247 342 40 Result Diagrams: 11/11/20 04:35 11/11/20 04:35 Additional Labs: Accuchecks 11/11/20 11/11/20 11/10/20 09:27 04:34 21:09 POC Glucose 176 H 122 H 210 H 11/10/20 11/10/20 11/09/20 16:53 12:40 03:30 POC Glucose 232 H 144 H 126 H Laboratory Tests 11/05/20 11/06/20 11/07/20 03:00 03:15 03:25 Hgb 7.7 L 7.8 L 7.8 L 11/08/20 03:40 Hgb 7.6 L Radiology Reviewed by me: Yes (PCXR - bilat infiltrates, trach in place) EKG Reviewed by me: Yes (Tele - SR) Hospitalist ROS - Medication Medications: Active Medications Generic Name Dose Route Start Last Admin Trade Name Freq PRN Reason Stop Dose Admin Acetaminophen 650 mg 10/14/20 20:08 11/03/20 01:31 Acetaminophen 325 Mg Tab PO 650 mg Q4H PRN Administration Headache/Fever/Mild Pain (1-3) Ascorbic Acid 1,000 mg 10/15/20 09:00 11/11/20 07:44 Ascorbic Acid 500 Mg Chewable Tablet PO 1,000 mg DAILY MACKENZIE Administration Cholecalciferol 400 units 10/15/20 09:00 11/11/20 07:44 Cholecalciferol (Vitamin D3) 400 Units Tab PO 400 units DAILY MACKENZIE Administration Dexamethasone 3 mg 11/11/20 09:00 11/11/20 07:43 Dexamethasone 4 Mg/Ml Vial SLOW IVP 3 mg DAILY MACKENZIE Administration Enoxaparin Sodium 40 mg 10/21/20 09:00 11/11/20 07:44 Enoxaparin Sodium 40 Mg/0.4 Ml Syringe SC 40 mg BID MACKENZIE Administration Famotidine 20 mg 10/25/20 21:00 11/11/20 07:44 Famotidine 20 Mg Tab PO 20 mg BID MACKENZIE Administration Sodium Chloride 1,000 mls @ 0 mls/hr 10/26/20 12:15 11/10/20 02:15 1/2 Normal Saline IV 1,000 mls .Q0M MACKENZIE Administration KVO Insulin Human Lispro 0 units 10/14/20 23:10 11/11/20 09:33 Humalog 300 Units/3 Ml Vial SC 2 unit .MILD SLIDING SCALE PRN Administration Mild Correctional Scale Polyethylene Glycol 17 gm 11/02/20 09:00 11/11/20 07:45 Polyethylene Glycol 3350 17 Gm Packet PER TUBE Not Given DAILY MACKENZIE Sodium Chloride 10 ml 10/15/20 09:00 11/11/20 07:45 Flush - Normal Saline 10 Ml Syringe IVF 10 ml Q12HR MACKENZIE Administration Zinc Sulfate 220 mg 10/15/20 09:00 11/11/20 07:44 Zinc Sulfate 220 Mg Cap PO 220 mg DAILY MACKENZIE Administration - Exam General Appearance: ill appearing General - other findings: somnolent Eye: anicteric sclera ENT: normocephalic atraumatic, no oropharyngeal lesions Neck: supple, symmetric, no JVD, no thyromegaly, no lymphadenopathy Neck - other findings: trach in place Heart: RRR, no gallops, no rubs, normal peripheral pulses Heart - other findings: S1, S2 Respiratory - other findings: diminished bilat, scattered coarse sounds Gastrointestinal: soft, non-tender, non-distended, normal bowel sounds, no palpable masses Extremities: no cyanosis, no clubbing, no edema Skin: normal turgor Neurological - other findings: Unresponsive Psychiatric: somnolent, lethargic Hosp A/P (1) Pneumonia due to COVID-19 virus Code(s): U07.1 - COVID-19; J12.82 - PNEUMONIA DUE TO CORONAVIRUS DISEASE 2019 Status: Acute Plan: continue pulmonary support, Vit c/D3/Dexamethasone/Loveonox/Zinc (2) Acute respiratory failure with hypoxia and hypercarbia Code(s): J96.01 - ACUTE RESPIRATORY FAILURE WITH HYPOXIA; J96.02 - ACUTE RESPIRATORY FAILURE WITH HYPERCAPNIA Status: Acute Plan: Persistent, continue trach with mech ventilation (3) Acute metabolic encephalopathy Code(s): G93.41 - METABOLIC ENCEPHALOPATHY Status: Acute Plan: Persistent, likely irreversible (4) Diabetes Code(s): E11.9 - TYPE 2 DIABETES MELLITUS WITHOUT COMPLICATIONS Status: Chronic Qualifiers: Diabetes mellitus type: type 2 Diabetes mellitus technician terminal and repeater insulin use: without technician terminal and repeater use Diabetes mellitus complication status: without com plication Qualified Code(s): E11.9 - Type 2 diabetes mellitus without com plications - Plan social media designer, respiratory therapy, DVT proph w/SCDs Consults: Palliative Care Continue critical support Continue Dexamethasone Continue Vit C/Zinc/D3 Continue Lovenox Nutritional support with Jacy HOPSON'reese AM lab: BMP, CBC LTAC options pending Consult Palliative care for goals of care/? hospice
[2020-11-12 04:12] LABS: Hemoglobin 8.2 g/dL (14.0-18.0); Mean Corpuscular HGB CONC 31.9 g/dL (32.0-36.0); Mean Corpuscular Hemoglobin 30.6 pg (27.0-31.0); Mean Corpuscular Volume 95.8 fL (78.0-98.0); Mean Platelet Volume 8.3 fL (7.4-10.4); Platelet Count 319 thou/uL (130-400); RBC Distribution Width 14.4 % (11.5-14.5); Red Blood Cell (RBC) Count 2.69 mill/uL (4.70-6.10); White Blood Cell (WBC) Count 14.3 thou/uL (4.8-10.8)
[2020-11-12 04:13] LABS: Band 5 % (5-11); Eosinophils 1 % (0-10); Hypochromia SLIGHT = 6-15 cells (100X) (0-5/hpf); Lymphocytes 6 % (21-51); MDiff Complete? YES; Monocytes 12 % (0-10); Neutrophil 76 % (42-75); Platelet Morphology Comment Appears Adequate
[2020-11-12 04:19] LABS: Anion Gap 9 mmol/L (10-20); BUN (Urea Nitrogen) 23 mg/dL (8.4-25.7); Calc. Creatinine Clearance 111 mL/min (70-130); Carbon Dioxide 29 mmol/L (23-31); Chloride 100 mmol/L (98-107); Glucose 106 mg/dL (83-110); Sodium 134 mmol/L (136-145)
[2020-11-12] MEDS: Ascorbic Acid 500 mg Chewable Tablet PO SCH (07:57)
[2020-11-12] MEDS: Famotidine 20 MG TAB PO SCH ×2 (07:57→22:07)
[2020-11-12] MEDS: Dexamethasone 4 mg/ml Vial SLOW IVP SCH (07:57)
[2020-11-12] MEDS: Enoxaparin Sodium 40 MG/0.4 ML SYRINGE SC SCH ×2 (07:57→22:07)
[2020-11-12] MEDS: Cholecalciferol (Vitamin D3) 400 UNITS TAB PO SCH (07:57)
[2020-11-12] MEDS: Zinc Sulfate 220 MG CAP PO SCH (07:57)
[2020-11-12] MEDS: Polyethylene Glycol 3350 17 GM Packet PER TUBE SCH (07:58)
--- NOTE | 2020-11-12 15:43 | PRG ---
DATE OF SERVICE: 11/12/2020 SUBJECTIVE: Geronimo Healy remains on ventilator. OBJECTIVE: VITAL SIGNS: Blood pressure 107/49, heart rate 71, FiO2 is at 55, oximetries in the low 90s, respiratory rates in the high 20s to low 30s. LUNGS: Remarkable for coarse equal breath sounds. HEART: Regular rhythm. ABDOMEN: Soft. EXTREMITIES: Without edema. LABORATORY DATA: White count 14.3, hemoglobin 8.2, and platelets 319. Electrolytes are unremarkable. Creatinine is 0.5, potassium is 4. IMPRESSION: COVID pneumonia with respiratory failure with a trach in place and a PEG. Awaiting placement in LTAC for long-term care and slow weaning from mechanical ventilation. Job ID: [id number]
--- NOTE | 2020-11-12 18:50 | PDOC.HOSPP ---
- Subjective Encounter Date: 11/12/20 Encounter Time: 12:45 Subjective: f/u for resp failure/COVID PNA with trach in place. No new events noted per nursing. Family considering hospice options. - Objective Vital Signs & Weight: Vital Signs (12 hours) Temp Pulse Resp BP Pulse Ox 11/12/20 14:00 71 107/49 L 11/12/20 13:00 98.3 F 11/12/20 11:20 75 116/55 L 11/12/20 07:45 31 H 92 L 11/12/20 07:02 62 103/45 L Weight Admit Weight 178 lb 9.191 oz Weight 156 lb 11.979 oz Most Recent Monitor Data Heart Rate from ECG 64 NIBP 107/47 NIBP BP-Mean 67 Respiration from ECG 35 SpO2 94 I&O: 11/11/20 11/12/20 11/13/20 06:59 06:59 06:59 Intake Total 2242 1824 1042 Output Total 1900 2090 550 Balance 342 -266 492 Result Diagrams: 11/12/20 03:26 11/12/20 03:26 Additional Labs: Accuchecks 11/12/20 11/12/20 11/11/20 10:03 03:24 20:30 POC Glucose 160 H 110 H 126 H Laboratory Tests 11/05/20 11/06/20 11/07/20 03:00 03:15 03:25 Hgb 7.7 L 7.8 L 7.8 L 11/08/20 03:40 Hgb 7.6 L EKG Reviewed by me: Yes (Tele - SR) Hospitalist ROS - Medication Medications: Active Medications Generic Name Dose Route Start Last Admin Trade Name Freq PRN Reason Stop Dose Admin Acetaminophen 650 mg 10/14/20 20:08 11/03/20 01:31 Acetaminophen 325 Mg Tab PO 650 mg Q4H PRN Administration Headache/Fever/Mild Pain (1-3) Ascorbic Acid 1,000 mg 10/15/20 09:00 11/12/20 07:57 Ascorbic Acid 500 Mg Chewable Tablet PO 1,000 mg DAILY MACEKNZIE Administration Cholecalciferol 400 units 10/15/20 09:00 11/12/20 07:57 Cholecalciferol (Vitamin D3) 400 Units Tab PO 400 units DAILY MACKENZIE Administration Dexamethasone 3 mg 11/11/20 09:00 11/12/20 07:57 Dexamethasone 4 Mg/Ml Vial SLOW IVP 3 mg DAILY MACKENZIE Administration Enoxaparin Sodium 40 mg 10/21/20 09:00 11/12/20 07:57 Enoxaparin Sodium 40 Mg/0.4 Ml Syringe SC 40 mg BID MACKENZIE Administration Famotidine 20 mg 10/25/20 21:00 11/12/20 07:57 Famotidine 20 Mg Tab PO 20 mg BID MACKENZIE Administration Sodium Chloride 1,000 mls @ 0 mls/hr 10/26/20 12:15 11/10/20 02:15 1/2 Normal Saline IV 1,000 mls .Q0M MACKENZIE Administration KVO Insulin Human Lispro 0 units 10/14/20 23:10 11/11/20 09:33 Humalog 300 Units/3 Ml Vial SC 2 unit .MILD SLIDING SCALE PRN Administration Mild Correctional Scale Polyethylene Glycol 17 gm 11/02/20 09:00 11/12/20 07:58 Polyethylene Glycol 3350 17 Gm Packet PER TUBE 17 gm DAILY MACKENZIE Administration Sodium Chloride 10 ml 10/15/20 09:00 11/12/20 07:58 Flush - Normal Saline 10 Ml Syringe IVF 10 ml Q12HR MACKENZIE Administration Zinc Sulfate 220 mg 10/15/20 09:00 11/12/20 07:57 Zinc Sulfate 220 Mg Cap PO 220 mg DAILY MACKENZIE Administration Hospitalist Exam Vitals: Vital Signs (12 hours) Temp Pulse Resp BP Pulse Ox 11/12/20 14:00 71 107/49 L 11/12/20 13:00 98.3 F 11/12/20 11:20 75 116/55 L 11/12/20 07:45 31 H 92 L 11/12/20 07:02 62 103/45 L Weight Admit Weight 178 lb 9.191 oz Weight 156 lb 11.979 oz Most Recent Monitor Data Heart Rate from ECG 64 NIBP 107/47 NIBP BP-Mean 67 Respiration from ECG 35 SpO2 94 General Appearance: ill appearing General - other findings: somnolent and unresponsive Eye: anicteric sclera ENT: normocephalic atraumatic, no oropharyngeal lesions ENT - other findings: Trach in place Neck: supple, symmetric, no JVD, no thyromegaly, no lymphadenopathy Heart: RRR, no gallops, no rubs, normal peripheral pulses Heart - other findings: S1, S2 Respiratory: tachypneic Respiratory - other findings: diminished bilat, scattered coarse sounds Gastrointestinal: soft, non-tender, non-distended, normal bowel sounds, no palpable masses Extremities: no cyanosis, no clubbing, no edema Skin: normal turgor Neurological - other findings: Unresponsive Musculoskeletal: generalized weakness Psychiatric: somnolent, lethargic Hosp A/P (1) Pneumonia due to COVID-19 virus Code(s): U07.1 - COVID-19; J12.82 - PNEUMONIA DUE TO CORONAVIRUS DISEASE 2018 Status: Acute Plan: Continue pulmonary support, no clinical improvement (2) Acute respiratory failure with hypoxia and hypercarbia Code(s): J96.01 - ACUTE RESPIRATORY FAILURE WITH HYPOXIA; J96.02 - ACUTE RESPIRATORY FAILURE WITH HYPERCAPNIA Status: Acute Plan: Persistent, continue trach with mech vent (3) Acute metabolic encephalopathy Code(s): G93.41 - METABOLIC ENCEPHALOPATHY Status: Acute Plan: Persistent, likely irreversible event (4) Diabetes Code(s): E11.9 - TYPE 2 DIABETES MELLITUS WITHOUT COMPLICATIONS Status: Resource Efficiency Manager zenaida Qualifiers: Diabetes mellitus type: type 2 Diabetes mellitus lobsterman insulin use: without correction use Diabetes mellitus complication status: without complication Qualified Code(s): E11.9 - Type 2 diabetes mellitus without complications - Plan plan discussed w/ family, long term care social worker, respiratory therapy, DVT proph w/SCDs Continue critical support Continue Dexamethasone Continue Vit C/Zinc/D3 Continue Lovenox Nutritional support with Jacy HOPSON'reese Palliative care consult appreciated, family considering hospice options Code Status: DNAR Poor prognosis
[2020-11-13 06:02] LABS: Band 7 % (5-11); Hemoglobin 8.2 g/dL (14.0-18.0); Lymphocytes 6 % (21-51); MDiff Complete? YES; Mean Corpuscular HGB CONC 32.1 g/dL (32.0-36.0); Mean Corpuscular Hemoglobin 30.6 pg (27.0-31.0); Mean Corpuscular Volume 95.2 fL (78.0-98.0); Mean Platelet Volume 8.4 fL (7.4-10.4); Metamyelocyte 1 % (0-0); Monocytes 5 % (0-10); Neutrophil 81 % (42-75); Platelet Count 379 thou/uL (130-400); Platelet Morphology Comment Appears Adequate; RBC Distribution Width 14.6 % (11.5-14.5); Red Blood Cell (RBC) Count 2.68 mill/uL (4.70-6.10)
[2020-11-13 06:20] LABS: Anion Gap 13 mmol/L (10-20); BUN (Urea Nitrogen) 22 mg/dL (8.4-25.7); Calc. Creatinine Clearance 111 mL/min (70-130); Calcium 8.1 mg/dL (7.8-10.44); Carbon Dioxide 25 mmol/L (23-31); Chloride 99 mmol/L (98-107); Glucose 101 mg/dL (83-110); Potassium 4.1 mmol/L (3.5-5.1); Sodium 133 mmol/L (136-145)
[2020-11-13] MEDS: Enoxaparin Sodium 40 MG/0.4 ML SYRINGE SC SCH (07:16)
[2020-11-13] MEDS: Famotidine 20 MG TAB PO SCH (07:16)
[2020-11-13] MEDS: Dexamethasone 4 mg/ml Vial SLOW IVP SCH (07:16)
[2020-11-13] MEDS: Polyethylene Glycol 3350 17 GM Packet PER TUBE SCH (07:16)
[2020-11-13] MEDS: Ascorbic Acid 500 mg Chewable Tablet PO SCH (07:17)
[2020-11-13] MEDS: Cholecalciferol (Vitamin D3) 400 UNITS TAB PO SCH (07:17)
[2020-11-13] MEDS: Zinc Sulfate 220 MG CAP PO SCH (07:17)
--- NOTE | 2020-11-13 08:31 | RAD ---
CHEST 1 VIEW: Date: 11/13/2020 INDICATION: History of intubation. COMPARISON: Prior study dated 11/11/2020. FINDINGS: Bilateral air space disease is stable. Tracheostomy tube is again seen overlying the midline. There a re small bilateral pleural effusions. No pneumothorax is evident. IMPRESSION: 1. Stable bilateral pneumonia. 2. Stable small bilateral pleural effusions. 3. Tracheostomy tube. POS: BH
--- NOTE | 2020-11-13 13:53 | PRG ---
DATE OF SERVICE: 11/13/2020 SUBJECTIVE: Mr. Healy continues to be tachypneic with a respiratory rate in the high 20s to mid 30s. OBJECTIVE: VITAL SIGNS: Heart rates in the 90s, blood pressure 115/50, oximetry is in the high 80s. LUNGS: Remarkable for coarse equal breath sounds. HEART: Regular rhythm. ABDOMEN: Soft. He did open his eyes for his daughter yesterday. DIAGNOSTIC STUDIES: Chest x-ray is unchanged. White count is 17.0, hemoglobin 8.2, platelets 379. Sodium 133, potassium 4.1, chloride 99, bicarb 25, BUN 22, creatinine 0.5. IMPRESSION: 1. COVID pneumonia with respiratory failure. 2. Encephalopathy secondary to critical illness. I really do not think pulmonary compliance issues are the predominant reason for his tachypnea. I suspect this is more of a problem with severe muscle weakness that is progressive and not surprising. I talked to the daughter by phone today. The son wants to wait another week to see if he improves for withdrawing support, but they said they are willing to withdraw support next Wednesday if he is no better. We will continue supportive care. I would guess possible transfer to an LTAC would be on hold, given this variable. Job ID: [id number]
[2020-11-13] MEDS: HumaLOG 300 UNITS/3 ML VIAL SC PRN (15:54)
--- NOTE | 2020-11-13 20:04 | PDOC.HOSPP ---
- Subjective Encounter Date: 11/13/20 Encounter Time: 13:30 Subjective: f/u for COVID PNA/resp failure with trach and unresponsive. Remains on [facility] ventilation SIMV FIO2 55%. - Objective Vital Signs & Weight: Vital Signs (12 hours) Pulse Resp BP 11/13/20 18:21 78 11/13/20 17:38 32 H 11/13/20 14:54 97 114/45 L 11/13/20 10:19 83 111/46 L Weight Admit Weight 178 lb 9.191 oz Weight 155 lb 3.287 oz Most Recent Monitor Data Heart Rate from ECG 83 NIBP 100/45 NIBP BP-Mean 63 Respiration from ECG 39 SpO2 98 I&O: 11/12/20 11/13/20 11/14/20 06:59 06:59 06:59 Intake Total 1824 1566 567 Output Total 2090 925 465 Balance -266 641 102 Result Diagrams: 11/13/20 04:15 11/13/20 04:15 Additional Labs: Accuchecks 11/13/20 11/13/20 11/13/20 15:52 08:58 04:16 POC Glucose 189 H 182 H 115 H 11/12/20 22:19 POC Glucose 109 H Laboratory Tests 11/05/20 11/06/20 11/07/20 03:00 03:15 03:25 Hgb 7.7 L 7.8 L 7.8 L 11/08/20 03:40 Hgb 7.6 L Radiology Reviewed by me: Yes (PCXR - bilat infiltrates, trach in place) EKG Reviewed by me: Yes (Tele - SR) Hospitalist ROS - Medication Medications: Active Medications Generic Name Dose Route Start Last Admin Trade Name Freq PRN Reason Stop Dose Admin Acetaminophen 650 mg 10/14/20 20:08 11/03/20 01:31 Acetaminophen 325 Mg Tab PO 650 mg Q4H PRN Administration Headache/Fever/Mild Pain (1-3) Ascorbic Acid 1,000 mg 10/15/20 09:00 11/13/20 07:17 Ascorbic Acid 500 Mg Chewable Tablet PO 1,000 mg DAILY MACKENZIE Administration Cholecalciferol 400 units 10/15/20 09:00 11/13/20 07:17 Cholecalciferol (Vitamin D3) 400 Units Tab PO 400 units DAILY MACKENZIE Administration Dexamethasone 3 mg 11/11/20 09:00 11/13/20 07:16 Dexamethasone 4 Mg/Ml Vial SLOW IVP 3 mg DAILY MACKENZIE Administration Enoxaparin Sodium 40 mg 10/21/20 09:00 11/13/20 07:16 Enoxaparin Sodium 40 Mg/0.4 Ml Syringe SC 40 mg BID MACKENZIE Administration Famotidine 20 mg 10/25/20 21:00 11/13/20 07:16 Famotidine 20 Mg Tab PO 20 mg BID MACKENZIE Administration Sodium Chloride 1,000 mls @ 0 mls/hr 10/26/20 12:15 11/10/20 02:15 1/2 Normal Saline IV 1,000 mls .Q0M MACKENZIE Administration KVO Insulin Human Lispro 0 units 10/14/20 23:10 11/13/20 15:54 Humalog 300 Units/3 Ml Vial SC 2 unit .MILD SLIDING SCALE PRN Administration Mild Correctional Scale Polyethylene Glycol 17 gm 11/02/20 09:00 11/13/20 07:16 Polyethylene Glycol 3350 17 Gm Packet PER TUBE 17 gm DAILY MACKENZIE Administration Sodium Chloride 10 ml 10/15/20 09:00 11/13/20 07:17 Flush - Normal Saline 10 Ml Syringe IVF Not Given Q12HR MACKENZIE Zinc Sulfate 220 mg 10/15/20 09:00 11/13/20 07:17 Zinc Sulfate 220 Mg Cap PO 220 mg DAILY MACKENZIE Administration Hospitalist Exam Vitals: Vital Signs (12 hours) Pulse Resp BP 11/13/20 18:21 78 11/13/20 17:38 32 H 11/13/20 14:54 97 114/45 L 11/13/20 10:19 83 111/46 L Weight Admit Weight 178 lb 9.191 oz Weight 155 lb 3.287 oz Most Recent Monitor Data Heart Rate from ECG 83 NIBP 100/45 NIBP BP-Mean 63 Respiration from ECG 39 SpO2 98 General Appearance: ill appearing General - other findings: sedate on mech, unresponsive ENT: normocephalic atraumatic, no oropharyngeal lesions Neck: supple, symmetric, no JVD, no thyromegaly Neck - other findings: Trach in place Heart: RRR, no gallops, no rubs, normal peripheral pulses Heart - other findings: S1, S2 Respiratory - other findings: diminished in bases, few scattered rhonchi Gastrointestinal: soft, non-tender, non-distended, normal bowel sounds, no palpable masses Gastrointestinal - other findings: PEG in place Extremities: no cyanosis, no edema Skin: normal turgor Neurological - other findings: unresponsive Psychiatric: somnolent, lethargic Hosp A/P (1) Pneumonia due to COVID-19 virus Code(s): U07.1 - COVID-19; J12.82 - PNEUMONIA DUE TO CORONAVIRUS DISEASE 2018 Status: Acute Plan: Continue supportive mgmt, Dexamethasone/Vit C/Zinc/D3 (2) Acute respiratory failure with hypoxia and hypercarbia Code(s): J96.01 - ACUTE RESPIRATORY FAILURE WITH HYPOXIA; J96.02 - ACUTE RESPIRATORY FAILURE WITH HYPERCAPNIA Status: Acute Plan: s/p trach without improvement in overall respiratory status (3) Acute metabolic encephalopathy Code(s): G93.41 - METABOLIC ENCEPHALOPATHY Status: Acute Plan: Persistent, likely end-stage process (4) Diabetes Code(s): E11.9 - TYPE 2 DIABETES MELLITUS WITHOUT COMPLICATIONS Status: Chronic Qualifiers: Diabetes mellitus type: type 2 Diabetes mellitus intermediate teacher insulin use: without intermediate teacher use Diabetes mellitus complication status: without complication Qualified Code(s): E11.9 - Type 2 diabetes mellitus without complications - Plan social sciences research scientist, respiratory therapy, DVT proph w/SCDs Consults: Palliative Care Continue critical support Continue Dexamethasone Continue Vit C/Zinc/D3 Continue Lovenox Nutritional support with Jacy HOPSON'reese Palliative care consult appreciated, family considering hospice options Code Status: DNAR Poor prognosis
--- NOTE | 2020-11-13 20:24 | OP ---
DATE OF PROCEDURE: 11/05/2020 PREOPERATIVE DIAGNOSES: Respiratory failure, malnutrition, oropharyngeal dysphagia, recovering from COVID pneumonia, ventilatory dependent. POSTOPERATIVE DIAGNOSES: Respiratory failure, malnutrition, oropharyngeal dysphagia, recovering from COVID pneumonia, ventilatory dependent. PROCEDURE PERFORMED: #8 Shiley tracheostomy tube, percutaneous endoscopic gastrostomy tube. ANESTHESIA: General, local 0.5% Marcaine 30 mL with 1% Xylocaine with epinephrine 20 mL. DESCRIPTION OF PROCEDURE: The patient was taken to the operating room, where under general anesthesia, neck and chest and abdomen prepared with ChloraPrep and draped in routine fashion. Local anesthetic was infiltrated in the skin and subcutaneous tissue about the operative site. Anterior neck incision was made above the manubrium, carried down through skin and subcutaneous tissue, platysma where the strap muscles were reflected laterally and the isthmus of thyroid divided with a cautery and trachea identified below the cricoid. Bilateral anterior lateral tracheostomy stay sutures with 3-0 Prolene placed and air knots tied, anterior tracheal window excised over 2 cartilaginous rings and the endotracheal removed under direct visualization placing a #8 Shiley low-pressure cuffed tracheostomy tube into the trachea, balloon inflated, connected to the ventilator. Skin approximated on either side with 3-0 Prolene. Tracheostomy appliance secured to the skin with 3-0 Prolene. Sterile dressings applied. Endoscope was placed per os under direct visualization and using air insufflation, passed throughout the esophagus into the stomach. A good indentation of left subxiphoid subcostal noted and area prepped and stab incision made and trocar introduced percutaneously into the gastric lumen, visualized endoscopically. The wire was introduced through the trocar catheter and a snare through the endoscope and wire grasped within the gastric lumen and wire and endoscope pulled out of the mouth. Wire connected to the feeding tube, lubricated, and pulled back down through the esophagus and stomach fixating the abdominal wall with a fixation device and tube tailored to length and connected to the feeding device. Patient tolerated the procedure well without complications. Job ID: [id number]
[2020-11-14] MEDS: Enoxaparin Sodium 40 MG/0.4 ML SYRINGE SC SCH ×3 (00:11→21:40)
[2020-11-14] MEDS: Famotidine 20 MG TAB PO SCH ×3 (00:11→21:41)
[2020-11-14 04:57] LABS: Anion Gap 9 mmol/L (10-20); BUN (Urea Nitrogen) 22 mg/dL (8.4-25.7); Calc. Creatinine Clearance 120 mL/min (70-130); Calcium 7.7 mg/dL (7.8-10.44); Carbon Dioxide 28 mmol/L (23-31); Chloride 101 mmol/L (98-107); Glucose 115 mg/dL (83-110); Potassium 3.8 mmol/L (3.5-5.1); Sodium 134 mmol/L (136-145)
[2020-11-14 05:18] LABS: Band 10 % (5-11); Eosinophils 3 % (0-10); Hemoglobin 7.7 g/dL (14.0-18.0); Hypochromia SLIGHT = 6-15 cells (100X) (0-5/hpf); Lymphocytes 5 % (21-51); MDiff Complete? YES; Mean Corpuscular HGB CONC 32.1 g/dL (32.0-36.0); Mean Corpuscular Hemoglobin 30.9 pg (27.0-31.0); Mean Corpuscular Volume 96.1 fL (78.0-98.0); Mean Platelet Volume 8.2 fL (7.4-10.4); Monocytes 5 % (0-10); Neutrophil 77 % (42-75); Platelet Count 365 thou/uL (130-400); Platelet Morphology Comment Appears Adequate; RBC Distribution Width 14.7 % (11.5-14.5); Red Blood Cell (RBC) Count 2.51 mill/uL (4.70-6.10); White Blood Cell (WBC) Count 16.7 thou/uL (4.8-10.8)
[2020-11-14 07:01] VITALS: BMI 20.8
[2020-11-14] MEDS: Dexamethasone 4 mg/ml Vial SLOW IVP SCH (08:07)
[2020-11-14] MEDS: Cholecalciferol (Vitamin D3) 400 UNITS TAB PO SCH (08:07)
[2020-11-14] MEDS: Ascorbic Acid 500 mg Chewable Tablet PO SCH (08:07)
[2020-11-14] MEDS: Zinc Sulfate 220 MG CAP PO SCH (08:08)
[2020-11-14] MEDS: Polyethylene Glycol 3350 17 GM Packet PER TUBE SCH (08:08)
[2020-11-14] MEDS: HumaLOG 300 UNITS/3 ML VIAL SC PRN ×2 (09:36→16:14)
--- NOTE | 2020-11-14 18:11 | PDOC.HOSPP ---
- Subjective Encounter Date: 11/14/20 Encounter Time: 18:00 Subjective: f/u for resp failure/COVID/trach without clinical improvement in almost a month. Family considering compassionate extubation and comfort measures. - Objective Vital Signs & Weight: Vital Signs (12 hours) Temp Pulse Resp BP Pulse Ox 11/14/20 16:00 25 H 11/14/20 15:00 99 F 11/14/20 14:12 85 114/49 L 11/14/20 14:00 30 H 11/14/20 12:00 33 H 11/14/20 11:00 99.3 F 11/14/20 10:09 102 H 99/47 L 11/14/20 09:53 35 H 11/14/20 08:00 32 H 11/14/20 07:07 93 L 11/14/20 07:00 99.1 F 11/14/20 06:37 74 107/51 L Weight Admit Weight 178 lb 9.191 oz Weight 145 lb 8.081 oz Most Recent Monitor Data Heart Rate from ECG 87 NIBP 111/52 NIBP BP-Mean 71 Respiration from ECG 33 SpO2 95 I&O: 11/13/20 11/14/20 11/15/20 06:59 06:59 06:59 Intake Total 1566 1028 619 Output Total 925 725 470 Balance 641 303 149 Result Diagrams: 11/14/20 04:17 11/14/20 04:17 Additional Labs: Accuchecks 11/14/20 11/13/20 09:30 22:39 POC Glucose 185 H 117 H Laboratory Tests 11/05/20 11/06/20 11/07/20 03:00 03:15 03:25 Hgb 7.7 L 7.8 L 7.8 L 11/08/20 03:40 Hgb 7.6 L EKG Reviewed by me: Yes (Tele - SR) Hospitalist ROS - Medication Medications: Active Medications Generic Name Dose Route Start Last Admin Trade Name Freq PRN Reason Stop Dose Admin Acetaminophen 650 mg 10/14/20 20:08 11/03/20 01:31 Acetaminophen 325 Mg Tab PO 650 mg Q4H PRN Administration Headache/Fever/Mild Pain (1-3) Ascorbic Acid 1,000 mg 10/15/20 09:00 11/14/20 08:07 Ascorbic Acid 500 Mg Chewable Tablet PO 1,000 mg DAILY MACKENZIE Administration Cholecalciferol 400 units 10/15/20 09:00 11/14/20 08:07 Cholecalciferol (Vitamin D3) 400 Units Tab PO 400 units DAILY MACKENZIE Administration Dexamethasone 3 mg 11/11/20 09:00 11/14/20 08:07 Dexamethasone 4 Mg/Ml Vial SLOW IVP 3 mg DAILY MACKENZIE Administration Enoxaparin Sodium 40 mg 10/21/20 09:00 11/14/20 08:08 Enoxaparin Sodium 40 Mg/0.4 Ml Syringe SC 40 mg BID MACKENZIE Administration Famotidine 20 mg 10/25/20 21:00 11/14/20 08:08 Famotidine 20 Mg Tab PO 20 mg BID MACKENZIE Administration Sodium Chloride 1,000 mls @ 0 mls/hr 10/26/20 12:15 11/10/20 02:15 1/2 Normal Saline IV 1,000 mls .Q0M MACKENZIE Administration KVO Insulin Human Lispro 0 units 10/14/20 23:10 11/14/20 16:14 Humalog 300 Units/3 Ml Vial SC 2 unit .MILD SLIDING SCALE PRN Administration Mild Correctional Scale Polyethylene Glycol 17 gm 11/02/20 09:00 11/14/20 08:08 Polyethylene Glycol 3350 17 Gm Packet PER TUBE 17 gm DAILY MACKENZIE Administration Sodium Chloride 10 ml 10/15/20 09:00 11/14/20 08:09 Flush - Normal Saline 10 Ml Syringe IVF Not Given Q12HR MACKENZIE Zinc Sulfate 220 mg 10/15/20 09:00 11/14/20 08:08 Zinc Sulfate 220 Mg Cap PO 220 mg DAILY MACKENZIE Administration Hospitalist Exam Vitals: Vital Signs (12 hours) Temp Pulse Resp BP Pulse Ox 11/14/20 16:00 25 H 11/14/20 15:00 99 F 11/14/20 14:12 85 114/49 L 11/14/20 14:00 30 H 11/14/20 12:00 33 H 11/14/20 11:00 99.3 F 11/14/20 10:09 102 H 99/47 L 11/14/20 09:53 35 H 11/14/20 08:00 32 H 11/14/20 07:07 93 L 11/14/20 07:00 99.1 F 11/14/20 06:37 74 107/51 L Weight Admit Weight 178 lb 9.191 oz Weight 145 lb 8.081 oz Most Recent Monitor Data Heart Rate from ECG 87 NIBP 111/52 NIBP BP-Mean 71 Respiration from ECG 33 SpO2 95 General - other findings: sedate, unresponsive on mech vent ENT: normocephalic atraumatic, no oropharyngeal lesions Neck: supple, symmetric, no JVD, no thyromegaly, no lymphadenopathy Neck - other findings: trach in place Heart: RRR, no gallops, no rubs, normal peripheral pulses Heart - other findings: S1, S2 Respiratory - other findings: diminished in bases Gastrointestinal: soft, non-tender, non-distended, normal bowel sounds, no palpable masses Extremities: no cyanosis, no clubbing, no edema Skin: normal turgor Musculoskeletal: generalized weakness Psychiatric: somnolent, lethargic Hosp A/P (1) Pneumonia due to COVID-19 virus Code(s): U07.1 - COVID-19; J12.82 - PNEUMONIA DUE TO CORONAVIRUS DISEASE 2019 Status: Acute (2) Acute respiratory failure with hypoxia and hypercarbia Code(s): J96.01 - ACUTE RESPIRATORY FAILURE WITH HYPOXIA; J96.02 - ACUTE RESPIRATORY FAILURE WITH HYPERCAPNIA Status: Acute (3) Acute metabolic encephalopathy Code(s): G93.41 - METABOLIC ENCEPHALOPATHY Status: Acute (4) Diabetes Code(s): E11.9 - TYPE 2 DIABETES MELLITUS WITHOUT COMPLICATIONS Status: Chronic Qualifiers: Diabetes mellitus type: type 2 Diabetes mellitus long term care phlebotomist insulin use: without nursing home use Diabetes mellitus complication status: without complication Qualified Code(s): E11.9 - Type 2 diabetes mellitus without complications - Plan social media marketer, respiratory therapy, DVT proph w/SCDs Consults: Palliative Care Continue critical support Continue Dexamethasone Continue Vit C/Zinc/D3 Continue Lovenox Nutritional support with Jacy HOPSON's Palliative care consult appreciated, family considering hospice options Code Status: DNAR Poor prognosis
--- NOTE | 2020-11-14 19:52 | PRG ---
DATE OF SERVICE: 11/14/2020 SUBJECTIVE: Mr. Healy remains hemodynamically stable. He is still tachypneic. He will open his eyes, but he will not follow commands. OBJECTIVE: VITAL SIGNS: Oximetry is in the high 90s on 50%. His respiratory rate is still high in the 30s. Blood pressure 114/55. LUNGS: Remarkable for clear breath sounds. HEART: Regular rhythm. ABDOMEN: Soft. EXTREMITIES: Without asymmetry. LABORATORY DATA: White count 16.7, hemoglobin 7.7, platelets 365. Sodium potassium 3.8, chloride 101, bicarb 28, BUN 22, creatinine 0.48, glucose 115. IMPRESSION: 1. COVID pneumonia, respiratory failure. 2. Persistent encephalopathy, but I suspect eventually it would resolve. I am not sure he will be strong enough to wean from mechanical ventilation unless he is given 1 to 2 months with no complications. Family wants to withdraw if he is not better. Job ID: [id number]
[2020-11-15 05:01] LABS: Band 7 % (5-11); Eosinophils 1 % (0-10); Hemoglobin 7.2 g/dL (14.0-18.0); Lymphocytes 10 % (21-51); MDiff Complete? YES; Mean Corpuscular HGB CONC 31.3 g/dL (32.0-36.0); Mean Corpuscular Hemoglobin 29.7 pg (27.0-31.0); Mean Corpuscular Volume 94.9 fL (78.0-98.0); Mean Platelet Volume 8.3 fL (7.4-10.4); Monocytes 2 % (0-10); Myelocyte 1 % (0-0); Neutrophil 79 % (42-75); Platelet Count 400 thou/uL (130-400); RBC Distribution Width 14.4 % (11.5-14.5); Red Blood Cell (RBC) Count 2.44 mill/uL (4.70-6.10); White Blood Cell (WBC) Count 15.1 thou/uL (4.8-10.8)
[2020-11-15 05:11] LABS: Anion Gap 10 mmol/L (10-20); BUN (Urea Nitrogen) 24 mg/dL (8.4-25.7); Calc. Creatinine Clearance 118 mL/min (70-130); Calcium 7.9 mg/dL (7.8-10.44); Carbon Dioxide 26 mmol/L (23-31); Chloride 103 mmol/L (98-107); Glucose 137 mg/dL (83-110); Potassium 3.9 mmol/L (3.5-5.1); Sodium 135 mmol/L (136-145)
--- NOTE | 2020-11-15 07:58 | PRG ---
DATE OF SERVICE: 11/15/2020 SUBJECTIVE: Mr. Healy remains on mechanical ventilation through a tracheostomy. Unfortunately, he is not very responsive, even off sedation. OBJECTIVE: VITAL SIGNS: His temperature is 100.3 with a T-max of 100.8, pulse 77, blood pressure 113/53. 24-hour intake 1096, output 868. HEENT: Unremarkable except for ischemic ulcers on his nose and forehead. NECK: Trach in good position. LUNGS: Coarse breath sounds. CARDIOVASCULAR: S1 and S2. Regular. ABDOMEN: Soft. PEG tube in place. EXTREMITIES: Generalized mild edema throughout. LABORATORY DATA: White blood cell count 15.1, hematocrit 23.1, and platelet count 400. Sodium 135, potassium 3.9, chloride 103, CO2 of 26, BUN 24, creatinine 0.5, glucose 137. ASSESSMENT: 1. COVID pneumonia with respiratory failure requiring mechanical ventilation and tracheostomy placement. 2. Persistent encephalopathy despite discontinuation of sedative medications. PLAN: It appears very unlikely that the patient will make a recovery from this pneumonia and the family is planning withdrawal of care on Wednesday of next week if he does not improve over the weekend. I reviewed his orders. I really do not see anything to add at this time. The patient is a DNAR order on the chart. He is not weanable from mechanical ventilation at the current time. Job ID: [id number]
[2020-11-15] MEDS: Acetaminophen 325 MG TAB PO PRN ×2 (09:39→15:53)
[2020-11-15] MEDS: Cholecalciferol (Vitamin D3) 400 UNITS TAB PO SCH (09:39)
[2020-11-15] MEDS: Enoxaparin Sodium 40 MG/0.4 ML SYRINGE SC SCH ×2 (09:39→20:54)
[2020-11-15] MEDS: Famotidine 20 MG TAB PO SCH ×2 (09:39→20:54)
[2020-11-15] MEDS: Polyethylene Glycol 3350 17 GM Packet PER TUBE SCH (09:40)
[2020-11-15] MEDS: Ascorbic Acid 500 mg Chewable Tablet PO SCH (09:40)
[2020-11-15] MEDS: Zinc Sulfate 220 MG CAP PO SCH (09:40)
[2020-11-15] MEDS: Dexamethasone 4 mg/ml Vial SLOW IVP SCH (09:40)
[2020-11-15] MEDS: HumaLOG 300 UNITS/3 ML VIAL SC PRN (16:05)
--- NOTE | 2020-11-15 16:47 | PDOC.HOSPP ---
- Subjective Encounter Date: 11/15/20 Encounter Time: 15:15 Subjective: [facility] No change noted per nursing. - Objective Vital Signs & Weight: Vital Signs (12 hours) Temp Pulse Resp Pulse Ox 11/15/20 16:00 98.9 F 32 H 11/15/20 14:43 77 11/15/20 14:00 28 H 11/15/20 11:58 99.9 F H 33 H 11/15/20 10:55 100.9 F H 11/15/20 10:31 89 11/15/20 10:00 28 H 11/15/20 08:00 101.3 F H 22 H 88 L 11/15/20 06:40 77 11/15/20 06:00 100.3 F H 34 H Weight Admit Weight 178 lb 9.191 oz Weight 71 lb 4.8 oz Most Recent Monitor Data Heart Rate from ECG 83 NIBP 100/54 NIBP BP-Mean 69 Respiration from ECG 38 SpO2 97 I&O: 11/14/20 11/15/20 11/16/20 06:59 06:59 06:59 Intake Total 1028 1096 390 Output Total 725 868 255 Balance 303 228 135 Result Diagrams: 11/15/20 02:45 11/15/20 02:45 Additional Labs: Accuchecks 11/14/20 11/14/20 23:41 16:08 POC Glucose 159 H 165 H Laboratory Tests 11/05/20 11/06/20 11/07/20 03:00 03:15 03:25 Hgb 7.7 L 7.8 L 7.8 L 11/08/20 03:40 Hgb 7.6 L EKG Reviewed by me: Yes (Tele - SR) Hospitalist ROS - Medication Medications: Active Medications Generic Name Dose Route Start Last Admin Trade Name Freq PRN Reason Stop Dose Admin Acetaminophen 650 mg 10/14/20 20:08 11/15/20 15:53 Acetaminophen 325 Mg Tab PO 650 mg Q4H PRN Administration Headache/Fever/Mild Pain (1-3) Ascorbic Acid 1,000 mg 10/15/20 09:00 11/15/20 09:40 Ascorbic Acid 500 Mg Chewable Tablet PO 1,000 mg DAILY MACKENZIE Administration Cholecalciferol 400 units 10/15/20 09:00 11/15/20 09:39 Cholecalciferol (Vitamin D3) 400 Units Tab PO 400 units DAILY MACKENZIE Administration Dexamethasone 2 mg 11/15/20 07:36 11/15/20 09:40 Dexamethasone 4 Mg/Ml Vial SLOW IVP 2 mg DAILY MACKENZIE Administration Enoxaparin Sodium 40 mg 10/21/20 09:00 11/15/20 09:39 Enoxaparin Sodium 40 Mg/0.4 Ml Syringe SC 40 mg BID MACKENZIE Administration Famotidine 20 mg 10/25/20 21:00 11/15/20 09:39 Famotidine 20 Mg Tab PO 20 mg BID MACKENZIE Administration Sodium Chloride 1,000 mls @ 0 mls/hr 10/26/20 12:15 11/10/20 02:15 1/2 Normal Saline IV 1,000 mls .Q0M MACKENZIE Administration KVO Insulin Human Lispro 0 units 10/14/20 23:10 11/15/20 16:05 Humalog 300 Units/3 Ml Vial SC 2 unit .MILD SLIDING SCALE PRN Administration Mild Correctional Scale Polyethylene Glycol 17 gm 11/02/20 09:00 11/15/20 09:40 Polyethylene Glycol 3350 17 Gm Packet PER TUBE Not Given DAILY MACKENZIE Sodium Chloride 10 ml 10/15/20 09:00 11/15/20 09:40 Flush - Normal Saline 10 Ml Syringe IVF Not Given Q12HR MACKENZIE Zinc Sulfate 220 mg 10/15/20 09:00 11/15/20 09:40 Zinc Sulfate 220 Mg Cap PO 220 mg DAILY MACKENZIE Administration Hospitalist Exam Vitals: Vital Signs (12 hours) Temp Pulse Resp Pulse Ox 11/15/20 16:00 98.9 F 32 H 11/15/20 14:43 77 11/15/20 14:00 28 H 11/15/20 11:58 99.9 F H 33 H 11/15/20 10:55 100.9 F H 11/15/20 10:31 89 11/15/20 10:00 28 H 11/15/20 08:00 101.3 F H 22 H 88 L 11/15/20 06:40 77 11/15/20 06:00 100.3 F H 34 H Weight Admit Weight 178 lb 9.191 oz Weight 71 lb 4.8 oz Most Recent Monitor Data Heart Rate from ECG 83 NIBP 100/54 NIBP BP-Mean 69 Respiration from ECG 38 SpO2 97 General Appearance: ill appearing General - other findings: somnolent on mech vent Eye: anicteric sclera ENT: normocephalic atraumatic, no oropharyngeal lesions Neck: supple, symmetric, no JVD, no thyromegaly, no lymphadenopathy Neck - other findings: trach in place with mech vent Heart: RRR, no gallops, no rubs, normal peripheral pulses Heart - other findings: S1, S2 Respiratory - other findings: diminished in bases bilat, few scattered coarse sounds Gastrointestinal: soft, non-tender, non-distended, normal bowel sounds, no palpable masses Extremities: no cyanosis, no clubbing, no edema Neurological - other findings: Unresponsive Musculoskeletal: generalized weakness Psychiatric: somnolent, lethargic Hosp A/P (1) Pneumonia due to COVID-19 virus Code(s): U07.1 - COVID-19; J12.82 - PNEUMONIA DUE TO CORONAVIRUS DISEASE 2018 Status: Acute Plan: Continue Dexamethasone/Vit C/Zinc/D3/Lovenox (2) Acute respiratory failure with hypoxia and hypercarbia Code(s): J96.01 - ACUTE RESPIRATORY FAILURE WITH HYPOXIA; J96.02 - ACUTE RESPIRATORY FAILURE WITH HYPERCAPNIA Status: Acute Plan: Unweanable, continue mech ventilation (3) Acute metabolic encephalopathy Code(s): G93.41 - METABOLIC ENCEPHALOPATHY Status: Acute Plan: Persistent and end-stage process (4) Diabetes Code(s): E11.9 - TYPE 2 DIABETES MELLITUS WITHOUT COMPLICATIONS Status: Chronic Qualifiers: Diabetes mellitus type: type 2 Diabetes mellitus fci insulin use: without fci use Diabetes mellitus complication status: without complication Qualified Code(s): E11.9 - Type 2 diabetes mellitus without complications - Plan administrator social welfare, respiratory therapy, DVT proph w/SCDs Consults: Palliative Care Continue critical support Continue Dexamethasone Continue Vit C/Zinc/D3 Continue Lovenox Nutritional support with Jacy HOPSON's Palliative care consult appreciated, family considering hospice options Likely terminal extubation on 11/18/20 Code Status: DNAR Poor prognosis
[2020-11-16 03:40] LABS: Anion Gap 8 mmol/L (10-20); BUN (Urea Nitrogen) 27 mg/dL (8.4-25.7); Calc. Creatinine Clearance 63 mL/min (70-130); Calcium 7.9 mg/dL (7.8-10.44); Carbon Dioxide 28 mmol/L (23-31); Chloride 103 mmol/L (98-107); Glucose 125 mg/dL (83-110); Potassium 3.9 mmol/L (3.5-5.1); Sodium 135 mmol/L (136-145)
[2020-11-16 03:54] LABS: Band 18 % (5-11); Hemoglobin 7.3 g/dL (14.0-18.0); Lymphocytes 6 % (21-51); MDiff Complete? YES; Mean Corpuscular HGB CONC 31.3 g/dL (32.0-36.0); Mean Corpuscular Hemoglobin 29.6 pg (27.0-31.0); Mean Corpuscular Volume 94.6 fL (78.0-98.0); Monocytes 5 % (0-10); Neutrophil 71 % (42-75); Platelet Count 437 thou/uL (130-400); RBC Distribution Width 14.6 % (11.5-14.5); Red Blood Cell (RBC) Count 2.46 mill/uL (4.70-6.10); White Blood Cell (WBC) Count 13.9 thou/uL (4.8-10.8)
--- NOTE | 2020-11-16 07:53 | PRG ---
DATE OF SERVICE: 11/16/2020 SUBJECTIVE: The patient remains intubated on mechanical ventilation through tracheostomy. There has been no change in his mental status, which is still poor. He is on no sedation. OBJECTIVE: VITAL SIGNS: His temperature is 99.4. His T-max yesterday was 101.3, pulse 74, blood pressure 112/52, O2 saturation 96%. 24-hour intake 998, output 628. HEENT: He opens eyes to command, still has ischemic ulcer over his nose. NECK: Trach in good position. LUNGS: Coarse rhonchi. CARDIOVASCULAR: S1, S2, regular. ABDOMEN: Soft. PEG tube noted. EXTREMITIES: Edematous throughout. LABORATORY DATA: Sodium 135, potassium 3.9, BUN 27, creatinine 0.4, glucose 125. White blood cell count 13.9, hematocrit 23.3, and platelet count 437. ASSESSMENT: 1. COVID pneumonia with prolonged respiratory failure, requiring mechanical ventilation. 2. Encephalopathy without improvement after discontinuation of medications. PLAN: His prognosis for improvement is extremely poor. The family seems inclined to withdraw care on Wednesday. Based on that, I will go ahead and back off on his lab draws. Otherwise, he seems stable at this time. Job ID: [id number]
[2020-11-16] MEDS: Acetaminophen 325 MG TAB PO PRN ×2 (10:12→22:06)
[2020-11-16] MEDS: Zinc Sulfate 220 MG CAP PO SCH (10:12)
[2020-11-16] MEDS: Ascorbic Acid 500 mg Chewable Tablet PO SCH (10:13)
[2020-11-16] MEDS: Polyethylene Glycol 3350 17 GM Packet PER TUBE SCH (10:13)
[2020-11-16] MEDS: Dexamethasone 4 mg/ml Vial SLOW IVP SCH (10:13)
[2020-11-16] MEDS: Cholecalciferol (Vitamin D3) 400 UNITS TAB PO SCH (10:13)
[2020-11-16] MEDS: Famotidine 20 MG TAB PO SCH ×2 (10:13→21:03)
[2020-11-16] MEDS: Enoxaparin Sodium 40 MG/0.4 ML SYRINGE SC SCH ×2 (10:13→21:03)
--- NOTE | 2020-11-16 15:40 | PDOC.HOSPP ---
- Subjective Subjective: Patient remained intubated. Patient does not have any meaningful recovery at this point. Family plan for compassionate extubation on Wednesday - Objective Vital Signs & Weight: Vital Signs (12 hours) Temp Pulse Resp Pulse Ox 11/16/20 14:56 70 11/16/20 12:00 99.0 F 24 H 11/16/20 10:45 80 11/16/20 10:00 27 H 11/16/20 08:00 28 H 97 11/16/20 07:03 64 11/16/20 07:00 98.9 F 11/16/20 06:00 30 H 11/16/20 04:00 99.4 F 36 H Weight Admit Weight 178 lb 9.191 oz Weight 71 lb 1.6 oz Most Recent Monitor Data Heart Rate from ECG 73 NIBP 112/50 NIBP BP-Mean 70 Respiration from ECG 38 SpO2 95 I&O: 11/15/20 11/16/20 11/17/20 06:59 06:59 06:59 Intake Total 1096 998 240 Output Total 868 628 130 Balance 228 370 110 Result Diagrams: 11/16/20 03:00 11/16/20 03:00 Additional Labs: Accuchecks 11/15/20 22:44 POC Glucose 142 H Hospitalist ROS - Medication Medications: Active Medications Generic Name Dose Route Start Last Admin Trade Name Freq PRN Reason Stop Dose Admin Acetaminophen 650 mg 10/14/20 20:08 11/16/20 10:12 Acetaminophen 325 Mg Tab PO 650 mg Q4H PRN Administration Headache/Fever/Mild Pain (1-3) Ascorbic Acid 1,000 mg 10/15/20 09:00 11/16/20 10:13 Ascorbic Acid 500 Mg Chewable Tablet PO 1,000 mg DAILY MACKENZIE Administration Cholecalciferol 400 units 10/15/20 09:00 11/16/20 10:13 Cholecalciferol (Vitamin D3) 400 Units Tab PO 400 units DAILY MACKENZIE Administration Dexamethasone 2 mg 11/15/20 07:36 11/16/20 10:13 Dexamethasone 4 Mg/Ml Vial SLOW IVP 2 mg DAILY MACKENZIE Administration Enoxaparin Sodium 40 mg 10/21/20 09:00 11/16/20 10:13 Enoxaparin Sodium 40 Mg/0.4 Ml Syringe SC 40 mg BID MACKENZIE Administration Famotidine 20 mg 10/25/20 21:00 11/16/20 10:13 Famotidine 20 Mg Tab PO 20 mg BID MACKENZIE Administration Sodium Chloride 1,000 mls @ 0 mls/hr 10/26/20 12:15 11/10/20 02:15 1/2 Normal Saline IV 1,000 mls .Q0M MACKENZIE Administration KVO Insulin Human Lispro 0 units 10/14/20 23:10 11/15/20 16:05 Humalog 300 Units/3 Ml Vial SC 2 unit .MILD SLIDING SCALE PRN Administration Mild Correctional Scale Polyethylene Glycol 17 gm 11/02/20 09:00 11/16/20 10:13 Polyethylene Glycol 3350 17 Gm Packet PER TUBE Not Given DAILY MACKENZIE Sodium Chloride 10 ml 10/15/20 09:00 11/16/20 10:14 Flush - Normal Saline 10 Ml Syringe IVF 10 ml Q12HR MACKENZIE Administration Zinc Sulfate 220 mg 10/15/20 09:00 11/16/20 10:12 Zinc Sulfate 220 Mg Cap PO 220 mg DAILY MACKENZIE Administration Hospitalist Exam Vitals: Vital Signs (12 hours) Temp Pulse Resp Pulse Ox 11/16/20 14:56 70 11/16/20 12:00 99.0 F 24 H 11/16/20 10:45 80 11/16/20 10:00 27 H 11/16/20 08:00 28 H 97 11/16/20 07:03 64 11/16/20 07:00 98.9 F 11/16/20 06:00 30 H 11/16/20 04:00 99.4 F 36 H Weight Admit Weight 178 lb 9.191 oz Weight 71 lb 1.6 oz Most Recent Monitor Data Heart Rate from ECG 73 NIBP 112/50 NIBP BP-Mean 70 Respiration from ECG 38 SpO2 95 General - other findings: Intubated Eye: PERRL ENT: normocephalic atraumatic Neck: supple Heart: RRR Respiratory: CTAB Gastrointestinal: soft Extremities: no cyanosis Skin: normal turgor Neurological - other findings: Patient intubated Musculoskeletal: normal tone Psychiatric: normal affect Hosp A/P - Plan (1) Pneumonia due to COVID-19 virus Code(s): U07.1 - COVID-19; J12.82 - PNEUMONIA DUE TO CORONAVIRUS DISEASE 2019 Status: Acute Plan: Continue Dexamethasone/Vit C/Zinc/D3/Lovenox (2) Acute respiratory failure with hypoxia and hypercarbia Code(s): J96.01 - ACUTE RESPIRATORY FAILURE WITH HYPOXIA; J96.02 - ACUTE RESPIRATORY FAILURE WITH HYPERCAPNIA Status: Acute Plan: [facility]anable, [facility] (3) Acute metabolic encephalopathy Code(s): G93.41 - METABOLIC ENCEPHALOPATHY Status: Acute Plan: Persistent and end-stage process (4) Diabetes Code(s): E11.9 - TYPE 2 DIABETES MELLITUS WITHOUT COMPLICATIONS Status: Chronic Qualifiers: Diabetes mellitus type: type 2 Diabetes mellitus exterminator insulin use: without exterminator use Diabetes mellitus complication status: without complication Qualified Code(s): E11.9 - Type 2 diabetes mellitus without complications - Plan social worker, respiratory therapy, DVT proph w/SCDs Consults: Palliative Care Continue critical support Continue Dexamethasone Continue Vit C/Zinc/D3 Continue Lovenox Nutritional support with Jacy HOPSON's Palliative care consult appreciated, family considering hospice options Pt showed no meaningful recovery, likely terminal extubation on 11/18/20 Code Status: DNAR Poor Prognosis
[2020-11-17] MEDS: Enoxaparin Sodium 40 MG/0.4 ML SYRINGE SC SCH ×2 (09:15→21:10)
[2020-11-17] MEDS: Famotidine 20 MG TAB PO SCH ×2 (09:16→21:10)
[2020-11-17] MEDS: Cholecalciferol (Vitamin D3) 400 UNITS TAB PO SCH (09:16)
[2020-11-17] MEDS: Polyethylene Glycol 3350 17 GM Packet PER TUBE SCH (09:16)
[2020-11-17] MEDS: Ascorbic Acid 500 mg Chewable Tablet PO SCH (09:16)
[2020-11-17] MEDS: Zinc Sulfate 220 MG CAP PO SCH (09:16)
[2020-11-17] MEDS: Dexamethasone 4 mg/ml Vial SLOW IVP SCH (09:20)
--- NOTE | 2020-11-17 11:01 | PRG ---
DATE OF SERVICE: 11/17/2020 SUBJECTIVE: Mr. Healy remains on mechanical ventilation and looks comfortable. He is currently on FiO2 of 40%, 10 of PEEP. He does not really wake up to stimulation. OBJECTIVE: HEENT: Continues to show an ulcer on his nose and forehead. NECK: Trach in good position. LUNGS: Coarse breath sounds. CARDIAC: S1 and S2. Regular. ABDOMEN: Soft. EXTREMITIES: Edematous. LABORATORY DATA: No new labs were done today. Blood sugars look appropriate. ASSESSMENT: 1. COVID-19 pneumonia. 2. Status post trach and PEG. 3. Encephalopathy. PLAN: Prognosis continues to be extremely poor. We are expecting family to withdrawal care tomorrow. No changes in his medications at this time. Job ID: [id number]
--- NOTE | 2020-11-17 13:53 | PDOC.HOSPP ---
- Subjective Subjective: pt has no meaningful recovery. remains intubated. no acute event overnight - Objective Vital Signs & Weight: Vital Signs (12 hours) Temp Pulse Resp BP Pulse Ox 11/17/20 11:57 39 H 11/17/20 10:35 75 115/54 L 11/17/20 10:00 34 H 11/17/20 08:00 90 L 11/17/20 07:55 71 117/55 L 11/17/20 07:46 25 H 11/17/20 06:00 32 H 11/17/20 04:00 99.0 F 29 H 11/17/20 03:16 57 L 11/17/20 02:00 29 H Weight Admit Weight 178 lb 9.191 oz Weight 71 lb Most Recent Monitor Data Heart Rate from ECG 78 NIBP 116/55 NIBP BP-Mean 75 Respiration from ECG 42 SpO2 91 I&O: 11/16/20 11/17/20 11/18/20 06:59 06:59 06:59 Intake Total 998 907 220 Output Total 628 585 190 Balance 370 322 30 Result Diagrams: 11/16/20 03:00 11/16/20 03:00 Additional Labs: Accuchecks 11/17/20 11/16/20 05:26 21:51 POC Glucose 125 H 169 H Radiology Reviewed by me: Yes EKG Reviewed by me: Yes Hospitalist ROS - Medication Medications: Active Medications Generic Name Dose Route Start Last Admin Trade Name Freq PRN Reason Stop Dose Admin Acetaminophen 650 mg 10/14/20 20:08 11/16/20 22:06 Acetaminophen 325 Mg Tab PO 650 mg Q4H PRN Administration Headache/Fever/Mild Pain (1-3) Ascorbic Acid 1,000 mg 10/15/20 09:00 11/17/20 09:16 Ascorbic Acid 500 Mg Chewable Tablet PO 1,000 mg DAILY MACKENZIE Administration Cholecalciferol 400 units 10/15/20 09:00 11/17/20 09:16 Cholecalciferol (Vitamin D3) 400 Units Tab PO 400 units DAILY MACKENZIE Administration Dexamethasone 2 mg 11/15/20 07:36 11/17/20 09:20 Dexamethasone 4 Mg/Ml Vial SLOW IVP 2 mg DAILY MACKENZIE Administration Enoxaparin Sodium 40 mg 10/21/20 09:00 11/17/20 09:15 Enoxaparin Sodium 40 Mg/0.4 Ml Syringe SC 40 mg BID MACKENZIE Administration Famotidine 20 mg 10/25/20 21:00 11/17/20 09:16 Famotidine 20 Mg Tab PO 20 mg BID MACKENZIE Administration Sodium Chloride 1,000 mls @ 0 mls/hr 10/26/20 12:15 11/10/20 02:15 1/2 Normal Saline IV 1,000 mls .Q0M MACKENZIE Administration KVO Insulin Human Lispro 0 units 10/14/20 23:10 11/15/20 16:05 Humalog 300 Units/3 Ml Vial SC 2 unit .MILD SLIDING SCALE PRN Administration Mild Correctional Scale Polyethylene Glycol 17 gm 11/02/20 09:00 11/17/20 09:16 Polyethylene Glycol 3350 17 Gm Packet PER TUBE 17 gm DAILY MACKENZIE Administration Sodium Chloride 10 ml 10/15/20 09:00 11/17/20 09:20 Flush - Normal Saline 10 Ml Syringe IVF 10 ml Q12HR MACKENZIE Administration Zinc Sulfate 220 mg 10/15/20 09:00 11/17/20 09:16 Zinc Sulfate 220 Mg Cap PO 220 mg DAILY MACKENZIE Administration Hospitalist Exam Vitals: Vital Signs (12 hours) Temp Pulse Resp BP Pulse Ox 11/17/20 11:57 39 H 11/17/20 10:35 75 115/54 L 11/17/20 10:00 34 H 11/17/20 08:00 90 L 11/17/20 07:55 71 117/55 L 11/17/20 07:46 25 H 11/17/20 06:00 32 H 11/17/20 04:00 99.0 F 29 H 11/17/20 03:16 57 L 11/17/20 02:00 29 H Weight Admit Weight 178 lb 9.191 oz Weight 71 lb Most Recent Monitor Data Heart Rate from ECG 78 NIBP 116/55 NIBP BP-Mean 75 Respiration from ECG 42 SpO2 91 General - other findings: intubated Eye: PERRL ENT: normocephalic atraumatic Neck: supple Heart: RRR Respiratory: rhonchi Gastrointestinal: soft Extremities: no cyanosis Skin: normal turgor Neurological - other findings: intubated Psychiatric: normal affect, normal behavior, A&O x 3 Hosp A/P - Plan (1) Pneumonia due to COVID-19 virus Code(s): U07.1 - COVID-19; J12.82 - PNEUMONIA DUE TO CORONAVIRUS DISEASE 2019 Status: Acute Plan: Continue Dexamethasone/Vit C/Zinc/D3/Lovenox (2) Acute respiratory failure with hypoxia and hypercarbia Code(s): J96.01 - ACUTE RESPIRATORY FAILURE WITH HYPOXIA; J96.02 - ACUTE RESPIRATORY FAILURE WITH HYPERCAPNIA Status: Acute Plan: Unweanable, continue mech ventilation (3) Acute metabolic encephalopathy Code(s): G93.41 - METABOLIC ENCEPHALOPATHY Status: Acute Plan: Persistent and end-stage process (4) Diabetes Code(s): E11.9 - TYPE 2 DIABETES MELLITUS WITHOUT COMPLICATIONS Status: Chronic Qualifiers: Diabetes mellitus type: type 2 Diabetes mellitus terminal press operator insulin use: without terminal press operator use Diabetes mellitus complication status: without complication Qualified Code(s): E11.9 - Type 2 diabetes mellitus without complications - Plan social work coordinator, respiratory therapy, DVT proph w/SCDs Consults: Palliative Care cont supportive cares, family likely withdraw cares tomorrow. Code Status: DNAR Poor Prognosis
[2020-11-17] MEDS ORDERED: HYDROcodone/Acetaminophen 5/325 mg Tablet PER TUBE PRN (17:05)
[2020-11-17] MEDS ORDERED: Morphine 2 MG/ML VIAL SLOW IVP PRN (17:06)
[2020-11-18 06:55] VITALS: BP 117/49
[2020-11-18 07:49] VITALS: TEMP 99.8
[2020-11-18] MEDS: Ascorbic Acid 500 mg Chewable Tablet PO SCH (08:38)
[2020-11-18] MEDS: Famotidine 20 MG TAB PO SCH (08:38)
[2020-11-18] MEDS: Zinc Sulfate 220 MG CAP PO SCH (08:38)
[2020-11-18] MEDS: Polyethylene Glycol 3350 17 GM Packet PER TUBE SCH (08:38)
[2020-11-18] MEDS: Cholecalciferol (Vitamin D3) 400 UNITS TAB PO SCH (08:38)
[2020-11-18] MEDS: Enoxaparin Sodium 40 MG/0.4 ML SYRINGE SC SCH (08:38)
[2020-11-18] MEDS: Dexamethasone 4 mg/ml Vial SLOW IVP SCH (08:38)
[2020-11-18] MEDS: Lorazepam 2 MG/ML VIAL SLOW IVP PRN ×2 (10:38→12:00)
[2020-11-18] MEDS: Morphine 2 MG/ML VIAL SLOW IVP SCH ×2 (10:39→12:00)
--- NOTE | 2020-11-18 17:27 | PRG ---
DATE OF SERVICE: 11/18/2020 SUBJECTIVE: Family made a decision to withdraw support today. He was clinically unchanged over the weekend. He had signs on exam today of severe muscle weakness from a work of breathing standpoint. OBJECTIVE: LUNGS: Remarkable for equal breath sounds. HEART: Regular rhythm. ABDOMEN: Soft. EXTREMITIES: Without asymmetry. He was requiring more PEEP today. IMPRESSION: 1. COVID-19 with respiratory failure, status post tracheostomy and percutaneous endoscopic gastrostomy. 2. Persistent encephalopathy. Plan today was for extubation and comfort care moving forward. Job ID: [id number]
--- NOTE | 2020-11-18 17:33 | PDOC.DS.DS ---
Provider Date of Admission: 10/14/20 18:44 Date of Discharge: 11/18/20 Admitting Provider: Noam Galaviz Consultations: Cardiology, Nephrology, Pulmonary Primary Care Physician: [facility] Clinic Course Hospital Course: The patient is unfortunate 79 years old gentleman who has significant past medical history of hypertension, COPD, dyslipidemia, who was diagnosed with COVID-19 infection about weeks ago prior to admission. He presented to ED with respiratory failure, he was found to have O2 sat in the 40%, his GCS score of 3, he was subsequently intubated, and transferred to our facilities for further management. Initial evaluation, including chest x-ray show worsening Covid pneumonia. He was also found to have elevated troponin. Cardiology was consulted for pulmonology and nephrology. Unfortunately, patient was treated aggressively he remained encephalopathic. He underwent tracheotomy. He was unweable. He made no meaningful recovery. Palliative care was consulted. Family member subsequently withdraw care. He was admitted on October 14, 2020, and withdrew care on November 18, 2020. He underwent compassionate extubation, and pronouced on 1220 on November 18, 2020. Multiple family members at bedside, and coping appropriately along with palliative care team. Resuscitation Status: 10/21/20 14:22 Resuscitation Status Routine Resuscitation Status: DNAR: NO Resuscitation Discussed with: per pt's daughter Melody Lab Results: 11/16/20 03:00 11/16/20 03:00 Vitals: Vital Signs (12 hours) Temp Pulse Resp BP Pulse Ox 11/18/20 09:56 39 H 11/18/20 08:00 86 L 11/18/20 07:50 33 H 11/18/20 07:00 99.8 F H 11/18/20 06:53 69 117/49 L 11/18/20 06:00 28 H Weight Admit Weight 178 lb 9.191 oz Weight 156 lb 3.2 oz Most Recent Monitor Data Heart Rate from ECG 75 NIBP 109/85 NIBP BP-Mean 93 Respiration from ECG 25 SpO2 33 Physical Exam: The patient was seen and examined on the day of discharge. Problem (1) ASHLEY (acute kidney injury) Code(s): N17.9 - ACUTE KIDNEY FAILURE, UNSPECIFIED Status: Acute (2) Acute exacerbation of CHF (congestive heart failure) Code(s): I50.9 - HEART FAILURE, UNSPECIFIED Status: Acute Qualifiers: Heart failure type: diastolic Qualified Code(s): I50.33 - Acute on chronic diastolic (congestive) heart failure (3) Acute metabolic encephalopathy Code(s): G93.41 - METABOLIC ENCEPHALOPATHY Status: Acute (4) COPD (chronic obstructive pulmonary disease) Status: Acute (5) Pneumonia due to COVID-19 virus Code(s): U07.1 - COVID-19; J12.82 - PNEUMONIA DUE TO CORONAVIRUS DISEASE 2019 Status: Acute (6) Sepsis Code(s): A41.9 - SEPSIS, UNSPECIFIED ORGANISM Status: Acute Qualifiers: Sepsis type: sepsis due to unspecified organism Sepsis acute organ dysfunction status: with acute organ dysfunction Severe sepsis acute organ dysfunction type: acute renal failure (7) Diabetes Code(s): E11.9 - TYPE 2 DIABETES MELLITUS WITHOUT COMPLICATIONS Status: Chronic Qualifiers: Diabetes mellitus type: type 2 Diabetes mellitus vermin exterminator insulin use: without vermin exterminator use Diabetes mellitus complication status: without complication Qualified Code(s): E11.9 - Type 2 diabetes mellitus without complications (8) Hypoalbuminemia due to protein-calorie malnutrition Code(s): E88.09 - OTH DISORDERS OF PLASMA-PROTEIN METABOLISM, NEC; E46 - UNSPECIFIED PROTEIN-CALORIE MALNUTRITION Status: Chronic (9) Elevated LFTs Code(s): R79.89 - OTHER SPECIFIED ABNORMAL FINDINGS OF BLOOD CHEMISTRY Status: Acute (10) HLD (hyperlipidemia) Code(s): E78.5 - HYPERLIPIDEMIA, UNSPECIFIED Status: Acute (11) NSTEMI (non-ST elevated myocardial infarction) Code(s): I21.4 - NON-ST ELEVATION (NSTEMI) MYOCARDIAL INFARCTION Status: Acute Plan Home Medications: Medication Instructions Recorded Confirmed Type Hydrochlorothiazide 12.5 mg PO DAILY 06/27/19 06/27/19 History Lisinopril 10 mg PO DAILY 06/27/19 06/27/19 History Simvastatin [Zocor] 40 mg PO Q2DAYS 06/27/19 06/27/19 History Ipratropium/Albuterol Sulfate 1 unit NEB QID 06/30/19 06/30/19 History [Duoneb] Mometasone/Formoterol 200/5 2 puff INH BID-RT 06/30/19 06/30/19 History [Dulera 200 Mcg/5 Mcg Inhaler] guaiFENesin ER [Mucinex] 600 mg PO BID 06/30/19 06/30/19 History predniSONE [Prednisone] 10 mg PO DAILY 06/30/19 06/30/19 History Allergies: No Known Allergies Allergy (Verified 06/27/19 18:00) Referrals: [facility] [Primary Care Provider] - Disposition: Quality CORE MEASURES:: N/A
--- NOTE | 2020-11-20 00:17 | PQF ---
CLINICAL DOCUMENTATION CLARIFICATION FORM: Dear : Mick Holden Date / Time: 11/20/20 0016 Please exercise your independent, professional judgment in responding to the clarification form. Clinical indicators are provided on the bottom of this form for your review Based on the clinical indicators on admit, can you determine if Sepsis was present at the time of admission? Diagnosis: Sepsis Present on Admission (POA): [ X ] Yes [ ] No [ ] Unable to determine Physician Signature: Date/Time: For continuity of documentation, please document condition throughout progress notes and discharge summary. Thank You. To be completed by CDI/Coding staff for physician review: Present Clinical Indicators - Signs / Symptoms / Labs Results and Location in Medical Record [X] WBC 5.1; 13.8 Plt count 136; 133, Neutrophils 70.7; 33, Band 56; 42, Lactic acid 1.5 Laboratory 10/14-10/15 [X] SARS-Cov 2 rap RNA Detected Serology 10/14 [X] BP 100/60, Pulse 94, Resp 20, Temp 101.3 Vital signs 10/09 [X] SIRS scoring: pt did meet criteria ED notes p4 10/14 [X] Pt recently diagnosed with Covid 19 H&P p1 10/14 Dr Spivey [X] Acute on chronic respiratory failure H&P p4 10/14 Dr Ellison [X] Covid Pneumonia H&P p4 10/14 Dr Ellison [X] ASHLEY H&P p4 10/14 Dr Ellison [X] Severe sepsis with ASHLEY HPN p5 10/15 Dr Zamorano Present Risk Factors Results and Location in Medical Record [X] 80 year-old Male H&P p1 10/14 Dr Spivey [X] Covid Pneumonia H&P p4 10/14 Dr Ellison [X] DM H&P p4 10/14 Dr Ellison [X] Former Smoker ED Notes 10/14 [X] PCM PN 10/15 Present Treatments Results and Location in Medical Record [X] IVF NS 1L DEC 27 [X] IVF Ceftriaxone Sodium 1 gm DEC 16 [X] Mechanical ventilator Respiratory panel 10/14 [X] Sepsis protocol ED notes p4 10/14 CDS/Plant Operations Manager Signature: Marjorie Sharma Phone #: [phone] Date/Time: 11/20/20 0016 This is a permanent part of the Medical Record [facility]
== END 2020-11-18 12:20 | disposition expired | DRG 4 ==
LOC: ERS 18:36 → CCU 18:44
PROVIDERS: ADMIT Internal Medicine; ATTEND Family Medicine
PROC: 8E0ZXY6 Isolation (ICD-10-PCS; 2020-10-14)
PROC: 5A1955Z Respiratory Ventilation, Greater than 96 Consecutive Hours (ICD-10-PCS; principal; 2020-10-15)
PROC: 0B110F4 Bypass Trachea to Cutaneous with Tracheostomy Device, Open Approach (ICD-10-PCS; 2020-11-05)
PROC: 0DH63UZ Insertion of Feeding Device into Stomach, Percutaneous Approach (ICD-10-PCS; 2020-11-05)
DX: A41.89 Other specified sepsis (principal); U07.1 COVID-19; J12.82 Pneumonia due to coronavirus disease 2019; J96.21 Acute and chronic respiratory failure with hypoxia; I50.33 Acute on chronic diastolic (congestive) heart failure; J96.22 Acute and chronic respiratory failure with hypercapnia; G93.41 Metabolic encephalopathy; I21.4 Non-ST elevation (NSTEMI) myocardial infarction; J44.0 Chronic obstructive pulmonary disease with (acute) lower respiratory infection; N17.9 Acute kidney failure, unspecified; E46 Unspecified protein-calorie malnutrition; I13.0 Hypertensive heart and chronic kidney disease with heart failure and stage 1 through stage 4 chronic kidney disease, or unspecified chronic kidney disease; J44.1 Chronic obstructive pulmonary disease with (acute) exacerbation; M62.82 Rhabdomyolysis; E87.0 Hyperosmolality and hypernatremia; Z99.11 Dependence on respirator [ventilator] status; Z66 Do not resuscitate; Z51.5 Encounter for palliative care; E88.09 Other disorders of plasma-protein metabolism, not elsewhere classified; R13.12 Dysphagia, oropharyngeal phase; D63.1 Anemia in chronic kidney disease; E83.51 Hypocalcemia; E11.22 Type 2 diabetes mellitus with diabetic chronic kidney disease; I95.9 Hypotension, unspecified; R65.20 Severe sepsis without septic shock; E78.5 Hyperlipidemia, unspecified; E78.00 Pure hypercholesterolemia, unspecified; R94.5 Abnormal results of liver function studies; G89.29 Other chronic pain; M54.9 Dorsalgia, unspecified; R74.01 Elevation of levels of liver transaminase levels; N18.9 Chronic kidney disease, unspecified; K13.79 Other lesions of oral mucosa; Z78.1 Physical restraint status; Z87.891 Personal history of nicotine dependence; Z79.899 Other long term (current) drug therapy; Z68.22 Body mass index [BMI] 22.0-22.9, adult; Z79.52 Long term (current) use of systemic steroids
CPT/HCPCS: 0240U; 36415; 36416; 36600; 51702; 71045; 76770; 80048; 80053; 80074; 80306; 80307; 81003; 81015; 82550; 82553; 82805; 83605; 83615; 83735; 83880; 84145; 84484; 85007; 85025; 85027; 85060; 85379; 93005; 93010; 93306; 94002; 94003; 96365; 96366; 96375; J0696; J1100; J1650; J1940; J2060; J2250; J2270; J2405; J2704; J3010; J3490; P9045; S0020; S0028